=== PATIENT | male | born 1995 | race Caucasian/White ===

== ENCOUNTER 2018-03-13 22:03 | Emergency (ER) | payer MEDICARE, MEDICAID ==
[2018-03-13 22:29] VITALS: BP 105/61
--- NOTE | 2018-03-14 00:27 | ED Physician Documentation ---
PD HPI SKIN - Stated complaint Stated Complaint: BITE CHECK - Chief complaint Chief Complaint: General - History obtained from History obtained from: Patient - History of Present Illness Timing - onset: How many weeks ago (symptoms about a week; he was staying with his brother, sleeping on the couch and would get bite areas that were itchy the next day. Has not had new ones since changing where he sleeps. Going to [facility] today and sent to ER for "lotion to put on the bites". Sounds like the counselor there was worried about scabies/persistent infestation.) Timing - details: Gradual onset, Still present (number of bites has plateaued, and lessening in severity the past 2-3 days.) Location: Bodywide (not particularly in fingers/feet/webs.) Quality / character: Itchy. No: Vesicular, Swelling Associated symptoms: No: Fever, Myalgias Contributing factors: Insect bite /sting (he believes were bed bugs or flea bites.) Similar symptoms before: Has not had sx before Recently seen: Not recently seen Review of Systems Constitutional: denies: Fever, Chills Nose: denies: Rhinorrhea / runny nose, Congestion Throat: denies: Sore throat Respiratory: denies: Cough GI: denies: Nausea, Vomiting, Diarrhea Skin: reports: Rash PD PAST MEDICAL HISTORY - Past Medical History Derm: None - Present Medications Home Medications: Ambulatory Orders Medication Instructions Recorded Confirmed Betamethasone Valerate 1 applic TP BID PRN #15 cream..g. 03/14/18 Cetirizine [ZyrTEC] 10 mg PO DAILY #20 tablet 03/14/18 Dexamethasone [Decadron] 4 mg PO DAILY #5 tablet 03/14/18 Permethrin 5% Cream 60 applic TOP ONCE #1 tube 03/14/18 - Allergies Allergies/Adverse Reactions: Allergies Allergy/AdvReac Type Severity Reaction Status Date / Time No Known Drug Allergies Allergy Verified 03/14/18 00:50 PD ED PE NORMAL - Vitals Vital signs reviewed: Yes - General General: Alert and oriented X 3, No acute distress, Well developed/nourished - Derm Derm: Normal color, Warm and dry, Other (multiple discrete red bumps rash without vesicles. Not linear pattern. no purulence nor pustules. ) Results - Vitals Vitals: Oxygen O2 Source Room air PD MEDICAL DECISION MAKING - ED course Complexity details: considered differential (appearance and timing is of bedbugs and bites are not increasing since he left brothers house sleeping on couch. Not c/w scabies, which would keep progressing. ), d/w patient - Sepsis Event Vital Signs: Oxygen O2 Source Room air Departure - Departure Disposition: 01 Home, Self Care Clinical Impression: Bed bug bite Qualifiers: Encounter type: initial encounter Qualified Code(s): W57.XXXA - Bitten or stung by nonvenomous insect and other nonvenomous arthropods, initial encounter Condition: Stable Record reviewed to determine appropriate education?: Yes Instructions: ED Bites Bed Bug Prescriptions: Betamethasone Valerate 1 applic TP BID PRN #15 cream..g. PRN Reason: Itching Cetirizine [ZyrTEC] 10 mg PO DAILY #20 tablet Dexamethasone [Decadron] 4 mg PO DAILY #5 tablet Permethrin 5% Cream 60 applic TOP ONCE #1 tube Comments: This sounds like a persistent inflammation or reaction to the bedbug bites. We will treat it with oral steroids and antihistamines so as to get all of the areas. You can add betamethasone steroid to the worst areas topically as well. This does not sound like scabies which would still have a persistent infestation. However if Nir[facility] has would want you treated for possible scabies as well, I did include a prescription for the permethrin, which would be a once application from head to toe per package directions. The itching and rash should improve over the next few days. Discharge Date/Time: 03/14/18 01:05
[2018-03-14] MEDS ORDERED: CETIRIZINE 10 MG TABLET PO STA (00:37)
[2018-03-14] MEDS ORDERED: diphenhydrAMINE 25 MG CAPSULE PO STA (00:37)
[2018-03-14] MEDS ORDERED: DEXAMETHASONE 10 MG/ML VIAL PO STA (00:37)
== END 2018-03-14 01:05 | disposition home or self-care (01) ==
LOC: ED 22:03
DX: T14.8XXA Other injury of unspecified body region, initial encounter (principal); W57.XXXA Bitten or stung by nonvenomous insect and other nonvenomous arthropods, initial encounter; Y92.009 Unspecified place in unspecified non-institutional (private) residence as the place of occurrence of the external cause
CPT/HCPCS: 99283; A9270

== ENCOUNTER 2018-04-08 21:37 | Outpatient (CLI) | payer MEDICARE, MEDICAID | END 2018-04-08 21:38 | disposition critical access hospital (66) | LOC: EMS 21:37 | PROVIDERS: ATTEND Surgery | DX: R45.851 Suicidal ideations (principal) | CPT/HCPCS: A0425; A0429 ==

== ENCOUNTER 2018-04-08 21:57 | Emergency (ER) | payer MEDICARE, MEDICAID ==
--- NOTE | 2018-04-08 22:21 | ED Physician Documentation ---
PD HPI MHE - Stated complaint Stated Complaint: SI - Chief complaint Chief Complaint: MHE - History obtained from History obtained from: Patient - History of Present Illness Primary symptom: Suicidal ideation Timing - onset: How many weeks ago (1-2) Contributing factors: Off meds Recently seen: Not recently seen - Additional information Additional information: recently taken in to [facility] [place]. Had been off his medications for months ( Abilify, Trazadone, hydroxyzine; also takes omeprazole and claritin); was taken to a doctor in [place] a few days ago who gave new prescriptions for these medications. He says he had a single dose of his medications and subsequently left [facility] [place], spent time with others smoking marijuana, drinking alcohol, and taking Coric[place]. He acknowledges "I made bad choices" in doing this. He presents to ED due to increasing depression, suicidal thoughts with specific plan (would cut wrists with razor blades). Also says he has been having auditory hallucinations consisting of sounds that make him think someone is standing near or behind him when there is no one there. Requests to speak to a social services director. Patient also c/o bilateral foot pain due to extensive amount of walking over past few days. Review of Systems Cardiac: reports: Reviewed and negative Respiratory: reports: Reviewed and negative GI: reports: Reviewed and negative Musculoskeletal: reports: Extremity pain (bilateral foot pain) Neurologic: reports: Reviewed and negative Psychiatric: reports: Depressed, Suicidal, Hallucinations. denies: Homicidal, Delusions, Anxiety PD PAST MEDICAL HISTORY - Past Medical History Past Medical History: Yes Psych: Other (schizoaffective, depressed type) Derm: None - Past Surgical History Past Surgical History: No - Present Medications Home Medications: Ambulatory Orders Medication Instructions Recorded Confirmed No Known Home Medications [No 04/08/18 04/08/18 Known Home Medications] - Allergies Allergies/Adverse Reactions: Allergies Allergy/AdvReac Type Severity Reaction Status Date / Time No Known Drug Allergies Allergy Verified 03/14/18 00:50 - Living Situation Living Arrangement: reports: [facility] - Social History Does the pt drink ETOH?: Yes PD ED PE NORMAL - Vitals Vital signs reviewed: Yes - General General: Alert and oriented X 3, No acute distress, Well developed/nourished - HEENT HEENT: PERRL, EOMI - Cardiac Cardiac: RRR, No murmur - Respiratory Respiratory: No respiratory distress, Clear bilaterally - Abdomen Abdomen: Soft, Non tender - Derm Derm: Normal color, Warm and dry, Other (few, small, clear blisters on bilateral feet, plantar surfaces of forefoot. ) - Extremities Extremities: No tenderness to palpate - Neuro Neuro: Alert and oriented X 3 - Psych Psych: Normal mood, Normal affect Results - Vitals Vitals: Vital Signs - 24 hr 04/08/18 04/09/18 04/09/18 22:01 06:00 08:36 Temperature 36.8 C 36.8 C Heart Rate 73 70 68 Respiratory 18 18 16 Rate Blood Pressure 110/70 115/65 113/55 L O2 Saturation 97 97 98 Oxygen O2 Source Room air - Labs Labs: Laboratory Tests 04/08/18 04/08/18 04/09/18 22:21 22:30 06:15 WBC 7.5 RBC 4.70 Hgb 13.8 L Hct 40.7 L MCV 86.5 MCH 29.4 MCHC 33.9 RDW 13.5 Plt Count 260 MPV 8.7 Neut # (Auto) 3.4 Lymph # (Auto) 2.8 [place] # (Auto) 1.0 Eos # (Auto) 0.2 Baso # (Auto) 0.1 Absolute Nucleated RBC 0.00 Nucleated RBC % 0.0 Sodium 137 Potassium 3.2 L Chloride 105 Carbon Dioxide 24 Anion Gap 8.0 BUN 20 Creatinine 0.9 Estimated GFR (MDRD) 108 Glucose 104 H Calcium 8.9 Total Bilirubin 1.0 AST 34 ALT 48 Alkaline Phosphatase 57 Total Protein 7.1 Albumin 4.1 Globulin 3.0 Albumin/Globulin Ratio 1.4 Lipase 22 Urine Color YELLOW Urine Clarity CLEAR Urine pH 6.0 Ur Specific [place] >=1.030 H Urine Protein NEGATIVE Urine Glucose (UA) NEGATIVE Urine Ketones NEGATIVE Urine Occult Blood NEGATIVE Urine Nitrite NEGATIVE Urine Bilirubin NEGATIVE Urine Urobilinogen 0.2 (NORMAL) Ur Leukocyte Esterase NEGATIVE Ur Microscopic Review NOT INDICATED Urine Culture Comments NOT INDICATED Salicylates < 6.0 Urine Opiates Screen NEGATIVE Ur Oxycodone Screen NEGATIVE Urine Methadone Screen NEGATIVE Ur Propoxyphene Screen NEGATIVE Acetaminophen < 10 L Ur Barbiturates Screen NEGATIVE Ur Tricyclics Screen NEGATIVE Ur Phencyclidine Scrn NEGATIVE Ur Amphetamine Screen NEGATIVE U Methamphetamines Scrn NEGATIVE U Benzodiazepines Scrn NEGATIVE Urine Cocaine Screen NEGATIVE U Cannabinoids Screen POSITIVE H Ethyl Alcohol < 5.0 PD MEDICAL DECISION MAKING - ED course Complexity details: reviewed results, re-evaluated patient, considered differential, d/w patient ED course: held until AM for SW consult. Case signed out to Dr. Montes at 8 AM pending disposition. - Sepsis Event Vital Signs: Vital Signs - 24 hr 04/08/18 04/09/18 04/09/18 22:01 06:00 08:36 Temperature 36.8 C 36.8 C Heart Rate 73 70 68 Respiratory 18 18 16 Rate Blood Pressure 110/70 115/65 113/55 L O2 Saturation 97 97 98 Oxygen O2 Source Room air
[2018-04-08 22:39] LABS: BASOPHILS # (AUTO) 0.1 10^3/uL (0.0-0.1); BASOPHILS % (AUTO) 0.9 %; EOSINOPHILS # (AUTO) 0.2 10^3/uL (0.0-0.7); EOSINOPHILS % (AUTO) 2.6 %; HGB - HEMOGLOBIN 13.8 g/dL (14.0-18.0); LYMPHOCYTES # (AUTO) 2.8 10^3/uL (1.5-3.5); LYMPHOCYTES % (AUTO) 37.4 %; MEAN CORPUSCULAR HEMOGLOBIN 29.4 pg (27.0-31.0); MEAN CORPUSCULAR HGB CONC 33.9 g/dL (32.0-36.0); MEAN CORPUSCULAR VOLUME 86.5 fL (80.0-94.0); MEAN PLATELET VOLUME 8.7 fL (7.4-11.4); MONOCYTES % (AUTO) 13.9 %; NEUTROPHILS # (AUTO) 3.4 10^3/uL (1.5-6.6); NEUTROPHILS % (AUTO) 45.2 %; PLT - PLATELET COUNT 260 10^3/uL (130-450); RED CELL DISTRIBUTION WIDTH 13.5 % (12.0-15.0); WHITE BLOOD COUNT 7.5 x10^3/uL (4.8-10.8)
[2018-04-08 22:52] LABS: ALBUMIN 4.1 g/dL (3.2-5.5); ALBUMIN/GLOBULIN RATIO 1.4 (1.0-2.2); ALKALINE PHOSPHATASE 57 IU/L (42-121); ALT ALANINE AMINOTRANSFERASE 48 IU/L (10-60); AST ASPARTATE AMINOTRANSFERASE 34 IU/L (10-42); BUN - BLOOD UREA NITROGEN 20 mg/dL (6-20); CALCIUM 8.9 mg/dL (8.5-10.3); CARBON DIOXIDE - CO2 24 mmol/L (21-32); CHLORIDE 105 mmol/L (101-111); CREATININE 0.9 mg/dL (0.6-1.2); GFR - MDRD 108 (>89); GLUCOSE 104 mg/dL (70-100); LIPASE 22 U/L (22-51); SALICYLATE < 6.0 mg/dL; SODIUM 137 mmol/L (135-145); TOTAL PROTEIN 7.1 g/dL (6.7-8.2)
[2018-04-08] MEDS ORDERED: traZODone 50 MG TABLET PO STA (23:02)
[2018-04-08 23:10] LABS: ACETAMINOPHEN < 10 ug/mL (10-30)
[2018-04-08] MEDS ORDERED: IBUPROFEN 600 MG TABLET PO STA (23:21)
[2018-04-09 06:19] LABS: MUDS CUTOFF CONCENTRATIONS CUTOFF CONC BELOW:
[2018-04-09 06:21] LABS: GLUCOSE, URINE (UA) NEGATIVE (NEGATIVE); KETONES,URINE (UA) NEGATIVE (NEGATIVE); LEUKOCYTE ESTERASE, URINE NEGATIVE (NEGATIVE); NITRITE,URINE NEGATIVE (NEGATIVE); OCCULT BLOOD,URINE NEGATIVE (NEGATIVE); PROTEIN,URINE NEGATIVE (NEGATIVE); UROBILINOGEN,URINE 0.2 (NORMAL) E.U./dL (NORMAL)
[2018-04-09 06:22] LABS: CLARITY,URINE CLEAR (CLEAR)
[2018-04-09 06:23] LABS: BILIRUBIN,URINE NEGATIVE (NEGATIVE); ICTOTEST,URINE NEGATIVE
[2018-04-09 06:33] LABS: AMPHETAMINE SCREEN,URINE NEGATIVE (NEGATIVE); BENZODIAZEPINES SCREEN, URINE NEGATIVE (NEGATIVE); COCAINE SCREEN URINE NEGATIVE (NEGATIVE); METHADONE SCREEN, URINE NEGATIVE (NEGATIVE); METHAMPHETAMINES SCREEN, URINE NEGATIVE (NEGATIVE); OPIATE SCREEN, URINE NEGATIVE (NEGATIVE); OXYCODONE SCREEN, URINE NEGATIVE (NEGATIVE); PROPOXYPHENE SCREEN, URINE NEGATIVE (NEGATIVE); TRICYCLIC ANTIDEPRESSANT,URINE NEGATIVE (NEGATIVE)
[2018-04-09 08:37] VITALS: BP 113/55
[2018-04-09] MEDS ORDERED: POTASSIUM BICARB 25 MEQ TABLET PO STA (12:19)
== END 2018-04-09 14:07 ==
LOC: EDUNIT# → ED 21:57
DX: R45.851 Suicidal ideations (principal); F32.9 Major depressive disorder, single episode, unspecified
CPT/HCPCS: 36415; 80053; 81003; 83690; 85025; 99284; 99285; A9270; 80306; 80307; 80320; 80329; 81001; 87086; 99283

== ENCOUNTER 2018-04-17 02:34 | Outpatient (CLI) | payer MEDICARE, MEDICAID | END 2018-04-17 02:35 | disposition critical access hospital (66) | LOC: EMS 02:34 | PROVIDERS: ATTEND Surgery | DX: Z72.89 Other problems related to lifestyle (principal) | CPT/HCPCS: A0425; A0429 ==

== ENCOUNTER 2018-04-17 02:51 | Emergency (ER) | payer MEDICARE, MEDICAID ==
--- NOTE | 2018-04-17 05:12 | ED Physician Documentation ---
History of Present Illness - Stated complaint Stated Complaint: MHE - History obtained from History obtained from: Patient - History of Present Illness Timing: Chronic Pain level max: 0 Pain level now: 0 - Additonal information Additional information: 23-year-old male was brought in for evaluation of methamphetamine abuse. The patient told police that he wanted help. The patient reports smoking an excessive amount of methamphetamines. No reports of trauma or acute medical complaints or reports of suicidal or homicidal ideations. The patient is requesting help to get placed into detox. Review of Systems Constitutional: denies: Fever Eyes: denies: Decreased vision Ears: denies: Ear pain Cardiac: denies: Chest pain / pressure Respiratory: denies: Cough GI: denies: Abdominal Pain : denies: Dysuria Skin: denies: Rash Musculoskeletal: denies: Neck pain Neurologic: denies: Generalized weakness Psychiatric: denies: Suicidal, Homicidal PD PAST MEDICAL HISTORY - Past Medical History Psych: Other (schizoaffective, depressed type) Derm: None - Past Surgical History Past Surgical History: No - Present Medications Home Medications: Ambulatory Orders Medication Instructions Recorded Confirmed No Known Home Medications 04/08/18 04/17/18 - Allergies Allergies/Adverse Reactions: Allergies Allergy/AdvReac Type Severity Reaction Status Date / Time garlic Allergy Anaphylaxis Verified 04/17/18 05:48 - Social History Does the pt smoke?: No Smoking Status: Never smoker Does the pt drink ETOH?: Yes - POLST Patient has POLST: No PD ED PE NORMAL - General General: Other (The patient's alert but appears heavily intoxicated for m ethamphetamines) - HEENT HEENT: Atraumatic, PERRL, EOMI - Cardiac Cardiac: RRR, Strong equal pulses - Respiratory Respiratory: No respiratory distress - Extremities Extremities: No deformity, No tenderness to palpate, Normal ROM s pain - Neuro Neuro: Other (The patient's alert, high and methamphetamines, the patient ambulates on his own accord and is moving all 4 extremities and appears to have no gross focal motor deficit) - Psych Psych: Other (Bizarre affect secondary to methamphetamine intoxication) Results - Vitals Vitals: Vital Signs - 24 hr 04/17/18 05:43 Temperature 36.6 C Heart Rate 81 Respiratory 20 Rate Blood Pressure 164/85 H O2 Saturation 97 Oxygen O2 Source Room air - Labs Labs: Laboratory Tests 04/17/18 04/17/18 06:19 06:19 WBC 9.5 RBC 4.81 Hgb 14.3 Hct 41.6 L MCV 86.4 MCH 29.7 MCHC 34.4 RDW 13.5 Plt Count 253 MPV 8.3 Neut # (Auto) 6.0 Lymph # (Auto) 2.1 [place] # (Auto) 1.2 H Eos # (Auto) 0.1 Baso # (Auto) 0.1 Absolute Nucleated RBC 0.01 Nucleated RBC % 0.1 Sodium 138 Potassium 3.7 Chloride 104 Carbon Dioxide 25 Anion Gap 9.0 BUN 12 Creatinine 0.7 Estimated GFR (MDRD) 142 Glucose 89 Calcium 9.1 Total Bilirubin 0.8 AST 32 ALT 44 Alkaline Phosphatase 67 Total Protein 7.4 Albumin 4.4 Globulin 3.0 Albumin/Globulin Ratio 1.5 Lipase 22 Salicylates < 6.0 Acetaminophen < 10 L Ethyl Alcohol < 5.0 PD MEDICAL DECISION MAKING - ED course ED course: 07:00 AM Patient's care was turned over to the oncoming emergency physician Dr. Chacon. The patient is pending evaluation by social work. And for final disposition - Sepsis Event Vital Signs: Vital Signs - 24 hr 04/17/18 05:43 Temperature 36.6 C Heart Rate 81 Respiratory 20 Rate Blood Pressure 164/85 H O2 Saturation 97 Oxygen O2 Source Room air Departure - Departure Clinical Impression: Drug abuse
[2018-04-17 06:25] LABS: BASOPHILS # (AUTO) 0.1 10^3/uL (0.0-0.1); BASOPHILS % (AUTO) 0.7 %; EOSINOPHILS # (AUTO) 0.1 10^3/uL (0.0-0.7); HGB - HEMOGLOBIN 14.3 g/dL (14.0-18.0); LYMPHOCYTES # (AUTO) 2.1 10^3/uL (1.5-3.5); LYMPHOCYTES % (AUTO) 22.6 %; MEAN CORPUSCULAR HEMOGLOBIN 29.7 pg (27.0-31.0); MEAN CORPUSCULAR HGB CONC 34.4 g/dL (32.0-36.0); MEAN CORPUSCULAR VOLUME 86.4 fL (80.0-94.0); MEAN PLATELET VOLUME 8.3 fL (7.4-11.4); MONOCYTES # (AUTO) 1.2 10^3/uL (0.0-1.0); MONOCYTES % (AUTO) 12.8 %; NEUTROPHILS % (AUTO) 62.9 %; PLT - PLATELET COUNT 253 10^3/uL (130-450); RED BLOOD COUNT 4.81 10^6/uL (4.70-6.10); RED CELL DISTRIBUTION WIDTH 13.5 % (12.0-15.0); WHITE BLOOD COUNT 9.5 x10^3/uL (4.8-10.8)
[2018-04-17 06:34] LABS: MUDS CUTOFF CONCENTRATIONS CUTOFF CONC BELOW:
[2018-04-17 06:40] LABS: ALBUMIN 4.4 g/dL (3.2-5.5); ALBUMIN/GLOBULIN RATIO 1.5 (1.0-2.2); ALKALINE PHOSPHATASE 67 IU/L (42-121); ALT ALANINE AMINOTRANSFERASE 44 IU/L (10-60); AST ASPARTATE AMINOTRANSFERASE 32 IU/L (10-42); BILIRUBIN,TOTAL 0.8 mg/dL (0.2-1.0); BUN - BLOOD UREA NITROGEN 12 mg/dL (6-20); CALCIUM 9.1 mg/dL (8.5-10.3); CARBON DIOXIDE - CO2 25 mmol/L (21-32); CHLORIDE 104 mmol/L (101-111); CREATININE 0.7 mg/dL (0.6-1.2); GFR - MDRD 142 (>89); GLUCOSE 89 mg/dL (70-100); LIPASE 22 U/L (22-51); SALICYLATE < 6.0 mg/dL; SODIUM 138 mmol/L (135-145); TOTAL PROTEIN 7.4 g/dL (6.7-8.2)
[2018-04-17 06:41] LABS: ACETAMINOPHEN < 10 ug/mL (10-30)
[2018-04-17 06:46] LABS: AMPHETAMINE SCREEN,URINE POSITIVE (NEGATIVE); BENZODIAZEPINES SCREEN, URINE NEGATIVE (NEGATIVE); COCAINE SCREEN URINE NEGATIVE (NEGATIVE); METHADONE SCREEN, URINE NEGATIVE (NEGATIVE); METHAMPHETAMINES SCREEN, URINE POSITIVE (NEGATIVE); OPIATE SCREEN, URINE NEGATIVE (NEGATIVE); OXYCODONE SCREEN, URINE NEGATIVE (NEGATIVE); PROPOXYPHENE SCREEN, URINE NEGATIVE (NEGATIVE); TRICYCLIC ANTIDEPRESSANT,URINE NEGATIVE (NEGATIVE)
[2018-04-17] MEDS ORDERED: LORazepam 0.5 MG TABLET PO STA ×2 (11:23→13:38)
[2018-04-17] MEDS ORDERED: IBUPROFEN 600 MG TABLET PO STA (13:38)
[2018-04-17] MEDS ORDERED: ACETAMINOPHEN 325 MG TABLET PO STA (13:48)
[2018-04-17] MEDS ORDERED: DOXYCYCLINE 100 MG TABLET PO STA (13:48)
--- NOTE | 2018-04-17 13:48 | ED Physician Documentation ---
ED Addendum - Addendum Addendum: 04/17/18 13:41 He is still a little fidgety and anxious here but is feeling better than he did last night. There is no suicidal ideation. He is concerned about some blisters on his feet and worries that it might have some infection to them. I do not see particular redness nor lymphangitis. We could dose with the dose of antibiotic or more likely topical just in case. We will give him some Ativan to help with an of the anxiety and coming off of the math. Social work saw him and is arranging care at [facility]. He will get a cab voucher to get their. They can take him until 7 PM so he will leave about 6 PM here. The patient is comfortable with this arrangement. 04/17/18 17:16 Diagnoses: methamphetamine substance abuse anxiety disorder
[2018-04-17 17:37] VITALS: BP 137/64
== END 2018-04-17 17:54 | disposition home or self-care (01) ==
LOC: ED 02:51
DX: F15.10 Other stimulant abuse, uncomplicated (principal); F41.9 Anxiety disorder, unspecified
CPT/HCPCS: 36415; 80053; 83690; 85025; 99283; A9270; 80306; 80307; 80320; 80329

== ENCOUNTER 2018-05-16 04:51 | Emergency (ER) | payer MEDICARE, MEDICAID ==
[2018-05-16] MEDS ORDERED: CETIRIZINE 10 MG TABLET PO STA (05:01)
[2018-05-16] MEDS ORDERED: ALBUTEROL NEB 2.5 MG/3 ML INH STA (05:01)
[2018-05-16] MEDS ORDERED: BENZONATATE 100 MG CAPSULE PO STA (05:01)
--- NOTE | 2018-05-16 05:05 | ED Physician Documentation ---
PD HPI URI - Stated complaint Stated Complaint: CONGESTION - Chief complaint Chief Complaint: Resp - History obtained from History obtained from: Patient - History of Present Illness Timing - onset: How many days ago (2) Timing duration: Days (2) Timing details: Gradual onset Pain level max: 3 Pain level now: 3 Associated symptoms: Nasal congestion, Rhinorrhea, Sore throat, Dyspnea (states hard to breathe tonight), Other (states sometimes dry, sometimes productive of "sick tasting" sputum). No: Fever, Chills Contributing factors: Sick contact, Other (daily smoker) Improves by: Rest Worsened by: Activity, Breathing Similar symptoms before: Diagnosis (states has this every year) Review of Systems Ten Systems: 10 systems reviewed and negative Constitutional: denies: Fever, Chills Ears: denies: Ear pain Nose: reports: Rhinorrhea / runny nose, Congestion GI: denies: Vomiting, Diarrhea Skin: denies: Rash Musculoskeletal: denies: Neck pain, Back pain Neurologic: denies: Headache PD PAST MEDICAL HISTORY - Past Medical History Past Medical History: No Psych: Other Derm: None - Past Surgical History Past Surgical History: No - Present Medications Home Medications: Ambulatory Orders Medication Instructions Recorded Confirmed Lorazepam [Ativan] 1 mg PO Q8H PRN #12 tablet 04/17/18 Albuterol Sulf [Ventolin Hfa 1 - 2 puffs INH Q4HR PRN #1 inhaler 05/16/18 Inhaler] Benzonatate [Tessalon Perle] 100 - 200 mg PO TID PRN #30 capsule 05/16/18 Cetirizine [ZyrTEC] 10 mg PO DAILY PRN #20 tablet 05/16/18 - Allergies Allergies/Adverse Reactions: Allergies Allergy/AdvReac Type Severity Reaction Status Date / Time garlic Allergy Anaphylaxis Verified 04/17/18 05:48 - Social History Does the pt smoke?: Yes Smoking Status: Current every day smoker Does the pt drink ETOH?: Yes - Immunizations Immunizations are current?: Yes - POLST Patient has POLST: No PD ED PE NORMAL - Vitals Vital signs reviewed: Yes - General General: Alert and oriented X 3, No acute distress - HEENT HEENT: PERRL, Ears normal, Moist mucous membranes, Pharynx benign - Neck Neck: Supple, no meningeal sign, No adenopathy - Cardiac Cardiac: RRR, No murmur - Respiratory Respiratory: No respiratory distress, Other (Mild diminished breath sounds bilaterally) - Abdomen Abdomen: Soft, Non tender, Non distended - Back Back: No spinal TTP - Derm Derm: Warm and dry, No rash - Neuro Neuro: Alert and oriented X 3 Results - Vitals Vitals: Vital Signs - 24 hr 05/16/18 04:54 Temperature 36.4 C L Heart Rate 61 Respiratory 16 Rate Blood Pressure 130/72 O2 Saturation 100 Oxygen O2 Source Room air PD MEDICAL DECISION MAKING - ED course Complexity details: re-evaluated patient, considered differential, d/w patient ED course: Patient is a 23-year-old male who presents to the emergency department with what appears to be a viral upper respiratory infection. No fevers. No hypoxia. No respiratory distress. Feels better after nebulizer treatment. Will place on decongestants and albuterol for home. We will have him follow-up with his doctor for further care. Patient counseled regarding signs and symptoms for which I believe and urgent re-evaluation would be necessary. Patient with good understanding of and agreement to plan and is comfortable going home at this time This document was made in part using voice recognition software. While efforts are made to proofread this document, sound alike and grammatical errors may occur. - Sepsis Event Vital Signs: Vital Signs - 24 hr 05/16/18 04:54 Temperature 36.4 C L Heart Rate 61 Respiratory 16 Rate Blood Pressure 130/72 O2 Saturation 100 Oxygen O2 Source Room air Departure - Departure Disposition: 01 Home, Self Care Clinical Impression: Viral URI Condition: Good Instructions: ED URI Viral W Wheezing Follow-Up: your,doctor as needed [Other] Prescriptions: Albuterol Sulf [Ventolin Hfa Inhaler] 1 - 2 puffs INH Q4HR PRN #1 inhaler PRN Reason: Shortness Of Air/Wheezing Benzonatate [Tessalon Perle] 100 - 200 mg PO TID PRN #30 capsule PRN Reason: Cough Cetirizine [ZyrTEC] 10 mg PO DAILY PRN #20 tablet PRN Reason: Nasal Congestion Comments: Follow up with your doctor for further care. There is no evidence of pneumonia on your exam today. The cough will last for 2-3 weeks. Return if you worsen.
[2018-05-16 05:33] VITALS: BP 113/62
== END 2018-05-16 05:36 | disposition home or self-care (01) ==
LOC: ED 04:51
DX: J06.9 Acute upper respiratory infection, unspecified (principal); F17.200 Nicotine dependence, unspecified, uncomplicated
CPT/HCPCS: 94640; 94664; 99283; A9270

== ENCOUNTER 2018-05-22 09:34 | Emergency (ER) | payer MEDICARE, MEDICAID ==
--- NOTE | 2018-05-22 10:50 | ED Physician Documentation ---
History of Present Illness - Stated complaint Stated Complaint: L FOOT BLISTER-PX - Chief complaint Chief Complaint: Ext Problem - Additonal information Additional information: hx from pt 23 male new shoes blister to heel hurts to walk fears infection also lost his albuterol inhaler Review of Systems Musculoskeletal: reports: Other (blister) PD PAST MEDICAL HISTORY - Past Medical History Past Medical History: Yes Psych: Depression, Anxiety Musculoskeletal: Chronic back pain Derm: None - Past Surgical History Past Surgical History: No - Present Medications Home Medications: Ambulatory Orders Medication Instructions Recorded Confirmed Albuterol Sulf [Ventolin Hfa 1 - 2 puffs INH Q4HR PRN #1 inhaler 05/16/18 Inhaler] Benzonatate [Tessalon Perle] 100 - 200 mg PO TID PRN #30 capsule 05/16/18 Albuterol Sulfate [Proair Hfa 2 puffs INH Q4H PRN #1 inhaler 05/22/18 Inhaler] Aripiprazole [Abilify] 05/22/18 Cyclobenzaprine [Flexeril] 05/22/18 traZODone [Desyrel] 05/22/18 - Allergies Allergies/Adverse Reactions: Allergies Allergy/AdvReac Type Severity Reaction Status Date / Time garlic Allergy Anaphylaxis Verified 05/22/18 09:54 - Social History Does the pt smoke?: Yes Smoking Status: Current every day smoker Does the pt drink ETOH?: No Does the pt have substance abuse?: Yes Substance Use and Type: Marijuana - Immunizations Immunizations are current?: Yes - POLST Patient has POLST: No PD ED PE NORMAL - Vitals Vital signs reviewed: Yes - Cardiac Cardiac: RRR - Respiratory Respiratory: Clear bilaterally - Extremities Extremities: Other (denuded blister to R heel and small intact to lateral foot, no erythema pus streaking) Results - Vitals Vitals: Vital Signs - 24 hr 05/22/18 09:50 Temperature 36.2 C L Heart Rate 74 Respiratory 20 Rate Blood Pressure 128/61 O2 Saturation 96 Oxygen O2 Source Room air Departure - Departure Disposition: 01 Home, Self Care Clinical Impression: Blister, Medication refill Condition: Good Instructions: ED Crutch Walking, ED Blister Prescriptions: Albuterol Sulfate [Proair Hfa Inhaler] 2 puffs INH Q4H PRN #1 inhaler PRN Reason: Shortness Of Air/Wheezing
[2018-05-22] MEDS ORDERED: BACITRACIN OINT TOP ONE (11:03)
[2018-05-22 11:14] VITALS: BP 118/64
== END 2018-05-22 11:13 | disposition home or self-care (01) ==
LOC: ED 09:34
DX: S90.822A Blister (nonthermal), left foot, initial encounter (principal); X58.XXXA Exposure to other specified factors, initial encounter; Z76.0 Encounter for issue of repeat prescription; F17.200 Nicotine dependence, unspecified, uncomplicated
CPT/HCPCS: 99283; A9270

== ENCOUNTER 2018-05-23 16:03 | Emergency (ER) | payer MEDICARE, MEDICAID ==
[2018-05-23 16:08] VITALS: BP 131/75
--- NOTE | 2018-05-23 16:39 | ED Physician Documentation ---
History of Present Illness - Stated complaint Stated Complaint: SWELLING OF HANDS/FEETS - Chief complaint Chief Complaint: General - History obtained from History obtained from: Patient - History of Present Illness Timing: Today - Additonal information Additional information: 23-year-old male resident at [facility] discovered today that his hands are blue in color and he consulted his physician who told him to come directly to the emergency department. Patient arrives to the emergency department with chief complaint of his hands being blue and he states he otherwise does not feel ill. He does have some swelling of both his hands and his feet and he is on his feet a lot. He walks about 5 miles per day going back and forth between [facility] and about a mile away where he can get onto a [place] to smoke marijuana. He states that he has been 35 days clear and free of all other drugs and continues to use marijuana to calm himself down. He does this multiple times per day and is developed a big blister on the back of his heel he is now walking in flip-flops. Review of Systems Constitutional: reports: Weight Loss. denies: Fever, Chills, Myalgias, Fatigue, Sweats Eyes: denies: Decreased vision Ears: denies: Ear pain Nose: denies: Congestion Throat: denies: Sore throat Cardiac: denies: Chest pain / pressure Respiratory: denies: Dyspnea, Cough GI: denies: Nausea, Vomiting : denies: Frequency Skin: reports: Rash Musculoskeletal: reports: Extremity swelling. denies: Neck pain, Back pain Neurologic: denies: Generalized weakness, Focal weakness, Numbness PD PAST MEDICAL HISTORY - Past Medical History Past Medical History: Yes Psych: Depression, Anxiety Musculoskeletal: Chronic back pain Derm: None - Past Surgical History Past Surgical History: No - Present Medications Home Medications: Ambulatory Orders Medication Instructions Recorded Confirmed Albuterol Sulf [Ventolin Hfa 1 - 2 puffs INH Q4HR PRN #1 inhaler 05/16/18 Inhaler] Benzonatate [Tessalon Perle] 100 - 200 mg PO TID PRN #30 capsule 05/16/18 Albuterol Sulfate [Proair Hfa 2 puffs INH Q4H PRN #1 inhaler 05/22/18 Inhaler] Aripiprazole [Abilify] 05/22/18 Cyclobenzaprine [Flexeril] 05/22/18 traZODone [Desyrel] 05/22/18 - Allergies Allergies/Adverse Reactions: Allergies Allergy/AdvReac Type Severity Reaction Status Date / Time garlic Allergy Anaphylaxis Verified 05/22/18 09:54 - Social History Does the pt smoke?: Yes Smoking Status: Current every day smoker Does the pt drink ETOH?: No Does the pt have substance abuse?: Yes - Immunizations Immunizations are current?: Yes - POLST Patient has POLST: No PD ED PE NORMAL - Vitals Vital signs reviewed: Yes (hypertensive ) - General General: Alert and oriented X 3, No acute distress, Well developed/nourished - HEENT HEENT: Atraumatic, PERRL, EOMI - Neck Neck: Supple, no meningeal sign, No bony TTP - Respiratory Respiratory: No respiratory distress - Derm Derm: Warm and dry, No rash, Other (There is black discoloration to the hands and fingers similar to the new sweat pants he is wearing. This is wiped clean with an alcohol wipe. ) - Extremities Extremities: No deformity, Other (There is trace edema to the feet and a 4cm round granulating blister bed on the left heal. ) - Neuro Neuro: Alert and oriented X 3, enamel pulverizer 2-12 intact, No motor deficit, No sensory deficit, Normal speech Eye Opening: Spontaneous Motor: Obeys Commands Verbal: Oriented GCS Score: 15 - Psych Psych: Normal mood, Normal affect Results - Vitals Vitals: Vital Signs - 24 hr 05/23/18 05/23/18 16:06 16:08 Temperature 36.6 C Heart Rate 66 Respiratory 16 Rate Blood Pressure 131/75 H O2 Saturation 100 Oxygen O2 Source Room air PD MEDICAL DECISION MAKING - ED course Complexity details: considered differential, d/w patient ED course: 23-year-old male with staining of his hands from the fabric dye of his new pants. He does have some mild edema to his feet and hands and I suspect this is mostly due to exposure and overuse. He has a healing blister to the left heel which is large and without evidence of infection. This is dressed. I have addressed his presenting complaint and recommended he obtain a well fitting pair of shoes and follow up with his provider about adult ADHD. Departure - Departure Disposition: 01 Home, Self Care Clinical Impression: Discoloration of skin of hand, Blister Condition: Stable Instructions: ED Blister Follow-Up: Alex Torres MD [Primary Care Provider] - Comments: obtain a high quality pair of well fitting shoes to walk in.
--- NOTE | 2018-05-23 18:07 | ED Physician Documentation ---
ED Addendum - Addendum Addendum: 05/23/18 18:06 unscheduled return visit - chart accessed for follow up and educational purposes 05/23/18 18:07
== END 2018-05-23 16:59 | disposition home or self-care (01) ==
LOC: ED 16:03
DX: L98.8 Other specified disorders of the skin and subcutaneous tissue (principal); S60.529A Blister (nonthermal) of unspecified hand, initial encounter; S90.822A Blister (nonthermal), left foot, initial encounter; X58.XXXA Exposure to other specified factors, initial encounter; F17.200 Nicotine dependence, unspecified, uncomplicated
CPT/HCPCS: 99283

== ENCOUNTER 2018-05-26 21:02 | Emergency (ER) | payer MEDICARE, MEDICAID ==
[2018-05-26 21:59] LABS: MUDS CUTOFF CONCENTRATIONS CUTOFF CONC BELOW:
[2018-05-26 22:10] LABS: BASOPHILS # (AUTO) 0.1 10^3/uL (0.0-0.1); BASOPHILS % (AUTO) 0.7 %; EOSINOPHILS # (AUTO) 0.3 10^3/uL (0.0-0.7); EOSINOPHILS % (AUTO) 3.7 %; HGB - HEMOGLOBIN 14.4 g/dL (14.0-18.0); LYMPHOCYTES # (AUTO) 3.2 10^3/uL (1.5-3.5); LYMPHOCYTES % (AUTO) 38.3 %; MEAN CORPUSCULAR HEMOGLOBIN 29.8 pg (27.0-31.0); MEAN CORPUSCULAR HGB CONC 34.6 g/dL (32.0-36.0); MEAN CORPUSCULAR VOLUME 86.1 fL (80.0-94.0); MEAN PLATELET VOLUME 8.6 fL (7.4-11.4); MONOCYTES # (AUTO) 0.9 10^3/uL (0.0-1.0); MONOCYTES % (AUTO) 10.5 %; NEUTROPHILS # (AUTO) 3.8 10^3/uL (1.5-6.6); NEUTROPHILS % (AUTO) 46.8 %; PLT - PLATELET COUNT 246 10^3/uL (130-450); RED BLOOD COUNT 4.81 10^6/uL (4.70-6.10); RED CELL DISTRIBUTION WIDTH 13.7 % (12.0-15.0); WHITE BLOOD COUNT 8.2 x10^3/uL (4.8-10.8)
[2018-05-26 22:22] LABS: BUN - BLOOD UREA NITROGEN 13 mg/dL (6-20); CALCIUM 9.4 mg/dL (8.5-10.3); CARBON DIOXIDE - CO2 26 mmol/L (21-32); CHLORIDE 105 mmol/L (101-111); CREATININE 0.6 mg/dL (0.6-1.2); GFR - MDRD 170 (>89); GLUCOSE 95 mg/dL (70-100); SODIUM 140 mmol/L (135-145)
[2018-05-26 22:24] LABS: AMPHETAMINE SCREEN,URINE NEGATIVE (NEGATIVE); BENZODIAZEPINES SCREEN, URINE NEGATIVE (NEGATIVE); COCAINE SCREEN URINE NEGATIVE (NEGATIVE); METHADONE SCREEN, URINE NEGATIVE (NEGATIVE); METHAMPHETAMINES SCREEN, URINE NEGATIVE (NEGATIVE); OPIATE SCREEN, URINE NEGATIVE (NEGATIVE); OXYCODONE SCREEN, URINE NEGATIVE (NEGATIVE); PROPOXYPHENE SCREEN, URINE NEGATIVE (NEGATIVE); TRICYCLIC ANTIDEPRESSANT,URINE NEGATIVE (NEGATIVE)
--- NOTE | 2018-05-26 23:25 | ED Physician Documentation ---
PD HPI MHE - Stated complaint Stated Complaint: SI - Chief complaint Chief Complaint: MHE - Additional information Additional information: 23-year-old male presents the emergency department for evaluation of mental healthIncreased suicidal ideations and currently does not feel safe the patient reports at his current location secondary to his suicidal ideations. The patient is not done anything to harm himself. The patient does not have a clear plan at this time. The patient is requesting help. The patient denies any acute medical complaints. Symptoms are described as moderate. No other associated symptoms. No relieving factors. Review of Systems Constitutional: denies: Fever Eyes: denies: Discharge Ears: denies: Drainage/discharge Nose: denies: Rhinorrhea / runny nose Throat: denies: Sore throat Cardiac: denies: Palpitations Respiratory: denies: Cough GI: denies: Abdominal Pain : denies: Dysuria Skin: denies: Rash Musculoskeletal: denies: Neck pain Neurologic: denies: Syncope Psychiatric: reports: Suicidal. denies: Hallucinations Immunocompromised: denies: Chemotherapy PD PAST MEDICAL HISTORY - Past Medical History Past Medical History: Yes Psych: Depression, Anxiety Musculoskeletal: Chronic back pain Derm: None - Past Surgical History Past Surgical History: No - Present Medications Home Medications: Ambulatory Orders Medication Instructions Recorded Confirmed Albuterol Sulf [Ventolin Hfa 1 - 2 puffs INH Q4HR PRN #1 inhaler 05/16/18 Inhaler] Albuterol Sulfate [Proair Hfa 2 puffs INH Q4H PRN #1 inhaler 05/22/18 Inhaler] Aripiprazole [Abilify] 15 mg PO DAILY 05/22/18 traZODone [Desyrel] 100 mg PO DAILY PM 05/22/18 Cetirizine [ZyrTEC] 10 mg PO DAILY 05/26/18 05/26/18 Omeprazole 40 mg PO BID 05/26/18 05/26/18 - Allergies Allergies/Adverse Reactions: Allergies Allergy/AdvReac Type Severity Reaction Status Date / Time garlic Allergy Anaphylaxis Verified 05/26/18 21:13 - Social History Does the pt smoke?: Yes Smoking Status: Current every day smoker Does the pt drink ETOH?: No Does the pt have substance abuse?: Yes - Immunizations Immunizations are current?: Yes - POLST Patient has POLST: No PD ED PE NORMAL - General General: Alert and oriented X 3, No acute distress - HEENT HEENT: Atraumatic, PERRL, EOMI, Ears normal - Neck Neck: Supple, no meningeal sign - Cardiac Cardiac: RRR, Strong equal pulses - Respiratory Respiratory: No respiratory distress - Abdomen Abdomen: Soft, Non tender, Non distended - Derm Derm: Normal color - Extremities Extremities: No deformity, No edema - Neuro Neuro: Alert and oriented X 3, Normal speech PD ED PE EXPANDED - Psych Psych: Suicidal Results - Vitals Vitals: Vital Signs - 24 hr 05/26/18 05/27/18 05/27/18 21:07 00:12 02:00 Temperature 36.5 C Heart Rate 60 50 L 51 L Respiratory 16 16 15 Rate Blood Pressure 149/78 H 115/52 L 106/60 O2 Saturation 98 97 99 05/27/18 04:39 Temperature 36.3 C L Heart Rate 70 Respiratory 15 Rate Blood Pressure 102/55 L O2 Saturation 100 Oxygen O2 Source Room air - Labs Labs: Laboratory Tests 05/26/18 05/26/18 05/26/18 21:50 21:50 21:52 WBC 8.2 RBC 4.81 Hgb 14.4 Hct 41.5 L MCV 86.1 MCH 29.8 MCHC 34.6 RDW 13.7 Plt Count 246 MPV 8.6 Neut # (Auto) 3.8 Lymph # (Auto) 3.2 Kidder # (Auto) 0.9 Eos # (Auto) 0.3 Baso # (Auto) 0.1 Absolute Nucleated RBC 0.00 Nucleated RBC % 0.1 Sodium 140 Potassium 3.9 Chloride 105 Carbon Dioxide 26 Anion Gap 9.0 BUN 13 Creatinine 0.6 Estimated GFR (MDRD) 170 Glucose 95 Calcium 9.4 Urine Opiates Screen NEGATIVE Ur Oxycodone Screen NEGATIVE Urine Methadone Screen NEGATIVE Ur Propoxyphene Screen NEGATIVE Ur Barbiturates Screen NEGATIVE Ur Tricyclics Screen NEGATIVE Ur Phencyclidine Scrn NEGATIVE Ur Amphetamine Screen NEGATIVE U Methamphetamines Scrn NEGATIVE U Benzodiazepines Scrn NEGATIVE Urine Cocaine Screen NEGATIVE U Cannabinoids Screen POSITIVE H Ethyl Alcohol < 5.0 PD MEDICAL DECISION MAKING - ED course ED course: The patient has been medically cleared and is pending evaluation by tele- psychiatry 0 6:17 AM the patient was seen and evaluated by tele-psychiatry and the recommendations were for the patient to be placed into a behavioral health center. A consult for social work was put in so that they can arrange for placement into a behavioral health center. 07: 00 a.m. the case was turned over to the oncoming emergency physician Dr. Vela For final disposition Departure - Departure Clinical Impression: Suicidal ideations
--- NOTE | 2018-05-27 06:44 | TELEPSYCH PHYS NOTE ---
Telepsych Note - CHIEF COMPLAINT/HX OF PRESENT ILLNESS Cheif Complaint and History of Present Illness: "CC: i have uncontrollable thoughts of wanting to kill myself." HPI. Pt seen via televideo with the help of onsite staff. Pt is a 23 yo male who reports a hx of Schizoaffective Disorder, Bipolar Type, Anxiety, PTSD, Borderline personality disorder and Severe depression. Pt presents to the ED, self referred due to uncontrollable thoughts of wanting to kill myself. Pt reports a 2 week period of worsening depressive sxs. Cites sxs inclusive of depressed mood, poor sleep, decreased appetite, with feelings of hopelessness, worthlessness and helplessness. Pt notes that over the past 1 week his sxs have worsened more significantly with intense and uncontrollable thoughts of wanting to kill himself. Pt states last night he was looking around his home for a suitable method to kill himself. States this scared him and he came to the hospital. Pt reports a prior hx of 6 attempts via various methods including cutting, hanging and overdosing x 3. Pt reports no specific or identifiable trigger currently. Pt reports he has been compliant with his outpt medications and treatment. On ROS, pt reports CAHs to kill himself. Also state voices are derogatory towards him, calling him worthless and useless. Pt Pt denies VHs, delusions nor HI. Pt notes ongoing SI. He is unable to contract for safety outside of the hospital and states he would likely try to harm himself. Pt presents as an acute danger to himself requiring acute inpt psychiatric admission for safety, stabilization and treatment. Pt is voluntary for inpt treatment. - SI/HI/SELF HARM SI/HI/SELF HARM (CURRENT OR HISTORY OF):: SI, Self Harm, Cutting SI/HI/Self Harm Text (Current or History of):: Reports a prior hx of 6 suicide attempts via ODing x 3, cutting and hanging. - VIOLENCE/LEGAL/COLLATERAL Violence - Legal - Collateral: none reported - PSYCHIATRIC HX/TREATMENT HX Psychiatric: Anxiety, Post traumatic stress disorder Psychiatric/Treatment Hx Other: Schizoaffective Disorder, Bipolar Type - DRUG/ALCOHOL HX Substance Use and Type: Marijuana - MEDICAL HX Does the pt have a hx of MRSA?: No Skin: None Musculoskeletal: Chronic back pain PMH Other: Hep C - HOME MEDICATIONS Home Meds (as last confirmed): Patient History Medication Instructions Recorded Confirmed Aripiprazole [Abilify] 15 mg PO DAILY 05/22/18 traZODone [Desyrel] 100 mg PO DAILY PM 05/22/18 Cetirizine [ZyrTEC] 10 mg PO DAILY 05/26/18 05/26/18 Omeprazole 40 mg PO BID 05/26/18 05/26/18 - ALLERGIES Allergies (as last confirmed): Allergies Allergy/AdvReac Type Severity Reaction Status Date / Time garlic Allergy Anaphylaxis Verified 05/26/18 21:13 - FAMILY PSYCH/SUICIDE/SOCIAL HX-MENTAL Family - Suicide - Social Hx and Mental Status Exam: Reports significant family hx of mental illness, unclear of diagnoses - TREATMENT/PHARMACOLOGICAL RECOMMENDATION Treatment - Pharmacological - Therapy Recommendations: Patient requires acute inpt psychiatric admission For safety, stabilization and treatment Pt is voluntary for inpatient treatment Please confirm and continue pt current outpt psychiatric medication regimen. - TIME SPENT & PROVIDER LOCATION Telepsych consultation conducted via videoconferencing: Yes List names and roles of persons who participated in consult: Amado floyd (patient) Dior (telepsychiatrist) Telepsych Provider Location: [place] Time Telepsych consult began: 08:55 Time Telepsych consult completed: 09:15
--- NOTE | 2018-05-27 07:07 | ED Physician Documentation ---
History of Present Illness - Stated complaint Stated Complaint: SI - Chief complaint Chief Complaint: MHE PD PAST MEDICAL HISTORY - Past Medical History Past Medical History: Yes Psych: Anxiety, Post traumatic stress disorder Musculoskeletal: Chronic back pain Derm: None Other Past Medical History: Hep C - Past Surgical History Past Surgical History: No - Present Medications Home Medications: Ambulatory Orders Medication Instructions Recorded Confirmed Albuterol Sulf [Ventolin Hfa 1 - 2 puffs INH Q4HR PRN #1 inhaler 05/16/18 Inhaler] Albuterol Sulfate [Proair Hfa 2 puffs INH Q4H PRN #1 inhaler 05/22/18 Inhaler] Aripiprazole [Abilify] 15 mg PO DAILY 05/22/18 traZODone [Desyrel] 100 mg PO DAILY PM 05/22/18 Cetirizine [ZyrTEC] 10 mg PO DAILY 05/26/18 05/26/18 Omeprazole 40 mg PO BID 05/26/18 05/26/18 - Allergies Allergies/Adverse Reactions: Allergies Allergy/AdvReac Type Severity Reaction Status Date / Time garlic Allergy Anaphylaxis Verified 05/26/18 21:13 - Social History Does the pt smoke?: Yes Smoking Status: Current every day smoker Does the pt drink ETOH?: No Does the pt have substance abuse?: Yes Substance Use and Type: Marijuana - Immunizations Immunizations are current?: Yes - POLST Patient has POLST: No Results - Vitals Vitals: Vital Signs - 24 hr 05/26/18 05/27/18 05/27/18 21:07 00:12 02:00 Temperature 36.5 C Heart Rate 60 50 L 51 L Respiratory 16 16 15 Rate Blood Pressure 149/78 H 115/52 L 106/60 O2 Saturation 98 97 99 05/27/18 05/27/18 05/27/18 04:39 06:48 09:06 Temperature 36.3 C L 36.3 C L Heart Rate 70 69 72 Respiratory 15 16 18 Rate Blood Pressure 102/55 L 136/62 H 135/65 H O2 Saturation 100 99 99 05/27/18 05/27/18 09:12 17:07 Temperature 36.5 C Heart Rate 74 74 Respiratory 16 16 Rate Blood Pressure 123/72 O2 Saturation 100 Oxygen O2 Source Room air - Labs Labs: Laboratory Tests 05/26/18 05/26/18 05/26/18 21:50 21:50 21:52 WBC 8.2 RBC 4.81 Hgb 14.4 Hct 41.5 L MCV 86.1 MCH 29.8 MCHC 34.6 RDW 13.7 Plt Count 246 MPV 8.6 Neut # (Auto) 3.8 Lymph # (Auto) 3.2 Cochran # (Auto) 0.9 Eos # (Auto) 0.3 Baso # (Auto) 0.1 Absolute Nucleated RBC 0.00 Nucleated RBC % 0.1 Sodium 140 Potassium 3.9 Chloride 105 Carbon Dioxide 26 Anion Gap 9.0 BUN 13 Creatinine 0.6 Estimated GFR (MDRD) 170 Glucose 95 Calcium 9.4 Urine Opiates Screen NEGATIVE Ur Oxycodone Screen NEGATIVE Urine Methadone Screen NEGATIVE Ur Propoxyphene Screen NEGATIVE Ur Barbiturates Screen NEGATIVE Ur Tricyclics Screen NEGATIVE Ur Phencyclidine Scrn NEGATIVE Ur Amphetamine Screen NEGATIVE U Methamphetamines Scrn NEGATIVE U Benzodiazepines Scrn NEGATIVE Urine Cocaine Screen NEGATIVE U Cannabinoids Screen POSITIVE H Ethyl Alcohol < 5.0 PD MEDICAL DECISION MAKING - ED course ED course: assumed care 7 AM 23 male well known to our ER to ED yesterday for SI per report no self harm medically clear telepsych eval rec inpt care awaiting FEDERICO hicks went to see pt he understand the plan and is cooperative RRR CTAB seen by FEDERICO placed at [facility] I checked on pt numerous times over the day and he remained calm and cooperative Departure - Departure Disposition: 65 Psych Hosp/Unit DC/Xfer Clinical Impression: Suicidal ideations Condition: Fair
[2018-05-27] MEDS ORDERED: ALBUTEROL NEB 2.5 MG/3 ML INH STA (08:43)
[2018-05-27] MEDS ORDERED: LORazepam 0.5 MG TABLET PO STA (15:47)
[2018-05-27 17:08] VITALS: BP 123/72
[2018-05-27] MEDS ORDERED: hydrOXYzine PAMOATE 25 MG CAPSULE PO STA (19:08)
== END 2018-05-27 19:45 ==
LOC: ED 21:02
DX: R45.851 Suicidal ideations (principal); F41.9 Anxiety disorder, unspecified; F43.10 Post-traumatic stress disorder, unspecified; F17.200 Nicotine dependence, unspecified, uncomplicated; Z91.5 Personal history of self-harm; F25.0 Schizoaffective disorder, bipolar type; B19.20 Unspecified viral hepatitis C without hepatic coma
CPT/HCPCS: 36415; 80048; 85025; 94640; 94664; 99284; 99285; A9270; G0425; Q3014; 80306; 80320

== ENCOUNTER 2018-05-29 21:09 | Outpatient (CLI) | payer MEDICARE, MEDICAID | END 2018-05-29 21:10 | disposition critical access hospital (66) | LOC: EMS 21:09 | PROVIDERS: ATTEND Surgery | DX: R06.00 Dyspnea, unspecified (principal); R20.0 Anesthesia of skin | CPT/HCPCS: A0425; A0429 ==

== ENCOUNTER 2018-05-29 21:16 | Emergency (ER) | payer MEDICARE, MEDICAID ==
[2018-05-29] MEDS ORDERED: LORazepam 2 MG/ML VIAL IVP STA (21:27)
--- NOTE | 2018-05-29 21:40 | ED Physician Documentation ---
History of Present Illness - Stated complaint Stated Complaint: DIFF BREATHING - Chief complaint Chief Complaint: Resp - History obtained from History obtained from: Patient, EMS - History of Present Illness Timing: Today - Additonal information Additional information: 23-year-old male resident of [facility] has developed suicidal ideation and has been evaluated at [facility] and left on the second day of a 3-day hold. He was voluntary and return to [facility]. Tonight he is complaining of shortness of breath and confusion. Review of Systems Unable to obtain: Confused Constitutional: denies: Fever Eyes: denies: Decreased vision Ears: denies: Ear pain Nose: denies: Congestion Throat: denies: Sore throat Cardiac: denies: Chest pain / pressure, Palpitations Respiratory: reports: Dyspnea. denies: Cough GI: denies: Nausea, Vomiting : denies: Dysuria, Frequency Musculoskeletal: denies: Neck pain, Back pain, Extremity pain Neurologic: reports: Confused. denies: Generalized weakness, Focal weakness, Numbness, Difficulty speaking, Headache, Head injury, LOC PD PAST MEDICAL HISTORY - Past Medical History Past Medical History: Yes Psych: Anxiety, Post traumatic stress disorder Musculoskeletal: Chronic back pain Derm: None - Past Surgical History Past Surgical History: No - Present Medications Home Medications: Ambulatory Orders Medication Instructions Recorded Confirmed Albuterol Sulf [Ventolin Hfa 1 - 2 puffs INH Q4HR PRN #1 inhaler 05/16/18 Inhaler] Albuterol Sulfate [Proair Hfa 2 puffs INH Q4H PRN #1 inhaler 05/22/18 Inhaler] Aripiprazole [Abilify] 15 mg PO DAILY 05/22/18 traZODone [Desyrel] 100 mg PO DAILY PM 05/22/18 Cetirizine [ZyrTEC] 10 mg PO DAILY 05/26/18 05/26/18 Omeprazole 40 mg PO BID 05/26/18 05/26/18 - Allergies Allergies/Adverse Reactions: Allergies Allergy/AdvReac Type Severity Reaction Status Date / Time garlic Allergy Anaphylaxis Verified 05/29/18 21:33 - Social History Does the pt smoke?: Yes Smoking Status: Current every day smoker Does the pt drink ETOH?: No Does the pt have substance abuse?: Yes - Immunizations Immunizations are current?: Yes - POLST Patient has POLST: No PD ED PE NORMAL - Vitals Vital signs reviewed: Yes (hypertensive ) - General General: Well developed/nourished, Other (vacant stare short shallow breathing decreased interaction with delay in execution of motor commands. ) - HEENT HEENT: Atraumatic, PERRL, EOMI - Neck Neck: Supple, no meningeal sign, No bony TTP - Cardiac Cardiac: RRR, No murmur - Respiratory Respiratory: No respiratory distress, Other (short shallow breaths ) - Abdomen Abdomen: Soft, Non tender - Back Back: No CVA TTP, No spinal TTP - Derm Derm: Normal color, Warm and dry, No rash - Extremities Extremities: No deformity, No edema, Other (There is a healing blister to the left heal) - Neuro Neuro: freight receiver 2-12 intact, No motor deficit, No sensory deficit Eye Opening: Spontaneous Motor: Obeys Commands Verbal: Confused GCS Score: 14 - Psych Psych: Other (mood is absent and the affect is flat. ) Results - Vitals Vitals: Vital Signs - 24 hr 05/29/18 21:20 Temperature 36.6 C Heart Rate 85 Respiratory 22 Rate Blood Pressure 143/82 H O2 Saturation 100 Oxygen O2 Source Room air - EKG (time done) 2134 Rate: Rate (enter#) (78) Rhythm: NSR Compare to prior EKG: Old EKG unavailable Computer interpretation: Agree with computer - Labs Labs: Laboratory Tests 05/29/18 05/29/18 05/29/18 21:40 21:40 21:40 WBC 10.7 RBC 5.38 Hgb 16.0 Hct 46.2 MCV 86.0 MCH 29.7 MCHC 34.6 RDW 13.3 Plt Count 265 MPV 8.8 Neut # (Auto) 6.3 Lymph # (Auto) 3.0 Gillespie # (Auto) 1.2 H Eos # (Auto) 0.1 Baso # (Auto) 0.1 Absolute Nucleated RBC 0.01 Nucleated RBC % 0.1 Sodium 135 Potassium 3.8 Chloride 100 L Carbon Dioxide 27 Anion Gap 8.0 BUN 23 H Creatinine 0.9 Estimated GFR (MDRD) 107 Glucose 97 Calcium 9.8 Total Bilirubin 0.8 AST 32 ALT 44 Alkaline Phosphatase 71 Troponin I < 0.04 B-Natriuretic Peptide Total Protein 7.8 Albumin 4.8 Globulin 3.0 Albumin/Globulin Ratio 1.6 Lipase 19 L TSH Urine Color Urine Clarity Urine pH Ur Specific Leopold Urine Protein Urine Glucose (UA) Urine Ketones Urine Occult Blood Urine Nitrite Urine Bilirubin Urine Urobilinogen Ur Leukocyte Esterase Ur Microscopic Review Urine Culture Comments Salicylates < 6.0 Urine Opiates Screen Ur Oxycodone Screen Urine Methadone Screen Ur Propoxyphene Screen Acetaminophen < 10 L Ur Barbiturates Screen Ur Tricyclics Screen Ur Phencyclidine Scrn Ur Amphetamine Screen U Methamphetamines Scrn U Benzodiazepines Scrn Urine Cocaine Screen U Cannabinoids Screen Ethyl Alcohol < 5.0 05/29/18 05/29/18 05/29/18 21:40 21:40 22:27 WBC RBC Hgb Hct MCV MCH MCHC RDW Plt Count MPV Neut # (Auto) Lymph # (Auto) Gillespie # (Auto) Eos # (Auto) Baso # (Auto) Absolute Nucleated RBC Nucleated RBC % Sodium Potassium Chloride Carbon Dioxide Anion Gap BUN Creatinine Estimated GFR (MDRD) Glucose Calcium Total Bilirubin AST ALT Alkaline Phosphatase Troponin I B-Natriuretic Peptide < 5 L Total Protein Albumin Globulin Albumin/Globulin Ratio Lipase TSH 1.12 Urine Color YELLOW Urine Clarity CLEAR Urine pH 6.0 Ur Specific Leopold 1.025 Urine Protein NEGATIVE Urine Glucose (UA) NEGATIVE Urine Ketones 15 H Urine Occult Blood NEGATIVE Urine Nitrite NEGATIVE Urine Bilirubin NEGATIVE Urine Urobilinogen 0.2 (NORMAL) Ur Leukocyte Esterase NEGATIVE Ur Microscopic Review NOT INDICATED Urine Culture Comments NOT INDICATED Salicylates Urine Opiates Screen NEGATIVE Ur Oxycodone Screen NEGATIVE Urine Methadone Screen NEGATIVE Ur Propoxyphene Screen NEGATIVE Acetaminophen Ur Barbiturates Screen NEGATIVE Ur Tricyclics Screen NEGATIVE Ur Phencyclidine Scrn NEGATIVE Ur Amphetamine Screen NEGATIVE U Methamphetamines Scrn NEGATIVE U Benzodiazepines Scrn NEGATIVE Urine Cocaine Screen NEGATIVE U Cannabinoids Screen POSITIVE H Ethyl Alcohol PD MEDICAL DECISION MAKING - ED course Complexity details: reviewed old records, reviewed results, re-evaluated patient, considered differential, d/w patient ED course: 23-year-old male with a history of anxiety and recent suicidal ideation has had what appears to be a panic attack today at [facility]. He presented to the emergency department with numb hands and confusion. He was breathing shallow and rapidly and over the course of less than an hour he began to improve and began to interact again. He has vague memories of the panic attack. He does remember his hands being numb and his lighting specialist who is here with him tonight states that he looks like he might be having some type of a seizure when this happened. She is describing carpopedal spasm. Patient is administered a milligram of Ativan intravenously here in the emergency department at the time of discharge he is feeling improved but feels he may have some trouble sleeping tonight despite being exhausted. He is administered a second 1 mg dose of Ativan prior to leaving. He does have an appointment to see his counselors and prescriber at [facility] tomorrow. Departure - Departure Disposition: 01 Home, Self Care Clinical Impression: Panic attack Condition: Stable Instructions: ED Panic Attack Follow-Up: Alex Torres MD [Primary Care Provider] - Comments: Follow up with your provider at [facility] as planned tomorrow.
[2018-05-29 21:47] LABS: BASOPHILS # (AUTO) 0.1 10^3/uL (0.0-0.1); BASOPHILS % (AUTO) 0.6 %; EOSINOPHILS # (AUTO) 0.1 10^3/uL (0.0-0.7); EOSINOPHILS % (AUTO) 0.9 %; LYMPHOCYTES % (AUTO) 28.3 %; MEAN CORPUSCULAR HEMOGLOBIN 29.7 pg (27.0-31.0); MEAN CORPUSCULAR HGB CONC 34.6 g/dL (32.0-36.0); MEAN PLATELET VOLUME 8.8 fL (7.4-11.4); MONOCYTES # (AUTO) 1.2 10^3/uL (0.0-1.0); MONOCYTES % (AUTO) 11.3 %; NEUTROPHILS # (AUTO) 6.3 10^3/uL (1.5-6.6); NEUTROPHILS % (AUTO) 58.9 %; PLT - PLATELET COUNT 265 10^3/uL (130-450); RED BLOOD COUNT 5.38 10^6/uL (4.70-6.10); RED CELL DISTRIBUTION WIDTH 13.3 % (12.0-15.0); WHITE BLOOD COUNT 10.7 x10^3/uL (4.8-10.8)
[2018-05-29 22:03] LABS: ACETAMINOPHEN < 10 ug/mL (10-30); ALBUMIN 4.8 g/dL (3.2-5.5); ALBUMIN/GLOBULIN RATIO 1.6 (1.0-2.2); ALKALINE PHOSPHATASE 71 IU/L (42-121); ALT ALANINE AMINOTRANSFERASE 44 IU/L (10-60); AST ASPARTATE AMINOTRANSFERASE 32 IU/L (10-42); BILIRUBIN,TOTAL 0.8 mg/dL (0.2-1.0); BUN - BLOOD UREA NITROGEN 23 mg/dL (6-20); CALCIUM 9.8 mg/dL (8.5-10.3); CARBON DIOXIDE - CO2 27 mmol/L (21-32); CHLORIDE 100 mmol/L (101-111); CREATININE 0.9 mg/dL (0.6-1.2); GFR - MDRD 107 (>89); GLUCOSE 97 mg/dL (70-100); LIPASE 19 U/L (22-51); SALICYLATE < 6.0 mg/dL; SODIUM 135 mmol/L (135-145); TOTAL PROTEIN 7.8 g/dL (6.7-8.2)
--- NOTE | 2018-05-29 22:18 | XRAY Report ---
Reason: SOA Procedure Date: 05/29/2018 Accession Number: [id number] / [id number] Procedure: XR - Chest 2 View X-Ray CPT Code: 41665 FULL RESULT: EXAM: CHEST RADIOGRAPHY. EXAM DATE: 05/29/2018 09:48 PM. CLINICAL HISTORY: Shortness of air, shortness of breath. COMPARISON: None. TECHNIQUE: 2 views. FINDINGS: Lungs/Pleura: No focal opacities evident. No pleural effusion. No pneumothorax. Normal volumes. Mediastinum: Heart and mediastinal contours are unremarkable. Other: None. IMPRESSION: Normal 2-view chest radiography. RAD[facility]
[2018-05-29 22:31] LABS: MUDS CUTOFF CONCENTRATIONS CUTOFF CONC BELOW:
[2018-05-29 22:34] LABS: BILIRUBIN,URINE NEGATIVE (NEGATIVE); GLUCOSE, URINE (UA) NEGATIVE (NEGATIVE); KETONES,URINE (UA) 15 mg/dL (NEGATIVE); LEUKOCYTE ESTERASE, URINE NEGATIVE (NEGATIVE); NITRITE,URINE NEGATIVE (NEGATIVE); OCCULT BLOOD,URINE NEGATIVE (NEGATIVE); PROTEIN,URINE NEGATIVE (NEGATIVE); UROBILINOGEN,URINE 0.2 (NORMAL) E.U./dL (NORMAL)
[2018-05-29 22:37] LABS: CLARITY,URINE CLEAR (CLEAR)
[2018-05-29 22:43] LABS: AMPHETAMINE SCREEN,URINE NEGATIVE (NEGATIVE); BENZODIAZEPINES SCREEN, URINE NEGATIVE (NEGATIVE); COCAINE SCREEN URINE NEGATIVE (NEGATIVE); METHADONE SCREEN, URINE NEGATIVE (NEGATIVE); METHAMPHETAMINES SCREEN, URINE NEGATIVE (NEGATIVE); OPIATE SCREEN, URINE NEGATIVE (NEGATIVE); OXYCODONE SCREEN, URINE NEGATIVE (NEGATIVE); PROPOXYPHENE SCREEN, URINE NEGATIVE (NEGATIVE); TRICYCLIC ANTIDEPRESSANT,URINE NEGATIVE (NEGATIVE)
[2018-05-29] MEDS ORDERED: LORazepam 0.5 MG TABLET PO STA (23:19)
[2018-05-29 23:32] VITALS: BP 124/77
== END 2018-05-29 23:37 | disposition home or self-care (01) ==
LOC: EDUNIT# → ED 21:16
DX: F41.0 Panic disorder [episodic paroxysmal anxiety] (principal); R06.02 Shortness of breath; F17.200 Nicotine dependence, unspecified, uncomplicated
CPT/HCPCS: 36415; 71046; 80053; 81003; 83690; 83880; 84443; 84484; 85025; 93005; 96374; 99283; 99284; A9270; J2060; 80306; 80307; 80320; 80329; 81001; 87086

== ENCOUNTER 2018-06-06 10:36 | Emergency (ER) | payer MEDICARE, MEDICAID ==
[2018-06-06 12:32] LABS: BILIRUBIN,URINE NEGATIVE (NEGATIVE); CLARITY,URINE CLEAR (CLEAR); GLUCOSE, URINE (UA) NEGATIVE (NEGATIVE); KETONES,URINE (UA) NEGATIVE (NEGATIVE); LEUKOCYTE ESTERASE, URINE NEGATIVE (NEGATIVE); NITRITE,URINE NEGATIVE (NEGATIVE); OCCULT BLOOD,URINE NEGATIVE (NEGATIVE); PH,URINE 7.5 PH (5.0-7.5); PROTEIN,URINE NEGATIVE (NEGATIVE); UROBILINOGEN,URINE 0.2 (NORMAL) E.U./dL (NORMAL)
[2018-06-06] MEDS ORDERED: KETOROLAC 60 MG/2 ML VIAL IM STA (12:51)
[2018-06-06] MEDS ORDERED: CYCLOBENZAPRINE 10 MG TABLET PO STA (12:52)
--- NOTE | 2018-06-06 12:56 | ED Physician Documentation ---
History of Present Illness - Stated complaint Stated Complaint: LEFT THIGH PX - Chief complaint Chief Complaint: Abd Pain - History obtained from History obtained from: Patient - History of Present Illness Timing: Today Pain level max: 9 Pain level now: 9 - Additonal information Additional information: L thigh pain today. no injury. no swelling. no redness. no abscess. denies IV drug use. Worse with movement and palpation. Better with rest. Review of Systems Constitutional: denies: Fever Cardiac: denies: Chest pain / pressure Respiratory: denies: Cough GI: denies: Nausea, Vomiting, Diarrhea : denies: Dysuria, Frequency, Hesitancy, Incontinent, Hematuria, Discharge, Testicular pain, Testicular mass Skin: denies: Rash Musculoskeletal: denies: Neck pain, Back pain Neurologic: denies: Headache PD PAST MEDICAL HISTORY - Past Medical History Past Medical History: Yes Respiratory: Asthma GI: Hepatitis Psych: Depression, Anxiety, Post traumatic stress disorder Musculoskeletal: Chronic back pain Derm: None - Past Surgical History Past Surgical History: No General: Other - Present Medications Home Medications: Ambulatory Orders Medication Instructions Recorded Confirmed Albuterol Sulf [Ventolin Hfa 1 - 2 puffs INH Q4HR PRN #1 inhaler 05/16/18 Inhaler] Albuterol Sulfate [Proair Hfa 2 puffs INH Q4H PRN #1 inhaler 05/22/18 Inhaler] Aripiprazole [Abilify] 15 mg PO DAILY 05/22/18 traZODone [Desyrel] 100 mg PO DAILY PM 05/22/18 Cetirizine [ZyrTEC] 10 mg PO DAILY 05/26/18 05/26/18 Omeprazole 40 mg PO BID 05/26/18 05/26/18 Cyclobenzaprine [Flexeril] 10 mg PO TID PRN #20 tablet 06/06/18 Meloxicam [Mobic] 15 mg PO DAILY PRN #20 tablet 06/06/18 - Allergies Allergies/Adverse Reactions: Allergies Allergy/AdvReac Type Severity Reaction Status Date / Time divalproex sodium Allergy Anaphylaxis Verified 06/06/18 12:30 [From Depakote] garlic Allergy Anaphylaxis Verified 06/06/18 10:56 lithium Allergy Anaphylaxis Verified 06/06/18 12:30 - Social History Does the pt smoke?: Yes Smoking Status: Current every day smoker Does the pt drink ETOH?: Yes ETOH Use: Beer Does the pt have substance abuse?: No Substance Use and Type: Marijuana - Immunizations Immunizations are current?: Yes - POLST Patient has POLST: No PD ED PE NORMAL - Vitals Vital signs reviewed: Yes - General General: Alert and oriented X 3, No acute distress, Well developed/nourished - HEENT HEENT: Moist mucous membranes - Neck Neck: Supple, no meningeal sign - Cardiac Cardiac: RRR - Respiratory Respiratory: No respiratory distress, Clear bilaterally - Abdomen Abdomen: Soft, Non tender, Non distended - Male Male : Other (normal male exam.) - Back Back: No CVA TTP, No spinal TTP - Derm Derm: Warm and dry - Extremities Extremities: Other (TTP L proximal, medial thigh. no swelling. normal sensation and skin. NVI. no cord. no bony tenderness.) - Neuro Neuro: Alert and oriented X 3 - Psych Psych: Normal mood, Normal affect Results - Vitals Vitals: Vital Signs - 24 hr 06/06/18 06/06/18 10:52 13:38 Temperature 37.0 C 36.6 C Heart Rate 98 71 Respiratory 15 16 Rate Blood Pressure 121/67 120/69 O2 Saturation 98 98 Oxygen O2 Source Room air - Labs Labs: Laboratory Tests 06/06/18 12:20 Urine Color YELLOW Urine Clarity CLEAR Urine pH 7.5 Ur Specific [place] 1.010 Urine Protein NEGATIVE Urine Glucose (UA) NEGATIVE Urine Ketones NEGATIVE Urine Occult Blood NEGATIVE Urine Nitrite NEGATIVE Urine Bilirubin NEGATIVE Urine Urobilinogen 0.2 (NORMAL) Ur Leukocyte Esterase NEGATIVE Ur Microscopic Review NOT INDICATED Urine Culture Comments NOT INDICATED PD MEDICAL DECISION MAKING - ED course Complexity details: considered differential, d/w patient ED course: 23-year-old male with what appears to be a muscular strain of the left thigh. No redness, no swelling, no drainage. No evidence of necrotizing fasciitis, abscess, DVT. Will continue supportive care and follow-up with his doctor. Patient counseled regarding signs and symptoms for which I believe and urgent re-evaluation would be necessary. Patient with good understanding of and agreement to plan and is comfortable going home at this time This document was made in part using voice recognition software. While efforts are made to proofread this document, sound alike and grammatical errors may occur. No evidence of testicular torsion, hernia Departure - Departure Disposition: 01 Home, Self Care Clinical Impression: Muscle strain of left thigh Qualifiers: Encounter type: initial encounter Qualified Code(s): S76.912A - Strain of unspecified muscles, fascia and tendons at thigh level, left thigh, initial encounter Condition: Good Instructions: ED Strain Muscle Ext Follow-Up: Alex Torres MD [Primary Care Provider] - Within 1 week Prescriptions: Cyclobenzaprine [Flexeril] 10 mg PO TID PRN #20 tablet PRN Reason: Spasms Meloxicam [Mobic] 15 mg PO DAILY PRN #20 tablet PRN Reason: pain Comments: This should improve over the next few days. Return if you worsen. Do not drive or operate heavy machinery while taking the Flexeril. Discharge Date/Time: 06/06/18 13:38
[2018-06-06 13:39] VITALS: BP 120/69
== END 2018-06-06 13:38 | disposition home or self-care (01) ==
LOC: ED 10:36
DX: S76.912A Strain of unspecified muscles, fascia and tendons at thigh level, left thigh, initial encounter (principal); X58.XXXA Exposure to other specified factors, initial encounter; F17.200 Nicotine dependence, unspecified, uncomplicated; K75.9 Inflammatory liver disease, unspecified
CPT/HCPCS: 81003; 96372; 99283; A9270; 80053; 81001; 83690; 85025; 87086

== ENCOUNTER 2018-06-11 22:10 | Emergency (ER) | payer MEDICARE, MEDICAID ==
[2018-06-11 22:22] VITALS: BP 118/67
[2018-06-11] MEDS ORDERED: IBUPROFEN 400 MG TABLET PO STA (22:35)
--- NOTE | 2018-06-11 22:39 | ED Physician Documentation ---
History of Present Illness - Stated complaint Stated Complaint: FEET PX - Chief complaint Chief Complaint: Ext Problem - Additonal information Additional information: hx from pt 23 male multiple ED visits for different complains and also mental health he is here tonight for blisters on his feet also a cough - he smokes a lot - no fever Review of Systems Constitutional: denies: Fever, Chills Respiratory: reports: Cough GI: denies: Abdominal Pain, Vomiting, Diarrhea Skin: reports: Other (blisters) PD PAST MEDICAL HISTORY - Past Medical History Past Medical History: Yes Cardiovascular: None Respiratory: Asthma Neuro: None Endocrine/Autoimmune: None GI: Hepatitis : None HEENT: None Psych: Depression, Anxiety, Post traumatic stress disorder Musculoskeletal: Chronic back pain Derm: None Other Past Medical History: HEPATITIS C from ... - Past Surgical History Past Surgical History: Yes General: Other - Present Medications Home Medications: Ambulatory Orders Medication Instructions Recorded Confirmed Albuterol Sulf [Ventolin Hfa 1 - 2 puffs INH Q4HR PRN #1 inhaler 05/16/18 Inhaler] Albuterol Sulfate [Proair Hfa 2 puffs INH Q4H PRN #1 inhaler 05/22/18 Inhaler] Aripiprazole [Abilify] 15 mg PO DAILY 05/22/18 traZODone [Desyrel] 100 mg PO DAILY PM 05/22/18 Cetirizine [ZyrTEC] 10 mg PO DAILY 05/26/18 05/26/18 Omeprazole 40 mg PO BID 05/26/18 05/26/18 Cyclobenzaprine [Flexeril] 10 mg PO TID PRN #20 tablet 06/06/18 Meloxicam [Mobic] 15 mg PO DAILY PRN #20 tablet 06/06/18 - Allergies Allergies/Adverse Reactions: Allergies Allergy/AdvReac Type Severity Reaction Status Date / Time divalproex sodium Allergy Anaphylaxis Verified 06/11/18 22:21 [From Depakote] garlic Allergy Anaphylaxis Verified 06/11/18 22:21 lithium Allergy Anaphylaxis Verified 06/11/18 22:21 - Social History Does the pt smoke?: Yes Smoking Status: Current every day smoker Does the pt drink ETOH?: Yes Does the pt have substance abuse?: No - Immunizations Immunizations are current?: Yes - POLST Patient has POLST: No PD ED PE NORMAL - Vitals Vital signs reviewed: Yes - Neck Neck: Supple, no meningeal sign - Cardiac Cardiac: RRR - Respiratory Respiratory: No respiratory distress, Clear bilaterally - Extremities Extremities: Other (blosters to [place] feet mostly under 1st MTP without infection, MSV intact, noopen wounds) Results - Vitals Vitals: Vital Signs - 24 hr 06/11/18 22:19 Temperature 36.8 C Heart Rate 94 Respiratory 16 Rate Blood Pressure 118/67 O2 Saturation 96 Oxygen O2 Source Room air PD MEDICAL DECISION MAKING - ED course ED course: lungs clear do not think pt needs a CXR he already has crutches from last time I saw him for the same we wrapped his feet for tonight and I suggested he try moleskin Departure - Departure Disposition: 01 Home, Self Care Clinical Impression: Blister Condition: Good Instructions: ED Blister Follow-Up: Alex Torres MD [Primary Care Provider] - Comments: Use the crutches to let your feet heal Try the moleskin as we discussed
== END 2018-06-11 22:52 | disposition home or self-care (01) ==
LOC: ED 22:10
DX: S90.822A Blister (nonthermal), left foot, initial encounter (principal); S90.821A Blister (nonthermal), right foot, initial encounter; X58.XXXA Exposure to other specified factors, initial encounter; B19.20 Unspecified viral hepatitis C without hepatic coma; F17.200 Nicotine dependence, unspecified, uncomplicated
CPT/HCPCS: 99282; 99283; A9270

== ENCOUNTER 2018-08-03 08:00 | Outpatient (CLI) | payer MEDICARE, MEDICAID | END 2018-08-03 23:59 | disposition home or self-care (01) | LOC: LAB.R 08:00 | PROVIDERS: ATTEND Internal Medicine | DX: N41.0 Acute prostatitis (principal) | CPT/HCPCS: 87086; 87491; 87591 ==

== ENCOUNTER 2018-08-05 21:18 | Emergency (ER) | payer MEDICARE, MEDICAID ==
[2018-08-05] MEDS ORDERED: ACETAMINOPHEN 1,000 MG/100 ML 100 ML IV STA (21:44)
[2018-08-05] MEDS ORDERED: ONDANSETRON 4 MG/2 ML VIAL IVP STA (21:44)
[2018-08-05] MEDS ORDERED: SODIUM CHLORIDE 0.9% 1,000 ML IV ONE (21:44)
--- NOTE | 2018-08-05 21:48 | ED Physician Documentation ---
History of Present Illness - Stated complaint Stated Complaint: MALE - Chief complaint Chief Complaint: Abd Pain - Additonal information Additional information: hx from pt 23 male freq ER pt (approx 15 visits in 5 months) to ED today CC lower abd pain worsening for 2 weeks no fever but + sweats vomit approx 6 X per day s blood int diarrhea none for 4 days also without blood dysuria "like I am peeing acid" feels very weak and needed help walking in from the parking lot saw PMD 08/03, had a UA and was dx prostatitis and txed with what sounds like septra s imrpovement no pain only prior surgery undesc testes Review of Systems Constitutional: reports: Fatigue, Sweats. denies: Fever Cardiac: denies: Chest pain / pressure Respiratory: denies: Dyspnea GI: reports: Abdominal Pain, Nausea, Vomiting, Diarrhea. denies: Hematemesis : reports: Dysuria. denies: Hematuria, Testicular pain Musculoskeletal: denies: Neck pain, Back pain Endocrine: denies: Easy bruising / bleeding Immunocompromised: denies: Immunocompromised PD PAST MEDICAL HISTORY - Past Medical History Past Medical History: No Cardiovascular: None Respiratory: Asthma Neuro: None Endocrine/Autoimmune: None GI: Hepatitis : None HEENT: None Psych: Depression, Anxiety, Post traumatic stress disorder Musculoskeletal: Chronic back pain Derm: None - Past Surgical History Past Surgical History: Yes General: Hiatal hernia repair, Other - Present Medications Home Medications: Ambulatory Orders Medication Instructions Recorded Confirmed Albuterol Sulfate [Proair Hfa 2 puffs INH Q4H PRN #1 inhaler 05/22/18 07/13/18 Inhaler] Aripiprazole [Abilify] 15 mg PO DAILY 05/22/18 07/13/18 traZODone [Desyrel] 200 mg PO DAILY PM 05/22/18 07/13/18 Omeprazole 40 mg PO BID 05/26/18 07/13/18 Meloxicam [Mobic] 15 mg PO DAILY PRN #20 tablet 06/06/18 07/13/18 Dicyclomine [Bentyl] 10 mg PO Q8H PRN #20 capsule 08/05/18 Ondansetron Odt [Zofran] 4 mg TL Q6H PRN #10 tablet 08/05/18 Phenazopyridine [Pyridium] 100 mg PO Q8H PRN #9 tablet 08/05/18 - Allergies Allergies/Adverse Reactions: Allergies Allergy/AdvReac Type Severity Reaction Status Date / Time divalproex sodium Allergy Anaphylaxis Verified 08/05/18 21:25 [From Depakote] garlic Allergy Anaphylaxis Verified 08/05/18 21:25 lithium Allergy Anaphylaxis Verified 08/05/18 21:25 - Social History Does the pt smoke?: Yes Smoking Status: Current every day smoker Does the pt drink ETOH?: Yes Does the pt have substance abuse?: Yes Substance Use and Type: Marijuana - Immunizations Immunizations are current?: Yes Immunizations: TDAP >10years/unknown - POLST Patient has POLST: No PD ED PE NORMAL - Vitals Vital signs reviewed: Yes - General General: Alert and oriented X 3 - HEENT HEENT: PERRL - Neck Neck: Supple, no meningeal sign - Cardiac Cardiac: RRR - Respiratory Respiratory: No respiratory distress - Abdomen Abdomen: Other (+ BS, soft but severe TTP acros lower abd with rebound and vol guarding) - Male Male : Other (testes desc, nl lie, NT, no hernia, no lesions, no dc) - Derm Derm: Normal color - Extremities Extremities: Normal ROM s pain - Neuro Neuro: Alert and oriented X 3 Results - Vitals Vitals: Vital Signs - 24 hr 08/05/18 21:19 Temperature 36.3 C L Heart Rate 91 Respiratory 18 Rate Blood Pressure 142/57 H O2 Saturation 97 Oxygen O2 Source Room air - Labs Labs: Laboratory Tests 08/05/18 08/05/18 08/05/18 21:45 21:45 22:03 WBC 8.9 RBC 4.25 L Hgb 12.7 L Hct 37.0 L MCV 87.0 MCH 29.9 MCHC 34.3 RDW 14.1 Plt Count 236 MPV 8.0 Neut # (Auto) 5.1 Lymph # (Auto) 2.6 [place] # (Auto) 1.0 Eos # (Auto) 0.1 Baso # (Auto) 0.1 Absolute Nucleated RBC 0.01 Nucleated RBC % 0.1 Sodium 140 Potassium 3.5 Chloride 107 Carbon Dioxide 25 Anion Gap 8.0 BUN 11 Creatinine 0.9 Estimated GFR (MDRD) 107 Glucose 84 Calcium 8.8 Total Bilirubin 0.6 AST 23 ALT 33 Alkaline Phosphatase 52 Total Protein 6.4 L Albumin 4.2 Globulin 2.2 Albumin/Globulin Ratio 1.9 Lipase 20 L Urine Color YELLOW Urine Clarity CLEAR Urine pH 7.0 Ur Specific [place] 1.025 Urine Protein NEGATIVE Urine Glucose (UA) NEGATIVE Urine Ketones NEGATIVE Urine Occult Blood NEGATIVE Urine Nitrite NEGATIVE Urine Bilirubin NEGATIVE Urine Urobilinogen 1 (NORMAL) Ur Leukocyte Esterase NEGATIVE Ur Microscopic Review NOT INDICATED Urine Culture Comments NOT INDICATED - Rads (name of study) CT AP Radiology: See rad report (nl appendix) PD MEDICAL DECISION MAKING - ED course ED course: rpt abd exam after ofirmev is soft and minimally TTP non peritoneal discussed results with pt and friend and they are happy with results and plan for dc and have no further questions at this time Departure - Departure Disposition: 01 Home, Self Care Clinical Impression: Abdominal pain Qualifiers: Abdominal location: lower abdomen, unspecified Qualified Code(s): R10.30 - Lower abdominal pain, unspecified Condition: Good Instructions: ED Abdominal Pain Unkn Cause Follow-Up: Alex Torres MD [Primary Care Provider] - Prescriptions: Dicyclomine [Bentyl] 10 mg PO Q8H PRN #20 capsule PRN Reason: Abdominal Pain Ondansetron Odt [Zofran] 4 mg TL Q6H PRN #10 tablet PRN Reason: Nausea / Vomiting Phenazopyridine [Pyridium] 100 mg PO Q8H PRN #9 tablet PRN Reason: painful urination Comments: All of the tests today came back fine. The urine showed no infection or blood to suggest a kidney stone The blood work including kidney liver and pancreas function was fine. The CT scan did not show appendicitis - also did not show any gallstones or kidney stones, no pancreatitis, no aneurysm, no bowel infection/perforation/obstruction, no internal bleeding. I am not sure what is causing the pain But given the extensive and reassuring workup, I do not think you need surgery or admission or antibiotics. I think it is safe for you to go home and to get any further work up as an outpatient It is very possible that over time, new or changing symptoms may develop that lead to a diagnosis not presently apparent. That is why close follow up with your PMD for a recheck is very important Of course come back to the ER if significantly worse in any way. Continue the antibiotic your are on - please call your PMD tomorrow to check on the culture results and make sure this is the correct antibiotic (I am able to see that STD tests were negative but cannot see the urine culture results from the office) You can try a medication called bentyl to ease the pains. And pyridium for the painful urination And zofran for the vomiting I do not recommend any strong pain killers because I do not want to mask changing or worsening symptoms
[2018-08-05 21:52] LABS: BASOPHILS # (AUTO) 0.1 10^3/uL (0.0-0.1); BASOPHILS % (AUTO) 0.6 %; EOSINOPHILS # (AUTO) 0.1 10^3/uL (0.0-0.7); EOSINOPHILS % (AUTO) 0.9 %; HGB - HEMOGLOBIN 12.7 g/dL (14.0-18.0); LYMPHOCYTES # (AUTO) 2.6 10^3/uL (1.5-3.5); LYMPHOCYTES % (AUTO) 29.6 %; MEAN CORPUSCULAR HEMOGLOBIN 29.9 pg (27.0-31.0); MEAN CORPUSCULAR HGB CONC 34.3 g/dL (32.0-36.0); MONOCYTES % (AUTO) 11.7 %; NEUTROPHILS # (AUTO) 5.1 10^3/uL (1.5-6.6); NEUTROPHILS % (AUTO) 57.2 %; PLT - PLATELET COUNT 236 10^3/uL (130-450); RED BLOOD COUNT 4.25 10^6/uL (4.70-6.10); RED CELL DISTRIBUTION WIDTH 14.1 % (12.0-15.0); WHITE BLOOD COUNT 8.9 x10^3/uL (4.8-10.8)
[2018-08-05] MEDS ORDERED: IOVERSOL 320 100 ML VIAL IVP ONE ×2 (21:55→23:36)
[2018-08-05 22:08] LABS: BILIRUBIN,URINE NEGATIVE (NEGATIVE); GLUCOSE, URINE (UA) NEGATIVE (NEGATIVE); KETONES,URINE (UA) NEGATIVE (NEGATIVE); LEUKOCYTE ESTERASE, URINE NEGATIVE (NEGATIVE); NITRITE,URINE NEGATIVE (NEGATIVE); OCCULT BLOOD,URINE NEGATIVE (NEGATIVE); PROTEIN,URINE NEGATIVE (NEGATIVE); UROBILINOGEN,URINE 1 (NORMAL) E.U./dL (NORMAL)
[2018-08-05 22:10] LABS: CLARITY,URINE CLEAR (CLEAR)
[2018-08-05 22:19] LABS: ALBUMIN 4.2 g/dL (3.2-5.5); ALBUMIN/GLOBULIN RATIO 1.9 (1.0-2.2); BILIRUBIN,TOTAL 0.6 mg/dL (0.2-1.0); CALCIUM 8.8 mg/dL (8.5-10.3); CREATININE 0.9 mg/dL (0.6-1.2); TOTAL PROTEIN 6.4 g/dL (6.7-8.2)
--- NOTE | 2018-08-05 23:02 | CT Report ---
Reason: lower abd pain with peritoneal sx Procedure Date: 08/05/2018 Accession Number: [id number] / [id number] Procedure: CT - Abdomen/Pelvis W/ CPT Code: FULL RESULT: EXAM: CT ABDOMEN AND PELVIS EXAM DATE: 08/05/2018 10:53 PM. CLINICAL HISTORY: Lower abd pain with peritoneal sx. COMPARISONS: None. TECHNIQUE: Routine helical CT imaging was performed through the abdomen and pelvis. IV contrast: 90 ML OPTIRAY 320. Enteric contrast: No. Reconstructions: Coronal and sagittal. In accordance with CT protocol optimization, one or more of the following dose reduction techniques were utilized for this exam: automated exposure control, adjustment of mA and/or KV based on patient size, or use of iterative reconstructive technique. FINDINGS: Lung Bases: Unremarkable. Liver: Periportal edema, likely related to hydration state. No focal lesion. Gallbladder/Bile Ducts: Unremarkable. Spleen: Normal. Pancreas: Normal. Adrenal Glands: Normal. Kidneys: Normal. No masses or hydronephrosis. Peritoneal Cavity/Bowel: Normal. No free fluid, free air or adenopathy. No masses or acute inflammatory process. The appendix is well visualized and normal. Pelvic Organs: Trace free fluid in the pelvis. No pelvic adenopathy. The pelvic organs appear unremarkable. Vasculature: No aneurysms or other significant abnormality. Bones: No significant abnormality. Other: None. IMPRESSION: Trace free fluid in the pelvis. Normal appendix. No evidence of bowel obstruction or perforation. RADIA
[2018-08-06] VITALS: BP 93/43
== END 2018-08-06 00:01 | disposition home or self-care (01) ==
LOC: ED 21:18
DX: R10.30 Lower abdominal pain, unspecified (principal); R30.0 Dysuria; F17.200 Nicotine dependence, unspecified, uncomplicated
CPT/HCPCS: 36415; 74177; 80053; 81003; 83690; 85025; 96361; 96365; 96375; 99283; J0131; Q9967; 81001; 87086

== ENCOUNTER 2018-08-18 19:07 | Emergency (ER) | payer MEDICARE, MEDICAID ==
[2018-08-18] MEDS ORDERED: SODIUM CHLORIDE 0.9% 1,000 ML IV ONE (20:16)
[2018-08-18] MEDS ORDERED: ONDANSETRON 4 MG/2 ML VIAL IVP STA (20:16)
[2018-08-18] MEDS ORDERED: KETOROLAC 30 MG/ML VIAL IVP STA (20:16)
--- NOTE | 2018-08-18 20:19 | ED Physician Documentation ---
PD HPI ABD PAIN - Stated complaint Stated Complaint: ABD PX - Chief complaint Chief Complaint: Abd Pain - History obtained from History obtained from: Patient - History of Present Illness Timing - onset: Other (Is a 23-year-old gentleman with history of psychiatric disorder frequent ER use, 15 visits in the last year who has had lower abdominal pain every day for a month. Been constant but with intermittent nausea especially in the mornings. He was diagnosed with prostatitis by his primary care physician and put on I think Bactrim without relief. He also is taking Bentyl without relief but Pyridium is helping with some urinary complaints. His bowel movements have been normal. He feels dehydrated. Note made that he says that he has not had a prostate exam during this time. I am not sure how the diagnosis of prostatitis was made. He does smoke marijuana frequently but not daily.) Review of Systems Constitutional: denies: Fever, Chills, Weight Loss Cardiac: denies: Chest pain / pressure, Palpitations Respiratory: denies: Dyspnea, Cough GI: reports: Abdominal Pain, Nausea, Vomiting. denies: Constipation, Diarrhea : reports: Dysuria, Frequency PD PAST MEDICAL HISTORY - Past Medical History Cardiovascular: None Respiratory: Asthma Neuro: None Endocrine/Autoimmune: None GI: Hepatitis : None HEENT: None Psych: Depression, Anxiety, Post traumatic stress disorder Musculoskeletal: Chronic back pain Derm: None - Past Surgical History Past Surgical History: Yes General: Hiatal hernia repair, Other - Present Medications Home Medications: Ambulatory Orders Medication Instructions Recorded Confirmed Albuterol Sulfate [Proair Hfa 2 puffs INH Q4H PRN #1 inhaler 05/22/18 08/18/18 Inhaler] Aripiprazole [Abilify] 15 mg PO DAILY 05/22/18 08/18/18 traZODone [Desyrel] 200 mg PO DAILY PM 05/22/18 08/18/18 Omeprazole 40 mg PO BID 05/26/18 08/18/18 Meloxicam [Mobic] 15 mg PO DAILY PRN #20 tablet 06/06/18 08/18/18 Dicyclomine [Bentyl] 10 mg PO Q8H PRN #20 capsule 08/05/18 08/18/18 Ondansetron Odt [Zofran] 4 mg TL Q6H PRN #10 tablet 08/05/18 08/18/18 Phenazopyridine [Pyridium] 100 mg PO Q8H PRN #9 tablet 08/05/18 08/18/18 Meloxicam [Mobic] 7.5 mg PO BID PRN #20 tablet 08/18/18 - Allergies Allergies/Adverse Reactions: Allergies Allergy/AdvReac Type Severity Reaction Status Date / Time divalproex sodium Allergy Anaphylaxis Verified 08/05/18 21:25 [From Depakote] garlic Allergy Anaphylaxis Verified 08/05/18 21:25 lithium Allergy Anaphylaxis Verified 08/18/18 19:14 - Social History Does the pt smoke?: Yes Smoking Status: Current every day smoker Does the pt drink ETOH?: Yes Does the pt have substance abuse?: Yes - Immunizations Immunizations are current?: Yes Immunizations: TDAP >10years/unknown - POLST Patient has POLST: No PD ED PE NORMAL - Vitals Vital signs reviewed: Yes - General General: Alert and oriented X 3, No acute distress - HEENT HEENT: PERRL, EOMI - Neck Neck: Supple, no meningeal sign, No bony TTP - Cardiac Cardiac: RRR, No murmur - Respiratory Respiratory: No respiratory distress, Clear bilaterally - Abdomen Abdomen: Normal bowel sounds, Soft, Other (Moderate lower abdominal tenderness without surgical signs) - Rectal Rectal: Other (Prostate nontender nonswollen) - Back Back: No CVA TTP, No spinal TTP - Derm Derm: Normal color, Warm and dry - Extremities Extremities: No edema, No calf tenderness / cord - Neuro Neuro: Alert and oriented X 3, Normal speech Results - Vitals Vitals: Vital Signs - 24 hr 08/18/18 08/18/18 08/18/18 19:11 20:06 21:42 Temperature 36.5 C Heart Rate 64 53 L 65 Respiratory 16 16 Rate Blood Pressure 143/41 H 140/80 H 130/72 O2 Saturation 100 100 98 Oxygen O2 Source Room air - Labs Labs: Laboratory Tests 08/18/18 08/18/18 08/18/18 20:32 20:32 20:32 WBC 7.0 RBC 4.42 L Hgb 13.2 L Hct 39.4 L MCV 89.2 MCH 29.8 MCHC 33.4 RDW 14.5 Plt Count 261 MPV 7.7 Neut # (Auto) 3.1 Lymph # (Auto) 2.7 [place] # (Auto) 1.0 Eos # (Auto) 0.2 Baso # (Auto) 0.0 Absolute Nucleated RBC 0.01 Nucleated RBC % 0.1 Sodium 136 Potassium 3.7 Chloride 102 Carbon Dioxide 27 Anion Gap 7.0 BUN 17 Creatinine 0.8 Estimated GFR (MDRD) 122 Glucose 88 Calcium 9.3 Total Bilirubin 0.5 AST 30 ALT 46 Alkaline Phosphatase 66 Total Protein 7.6 Albumin 4.6 Globulin 3.0 Albumin/Globulin Ratio 1.5 Lipase 23 Prostate Specific [place] 0.490 Urine Color Urine Clarity Urine pH Ur Specific [place] Urine Protein Urine Glucose (UA) Urine Ketones Urine Occult Blood Urine Nitrite Urine Bilirubin Urine Urobilinogen Ur Leukocyte Esterase Ur Microscopic Review Urine Culture Comments 08/18/18 21:40 WBC RBC Hgb Hct MCV MCH MCHC RDW Plt Count MPV Neut # (Auto) Lymph # (Auto) [place] # (Auto) Eos # (Auto) Baso # (Auto) Absolute Nucleated RBC Nucleated RBC % Sodium Potassium Chloride Carbon Dioxide Anion Gap BUN Creatinine Estimated GFR (MDRD) Glucose Calcium Total Bilirubin AST ALT Alkaline Phosphatase Total Protein Albumin Globulin Albumin/Globulin Ratio Lipase Prostate Specific Ag Urine Color YELLOW Urine Clarity CLEAR Urine pH 6.0 Ur Specific [place] 1.015 Urine Protein NEGATIVE Urine Glucose (UA) NEGATIVE Urine Ketones NEGATIVE Urine Occult Blood NEGATIVE Urine Nitrite NEGATIVE Urine Bilirubin NEGATIVE Urine Urobilinogen 0.2 (NORMAL) Ur Leukocyte Esterase NEGATIVE Ur Microscopic Review NOT INDICATED Urine Culture Comments NOT INDICATED PD MEDICAL DECISION MAKING - ED course ED course: This is a 23-year-old gentleman with subacute lower abdominal pain with some tenderness. Previously diagnosed as prostatitis but no evidence of this on my examination today and his PSA is also negative. CT was done given persistence tenderness but still negative. To my eye there is a generous stool load and we will try to clean him out, otherwise he is advised to follow-up with his doctor for further evaluation and treatment and potential referral for upper and lower endoscopy. He is also advised to abstain from marijuana as this may be causative although the clinical syndrome is not very consistent with cannabinoid hyperemesis. Departure - Departure Disposition: 01 Home, Self Care Clinical Impression: Abdominal pain Qualifiers: Abdominal location: lower abdomen, unspecified Qualified Code(s): R10.30 - Lower abdominal pain, unspecified Condition: Good Record reviewed to determine appropriate education?: Yes Instructions: ED Abdominal Pain Unkn Cause Male Prescriptions: Meloxicam [Mobic] 7.5 mg PO BID PRN #20 tablet PRN Reason: Pain Comments: Follow-up with your primary care physician and consider referral for upper and lower endoscopy if symptoms are persistent. There is a entity called cannabinoid hyperemesis where people who smoke marijuana frequently get recurrent and chronic abdominal pain and vomiting. Consider abstaining from marijuana to see if that is helpful. Return for new or worsening symptoms.
[2018-08-18 20:38] LABS: BASOPHILS % (AUTO) 0.5 %; EOSINOPHILS # (AUTO) 0.2 10^3/uL (0.0-0.7); EOSINOPHILS % (AUTO) 2.7 %; HGB - HEMOGLOBIN 13.2 g/dL (14.0-18.0); LYMPHOCYTES # (AUTO) 2.7 10^3/uL (1.5-3.5); MEAN CORPUSCULAR HEMOGLOBIN 29.8 pg (27.0-31.0); MEAN CORPUSCULAR HGB CONC 33.4 g/dL (32.0-36.0); MEAN CORPUSCULAR VOLUME 89.2 fL (80.0-94.0); MEAN PLATELET VOLUME 7.7 fL (7.4-11.4); MONOCYTES % (AUTO) 14.1 %; NEUTROPHILS # (AUTO) 3.1 10^3/uL (1.5-6.6); NEUTROPHILS % (AUTO) 44.7 %; PLT - PLATELET COUNT 261 10^3/uL (130-450); RED BLOOD COUNT 4.42 10^6/uL (4.70-6.10); RED CELL DISTRIBUTION WIDTH 14.5 % (12.0-15.0)
[2018-08-18 20:52] LABS: ALBUMIN 4.6 g/dL (3.2-5.5); ALBUMIN/GLOBULIN RATIO 1.5 (1.0-2.2); BILIRUBIN,TOTAL 0.5 mg/dL (0.2-1.0); CALCIUM 9.3 mg/dL (8.5-10.3); CREATININE 0.8 mg/dL (0.6-1.2); TOTAL PROTEIN 7.6 g/dL (6.7-8.2)
[2018-08-18] MEDS ORDERED: IOVERSOL 320 100 ML VIAL IVP ONE ×2 (20:56→21:11)
[2018-08-18 21:43] VITALS: BP 130/72
[2018-08-18 21:47] LABS: BILIRUBIN,URINE NEGATIVE (NEGATIVE); GLUCOSE, URINE (UA) NEGATIVE (NEGATIVE); KETONES,URINE (UA) NEGATIVE (NEGATIVE); LEUKOCYTE ESTERASE, URINE NEGATIVE (NEGATIVE); NITRITE,URINE NEGATIVE (NEGATIVE); OCCULT BLOOD,URINE NEGATIVE (NEGATIVE); PROTEIN,URINE NEGATIVE (NEGATIVE); UROBILINOGEN,URINE 0.2 (NORMAL) E.U./dL (NORMAL)
--- NOTE | 2018-08-18 21:49 | CT Report ---
Reason: IV only, low abd pain Procedure Date: 08/18/2018 Accession Number: [id number] / [id number] Procedure: CT - Abdomen/Pelvis W/ CPT Code: FULL RESULT: EXAM: CT ABDOMEN AND PELVIS EXAM DATE: 08/18/2018 09:23 PM. CLINICAL HISTORY: IV only, low abd pain. COMPARISONS: ABDOMEN/PELVIS W/ 08/05/2018 10:32 PM. TECHNIQUE: Routine helical CT imaging was performed through the abdomen and pelvis. IV contrast: OPTIRAY 320 100mL. Enteric contrast: No. Reconstructions: Coronal and sagittal. In accordance with CT protocol optimization, one or more of the following dose reduction techniques were utilized for this exam: automated exposure control, adjustment of mA and/or KV based on patient size, or use of iterative reconstructive technique. FINDINGS: Lung Bases: Unremarkable. Liver: Normal. No masses. Gallbladder/Bile Ducts: Unremarkable. Spleen: Normal. Pancreas: Normal. Adrenal Glands: Normal. Kidneys: Normal. No masses or hydronephrosis. Peritoneal Cavity/Bowel: Normal. No free fluid, free air or adenopathy. No masses or acute inflammatory process. The appendix is well visualized and normal. Pelvic Organs: Normal. The bladder and visualized pelvic organs are within normal limits. Vasculature: No aneurysms or other significant abnormality. Bones: There is a sclerotic focus and in the right iliac wing unchanged from the prior study. By itself this is nonspecific and statistically likely represents a bone island. Other: None. IMPRESSION: 1. No findings to explain clinical symptoms. 2. Sclerotic focus in the right iliac wing statistically likely representing a bone island. RADIA
[2018-08-18 21:53] LABS: CLARITY,URINE CLEAR (CLEAR)
[2018-08-18] MEDS ORDERED: MAGNESIUM CITRATE 296 ML BOTTLE PO STA (21:56)
== END 2018-08-18 22:17 | disposition home or self-care (01) ==
LOC: ED 19:07
DX: R10.30 Lower abdominal pain, unspecified (principal); F17.200 Nicotine dependence, unspecified, uncomplicated
CPT/HCPCS: 36415; 74177; 80053; 81003; 83690; 84153; 85025; 96361; 96374; 99283; A9270; Q9967; 81001; 87086

== ENCOUNTER 2018-08-21 11:35 | Emergency (ER) | payer MEDICARE, MEDICAID ==
[2018-08-21 12:10] LABS: BASOPHILS % (AUTO) 0.8 %; EOSINOPHILS # (AUTO) 0.3 10^3/uL (0.0-0.7); EOSINOPHILS % (AUTO) 5.1 %; HGB - HEMOGLOBIN 13.4 g/dL (14.0-18.0); LYMPHOCYTES # (AUTO) 1.8 10^3/uL (1.5-3.5); LYMPHOCYTES % (AUTO) 31.4 %; MEAN CORPUSCULAR HGB CONC 34.5 g/dL (32.0-36.0); MONOCYTES # (AUTO) 0.8 10^3/uL (0.0-1.0); MONOCYTES % (AUTO) 13.5 %; NEUTROPHILS # (AUTO) 2.8 10^3/uL (1.5-6.6); NEUTROPHILS % (AUTO) 49.2 %; PLT - PLATELET COUNT 259 10^3/uL (130-450); RED BLOOD COUNT 4.46 10^6/uL (4.70-6.10); RED CELL DISTRIBUTION WIDTH 14.3 % (12.0-15.0); WHITE BLOOD COUNT 5.7 x10^3/uL (4.8-10.8)
--- NOTE | 2018-08-21 12:12 | ED Physician Documentation ---
PD HPI MHE - Stated complaint Stated Complaint: SI - Chief complaint Chief Complaint: MHE - History obtained from History obtained from: Patient - History of Present Illness Primary symptom: Suicidal ideation Timing - onset: Chronic Pain level max: 0 Pain level now: 0 Contributing factors: Substance abuse - drugs (marijuana) Similar symptoms before: Diagnosis Recently seen: Not recently seen - Additional information Additional information: States he is hearing voices, but not having any visual hallucinations. The voices are telling him to harm himself and he is afraid that he may harm himself. Has a history of bipolar disorder, schizoaffective disorder, PTSD. He does not have a specific plan at this time. He is requesting hospitalization at this time Review of Systems Ten Systems: 10 systems reviewed and negative Constitutional: denies: Fever, Chills Cardiac: denies: Chest pain / pressure Respiratory: denies: Cough, Wheezing GI: denies: Abdominal Pain, Vomiting, Diarrhea Skin: denies: Rash Musculoskeletal: denies: Neck pain, Back pain Neurologic: denies: Headache PD PAST MEDICAL HISTORY - Past Medical History Past Medical History: Yes Cardiovascular: None Respiratory: Asthma Neuro: None Endocrine/Autoimmune: None GI: Hepatitis : None HEENT: None Psych: Depression, Anxiety, Bipolar disorder, Post traumatic stress disorder Musculoskeletal: Chronic back pain Derm: None - Past Surgical History Past Surgical History: Yes General: Hiatal hernia repair, Other - Present Medications Home Medications: Ambulatory Orders Medication Instructions Recorded Confirmed Aripiprazole [Abilify] 15 mg PO DAILY 05/22/18 08/21/18 traZODone [Desyrel] 300 mg PO DAILY PM 05/22/18 08/21/18 Omeprazole 40 mg PO BID 05/26/18 08/21/18 Dicyclomine [Bentyl] 10 mg PO Q8H PRN #20 capsule 08/05/18 08/21/18 Ondansetron Odt [Zofran] 4 mg TL Q6H PRN #10 tablet 08/05/18 08/21/18 Phenazopyridine [Pyridium] 100 mg PO Q8H PRN #9 tablet 08/05/18 08/21/18 Bupropion HCl [Wellbutrin Xl] 150 mg PO DAILY 08/21/18 08/21/18 Cetirizine [ZyrTEC] 10 mg PO DAILY 08/21/18 08/21/18 Meloxicam [Mobic] 15 mg PO DAILY 08/21/18 08/21/18 Prazosin [Minipress] 4 mg PO DAILY 08/21/18 08/21/18 - Allergies Allergies/Adverse Reactions: Allergies Allergy/AdvReac Type Severity Reaction Status Date / Time divalproex sodium Allergy Anaphylaxis Verified 08/21/18 11:46 [From Depakote] garlic Allergy Anaphylaxis Verified 08/21/18 11:46 lithium Allergy Anaphylaxis Verified 08/21/18 11:46 - Social History Does the pt smoke?: Yes Smoking Status: Current every day smoker Does the pt drink ETOH?: Yes Does the pt have substance abuse?: Yes - Immunizations Immunizations are current?: Yes Immunizations: TDAP >10years/unknown - POLST Patient has POLST: No PD ED PE NORMAL - Vitals Vital signs reviewed: Yes - General General: Alert and oriented X 3, No acute distress - HEENT HEENT: Moist mucous membranes - Neck Neck: Supple, no meningeal sign - Cardiac Cardiac: RRR, Strong equal pulses - Respiratory Respiratory: No respiratory distress, Clear bilaterally - Abdomen Abdomen: Soft, Non tender, Non distended - Back Back: No spinal TTP - Derm Derm: Warm and dry - Extremities Extremities: No edema, No calf tenderness / cord - Neuro Neuro: Alert and oriented X 3 - Psych Psych: Normal mood, Normal affect Results - Vitals Vitals: Vital Signs - 24 hr 08/21/18 08/21/18 11:42 16:42 Temperature 36.5 C 36.9 C Heart Rate 57 L 60 Respiratory 16 16 Rate Blood Pressure 140/77 H 124/58 L O2 Saturation 100 97 Oxygen O2 Source Room air - EKG (time done) 1257 Rate: Rate (enter#) (44) Rhythm: Sinus bradycardia [place]: Normal Intervals: Normal IA Ischemia: Normal ST segments - Labs Labs: Laboratory Tests 08/21/18 08/21/18 08/21/18 11:58 11:58 11:58 WBC 5.7 RBC 4.46 L Hgb 13.4 L Hct 38.8 L MCV 87.0 MCH 30.0 MCHC 34.5 RDW 14.3 Plt Count 259 MPV 8.0 Neut # (Auto) 2.8 Lymph # (Auto) 1.8 Williams # (Auto) 0.8 Eos # (Auto) 0.3 Baso # (Auto) 0.0 Absolute Nucleated RBC 0.01 Nucleated RBC % 0.1 Sodium 138 Potassium 3.5 Chloride 102 Carbon Dioxide 28 Anion Gap 8.0 BUN 14 Creatinine 0.7 Estimated GFR (MDRD) 142 Glucose 90 Calcium 9.0 Total Bilirubin 0.4 AST 23 ALT 35 Alkaline Phosphatase 58 Total Protein 7.2 Albumin 4.2 Globulin 3.0 Albumin/Globulin Ratio 1.4 Lipase 21 L TSH 1.13 Urine Color Urine Clarity Urine pH Ur Specific [place] Urine Protein Urine Glucose (UA) Urine Ketones Urine Occult Blood Urine Nitrite Urine Bilirubin Urine Urobilinogen Ur Leukocyte Esterase Ur Microscopic Review Urine Culture Comments Salicylates < 6.0 Urine Opiates Screen Ur Oxycodone Screen Urine Methadone Screen Ur Propoxyphene Screen Acetaminophen < 10 L Ur Barbiturates Screen Ur Tricyclics Screen Ur Phencyclidine Scrn Ur Amphetamine Screen U Methamphetamines Scrn U Benzodiazepines Scrn Urine Cocaine Screen U Cannabinoids Screen Ethyl Alcohol < 5.0 08/21/18 12:27 WBC RBC Hgb Hct MCV MCH MCHC RDW Plt Count MPV Neut # (Auto) Lymph # (Auto) [place] # (Auto) Eos # (Auto) Baso # (Auto) Absolute Nucleated RBC Nucleated RBC % Sodium Potassium Chloride Carbon Dioxide Anion Gap BUN Creatinine Estimated GFR (MDRD) Glucose Calcium Total Bilirubin AST ALT Alkaline Phosphatase Total Protein Albumin Globulin Albumin/Globulin Ratio Lipase TSH Urine Color YELLOW Urine Clarity CLEAR Urine pH 7.0 Ur Specific [place] 1.020 Urine Protein TRACE Urine Glucose (UA) NEGATIVE Urine Ketones NEGATIVE Urine Occult Blood NEGATIVE Urine Nitrite NEGATIVE Urine Bilirubin NEGATIVE Urine Urobilinogen 0.2 (NORMAL) Ur Leukocyte Esterase NEGATIVE Ur Microscopic Review NOT INDICATED Urine Culture Comments NOT INDICATED Salicylates Urine Opiates Screen NEGATIVE Ur Oxycodone Screen NEGATIVE Urine Methadone Screen NEGATIVE Ur Propoxyphene Screen NEGATIVE Acetaminophen Ur Barbiturates Screen NEGATIVE Ur Tricyclics Screen NEGATIVE Ur Phencyclidine Scrn NEGATIVE Ur Amphetamine Screen NEGATIVE U Methamphetamines Scrn NEGATIVE U Benzodiazepines Scrn NEGATIVE Urine Cocaine Screen NEGATIVE U Cannabinoids Screen POSITIVE H Ethyl Alcohol PD MEDICAL DECISION MAKING - ED course Complexity details: reviewed old records, reviewed results, re-evaluated patient, considered differential, d/w patient, d/w philatelic consultant ED course: Social work consulted after medical clearance. A bed is available at [facility] and he is accepted to [facility] by Y[facility]CU[facility] In transfer for further care. COBRA forms filled out. Patient stable in the Emergency department. This document was made in part using voice recognition software. While efforts are made to proofread this document, sound alike and grammatical errors may occur. Departure - Departure Disposition: 65 Psych Hosp/Unit DC/Xfer Clinical Impression: Suicidal ideation, Auditory hallucinations Schizoaffective disorder Qualifiers: Schizoaffective disorder type: unspecified Qualified Code(s): F25.9 - Schizoaffective disorder, unspecified Condition: Stable
[2018-08-21 12:23] LABS: ACETAMINOPHEN < 10 ug/mL (10-30); ALBUMIN 4.2 g/dL (3.2-5.5); ALBUMIN/GLOBULIN RATIO 1.4 (1.0-2.2); ALKALINE PHOSPHATASE 58 IU/L (42-121); ALT ALANINE AMINOTRANSFERASE 35 IU/L (10-60); AST ASPARTATE AMINOTRANSFERASE 23 IU/L (10-42); BILIRUBIN,TOTAL 0.4 mg/dL (0.2-1.0); BUN - BLOOD UREA NITROGEN 14 mg/dL (6-20); CARBON DIOXIDE - CO2 28 mmol/L (21-32); CHLORIDE 102 mmol/L (101-111); CREATININE 0.7 mg/dL (0.6-1.2); GFR - MDRD 142 (>89); GLUCOSE 90 mg/dL (70-100); LIPASE 21 U/L (22-51); SALICYLATE < 6.0 mg/dL; SODIUM 138 mmol/L (135-145); TOTAL PROTEIN 7.2 g/dL (6.7-8.2)
[2018-08-21 12:30] LABS: MUDS CUTOFF CONCENTRATIONS CUTOFF CONC BELOW:
[2018-08-21 12:32] LABS: BILIRUBIN,URINE NEGATIVE (NEGATIVE); GLUCOSE, URINE (UA) NEGATIVE (NEGATIVE); KETONES,URINE (UA) NEGATIVE (NEGATIVE); LEUKOCYTE ESTERASE, URINE NEGATIVE (NEGATIVE); NITRITE,URINE NEGATIVE (NEGATIVE); OCCULT BLOOD,URINE NEGATIVE (NEGATIVE); PROTEIN,URINE TRACE mg/dL (NEGATIVE); UROBILINOGEN,URINE 0.2 (NORMAL) E.U./dL (NORMAL)
[2018-08-21 12:36] LABS: CLARITY,URINE CLEAR (CLEAR)
[2018-08-21 12:48] LABS: AMPHETAMINE SCREEN,URINE NEGATIVE (NEGATIVE); BENZODIAZEPINES SCREEN, URINE NEGATIVE (NEGATIVE); COCAINE SCREEN URINE NEGATIVE (NEGATIVE); METHADONE SCREEN, URINE NEGATIVE (NEGATIVE); METHAMPHETAMINES SCREEN, URINE NEGATIVE (NEGATIVE); OPIATE SCREEN, URINE NEGATIVE (NEGATIVE); OXYCODONE SCREEN, URINE NEGATIVE (NEGATIVE); PROPOXYPHENE SCREEN, URINE NEGATIVE (NEGATIVE); TRICYCLIC ANTIDEPRESSANT,URINE NEGATIVE (NEGATIVE)
[2018-08-21] MEDS ORDERED: LORazepam 0.5 MG TABLET PO STA ×2 (17:22→20:11)
[2018-08-21 20:30] VITALS: BP 131/79
== END 2018-08-21 20:40 ==
LOC: ED 11:35
DX: R45.851 Suicidal ideations (principal); F25.9 Schizoaffective disorder, unspecified; R00.1 Bradycardia, unspecified; F17.200 Nicotine dependence, unspecified, uncomplicated
CPT/HCPCS: 36415; 80053; 81003; 83690; 84443; 85025; 93005; 99284; 99285; A9270; 80306; 80307; 80320; 80329; 81001; 87086

== ENCOUNTER 2018-08-26 21:05 | Emergency (ER) | payer MEDICARE, MEDICAID ==
[2018-08-26] MEDS ORDERED: SODIUM CHLORIDE 0.9% 1,000 ML IV ONE (21:37)
[2018-08-26] MEDS ORDERED: METOCLOPRAMIDE 10 MG/2 ML VIAL IVP STA (21:37)
[2018-08-26] MEDS ORDERED: KETOROLAC 15 MG/ML VIAL IVP STA (21:37)
[2018-08-26] MEDS ORDERED: FAMOTIDINE 20 MG in SODIUM CHLORIDE 0.9% 50 ML IV STA (21:37)
--- NOTE | 2018-08-26 21:48 | ED Physician Documentation ---
PD HPI ABD PAIN - Stated complaint Stated Complaint: ABDOMINAL PAIN - Chief complaint Chief Complaint: Abd Pain - Additional information Additional information: 23-year-old male presents the emergency department for ongoing lower abdominal pain several months. The patient has had over 26 emergency department visits in the past 12 months between various emergency departments in the [facility]. Today the patient reports the same pain of lower abdominal bloating, the patient denies any new or different changes. The patient denies any focal area of abdominal pain. The patient denies dysuria, hematuria, diarrhea or vomiting or blood in the stools. Symptoms are described as mild. No other associated symptoms. No triggering factors. No relieving factors Review of Systems Constitutional: reports: Fatigue. denies: Fever, Chills Eyes: denies: Discharge Ears: denies: Ear pain Nose: denies: Congestion Throat: denies: Sore throat Cardiac: denies: Palpitations Respiratory: denies: Cough GI: reports: Abdominal Pain, Constipation. denies: Vomiting, Diarrhea : denies: Dysuria Skin: denies: Rash Musculoskeletal: denies: Neck pain Neurologic: denies: Focal weakness PD PAST MEDICAL HISTORY - Past Medical History Past Medical History: Yes Cardiovascular: None Respiratory: Asthma Neuro: None Endocrine/Autoimmune: None GI: Hepatitis : None HEENT: None Psych: Depression, Anxiety, Bipolar disorder, Post traumatic stress disorder Musculoskeletal: Chronic back pain Derm: None - Past Surgical History Past Surgical History: Yes General: Hiatal hernia repair, Other - Present Medications Home Medications: Ambulatory Orders Medication Instructions Recorded Confirmed Aripiprazole [Abilify] 15 mg PO DAILY 05/22/18 08/21/18 traZODone [Desyrel] 300 mg PO DAILY PM 05/22/18 08/21/18 Omeprazole 40 mg PO BID 05/26/18 08/21/18 Dicyclomine [Bentyl] 10 mg PO Q8H PRN #20 capsule 08/05/18 08/21/18 Ondansetron Odt [Zofran] 4 mg TL Q6H PRN #10 tablet 08/05/18 08/21/18 Phenazopyridine [Pyridium] 100 mg PO Q8H PRN #9 tablet 08/05/18 08/21/18 Bupropion HCl [Wellbutrin Xl] 150 mg PO DAILY 08/21/18 08/21/18 Cetirizine [ZyrTEC] 10 mg PO DAILY 08/21/18 08/21/18 Meloxicam [Mobic] 15 mg PO DAILY 08/21/18 08/21/18 Prazosin [Minipress] 4 mg PO DAILY 08/21/18 08/21/18 - Allergies Allergies/Adverse Reactions: Allergies Allergy/AdvReac Type Severity Reaction Status Date / Time divalproex sodium Allergy Anaphylaxis Verified 08/26/18 21:16 [From Depakote] garlic Allergy Anaphylaxis Verified 08/26/18 21:16 lithium Allergy Anaphylaxis Verified 08/26/18 21:16 - Social History Does the pt smoke?: Yes Smoking Status: Current every day smoker Does the pt drink ETOH?: Yes Does the pt have substance abuse?: Yes - Immunizations Immunizations are current?: Yes Immunizations: TDAP >10years/unknown - POLST Patient has POLST: No PD ED PE NORMAL - General General: Alert and oriented X 3, No acute distress - HEENT HEENT: Atraumatic, PERRL, EOMI, Ears normal - Neck Neck: Supple, no meningeal sign - Cardiac Cardiac: RRR, Strong equal pulses - Respiratory Respiratory: No respiratory distress, Clear bilaterally - Abdomen Abdomen: Soft, Non tender, Non distended - Derm Derm: Normal color - Extremities Extremities: No deformity - Neuro Neuro: Alert and oriented X 3, Normal speech - Psych Psych: Normal mood Results - Vitals Vitals: Vital Signs - 24 hr 08/26/18 21:12 Temperature 36.5 C Heart Rate 74 Respiratory 18 Rate Blood Pressure 149/68 H O2 Saturation 98 Oxygen O2 Source Room air - Labs Labs: Laboratory Tests 08/26/18 08/26/18 08/26/18 21:52 21:52 21:52 WBC 6.8 RBC 4.41 L Hgb 13.0 L Hct 39.1 L MCV 88.8 MCH 29.5 MCHC 33.2 RDW 14.2 Plt Count 254 MPV 8.2 Neut # (Auto) 2.6 Lymph # (Auto) 2.9 [place] # (Auto) 0.8 Eos # (Auto) 0.4 Baso # (Auto) 0.1 Absolute Nucleated RBC 0.00 Nucleated RBC % 0.1 Sodium 139 Potassium 3.9 Chloride 106 Carbon Dioxide 27 Anion Gap 6.0 BUN 16 Creatinine 1.0 Estimated GFR (MDRD) 94 Glucose 86 Calcium 9.3 Total Bilirubin 0.4 AST 23 ALT 36 Alkaline Phosphatase 70 Total Protein 6.8 Albumin 4.1 Globulin 2.7 Albumin/Globulin Ratio 1.5 Lipase 23 Urine Color YELLOW Urine Clarity CLEAR Urine pH 6.0 Ur Specific [place] >=1.030 H Urine Protein NEGATIVE Urine Glucose (UA) NEGATIVE Urine Ketones NEGATIVE Urine Occult Blood NEGATIVE Urine Nitrite NEGATIVE Urine Bilirubin NEGATIVE Urine Urobilinogen 0.2 (NORMAL) Ur Leukocyte Esterase NEGATIVE Ur Microscopic Review NOT INDICATED Urine Culture Comments NOT INDICATED PD MEDICAL DECISION MAKING - ED course ED course: The patient's lab woDoes not show any significant abnormality, the patient was just seen on August 18 for similar symptoms and had a CT scan which did not show any acute abnormality. Presently the patient appears improved and on physical exam there is no findings to suggest acute appendicitis, acute diverticulitis, bowel obstruction or acute cholecystitis. Given the fact that he just had a CT scan and his lab work and exam are unremarkable I do not think repeating a CT scan would be of much utility at this point. I recommended that the patient follow-up with primary care for referral to gastroenterology. The patient will return to the emergency department for any worsening or any concernsrk Departure - Departure Disposition: 01 Home, Self Care Clinical Impression: Abdominal pain in male Condition: Good Instructions: Abdominal Pain Follow-Up: Alex Torres MD [Primary Care Provider] - Within 1 week (Please ask about a referral to gastroenterology to further assess your ongoing chronic abdominal pain) Comments: Please return to the emergency department for any worsening or any concerns
[2018-08-26 22:05] LABS: BASOPHILS # (AUTO) 0.1 10^3/uL (0.0-0.1); BASOPHILS % (AUTO) 1.1 %; EOSINOPHILS # (AUTO) 0.4 10^3/uL (0.0-0.7); EOSINOPHILS % (AUTO) 5.6 %; LYMPHOCYTES # (AUTO) 2.9 10^3/uL (1.5-3.5); LYMPHOCYTES % (AUTO) 43.1 %; MEAN CORPUSCULAR HEMOGLOBIN 29.5 pg (27.0-31.0); MEAN CORPUSCULAR HGB CONC 33.2 g/dL (32.0-36.0); MEAN CORPUSCULAR VOLUME 88.8 fL (80.0-94.0); MEAN PLATELET VOLUME 8.2 fL (7.4-11.4); MONOCYTES # (AUTO) 0.8 10^3/uL (0.0-1.0); MONOCYTES % (AUTO) 12.2 %; NEUTROPHILS # (AUTO) 2.6 10^3/uL (1.5-6.6); PLT - PLATELET COUNT 254 10^3/uL (130-450); RED BLOOD COUNT 4.41 10^6/uL (4.70-6.10); RED CELL DISTRIBUTION WIDTH 14.2 % (12.0-15.0); WHITE BLOOD COUNT 6.8 x10^3/uL (4.8-10.8)
[2018-08-26 22:06] LABS: BILIRUBIN,URINE NEGATIVE (NEGATIVE); GLUCOSE, URINE (UA) NEGATIVE (NEGATIVE); KETONES,URINE (UA) NEGATIVE (NEGATIVE); LEUKOCYTE ESTERASE, URINE NEGATIVE (NEGATIVE); NITRITE,URINE NEGATIVE (NEGATIVE); OCCULT BLOOD,URINE NEGATIVE (NEGATIVE); PROTEIN,URINE NEGATIVE (NEGATIVE); UROBILINOGEN,URINE 0.2 (NORMAL) E.U./dL (NORMAL)
[2018-08-26 22:07] LABS: CLARITY,URINE CLEAR (CLEAR)
[2018-08-26 22:17] LABS: ALBUMIN 4.1 g/dL (3.2-5.5); ALBUMIN/GLOBULIN RATIO 1.5 (1.0-2.2); BILIRUBIN,TOTAL 0.4 mg/dL (0.2-1.0); CALCIUM 9.3 mg/dL (8.5-10.3); TOTAL PROTEIN 6.8 g/dL (6.7-8.2)
[2018-08-26 22:37] VITALS: BP 120/51
== END 2018-08-26 22:50 | disposition home or self-care (01) ==
LOC: ED 21:05
DX: R10.30 Lower abdominal pain, unspecified (principal); F17.200 Nicotine dependence, unspecified, uncomplicated
CPT/HCPCS: 36415; 80053; 81003; 83690; 85025; 96365; 96375; 99283; J2765; J7040; 81001; 87086

== ENCOUNTER 2018-09-07 23:44 | Emergency (ER) | payer MEDICARE, MEDICAID ==
--- NOTE | 2018-09-08 00:12 | ED Physician Documentation ---
History of Present Illness - Stated complaint Stated Complaint: SOA - Chief complaint Chief Complaint: Resp - History obtained from History obtained from: Patient - History of Present Illness Timing: Today Pain level max: 0 Pain level now: 0 Improved by: nothing Worsened by: nothing - Additonal information Additional information: Patient presents to the emergency department hyperventilating stating he drank alcohol tonight and smoked marijuana. States he is having a panic attack. Review of Systems Unable to obtain: Uncooperative PD PAST MEDICAL HISTORY - Past Medical History Past Medical History: Yes Cardiovascular: None Respiratory: Asthma Neuro: None Endocrine/Autoimmune: None GI: Hepatitis : None HEENT: None Psych: Depression, Anxiety, Bipolar disorder, Post traumatic stress disorder Musculoskeletal: Chronic back pain Derm: None - Past Surgical History Past Surgical History: Yes General: Hiatal hernia repair, Other - Present Medications Home Medications: Ambulatory Orders Medication Instructions Recorded Confirmed Aripiprazole [Abilify] 15 mg PO DAILY 05/22/18 08/21/18 traZODone [Desyrel] 300 mg PO DAILY PM 05/22/18 08/21/18 Omeprazole 40 mg PO BID 05/26/18 08/21/18 Dicyclomine [Bentyl] 10 mg PO Q8H PRN #20 capsule 08/05/18 08/21/18 Ondansetron Odt [Zofran] 4 mg TL Q6H PRN #10 tablet 08/05/18 08/21/18 Phenazopyridine [Pyridium] 100 mg PO Q8H PRN #9 tablet 08/05/18 08/21/18 Bupropion HCl [Wellbutrin Xl] 150 mg PO DAILY 08/21/18 08/21/18 Cetirizine [ZyrTEC] 10 mg PO DAILY 08/21/18 08/21/18 Meloxicam [Mobic] 15 mg PO DAILY 08/21/18 08/21/18 Prazosin [Minipress] 4 mg PO DAILY 08/21/18 08/21/18 - Allergies Allergies/Adverse Reactions: Allergies Allergy/AdvReac Type Severity Reaction Status Date / Time divalproex sodium Allergy Anaphylaxis Verified 09/07/18 23:53 [From Depakote] garlic Allergy Anaphylaxis Verified 09/07/18 23:53 lithium Allergy Anaphylaxis Verified 09/07/18 23:53 - Social History Does the pt smoke?: Yes Smoking Status: Current every day smoker Does the pt drink ETOH?: Yes Does the pt have substance abuse?: Yes Substance Use and Type: Marijuana - Immunizations Immunizations are current?: Yes Immunizations: TDAP >10years/unknown - POLST Patient has POLST: No PD ED PE NORMAL - Vitals Vital signs reviewed: Yes - General General: Well developed/nourished, Other (Tachypneic, hyperventilating) - HEENT HEENT: PERRL, Moist mucous membranes - Neck Neck: Supple, no meningeal sign - Cardiac Cardiac: RRR - Respiratory Respiratory: Clear bilaterally - Abdomen Abdomen: Soft, Non tender, Non distended - Back Back: No spinal TTP - Derm Derm: Warm and dry, No rash - Extremities Extremities: No edema, No calf tenderness / cord - Neuro Neuro: Alert and oriented X 3 - Psych Psych: Other (Anxious, panic attack) Results - Vitals Vitals: Vital Signs - 24 hr 09/07/18 09/08/18 23:46 06:01 Temperature 36.9 C Heart Rate 102 H 72 Respiratory 24 16 Rate Blood Pressure 161/78 H 125/65 O2 Saturation 97 97 Oxygen O2 Source Room air PD MEDICAL DECISION MAKING - ED course Complexity details: reviewed old records, re-evaluated patient, considered differential, d/w patient, d/w nursing education consultant (his counselor at [facility]) ED course: 23-year-old male with his usual headache attack after drinking alcohol. He is sleeping in the emergency department. He lives at [facility] and his business services representative did come to the emergency department and requested that we allow him to sleep for a few hours here. They will plan on coming to get him when he awakens in the morning. Patient is sleeping comfortably Patient gradually sobered in the emergency department. He is feeling better would like to go home at this time. He is not suicidal or homicidal. Patient counseled regarding signs and symptoms for which I believe and urgent re- evaluation would be necessary. Patient with good understanding of and agreement to plan and is comfortable going home at this time This document was made in part using voice recognition software. While efforts are made to proofread this document, sound alike and grammatical errors may occur. Departure - Departure Disposition: 01 Home, Self Care Clinical Impression: Panic attack Alcoholic intoxication Qualifiers: Complication of substance-induced condition: uncomplicated Qualified Code(s): F10.920 - Alcohol use, unspecified with intoxication, uncomplicated Condition: Stable Instructions: ED Alcohol Intoxication, ED Panic Attack Follow-Up: Alex Torres MD [Primary Care Provider] - Within 1 week Comments: You should stop utilizing marijuana and alcohol. Follow-up with your doctor for further care. Discharge Date/Time: 09/08/18 06:06
[2018-09-08 06:01] VITALS: BP 125/65
== END 2018-09-08 06:06 | disposition home or self-care (01) ==
LOC: ED 23:44
DX: F41.0 Panic disorder [episodic paroxysmal anxiety] (principal); F10.920 Alcohol use, unspecified with intoxication, uncomplicated; F17.200 Nicotine dependence, unspecified, uncomplicated
CPT/HCPCS: 99283

== ENCOUNTER 2018-09-08 19:55 | Emergency (ER) | payer MEDICARE, MEDICAID ==
--- NOTE | 2018-09-08 20:30 | ED Physician Documentation ---
PD HPI MHE - Stated complaint Stated Complaint: MHE - Chief complaint Chief Complaint: MHE - History obtained from History obtained from: Patient, Other ([facility]) - History of Present Illness Primary symptom: Other (states he is feeling overwhelmed and wants to go to a crisis triage facility. spoke with crisis line earlier tonight.) Timing - onset: Chronic Pain level max: 0 Pain level now: 0 Contributing factors: Family (reintroduced to his biological family recently) Similar symptoms before: Diagnosis (anxiety) Recently seen: Emergency Dept (last night for etoh intoxication.) - Additional information Additional information: state he is feeling overwhelmed and want to go to a crisis bed. Review of Systems Ten Systems: 10 systems reviewed and negative Constitutional: denies: Fever, Chills Ears: denies: Ear pain Nose: denies: Rhinorrhea / runny nose, Congestion Throat: denies: Sore throat Cardiac: denies: Chest pain / pressure Respiratory: denies: Cough GI: denies: Abdominal Pain, Vomiting, Diarrhea Skin: denies: Rash Musculoskeletal: denies: Neck pain, Back pain Neurologic: denies: Generalized weakness Psychiatric: reports: Depressed, Suicidal (states has thoughts sometimes, but is not suicidal now nor does he have a plan), Anxiety. denies: Homicidal, Hallucinations PD PAST MEDICAL HISTORY - Past Medical History Cardiovascular: None Respiratory: Asthma Neuro: None Endocrine/Autoimmune: None GI: Hepatitis : None HEENT: None Psych: Depression, Anxiety, Bipolar disorder, Post traumatic stress disorder Musculoskeletal: Chronic back pain Derm: None - Past Surgical History Past Surgical History: Yes General: Hiatal hernia repair, Other - Present Medications Home Medications: Ambulatory Orders Medication Instructions Recorded Confirmed Aripiprazole [Abilify] 15 mg PO DAILY 05/22/18 09/08/18 traZODone [Desyrel] 300 mg PO DAILY PM 05/22/18 09/08/18 Omeprazole 40 mg PO BID 05/26/18 09/08/18 Bupropion HCl [Wellbutrin Xl] 150 mg PO DAILY 08/21/18 09/08/18 Meloxicam [Mobic] 15 mg PO DAILY 08/21/18 09/08/18 Prazosin [Minipress] 1 mg PO DAILY 08/21/18 09/08/18 - Allergies Allergies/Adverse Reactions: Allergies Allergy/AdvReac Type Severity Reaction Status Date / Time divalproex sodium Allergy Anaphylaxis Verified 09/07/18 23:53 [From Depakote] garlic Allergy Anaphylaxis Verified 09/07/18 23:53 lithium Allergy Anaphylaxis Verified 09/07/18 23:53 - Social History Does the pt smoke?: Yes Smoking Status: Current every day smoker Does the pt drink ETOH?: Yes Does the pt have substance abuse?: Yes - Immunizations Immunizations are current?: Yes Immunizations: TDAP >10years/unknown - POLST Patient has POLST: No PD ED PE NORMAL - Vitals Vital signs reviewed: Yes - General General: Alert and oriented X 3, No acute distress, Well developed/nourished - HEENT HEENT: PERRL, Moist mucous membranes - Neck Neck: Supple, no meningeal sign - Cardiac Cardiac: RRR, Strong equal pulses - Respiratory Respiratory: No respiratory distress, Clear bilaterally - Abdomen Abdomen: Soft, Non tender, Non distended - Derm Derm: Warm and dry, No rash - Extremities Extremities: No edema, No calf tenderness / cord - Neuro Neuro: Alert and oriented X 3 - Psych Psych: Normal mood, Normal affect Results - Vitals Vitals: Vital Signs - 24 hr 09/08/18 09/08/18 20:08 20:30 Temperature 37.0 C Heart Rate 73 Respiratory 17 17 Rate Blood Pressure 143/90 H O2 Saturation 100 Oxygen O2 Source Room air - Labs Labs: Laboratory Tests 09/08/18 09/08/18 09/08/18 20:25 20:40 20:40 WBC 8.5 RBC 4.54 L Hgb 14.0 Hct 40.0 L MCV 88.0 MCH 30.8 MCHC 35.1 RDW 14.1 Plt Count 241 MPV 8.3 Neut # (Auto) 4.1 Lymph # (Auto) 3.1 [place] # (Auto) 1.1 H Eos # (Auto) 0.2 Baso # (Auto) 0.1 Absolute Nucleated RBC 0.00 Nucleated RBC % 0.0 Sodium 139 Potassium 3.4 L Chloride 105 Carbon Dioxide 24 Anion Gap 10.0 BUN 21 H Creatinine 0.7 Estimated GFR (MDRD) 142 Glucose 88 Calcium 9.5 Total Bilirubin 0.6 AST 31 ALT 38 Alkaline Phosphatase 69 Total Protein 7.5 Albumin 4.6 Globulin 2.9 Albumin/Globulin Ratio 1.6 Lipase 20 L TSH Urine Color YELLOW Urine Clarity CLEAR Urine pH 6.0 Ur Specific [place] >=1.030 H Urine Protein NEGATIVE Urine Glucose (UA) NEGATIVE Urine Ketones NEGATIVE Urine Occult Blood NEGATIVE Urine Nitrite NEGATIVE Urine Bilirubin NEGATIVE Urine Urobilinogen 0.2 (NORMAL) Ur Leukocyte Esterase NEGATIVE Ur Microscopic Review NOT INDICATED Urine Culture Comments NOT INDICATED Salicylates < 6.0 Urine Opiates Screen NEGATIVE Ur Oxycodone Screen NEGATIVE Urine Methadone Screen NEGATIVE Ur Propoxyphene Screen NEGATIVE Acetaminophen < 10 L Ur Barbiturates Screen NEGATIVE Ur Tricyclics Screen NEGATIVE Ur Phencyclidine Scrn NEGATIVE Ur Amphetamine Screen NEGATIVE U Methamphetamines Scrn NEGATIVE U Benzodiazepines Scrn NEGATIVE Urine Cocaine Screen NEGATIVE U Cannabinoids Screen POSITIVE H Ethyl Alcohol < 5.0 09/08/18 20:40 WBC RBC Hgb Hct MCV MCH MCHC RDW Plt Count MPV Neut # (Auto) Lymph # (Auto) [place] # (Auto) Eos # (Auto) Baso # (Auto) Absolute Nucleated RBC Nucleated RBC % Sodium Potassium Chloride Carbon Dioxide Anion Gap BUN Creatinine Estimated GFR (MDRD) Glucose Calcium Total Bilirubin AST ALT Alkaline Phosphatase Total Protein Albumin Globulin Albumin/Globulin Ratio Lipase TSH 0.74 Urine Color Urine Clarity Urine pH Ur Specific [place] Urine Protein Urine Glucose (UA) Urine Ketones Urine Occult Blood Urine Nitrite Urine Bilirubin Urine Urobilinogen Ur Leukocyte Esterase Ur Microscopic Review Urine Culture Comments Salicylates Urine Opiates Screen Ur Oxycodone Screen Urine Methadone Screen Ur Propoxyphene Screen Acetaminophen Ur Barbiturates Screen Ur Tricyclics Screen Ur Phencyclidine Scrn Ur Amphetamine Screen U Methamphetamines Scrn U Benzodiazepines Scrn Urine Cocaine Screen U Cannabinoids Screen Ethyl Alcohol PD MEDICAL DECISION MAKING - ED course Complexity details: reviewed results, re-evaluated patient, considered differential, d/w patient ED course: No crisis beds available tonight. Will stay in the ED until the am. [facility] and [facility] are considering for the morning. Patient resting quietly in the ED. No complaints currently. Recent signed out to the [facility] emergency department physician awaiting final disposition. Social work consult was also ordered. Patient had no complaints overnight Departure - Departure Clinical Impression: Schizoaffective disorder Qualifiers: Schizoaffective disorder type: unspecified Qualified Code(s): F25.9 - Schizoaffective disorder, unspecified Condition: Stable
[2018-09-08 20:43] LABS: MUDS CUTOFF CONCENTRATIONS CUTOFF CONC BELOW:
[2018-09-08 20:45] LABS: BASOPHILS # (AUTO) 0.1 10^3/uL (0.0-0.1); BASOPHILS % (AUTO) 0.9 %; EOSINOPHILS # (AUTO) 0.2 10^3/uL (0.0-0.7); EOSINOPHILS % (AUTO) 1.9 %; LYMPHOCYTES # (AUTO) 3.1 10^3/uL (1.5-3.5); LYMPHOCYTES % (AUTO) 36.8 %; MEAN CORPUSCULAR HEMOGLOBIN 30.8 pg (27.0-31.0); MEAN CORPUSCULAR HGB CONC 35.1 g/dL (32.0-36.0); MEAN PLATELET VOLUME 8.3 fL (7.4-11.4); MONOCYTES # (AUTO) 1.1 10^3/uL (0.0-1.0); MONOCYTES % (AUTO) 12.6 %; NEUTROPHILS # (AUTO) 4.1 10^3/uL (1.5-6.6); NEUTROPHILS % (AUTO) 47.8 %; PLT - PLATELET COUNT 241 10^3/uL (130-450); RED BLOOD COUNT 4.54 10^6/uL (4.70-6.10); RED CELL DISTRIBUTION WIDTH 14.1 % (12.0-15.0); WHITE BLOOD COUNT 8.5 x10^3/uL (4.8-10.8)
[2018-09-08 20:48] LABS: BILIRUBIN,URINE NEGATIVE (NEGATIVE); GLUCOSE, URINE (UA) NEGATIVE (NEGATIVE); KETONES,URINE (UA) NEGATIVE (NEGATIVE); LEUKOCYTE ESTERASE, URINE NEGATIVE (NEGATIVE); NITRITE,URINE NEGATIVE (NEGATIVE); OCCULT BLOOD,URINE NEGATIVE (NEGATIVE); PROTEIN,URINE NEGATIVE (NEGATIVE); UROBILINOGEN,URINE 0.2 (NORMAL) E.U./dL (NORMAL)
[2018-09-08 20:58] LABS: CLARITY,URINE CLEAR (CLEAR)
[2018-09-08 21:04] LABS: AMPHETAMINE SCREEN,URINE NEGATIVE (NEGATIVE); BENZODIAZEPINES SCREEN, URINE NEGATIVE (NEGATIVE); COCAINE SCREEN URINE NEGATIVE (NEGATIVE); METHADONE SCREEN, URINE NEGATIVE (NEGATIVE); METHAMPHETAMINES SCREEN, URINE NEGATIVE (NEGATIVE); OPIATE SCREEN, URINE NEGATIVE (NEGATIVE); OXYCODONE SCREEN, URINE NEGATIVE (NEGATIVE); PROPOXYPHENE SCREEN, URINE NEGATIVE (NEGATIVE); TRICYCLIC ANTIDEPRESSANT,URINE NEGATIVE (NEGATIVE)
[2018-09-08 21:05] LABS: ACETAMINOPHEN < 10 ug/mL (10-30); ALBUMIN 4.6 g/dL (3.2-5.5); ALBUMIN/GLOBULIN RATIO 1.6 (1.0-2.2); ALKALINE PHOSPHATASE 69 IU/L (42-121); ALT ALANINE AMINOTRANSFERASE 38 IU/L (10-60); AST ASPARTATE AMINOTRANSFERASE 31 IU/L (10-42); BILIRUBIN,TOTAL 0.6 mg/dL (0.2-1.0); BUN - BLOOD UREA NITROGEN 21 mg/dL (6-20); CALCIUM 9.5 mg/dL (8.5-10.3); CARBON DIOXIDE - CO2 24 mmol/L (21-32); CHLORIDE 105 mmol/L (101-111); CREATININE 0.7 mg/dL (0.6-1.2); GFR - MDRD 142 (>89); GLUCOSE 88 mg/dL (70-100); LIPASE 20 U/L (22-51); SALICYLATE < 6.0 mg/dL; SODIUM 139 mmol/L (135-145); TOTAL PROTEIN 7.5 g/dL (6.7-8.2)
[2018-09-09 07:43] VITALS: BP 120/67
--- NOTE | 2018-09-09 12:39 | ED Physician Documentation ---
ED Addendum - Addendum Addendum: 09/09/18 12:38 Social work talked with the patient in sought to perhaps get into a crisis bed just as an alternate location in the [facility] for a couple of days. However no beds were available. The patient is not really needing hospitalization. Social work talked with him and 1 of the counselors from [facility] and everyone was agreeable to go back there and he will have a appointment with [facility] tomorrow.
== END 2018-09-09 12:45 | disposition home or self-care (01) ==
LOC: ED 19:55
DX: F25.9 Schizoaffective disorder, unspecified (principal); F41.0 Panic disorder [episodic paroxysmal anxiety]; F10.920 Alcohol use, unspecified with intoxication, uncomplicated; F17.200 Nicotine dependence, unspecified, uncomplicated
CPT/HCPCS: 36415; 80053; 80306; 80307; 80320; 80329; 81001; 81003; 83690; 84443; 85025; 87086; 99283; 99284

== ENCOUNTER 2018-09-18 14:03 | Outpatient (CLI) | payer MEDICARE, MEDICAID | END 2018-09-18 14:04 | disposition critical access hospital (66) | LOC: EMS 14:03 | PROVIDERS: ATTEND Surgery | DX: R53.1 Weakness (principal) | CPT/HCPCS: A0425; A0429 ==

== ENCOUNTER 2018-09-18 14:29 | Emergency (ER) | payer MEDICARE, MEDICAID ==
[2018-09-18] MEDS ORDERED: HALOPERIDOL 5 MG/ML VIAL IVP ONE (15:54)
[2018-09-18] MEDS ORDERED: SODIUM CHLORIDE 0.9% 1,000 ML IV ONE (15:54)
--- NOTE | 2018-09-18 15:56 | ED Physician Documentation ---
PD HPI ABD PAIN - Stated complaint Stated Complaint: GENERAL WEAKNESS - Chief complaint Chief Complaint: Abd Pain - History obtained from History obtained from: Patient - History of Present Illness Timing - onset: Other (23-year-old gentleman with history of psychiatric issues has been having ongoing trouble with central abdominal pain and vomiting. This is been going on for weeks. He vomits almost every day. He is a daily marijuana smoker. Today he was walking in his legs cramped up and he felt very weak.) Review of Systems Constitutional: reports: Chills, Fatigue. denies: Fever Cardiac: denies: Chest pain / pressure, Palpitations Respiratory: denies: Dyspnea, Cough PD PAST MEDICAL HISTORY - Past Medical History Past Medical History: Yes Cardiovascular: None Respiratory: Asthma Neuro: None Endocrine/Autoimmune: None GI: Hepatitis : None HEENT: None Psych: Depression, Anxiety, Bipolar disorder, Post traumatic stress disorder Musculoskeletal: Chronic back pain Derm: None - Past Surgical History Past Surgical History: Yes General: Hiatal hernia repair, Other - Present Medications Home Medications: Ambulatory Orders Medication Instructions Recorded Confirmed Aripiprazole [Abilify] 15 mg PO DAILY 05/22/18 09/18/18 traZODone [Desyrel] 300 mg PO DAILY PM 05/22/18 09/18/18 Omeprazole 40 mg PO BID 05/26/18 09/18/18 Bupropion HCl [Wellbutrin Xl] 150 mg PO DAILY 08/21/18 09/18/18 Prazosin [Minipress] 1 mg PO DAILY 08/21/18 09/18/18 - Allergies Allergies/Adverse Reactions: Allergies Allergy/AdvReac Type Severity Reaction Status Date / Time divalproex sodium Allergy Anaphylaxis Verified 09/18/18 14:57 [From Depakote] garlic Allergy Anaphylaxis Verified 09/18/18 14:57 lithium Allergy Anaphylaxis Verified 09/18/18 14:57 - Social History Does the pt smoke?: Yes Smoking Status: Current every day smoker Does the pt drink ETOH?: Yes ETOH Use: Liquor Does the pt have substance abuse?: No Substance Use and Type: Marijuana - Immunizations Immunizations are current?: Yes Immunizations: TDAP current <10years - POLST Patient has POLST: No PD ED PE NORMAL - Vitals Vital signs reviewed: Yes - General General: Alert and oriented X 3, No acute distress - Neck Neck: Supple, no meningeal sign, No bony TTP - Cardiac Cardiac: RRR, No murmur - Respiratory Respiratory: No respiratory distress, Clear bilaterally - Abdomen Abdomen: Normal bowel sounds, Soft, Non tender - Extremities Extremities: No edema, No calf tenderness / cord - Neuro Neuro: Alert and oriented X 3, Normal speech Results - Vitals Vitals: Vital Signs - 24 hr 09/18/18 09/18/18 14:56 14:58 Temperature 36.6 C Heart Rate 87 Respiratory 16 Rate Blood Pressure 138/78 H O2 Saturation 99 Oxygen O2 Source Room air - Labs Labs: Laboratory Tests 09/18/18 09/18/18 16:20 16:20 WBC 13.7 H RBC 4.33 L Hgb 13.0 L Hct 38.1 L MCV 87.9 MCH 29.9 MCHC 34.1 RDW 14.4 Plt Count 214 MPV 8.0 Neut # (Auto) Not Reportable Lymph # (Auto) Not Reportable [place] # (Auto) Not Reportable Eos # (Auto) Not Reportable Baso # (Auto) Not Reportable Absolute Nucleated RBC Not Reportable Total Counted 100 Band Neuts % (Manual) 7 Abnorm Lymph % (Manual) 0 Nucleated RBC % Not Reportable Neutrophils # (Manual) 11.6 H Lymphocytes # (Manual) 1.0 L Monocytes # (Manual) 1.0 Eosinophils # (Manual) 0.1 Basophils # (Manual) 0.0 Differential Comment MANUAL DIFFERENTIAL Manual Slide Review Indicated Platelet Estimate NORMAL (130-450,000) Platelet Morphology NORMAL APPEARANCE RBC Morph Micro Appear NORMAL APPEARANCE Sodium 136 Potassium 3.4 L Chloride 102 Carbon Dioxide 27 Anion Gap 7.0 BUN 15 Creatinine 0.9 Estimated GFR (MDRD) 107 Glucose 108 H Calcium 9.0 Total Bilirubin 0.9 AST 27 ALT 37 Alkaline Phosphatase 54 Total Protein 6.5 L Albumin 3.8 Globulin 2.7 Albumin/Globulin Ratio 1.4 Lipase 23 PD MEDICAL DECISION MAKING - ED course ED course: 23-year-old gentleman with generalized weakness in the setting of what sounds like cannabinoid hyperemesis syndrome. After the administration of IV Haldol and fluids he was feeling much better and passed an oral challenge. Departure - Departure Disposition: 01 Home, Self Care Clinical Impression: Muscle cramps, Cannabinoid hyperemesis syndrome Condition: Good Record reviewed to determine appropriate education?: Yes Instructions: Abdominal Pain Comments: As discussed I suspect some of your abdominal issues may be related to chronic marijuana use. It should be stressed that you should stop smoking marijuana.
[2018-09-18 16:35] LABS: BASOPHILS % (AUTO) 0.7 %; MEAN CORPUSCULAR HEMOGLOBIN 29.9 pg (27.0-31.0); MEAN CORPUSCULAR HGB CONC 34.1 g/dL (32.0-36.0); MEAN CORPUSCULAR VOLUME 87.9 fL (80.0-94.0); MONOCYTES % (AUTO) 14.7 %; NEUTROPHILS % (AUTO) 79.6 %; PLT - PLATELET COUNT 214 10^3/uL (130-450); RED BLOOD COUNT 4.33 10^6/uL (4.70-6.10); RED CELL DISTRIBUTION WIDTH 14.4 % (12.0-15.0); WHITE BLOOD COUNT 13.7 x10^3/uL (4.8-10.8)
[2018-09-18 16:39] LABS: ABNORMAL LYMPHS % (MANUAL) 0 %
[2018-09-18 16:47] LABS: ALBUMIN 3.8 g/dL (3.2-5.5); ALBUMIN/GLOBULIN RATIO 1.4 (1.0-2.2); BILIRUBIN,TOTAL 0.9 mg/dL (0.2-1.0); CREATININE 0.9 mg/dL (0.6-1.2); TOTAL PROTEIN 6.5 g/dL (6.7-8.2)
[2018-09-18] MEDS ORDERED: HALOPERIDOL 5 MG/ML VIAL ONE (17:03)
[2018-09-18 17:31] LABS: BAND NEUTROPHILS % (MANUAL) 7 %; EOSINOPHILS # (MANUAL) 0.1 10^3/uL (0-0.7); LYMPHOCYTES % (MANUAL) 7 %; NEUTROPHILS # (MANUAL) 11.6 10^3/uL (1.5-6.6); NEUTROPHILS % (MANUAL) 78 %
[2018-09-18 17:32] LABS: RBC MORPHOLOGY (MULTIPLE) NORMAL APPEARANCE (NORMAL)
[2018-09-18 17:33] LABS: DIFFERENTIAL COMMENT MANUAL DIFFERENTIAL; PLATELET ESTIMATE, MANUAL NORMAL (130-450,000) (NORMAL); PLATELET MORPHOLOGY NORMAL APPEARANCE (NORMAL)
[2018-09-18 18:17] VITALS: BP 117/68
== END 2018-09-18 18:23 | disposition home or self-care (01) ==
LOC: ED 14:29
DX: T40.7X1A Poisoning by cannabis (derivatives), accidental (unintentional), initial encounter (principal); R11.2 Nausea with vomiting, unspecified; R25.2 Cramp and spasm; F17.200 Nicotine dependence, unspecified, uncomplicated
CPT/HCPCS: 36415; 80053; 83690; 85025; 96361; 96374; 99282; 99284

== ENCOUNTER 2018-10-01 22:23 | Emergency (ER) | payer MEDICARE, MEDICAID ==
[2018-10-01] MEDS ORDERED: ONDANSETRON 4 MG/2 ML VIAL ONE (23:37)
[2018-10-01] MEDS ORDERED: KETOROLAC 15 MG/ML VIAL ONE (23:37)
[2018-10-01] MEDS ORDERED: ACETAMINOPHEN 500 MG TABLET PO ONE (23:37)
[2018-10-02 02:14] LABS: ALBUMIN 4.3 g/dL (3.2-5.5); ALBUMIN/GLOBULIN RATIO 1.3 (1.0-2.2); BASOPHILS # (AUTO) 0.1 10^3/uL (0.0-0.1); BASOPHILS % (AUTO) 0.4 %; BILIRUBIN,TOTAL 0.8 mg/dL (0.2-1.0); CALCIUM 9.3 mg/dL (8.5-10.3); CREATININE 0.7 mg/dL (0.6-1.2); EOSINOPHILS % (AUTO) 0.1 %; HGB - HEMOGLOBIN 13.5 g/dL (14.0-18.0); LYMPHOCYTES # (AUTO) 1.5 10^3/uL (1.5-3.5); LYMPHOCYTES % (AUTO) 8.3 %; MEAN CORPUSCULAR HEMOGLOBIN 29.7 pg (27.0-31.0); MEAN CORPUSCULAR HGB CONC 34.2 g/dL (32.0-36.0); MEAN CORPUSCULAR VOLUME 86.9 fL (80.0-94.0); MEAN PLATELET VOLUME 8.3 fL (7.4-11.4); MONOCYTES # (AUTO) 1.5 10^3/uL (0.0-1.0); MONOCYTES % (AUTO) 8.8 %; NEUTROPHILS # (AUTO) 14.5 10^3/uL (1.5-6.6); NEUTROPHILS % (AUTO) 82.4 %; PLT - PLATELET COUNT 229 10^3/uL (130-450); RED BLOOD COUNT 4.55 10^6/uL (4.70-6.10); RED CELL DISTRIBUTION WIDTH 13.4 % (12.0-15.0); TOTAL PROTEIN 7.5 g/dL (6.7-8.2); WHITE BLOOD COUNT 17.6 x10^3/uL (4.8-10.8)
--- NOTE | 2018-10-02 05:15 | ED Physician Documentation ---
PD HPI HEENT - Stated complaint Stated Complaint: VOMITING BLOOD/FEVER - History obtained from History obtained from: Patient - History of Present Illness Timing - onset: How many days ago (3) Timing - duration: Days (3) Timing - details: Gradual onset Pain level max: 2 Pain level now: 2 Severity Comments: mild Location: Throat Improves: Nothing Worsens: Swalllowing Associated symptoms: Fever, Congestion, Other (Vomiting w blood streaks) Review of Systems Ten Systems: 10 systems reviewed and negative Constitutional: reports: Reviewed and negative Eyes: reports: Reviewed and negative Ears: reports: Reviewed and negative Nose: reports: Rhinorrhea / runny nose, Congestion Throat: reports: Reviewed and negative Cardiac: reports: Reviewed and negative Respiratory: reports: Reviewed and negative GI: reports: Vomiting. denies: Abdominal Pain, Bloody / black stool : reports: Reviewed and negative Skin: reports: Reviewed and negative Musculoskeletal: reports: Reviewed and negative Neurologic: reports: Reviewed and negative Psychiatric: reports: Reviewed and negative Endocrine: reports: Reviewed and negative Immunocompromised: reports: Reviewed and negative PD PAST MEDICAL HISTORY - Past Medical History Cardiovascular: None Respiratory: Asthma Neuro: None Endocrine/Autoimmune: None GI: Hepatitis : None HEENT: None Psych: Depression, Anxiety, Bipolar disorder, Post traumatic stress disorder Musculoskeletal: Chronic back pain Derm: None - Past Surgical History Past Surgical History: Yes General: Hiatal hernia repair, Other - Present Medications Home Medications: Ambulatory Orders Medication Instructions Recorded Confirmed Aripiprazole [Abilify] 15 mg PO DAILY 05/22/18 09/18/18 traZODone [Desyrel] 300 mg PO DAILY PM 05/22/18 09/18/18 Omeprazole 40 mg PO BID 05/26/18 09/18/18 Bupropion HCl [Wellbutrin Xl] 150 mg PO DAILY 08/21/18 09/18/18 Prazosin [Minipress] 1 mg PO DAILY 08/21/18 09/18/18 - Allergies Allergies/Adverse Reactions: Allergies Allergy/AdvReac Type Severity Reaction Status Date / Time divalproex sodium Allergy Anaphylaxis Verified 09/18/18 14:57 [From Depakote] garlic Allergy Anaphylaxis Verified 09/18/18 14:57 lithium Allergy Anaphylaxis Verified 09/18/18 14:57 - Social History Does the pt smoke?: Yes Smoking Status: Current every day smoker Does the pt drink ETOH?: Yes Does the pt have substance abuse?: No - Immunizations Immunizations are current?: Yes Immunizations: TDAP current <10years - POLST Patient has POLST: No PD ED PE NORMAL - Vitals Vital signs reviewed: Yes - General General: Alert and oriented X 3, No acute distress - HEENT HEENT: PERRL - Neck Neck: Supple, no meningeal sign - Cardiac Cardiac: RRR, No murmur - Respiratory Respiratory: Clear bilaterally - Abdomen Abdomen: Normal bowel sounds, Soft, Non tender, Non distended - Derm Derm: Warm and dry - Extremities Extremities: No deformity - Neuro Neuro: Alert and oriented X 3 - Psych Psych: Normal mood, Normal affect Results - Vitals Vitals: Oxygen O2 Source Room air - Labs Labs: Laboratory Tests 10/01/18 10/01/18 10/01/18 23:13 23:13 23:13 WBC 17.6 H RBC 4.55 L Hgb 13.5 L Hct 39.6 L MCV 86.9 MCH 29.7 MCHC 34.2 RDW 13.4 Plt Count 229 MPV 8.3 Neut # (Auto) 14.5 H Lymph # (Auto) 1.5 [place] # (Auto) 1.5 H Eos # (Auto) 0.0 Baso # (Auto) 0.1 Absolute Nucleated RBC 0.00 Nucleated RBC % 0.0 Sodium 138 Potassium 3.5 Chloride 104 Carbon Dioxide 25 Anion Gap 9.0 BUN 10 Creatinine 0.7 Estimated GFR (MDRD) 142 Glucose 87 Lactic Acid 0.5 Calcium 9.3 Total Bilirubin 0.8 AST 18 ALT 27 Alkaline Phosphatase 58 Total Protein 7.5 Albumin 4.3 Globulin 3.2 Albumin/Globulin Ratio 1.3 Lipase 20 L Influenza A (Rapid) Influenza B (Rapid) Group A Strep Rapid 10/01/18 10/01/18 23:13 23:13 WBC RBC Hgb Hct MCV MCH MCHC RDW Plt Count MPV Neut # (Auto) Lymph # (Auto) [place] # (Auto) Eos # (Auto) Baso # (Auto) Absolute Nucleated RBC Nucleated RBC % Sodium Potassium Chloride Carbon Dioxide Anion Gap BUN Creatinine Estimated GFR (MDRD) Glucose Lactic Acid Calcium Total Bilirubin AST ALT Alkaline Phosphatase Total Protein Albumin Globulin Albumin/Globulin Ratio Lipase Influenza A (Rapid) Negative Influenza B (Rapid) Negative Group A Strep Rapid Negative - Rads (name of study) Chest Xray Radiology: Final report received (WNL) PD MEDICAL DECISION MAKING - ED course Complexity details: reviewed results, re-evaluated patient, considered differential, d/w patient ED course: 23-year-old male with vomiting, body aches, fever at home. Vitals notable for initial tachycardia that improved with IV fluids. Labs unremarkable. Chest x- ray unremarkable. Patient discharged home with primary care follow-up. Departure - Departure Disposition: 01 Home, Self Care Discharge Date/Time: 10/02/18 02:29
--- NOTE | 2018-10-02 11:53 | XRAY Report ---
Reason: HEMATEMESIS Procedure Date: 10/01/2018 Accession Number: [id number] / [id number] Procedure: XR - Chest 1 View X-Ray CPT Code: 87008 FULL RESULT: EXAM: CHEST RADIOGRAPHY EXAM DATE: 10/01/2018 11:37 PM. CLINICAL HISTORY: Hematemesis. COMPARISON: None currently available. TECHNIQUE: 1 view. FINDINGS: Lungs/Pleura: No alveolar consolidation or pleural effusion seen. No pneumothorax. Mediastinum: Within exam limitations, the cardiomediastinal contour is normal. Other: None. IMPRESSION: 1. No acute abnormality seen in the chest. RADIA
== END 2018-10-02 02:29 | disposition home or self-care (01) ==
LOC: ED 22:23
DX: J06.9 Acute upper respiratory infection, unspecified (principal); R00.0 Tachycardia, unspecified; J45.909 Unspecified asthma, uncomplicated; F17.200 Nicotine dependence, unspecified, uncomplicated
CPT/HCPCS: 36415; 71045; 80053; 83605; 83690; 85025; 87070; 87275; 87276; 87430; 99281; 99282; A9270

== ENCOUNTER 2018-10-25 21:21 | Emergency (ER) | payer MEDICARE, MEDICAID ==
--- NOTE | 2018-10-25 22:29 | XRAY Report ---
Reason: pain, swollen, limited ROM Procedure Date: 10/25/2018 Accession Number: [id number] / [id number] Procedure: XR - Hand 3 View RT CPT Code: FULL RESULT: EXAM: RIGHT HAND RADIOGRAPHY EXAM DATE: 10/25/2018 09:46 PM. CLINICAL HISTORY: Pain, swollen, limited ROM. COMPARISON: None. TECHNIQUE: 3 views. FINDINGS: Bones: Old healed distal fifth metacarpal fracture. No acute fractures. Joints: Normal. No subluxations. Soft Tissues: Normal. No soft tissue swelling. IMPRESSION: Old fifth metacarpal fracture, nothing acute. RADIA
--- NOTE | 2018-10-25 23:05 | ED Physician Documentation ---
PD HPI UPPER EXT INJURY - Stated complaint Stated Complaint: HAND INJURY - Chief complaint Chief Complaint: Trauma Ext - History obtained from History obtained from: Patient - History of Present Illness Location: Right, Hand Type of injury: Other (punched a wall 2 days ago.) Timing - onset: How many days ago (2) Timing - duration: Days (2) Timing - details: Gradual onset Pain level max: 7 Pain level now: 4 Improved by: Rest, Immobilization Worsened by: Moving, Palpating Associated symptoms: Swelling. No: Weakness, Numbness, Tingling Recently seen: Not recently seen Review of Systems Constitutional: denies: Fever Neurologic: denies: Focal weakness, Numbness PD PAST MEDICAL HISTORY - Past Medical History Cardiovascular: None Respiratory: Asthma Neuro: None Endocrine/Autoimmune: None GI: Hepatitis : None HEENT: None Psych: Depression, Anxiety, Bipolar disorder, Post traumatic stress disorder Musculoskeletal: Chronic back pain Derm: None - Past Surgical History Past Surgical History: Yes General: Hiatal hernia repair, Other - Present Medications Home Medications: Ambulatory Orders Medication Instructions Recorded Confirmed Aripiprazole [Abilify] 15 mg PO DAILY 05/22/18 09/18/18 traZODone [Desyrel] 300 mg PO DAILY PM 05/22/18 09/18/18 Omeprazole 40 mg PO BID 05/26/18 09/18/18 Bupropion HCl [Wellbutrin Xl] 150 mg PO DAILY 08/21/18 09/18/18 Prazosin [Minipress] 1 mg PO DAILY 08/21/18 09/18/18 - Allergies Allergies/Adverse Reactions: Allergies Allergy/AdvReac Type Severity Reaction Status Date / Time divalproex sodium Allergy Anaphylaxis Verified 10/25/18 21:29 [From Depakote] garlic Allergy Anaphylaxis Verified 10/25/18 21:29 lithium Allergy Anaphylaxis Verified 10/25/18 21:29 - Social History Does the pt smoke?: Yes Smoking Status: Current every day smoker Does the pt drink ETOH?: Yes Does the pt have substance abuse?: No - Immunizations Immunizations are current?: Yes Immunizations: TDAP current <10years - POLST Patient has POLST: No PD ED PE NORMAL - Vitals Vital signs reviewed: Yes - General General: Alert and oriented X 3, No acute distress, Well developed/nourished - HEENT HEENT: Moist mucous membranes - Derm Derm: Warm and dry - Extremities Extremities: Other (Right hand - Tender to palpation over the fifth metacarpal Also some tenderness over the first metacarpal. Mild swelling. No deformity. Neurovascular intact. Otherwise normal examination of the hand and wrist. No snuffbox tenderness) - Neuro Neuro: Alert and oriented X 3 - Psych Psych: Normal mood, Normal affect Results - Vitals Vitals: Vital Signs - 24 hr 10/25/18 10/25/18 21:22 23:28 Temperature 36.8 C Heart Rate 74 78 Respiratory 16 16 Rate Blood Pressure 126/76 121/68 O2 Saturation 98 100 Oxygen O2 Source Room air - Rads (name of study) Right hand x-ray Radiology: Prelim report reviewed, EMP read contemporaneously, See rad report (No acute abnormality) PD MEDICAL DECISION MAKING - ED course Complexity details: reviewed results, re-evaluated patient, considered differential, d/w patient ED course: 23-year-old male with right hand contusion. Placed in a Velcro thumb spica as he was having some pain at the base of the thumb as well. Negative x-ray. Neurovascularly intact. No snuffbox tenderness. Patient counseled regarding signs and symptoms for which I believe and urgent re-evaluation would be necessary. Patient with good understanding of and agreement to plan and is comfortable going home at this time This document was made in part using voice recognition software. While efforts are made to proofread this document, sound alike and grammatical errors may occur. Departure - Departure Disposition: 01 Home, Self Care Clinical Impression: Contusion of right hand Qualifiers: Encounter type: initial encounter Qualified Code(s): S60.221A - Contusion of right hand, initial encounter Condition: Good Instructions: ED Sprain Hand Follow-Up: Alex Torres MD [Primary Care Provider] - Within 1 week Comments: Wear the splint for the next 3-4 days as needed for pain. Return if you worsen. Your x-ray is normal tonight. You can use Motrin and Tylenol as needed for pain. Discharge Date/Time: 10/25/18 23:28
[2018-10-25 23:29] VITALS: BP 121/68
== END 2018-10-25 23:28 | disposition home or self-care (01) ==
LOC: ED 21:21
DX: S60.221A Contusion of right hand, initial encounter (principal); W22.09XA Striking against other stationary object, initial encounter; Y93.89 Activity, other specified; F17.200 Nicotine dependence, unspecified, uncomplicated
CPT/HCPCS: 99283

== ENCOUNTER 2018-10-30 12:23 | Outpatient (CLI) | payer MEDICARE, MEDICAID | END 2018-10-30 12:24 | disposition critical access hospital (66) | LOC: EMS 12:23 | PROVIDERS: ATTEND Surgery | DX: S99.911A Unspecified injury of right ankle, initial encounter (principal); X50.1XXA Overexertion from prolonged static or awkward postures, initial encounter; Y93.51 Activity, roller skating (inline) and skateboarding | CPT/HCPCS: A0425; A0429 ==

== ENCOUNTER 2018-10-30 12:44 | Emergency (ER) | payer MEDICARE, MEDICAID ==
[2018-10-30 12:52] VITALS: BP 138/86
--- NOTE | 2018-10-30 13:32 | ED Physician Documentation ---
PD HPI LOWER EXT INJURY - Stated complaint Stated Complaint: ANKLE INJURY - Chief complaint Chief Complaint: Ext Problem - History obtained from History obtained from: Patient - History of Present Illness PD HPI LOW EXT INJURY LOCATION: Right, Ankle Type of injury: Fall (from skateboard, planted on right foot and ankle twisted abruptly. [place] pop and unable to bear weight comfortably since.) Timing - onset: Today Timing - details: Abrupt onset, Still present Improved by: Rest, Immobilization Worsened by: Moving, Palpating, Other (weight bearing) Review of Systems Cardiac: denies: Chest pain / pressure GI: denies: Abdominal Pain Skin: reports: Abrasion (s) (knee and elbow) Musculoskeletal: reports: Joint pain, Joint swelling Neurologic: denies: Focal weakness, Numbness, Altered mental status, Headache, Head injury PD PAST MEDICAL HISTORY - Past Medical History Past Medical History: Yes Cardiovascular: None Respiratory: Asthma Neuro: None Endocrine/Autoimmune: None GI: Hepatitis : None HEENT: None Psych: Depression, Anxiety, Bipolar disorder, Post traumatic stress disorder Musculoskeletal: Chronic back pain Derm: None Other Past Medical History: Hep C - Past Surgical History Past Surgical History: Yes General: Hiatal hernia repair, Other - Present Medications Home Medications: Ambulatory Orders Medication Instructions Recorded Confirmed Aripiprazole [Abilify] 15 mg PO DAILY 05/22/18 09/18/18 traZODone [Desyrel] 300 mg PO DAILY PM 05/22/18 09/18/18 Omeprazole 40 mg PO BID 05/26/18 09/18/18 Bupropion HCl [Wellbutrin Xl] 150 mg PO DAILY 08/21/18 09/18/18 Prazosin [Minipress] 1 mg PO DAILY 08/21/18 09/18/18 Naproxen 500 mg PO BID #20 tablet 10/30/18 - Allergies Allergies/Adverse Reactions: Allergies Allergy/AdvReac Type Severity Reaction Status Date / Time divalproex sodium Allergy Anaphylaxis Verified 10/30/18 12:51 [From Depakote] garlic Allergy Anaphylaxis Verified 10/30/18 12:51 lithium Allergy Anaphylaxis Verified 10/30/18 12:51 - Social History Does the pt smoke?: Yes Smoking Status: Current every day smoker Does the pt drink ETOH?: Yes Does the pt have substance abuse?: No - Immunizations Immunizations are current?: Yes Immunizations: TDAP current <10years - POLST Patient has POLST: No PD ED PE NORMAL - Vitals Vital signs reviewed: Yes - General General: Alert and oriented X 3, No acute distress, Well developed/nourished - HEENT HEENT: Atraumatic - Neck Neck: Supple, no meningeal sign, No bony TTP - Derm Derm: Normal color, Warm and dry - Extremities Extremities: Other (left elbow abrasion, right knee abrasion with good ROM of those joints. Right lateral ankle with swelling and tendrness. Limited ROM due to pain. Normal color and cap refill in toes. Medial malleolus and deltoid l igament area is not tender and without swelling. ) - Neuro Neuro: Alert and oriented X 3, No motor deficit, No sensory deficit, Normal speech Results - Vitals Vitals: Oxygen O2 Source Room air - Rads (name of study) right ankle Radiology: Prelim report reviewed, EMP read contemporaneously (distal fibular oblique fracture with slight displacement but no angulation. Mortis alignment appears okay. ), See rad report Procedures - Splint (location) right ankle Splint applied by: Tech Type of splint: Fiberglass, Short leg, Posterior, Stirrup Other: Patient tolerated well, No complications, Neurovascular intact, Good alignment, Crutches provided Departure - Departure Disposition: 01 Home, Self Care Clinical Impression: Injury while skateboarding Fracture of distal fibula Qualifiers: Encounter type: initial encounter Fracture type: closed Fracture morphology: torus Laterality: right Qualified Code(s): S82.821A - Torus fracture of lower end of right fibula, initial encounter for closed fracture Condition: Stable Record reviewed to determine appropriate education?: Yes Instructions: ED Fx Ankle Lateral Malleolus Follow-Up: [facility] [Provider Group] Prescriptions: Naproxen 500 mg PO BID #20 tablet Comments: Keep the splint on and elevate and rest her ankle often over the next several days to reduce swelling. Use crutches for nonweightbearing initially until follow-up with orthopedics. Call the orthopedic office today or tomorrow for an appointment likely early next week for reevaluation of the fracture and change to either cast or cast boot depending upon the healing. He will be not fully able to use your ankle for about 4-6 weeks. Use some naproxen or ibuprofen twice daily for the next 7-10 days. Add Tylenol if needed for pains. Discharge Date/Time: 10/30/18 14:45
--- NOTE | 2018-10-30 13:41 | XRAY Report ---
Reason: rt ankle injury skateboarding Procedure Date: 10/30/2018 Accession Number: [id number] / [id number] Procedure: XR - Ankle 3 View RT CPT Code: FULL RESULT: EXAM: RIGHT ANKLE RADIOGRAPHY EXAM DATE: 10/30/2018 01:35 PM. CLINICAL HISTORY: Right ankle injury skateboarding. COMPARISON: None. TECHNIQUE: 3 views. FINDINGS: Bones: Distal fibular fracture at the level of the tibiotalar dome, acute. Joints: Ankle mortise is widened. Soft Tissues: Expected soft tissue swelling. IMPRESSION: Distal fibular fracture with widening of the ankle mortise. RADIA
[2018-10-30] MEDS ORDERED: ACETAMINOPHEN 325 MG TABLET PO STA (13:43)
[2018-10-30] MEDS ORDERED: IBUPROFEN 600 MG TABLET PO STA (13:43)
== END 2018-10-30 14:45 | disposition home or self-care (01) ==
LOC: EDUNIT# → ED 12:44
DX: S82.821A Torus fracture of lower end of right fibula, initial encounter for closed fracture (principal); V00.131A Fall from skateboard, initial encounter; X50.1XXA Overexertion from prolonged static or awkward postures, initial encounter; Y93.51 Activity, roller skating (inline) and skateboarding; B19.20 Unspecified viral hepatitis C without hepatic coma; F17.200 Nicotine dependence, unspecified, uncomplicated
CPT/HCPCS: 73610; 99283; A9270

== ENCOUNTER 2018-11-03 14:29 | Emergency (ER) | payer MEDICARE, MEDICAID ==
[2018-11-03 14:46] VITALS: BP 134/84
--- NOTE | 2018-11-03 14:54 | ED Physician Documentation ---
PD HPI LOWER EXT INJURY - Stated complaint Stated Complaint: RIGHT FOOT PAIN AND NEEDS NEW WRAP - Chief complaint Chief Complaint: General - History obtained from History obtained from: Patient - History of Present Illness PD HPI LOW EXT INJURY LOCATION: Right, Ankle Type of injury: Fall, [place]ist [place] injury occurred[place] Timing - onset: How many days ago (4) Timing - duration: Days (4) Timing - details: Abrupt onset, Still present Improved by: Rest, Ice, Immobilization Worsened by: Moving, Palpating Associated symptoms: Swelling. No: Weakness, Numbness, Tingling Contributing factors: No: Anticoagulated Similar symptoms before: Diagnosis (distal fibular fracture.) Recently seen: Emergency Dept - Additional information Additional information: 23-year-old male [place] and has a fracture of his distal fibula and there is some shift of the ankle mortise. He has been placed into a posterior splint and stirrup and today he got this entire lower segment of the splint wet is come in now for treatment. Review of Systems Constitutional: denies: Fever Eyes: denies: Decreased vision Ears: denies: Ear pain Nose: denies: Congestion Throat: denies: Sore throat Respiratory: denies: Cough GI: denies: Vomiting PD PAST MEDICAL HISTORY - Past Medical History Cardiovascular: None Respiratory: Asthma Neuro: None Endocrine/Autoimmune: None GI: Hepatitis : None HEENT: None Psych: Depression, Anxiety, Bipolar disorder, Post traumatic stress disorder Musculoskeletal: Chronic back pain Derm: None - Past Surgical History Past Surgical History: Yes General: Hiatal hernia repair, Other - Present Medications Home Medications: Ambulatory Orders Medication Instructions Recorded Confirmed Aripiprazole [Abilify] 15 mg PO DAILY 05/22/18 11/03/18 traZODone [Desyrel] 300 mg PO DAILY PM 05/22/18 11/03/18 Omeprazole 40 mg PO BID 05/26/18 11/03/18 Bupropion HCl [Wellbutrin Xl] 150 mg PO DAILY 08/21/18 11/03/18 Prazosin [Minipress] 1 mg PO DAILY 08/21/18 11/03/18 Naproxen 500 mg PO BID #20 tablet 10/30/18 11/03/18 - Allergies Allergies/Adverse Reactions: Allergies Allergy/AdvReac Type Severity Reaction Status Date / Time divalproex sodium Allergy Anaphylaxis Verified 11/03/18 14:46 [From [facility]] garlic Allergy Anaphylaxis Verified 11/03/18 14:46 lithium Allergy Anaphylaxis Verified 11/03/18 14:46 - Social History Does the pt smoke?: Yes Smoking Status: Current every day smoker Does the pt drink ETOH?: Yes Does the pt have substance abuse?: No - Immunizations Immunizations are current?: Yes Immunizations: TDAP current <10years - POLST Patient has POLST: No PD ED PE NORMAL - Vitals Vital signs reviewed: Yes (hypertensive ) - General General: Alert and oriented X 3, No acute distress, Well developed/nourished - HEENT HEENT: Atraumatic, PERRL, EOMI - Respiratory Respiratory: No respiratory distress - Derm Derm: Normal color, Warm and dry, No rash - Extremities Extremities: Other (Swelling ecchymosis and tenderness to the lateral malleolus there is no pitting pain over the proximal fifth or over the dorsum of the foot. There is pain extending up the lateral aspect of the fibula. Distal neurovascular components are intact.) - Neuro Neuro: Alert and oriented X 3, shaper and presser 2-12 intact, No motor deficit, No sensory deficit, Normal speech Eye Opening: Spontaneous Motor: Obeys Commands Verbal: Oriented GCS Score: 15 - Psych Psych: Normal mood, Normal affect Results - Vitals Vitals: Vital Signs - 24 hr 11/03/18 14:43 Temperature 37.0 C Heart Rate 76 Respiratory 20 Rate Blood Pressure 134/84 H O2 Saturation 98 Oxygen O2 Source Room air Procedures - Splint (location) right LE Splint applied by: Tech Type of splint: Fiberglass, Posterior, Stirrup Other: Patient tolerated well, No complications, Neurovascular intact, Good alignment, Crutches provided PD MEDICAL DECISION MAKING - ED course Complexity details: reviewed old records, reviewed results, re-evaluated patient, considered differential, d/w patient ED course: 23-year-old male who has a lateral distal fibular fracture is been placed into a posterior and stirrup splint and he is gotten his splint wet and it has now been removed by the results technician and the splint is replaced after examination. Departure - Departure Disposition: 01 Home, Self Care Clinical Impression: Fracture of distal fibula Qualifiers: Encounter type: subsequent encounter Fracture type: closed Fracture morphology: other fracture Laterality: right Fracture healing: with routine healing Qualified Code(s): S82.831D - Other fracture of upper and lower end of right fibula, subsequent encounter for closed fracture with routine healing Condition: Stable Instructions: ED Fx Lower Ext Follow-Up: Alex Torres MD [Primary Care Provider] - [facility] [Provider Group]
== END 2018-11-03 15:19 | disposition home or self-care (01) ==
LOC: ED 14:29
DX: Z46.89 Encounter for fitting and adjustment of other specified devices (principal); S82.831A Other fracture of upper and lower end of right fibula, initial encounter for closed fracture
CPT/HCPCS: 29505; 99283

== ENCOUNTER 2018-11-12 14:23 | Emergency (ER) | payer MEDICARE, MEDICAID ==
[2018-11-12 16:03] LABS: BASOPHILS % (AUTO) 0.5 %; EOSINOPHILS % (AUTO) 0.3 %; LYMPHOCYTES # (AUTO) 2.2 10^3/uL (1.5-3.5); LYMPHOCYTES % (AUTO) 28.3 %; MEAN CORPUSCULAR HEMOGLOBIN 28.8 pg (27.0-31.0); MEAN CORPUSCULAR HGB CONC 32.9 g/dL (32.0-36.0); MEAN CORPUSCULAR VOLUME 87.4 fL (80.0-94.0); MEAN PLATELET VOLUME 7.9 fL (7.4-11.4); MONOCYTES # (AUTO) 0.9 10^3/uL (0.0-1.0); MONOCYTES % (AUTO) 12.2 %; NEUTROPHILS # (AUTO) 4.6 10^3/uL (1.5-6.6); NEUTROPHILS % (AUTO) 58.7 %; PLT - PLATELET COUNT 272 10^3/uL (130-450); RED BLOOD COUNT 4.53 10^6/uL (4.70-6.10); RED CELL DISTRIBUTION WIDTH 13.1 % (12.0-15.0); WHITE BLOOD COUNT 7.8 x10^3/uL (4.8-10.8)
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
[2018-11-12 16:19] LABS: MUDS CUTOFF CONCENTRATIONS CUTOFF CONC BELOW:
[2018-11-12 16:20] LABS: ACETAMINOPHEN < 10 ug/mL (10-30); ALBUMIN 4.4 g/dL (3.2-5.5); ALBUMIN/GLOBULIN RATIO 1.4 (1.0-2.2); ALKALINE PHOSPHATASE 62 IU/L (42-121); ALT ALANINE AMINOTRANSFERASE 31 IU/L (10-60); AST ASPARTATE AMINOTRANSFERASE 23 IU/L (10-42); BILIRUBIN,TOTAL 0.8 mg/dL (0.2-1.0); BUN - BLOOD UREA NITROGEN 17 mg/dL (6-20); CALCIUM 9.5 mg/dL (8.5-10.3); CARBON DIOXIDE - CO2 29 mmol/L (21-32); CHLORIDE 102 mmol/L (101-111); CREATININE 0.9 mg/dL (0.6-1.2); GFR - MDRD 107 (>89); GLUCOSE 81 mg/dL (70-100); LIPASE 20 U/L (22-51); SALICYLATE < 6.0 mg/dL; SODIUM 140 mmol/L (135-145); TOTAL PROTEIN 7.5 g/dL (6.7-8.2)
[2018-11-12 16:32] LABS: BILIRUBIN,URINE NEGATIVE (NEGATIVE); GLUCOSE, URINE (UA) NEGATIVE (NEGATIVE); KETONES,URINE (UA) NEGATIVE (NEGATIVE); LEUKOCYTE ESTERASE, URINE NEGATIVE (NEGATIVE); NITRITE,URINE NEGATIVE (NEGATIVE); OCCULT BLOOD,URINE NEGATIVE (NEGATIVE); PH,URINE 6.5 PH (5.0-7.5); PROTEIN,URINE TRACE mg/dL (NEGATIVE); UROBILINOGEN,URINE 0.2 (NORMAL) E.U./dL (NORMAL)
[2018-11-12 16:38] LABS: CLARITY,URINE CLEAR (CLEAR)
[2018-11-12 16:45] LABS: AMPHETAMINE SCREEN,URINE NEGATIVE (NEGATIVE); BENZODIAZEPINES SCREEN, URINE NEGATIVE (NEGATIVE); COCAINE SCREEN URINE NEGATIVE (NEGATIVE); METHADONE SCREEN, URINE NEGATIVE (NEGATIVE); METHAMPHETAMINES SCREEN, URINE NEGATIVE (NEGATIVE); OPIATE SCREEN, URINE NEGATIVE (NEGATIVE); OXYCODONE SCREEN, URINE NEGATIVE (NEGATIVE); PROPOXYPHENE SCREEN, URINE NEGATIVE (NEGATIVE); TRICYCLIC ANTIDEPRESSANT,URINE NEGATIVE (NEGATIVE)
[2018-11-12] MEDS ORDERED: LORazepam 1 MG TABLET PO STA (18:36)
[2018-11-12] MEDS ORDERED: hydrOXYzine PAMOATE 25 MG CAPSULE PO STA (21:45)
[2018-11-13] MEDS ORDERED: LORazepam 1 MG TABLET PO STA ×2 (06:08→13:31)
[2018-11-13 15:05] VITALS: BP 133/78
== END 2018-11-13 15:18 ==
LOC: ED 14:23
DX: F32.9 Major depressive disorder, single episode, unspecified (principal); R45.851 Suicidal ideations; F12.90 Cannabis use, unspecified, uncomplicated; S92.902A Unspecified fracture of left foot, initial encounter for closed fracture; X58.XXXA Exposure to other specified factors, initial encounter; K75.9 Inflammatory liver disease, unspecified; F17.200 Nicotine dependence, unspecified, uncomplicated
CPT/HCPCS: 29515; 36415; 81003; 83690; 99284; A9270; J8499; 80053; 80306; 80307; 80320; 80329; 81001; 84443; 85025; 87086

== ENCOUNTER 2018-11-28 18:10 | Emergency (ER) | payer MEDICARE, MEDICAID ==
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
[2018-11-28 19:23] VITALS: BP 123/57
== END 2018-11-28 19:30 | disposition home or self-care (01) ==
LOC: ED 18:10
DX: S82.831D Other fracture of upper and lower end of right fibula, subsequent encounter for closed fracture with routine healing (principal); F17.200 Nicotine dependence, unspecified, uncomplicated
CPT/HCPCS: 29515; 99283

== ENCOUNTER 2018-12-09 13:20 | Emergency (ER) | payer MEDICARE, MEDICAID ==
[2018-12-09] MEDS ORDERED: IBUPROFEN 800 MG TABLET PO STA (13:39)
--- NOTE | 2018-12-09 13:43 | ED Physician Documentation ---
PD HPI LOWER EXT INJURY - Stated complaint Stated Complaint: ANKLE PX - Chief complaint Chief Complaint: Trauma Ext - History obtained from History obtained from: Patient - History of Present Illness PD HPI LOW EXT INJURY LOCATION: Right (He had a Toure B right ankle fracture with mortise widening about 5 weeks ago. He has had multiple issues with noncompliance including [place] getting his cast wet. Losing his crutches, walking on it repeatedly. Now he says the boot has become damaged because he is walking on it too much, and he got kicked out of the homeless prison he was in. He really has poor insight that it is not healing well because he continues to askew medical advice not to walk on his fracture. He was not considered a surgical candidate I think because of this poor compliance as well.) Review of Systems Constitutional: reports: Reviewed and negative Throat: reports: Reviewed and negative Cardiac: reports: Reviewed and negative Respiratory: reports: Reviewed and negative PD PAST MEDICAL HISTORY - Past Medical History Past Medical History: Yes Cardiovascular: None Respiratory: Asthma Neuro: None Endocrine/Autoimmune: None GI: Hepatitis : None HEENT: None Psych: Depression, Anxiety, Bipolar disorder, Post traumatic stress disorder Musculoskeletal: Chronic back pain Derm: None - Past Surgical History Past Surgical History: Yes General: Hiatal hernia repair, Other - Present Medications Home Medications: Ambulatory Orders Medication Instructions Recorded Confirmed Aripiprazole [Abilify] 15 mg PO DAILY 05/22/18 11/12/18 traZODone [Desyrel] 300 mg PO DAILY PM 05/22/18 11/12/18 Omeprazole 40 mg PO BID 05/26/18 11/12/18 Bupropion HCl [Wellbutrin Xl] 150 mg PO DAILY 08/21/18 11/12/18 Prazosin [Minipress] 1 mg PO DAILY 08/21/18 11/12/18 Naproxen 500 mg PO BID #20 tablet 10/30/18 11/12/18 traMADol [Ultram] 50 mg PO PRN PRN 11/28/18 11/28/18 Ibuprofen [Motrin] 800 mg PO Q8H PRN #30 tablet 12/09/18 - Allergies Allergies/Adverse Reactions: Allergies Allergy/AdvReac Type Severity Reaction Status Date / Time divalproex sodium Allergy Anaphylaxis Verified 11/28/18 18:18 [From Depakote] garlic Allergy Anaphylaxis Verified 11/28/18 18:18 lithium Allergy Anaphylaxis Verified 11/28/18 18:18 - Social History Does the pt smoke?: Yes Smoking Status: Current every day smoker Does the pt drink ETOH?: Yes Does the pt have substance abuse?: Yes Substance Use and Type: Marijuana - Immunizations Immunizations are current?: Yes Immunizations: TDAP current <10years - POLST Patient has POLST: No PD ED PE NORMAL - Vitals Vital signs reviewed: Yes - General General: Alert and oriented X 3, No acute distress, Other (On my initial evaluation he is walking down the leung with mild limp but otherwise in no distress. I immediately told him to stop walking and asked him to be in a wheelchair.) - Extremities Extremities: No edema, No calf tenderness / cord - Neuro Neuro: Alert and oriented X 3, Normal speech - Psych Psych: Normal mood, Normal affect Results - Vitals Vitals: Vital Signs - 24 hr 12/09/18 12/09/18 13:27 13:32 Temperature 36.5 C Heart Rate 82 Respiratory 14 14 Rate Blood Pressure 122/73 O2 Saturation 97 Oxygen O2 Source Room air - Rads (name of study) R ankle 3v Radiology: EMP read contemporaneously (Minimal interval healing of the fracture, the fracture lines are still radiolucent but no significant displacement.) PD MEDICAL DECISION MAKING - ED course ED course: 23-year-old gentleman who is on his way to developing chronic pain from a right ankle fracture that he really just has not been taking care of correctly due to I think a combination of poor insight and lack of social support. We will re-x-ray today's to assess if any healing is taking place, but he is at high risk for nonunion.I will also have social work to see him to see if they have anything to offer him. Departure - Departure Disposition: 01 Home, Self Care Clinical Impression: Fracture of distal fibula Qualifiers: Encounter type: subsequent encounter Fracture type: closed Fracture morphology: other fracture Laterality: right Fracture healing: with nonunion Qualified Code(s): S82.831K - Other fracture of upper and lower end of right fibula, subsequent encounter for closed fracture with nonunion Condition: Good Record reviewed to determine appropriate education?: Yes Instructions: ED Fx Ankle Lateral Malleolus Follow-Up: [facility] [Provider Group] - Within 1 week Prescriptions: Ibuprofen [Motrin] 800 mg PO Q8H PRN #30 tablet PRN Reason: PAIN &/OR FEVER Comments: YOUR ANKLE WILL NEVER HEAL AND IT WILL HURT FOREVER IF YOU CONTINUE TO WALK ON IT! YOUR ANKLE WILL NEVER HEAL AND IT WILL HURT FOREVER IF YOU CONTINUE TO WALK ON IT! YOUR ANKLE WILL NEVER HEAL AND IT WILL HURT FOREVER IF YOU CONTINUE TO WALK ON IT! YOUR ANKLE WILL NEVER HEAL AND IT WILL HURT FOREVER IF YOU CONTINUE TO WALK ON IT! YOUR ANKLE WILL NEVER HEAL AND IT WILL HURT FOREVER IF YOU CONTINUE TO WALK ON IT!
--- NOTE | 2018-12-09 14:46 | XRAY Report ---
Reason: assess ankle frx, noncompliant, walking Procedure Date: 12/09/2018 Accession Number: [id number] / [id number] Procedure: XR - Ankle 3 View RT CPT Code: FULL RESULT: EXAM: RIGHT ANKLE RADIOGRAPHY EXAM DATE: 12/09/2018 02:00 PM. CLINICAL HISTORY: Noncompliant walking with broken distal fibular fracture. COMPARISON: ANKLE 3 VIEW RT 11/21/2018 8:37 AM. TECHNIQUE: 3 views. FINDINGS: Bones: Mildly displaced oblique lateral malleolar fracture in stable alignment. There is evidence of interval bony remodeling, minimal callus formation. Fracture plane remains radiolucent. Joints: None apparent mild mortise joint widening as before. Soft Tissues: Unremarkable. IMPRESSION: 1. Mildly displaced right distal fibular fracture in stable alignment. Fracture plane remains radiolucent. RADIA
[2018-12-09 15:38] VITALS: BP 111/56
== END 2018-12-09 15:44 | disposition home or self-care (01) ==
LOC: ED 13:20
DX: S82.831K Other fracture of upper and lower end of right fibula, subsequent encounter for closed fracture with nonunion (principal); X58.XXXD Exposure to other specified factors, subsequent encounter; Z59.0 Homelessness; F17.200 Nicotine dependence, unspecified, uncomplicated
CPT/HCPCS: 73610; 99283; A9270

== ENCOUNTER 2019-08-27 15:17 | Emergency (ER) | payer MEDICARE, MEDICAID ==
--- NOTE | 2019-08-27 16:01 | ED Physician Documentation ---
PD HPI MHE - Stated complaint Stated Complaint: MHE - Chief complaint Chief Complaint: MHE - History obtained from History obtained from: Patient (He has been depressed for some time, worse over the last couple of weeks. He has had both auditory and visual hallucinations. He is not sleeping well at all. He has had on and off thoughts of self-harm and would like to be hospitalized for stabilization. Denies drug use other than cannabis. He is taking gabapentin, Abilify, and Zoloft.) Review of Systems Ten Systems: 10 systems reviewed and negative Constitutional: reports: Reviewed and negative Cardiac: reports: Reviewed and negative Respiratory: reports: Reviewed and negative PD PAST MEDICAL HISTORY - Past Medical History Cardiovascular: None Respiratory: Asthma Neuro: None Endocrine/Autoimmune: None GI: Hepatitis : None HEENT: None Psych: Depression, Anxiety, Bipolar disorder, Post traumatic stress disorder Musculoskeletal: Chronic back pain Derm: None - Past Surgical History Past Surgical History: Yes General: Hiatal hernia repair, Other - Present Medications Home Medications: Ambulatory Orders Medication Instructions Recorded Confirmed Aripiprazole [Abilify] 15 mg PO DAILY 05/22/18 11/12/18 traZODone [Desyrel] 300 mg PO DAILY PM 05/22/18 11/12/18 Omeprazole 40 mg PO BID 05/26/18 11/12/18 Bupropion HCl [Wellbutrin Xl] 150 mg PO DAILY 08/21/18 11/12/18 Prazosin [Minipress] 1 mg PO DAILY 08/21/18 11/12/18 Naproxen 500 mg PO BID #20 tablet 10/30/18 11/12/18 traMADol [Ultram] 50 mg PO PRN PRN 11/28/18 11/28/18 Ibuprofen [Motrin] 800 mg PO Q8H PRN #30 tablet 12/09/18 - Allergies Allergies/Adverse Reactions: Allergies Allergy/AdvReac Type Severity Reaction Status Date / Time divalproex sodium Allergy Anaphylaxis Verified 08/27/19 15:37 [From Depakote] garlic Allergy Anaphylaxis Verified 08/27/19 15:37 lithium Allergy Anaphylaxis Verified 08/27/19 15:37 - Social History Does the pt smoke?: Yes Smoking Status: Current every day smoker Does the pt drink ETOH?: Yes Does the pt have substance abuse?: No - Immunizations Immunizations are current?: Yes Immunizations: TDAP current <10years - POLST Patient has POLST: No PD ED PE NORMAL - Vitals Vital signs reviewed: Yes - General General: Alert and oriented X 3, No acute distress - HEENT HEENT: PERRL, EOMI - Neck Neck: Supple, no meningeal sign, No bony TTP - Cardiac Cardiac: RRR, No murmur - Respiratory Respiratory: No respiratory distress, Clear bilaterally - Abdomen Abdomen: Normal bowel sounds, Soft, Non tender - Back Back: No CVA TTP, No spinal TTP - Derm Derm: Normal color, Warm and dry - Extremities Extremities: No edema, No calf tenderness / cord - Neuro Neuro: Alert and oriented X 3, Normal speech - Psych Psych: Normal mood, Normal affect Results - Vitals Vitals: Vital Signs - 24 hr 08/27/19 08/27/19 08/28/19 15:37 15:49 04:26 Temperature 36.5 C 36.6 C Heart Rate 48 L 50 L 45 L Respiratory 14 18 12 Rate Blood Pressure 118/66 114/64 107/55 L O2 Saturation 100 98 99 08/28/19 07:59 Temperature 36.8 C Heart Rate 60 Respiratory 20 Rate Blood Pressure 120/69 O2 Saturation 97 Oxygen O2 Source Room air - Labs Labs: Laboratory Tests 08/27/19 08/27/19 08/27/19 16:07 16:07 16:07 WBC 6.2 RBC 4.22 L Hgb 12.3 L Hct 37.4 L MCV 88.6 MCH 29.1 MCHC 32.9 RDW 13.4 Plt Count 256 MPV 10.2 Neut # (Auto) 2.5 Lymph # (Auto) 2.4 Sebastian # (Auto) 0.8 Eos # (Auto) 0.5 Baso # (Auto) 0.1 Absolute Nucleated RBC 0.00 Nucleated RBC % 0.0 Sodium 139 Potassium 3.8 Chloride 105 Carbon Dioxide 24 Anion Gap 10.0 BUN 11 Creatinine 0.7 Estimated GFR (MDRD) 141 Glucose 82 Calcium 8.7 Total Bilirubin 0.7 AST 31 ALT 47 Alkaline Phosphatase 58 Total Protein 6.6 L Albumin 3.9 Globulin 2.7 Albumin/Globulin Ratio 1.4 Lipase 22 TSH 0.44 Urine Color Urine Clarity Urine pH Ur Specific [place] Urine Protein Urine Glucose (UA) Urine Ketones Urine Occult Blood Urine Nitrite Urine Bilirubin Urine Urobilinogen Ur Leukocyte Esterase Ur Microscopic Review Urine Culture Comments Salicylates < 6.0 Urine Opiates Screen Ur Oxycodone Screen Urine Methadone Screen Ur Propoxyphene Screen Acetaminophen < 10 L Ur Barbiturates Screen Ur Tricyclics Screen Ur Phencyclidine Scrn Ur Amphetamine Screen U Methamphetamines Scrn U Benzodiazepines Scrn Urine Cocaine Screen U Cannabinoids Screen Ethyl Alcohol < 5.0 08/27/19 18:45 WBC RBC Hgb Hct MCV MCH MCHC RDW Plt Count MPV Neut # (Auto) Lymph # (Auto) Sebastian # (Auto) Eos # (Auto) Baso # (Auto) Absolute Nucleated RBC Nucleated RBC % Sodium Potassium Chloride Carbon Dioxide Anion Gap BUN Creatinine Estimated GFR (MDRD) Glucose Calcium Total Bilirubin AST ALT Alkaline Phosphatase Total Protein Albumin Globulin Albumin/Globulin Ratio Lipase TSH Urine Color YELLOW Urine Clarity CLEAR Urine pH 6.0 Ur Specific [place] 1.025 Urine Protein NEGATIVE Urine Glucose (UA) NEGATIVE Urine Ketones NEGATIVE Urine Occult Blood NEGATIVE Urine Nitrite NEGATIVE Urine Bilirubin NEGATIVE Urine Urobilinogen 0.2 (NORMAL) Ur Leukocyte Esterase NEGATIVE Ur Microscopic Review NOT INDICATED Urine Culture Comments NOT INDICATED Salicylates Urine Opiates Screen NEGATIVE Ur Oxycodone Screen NEGATIVE Urine Methadone Screen NEGATIVE Ur Propoxyphene Screen NEGATIVE Acetaminophen Ur Barbiturates Screen NEGATIVE Ur Tricyclics Screen NEGATIVE Ur Phencyclidine Scrn NEGATIVE Ur Amphetamine Screen NEGATIVE U Methamphetamines Scrn NEGATIVE U Benzodiazepines Scrn NEGATIVE Urine Cocaine Screen NEGATIVE U Cannabinoids Screen POSITIVE H Ethyl Alcohol PD MEDICAL DECISION MAKING - ED course Complexity details: re-evaluated patient ED course: 24yo male with hallucinations and SI, req voluntary admit for same. Medically clear. S/O to Dr Chacon at 10pm 08/27/19 after a call placed to [facility] for potential placement. Departure - Departure Disposition: [facility] Psych Hosp/Unit DC/Xfer Clinical Impression: Hallucinations, Suicidal ideation Condition: Stable
[2019-08-27 16:16] LABS: BASOPHILS # (AUTO) 0.1 10^3/uL (0.0-0.1); EOSINOPHILS # (AUTO) 0.5 10^3/uL (0.0-0.7); EOSINOPHILS % (AUTO) 7.9 %; HGB - HEMOGLOBIN 12.3 g/dL (14.0-18.0); LYMPHOCYTES # (AUTO) 2.4 10^3/uL (1.5-3.5); LYMPHOCYTES % (AUTO) 38.3 %; MEAN CORPUSCULAR HEMOGLOBIN 29.1 pg (27.0-31.0); MEAN CORPUSCULAR HGB CONC 32.9 g/dL (32.0-36.0); MEAN CORPUSCULAR VOLUME 88.6 fL (80.0-94.0); MEAN PLATELET VOLUME 10.2 fL (7.4-11.4); MONOCYTES # (AUTO) 0.8 10^3/uL (0.0-1.0); MONOCYTES % (AUTO) 12.7 %; NEUTROPHILS # (AUTO) 2.5 10^3/uL (1.5-6.6); NEUTROPHILS % (AUTO) 39.9 %; PLT - PLATELET COUNT 256 10^3/uL (130-450); RED BLOOD COUNT 4.22 10^6/uL (4.70-6.10); RED CELL DISTRIBUTION WIDTH 13.4 % (12.0-15.0); WHITE BLOOD COUNT 6.2 x10^3/uL (4.8-10.8)
[2019-08-27 16:31] LABS: ACETAMINOPHEN < 10 ug/mL (10-30); ALBUMIN 3.9 g/dL (3.2-5.5); ALBUMIN/GLOBULIN RATIO 1.4 (1.0-2.2); ALKALINE PHOSPHATASE 58 IU/L (42-121); ALT ALANINE AMINOTRANSFERASE 47 IU/L (10-60); AST ASPARTATE AMINOTRANSFERASE 31 IU/L (10-42); BILIRUBIN,TOTAL 0.7 mg/dL (0.2-1.0); BUN - BLOOD UREA NITROGEN 11 mg/dL (6-20); CALCIUM 8.7 mg/dL (8.5-10.3); CARBON DIOXIDE - CO2 24 mmol/L (21-32); CHLORIDE 105 mmol/L (101-111); CREATININE 0.7 mg/dL (0.6-1.2); GFR - MDRD 141 (>89); GLUCOSE 82 mg/dL (70-100); LIPASE 22 U/L (22-51); SALICYLATE < 6.0 mg/dL; SODIUM 139 mmol/L (135-145); TOTAL PROTEIN 6.6 g/dL (6.7-8.2)
[2019-08-27] MEDS ORDERED: LORazepam 1 MG TABLET PO STA (17:57)
[2019-08-27 18:51] LABS: MUDS CUTOFF CONCENTRATIONS CUTOFF CONC BELOW:
[2019-08-27 18:55] LABS: BILIRUBIN,URINE NEGATIVE (NEGATIVE); GLUCOSE, URINE (UA) NEGATIVE (NEGATIVE); KETONES,URINE (UA) NEGATIVE (NEGATIVE); LEUKOCYTE ESTERASE, URINE NEGATIVE (NEGATIVE); NITRITE,URINE NEGATIVE (NEGATIVE); OCCULT BLOOD,URINE NEGATIVE (NEGATIVE); PROTEIN,URINE NEGATIVE (NEGATIVE); UROBILINOGEN,URINE 0.2 (NORMAL) E.U./dL (NORMAL)
[2019-08-27 18:59] LABS: CLARITY,URINE CLEAR (CLEAR)
[2019-08-27 19:09] LABS: AMPHETAMINE SCREEN,URINE NEGATIVE (NEGATIVE); BENZODIAZEPINES SCREEN, URINE NEGATIVE (NEGATIVE); COCAINE SCREEN URINE NEGATIVE (NEGATIVE); METHADONE SCREEN, URINE NEGATIVE (NEGATIVE); METHAMPHETAMINES SCREEN, URINE NEGATIVE (NEGATIVE); OPIATE SCREEN, URINE NEGATIVE (NEGATIVE); OXYCODONE SCREEN, URINE NEGATIVE (NEGATIVE); PROPOXYPHENE SCREEN, URINE NEGATIVE (NEGATIVE); TRICYCLIC ANTIDEPRESSANT,URINE NEGATIVE (NEGATIVE)
--- NOTE | 2019-08-28 05:34 | ED Physician Documentation ---
ED Addendum - Addendum Addendum: 08/28/19 05:33 Patient is being considered for admission and transfer to [facility]. They ask for an EKG given his bradycardia. The EKG showing sinus bradycardia without any conduction delays. Comparison with the prior EKG from August 2018 showed a similar heart rate and EKG pattern.
[2019-08-28 08:00] VITALS: BP 120/69
--- NOTE | 2019-08-28 08:35 | ED Physician Documentation ---
ED Addendum - Addendum Addendum: 08/28/19 08:34 The patient was turned over pending acceptance at [facility] after their clearance regarding patient's long-standing bradycardia. They have accepted the patient in transfer and transport paperwork was completed. Final diagnosis: Suicidal ideation. Hallucinations. Condition: good
== END 2019-08-28 09:48 ==
LOC: ED 15:17
DX: F32.9 Major depressive disorder, single episode, unspecified (principal); R44.0 Auditory hallucinations; R44.1 Visual hallucinations; R45.851 Suicidal ideations; R00.1 Bradycardia, unspecified; F17.200 Nicotine dependence, unspecified, uncomplicated
CPT/HCPCS: 36415; 80053; 81003; 83690; 84443; 85025; 93005; 99283; 99285; J8499; 80306; 80307; 80320; 80329; 81001; 87086

== ENCOUNTER 2019-09-07 23:16 | Emergency (ER) | payer MEDICARE, MEDICAID ==
--- NOTE | 2019-09-07 23:20 | ED Physician Documentation ---
History of Present Illness - Stated complaint Stated Complaint: RT FLANK/LEG PX, NAUSEA - History obtained from History obtained from: Patient (Patient is a 24-year-old male who presents from [facility] with a chief complaint of right lower quadrant pain.He denies any back pain he denies fevers he denies any bowel or bladder dysfunction or saddle anesthesia he is complaining of some right-sided flank pain and some right lower quadrant abdominal pain. He does report a history of previous IV drug abuse several years ago but reports that he is clean over the last several years.) Review of Systems Constitutional: reports: Reviewed and negative Eyes: reports: Reviewed and negative Ears: reports: Reviewed and negative Nose: reports: Reviewed and negative Throat: reports: Reviewed and negative Cardiac: reports: Reviewed and negative Respiratory: reports: Reviewed and negative GI: reports: Abdominal Pain : reports: Reviewed and negative Skin: reports: Reviewed and negative Musculoskeletal: reports: Reviewed and negative Neurologic: reports: Reviewed and negative Psychiatric: reports: Reviewed and negative Endocrine: reports: Reviewed and negative Immunocompromised: reports: Reviewed and negative PD PAST MEDICAL HISTORY - Past Medical History Cardiovascular: None Respiratory: Asthma Neuro: None Endocrine/Autoimmune: None GI: Hepatitis : None HEENT: None Psych: Depression, Anxiety, Bipolar disorder, Post traumatic stress disorder Musculoskeletal: Chronic back pain Derm: None - Past Surgical History Past Surgical History: Yes General: Hiatal hernia repair, Other - Present Medications Home Medications: Ambulatory Orders Medication Instructions Recorded Confirmed Aripiprazole [Abilify] 15 mg PO DAILY 05/22/18 11/12/18 traZODone [Desyrel] 300 mg PO DAILY PM 05/22/18 11/12/18 Omeprazole 40 mg PO BID 05/26/18 11/12/18 Bupropion HCl [Wellbutrin Xl] 150 mg PO DAILY 08/21/18 11/12/18 Prazosin [Minipress] 1 mg PO DAILY 08/21/18 11/12/18 Naproxen 500 mg PO BID #20 tablet 10/30/18 11/12/18 traMADol [Ultram] 50 mg PO PRN PRN 11/28/18 11/28/18 Ibuprofen [Motrin] 800 mg PO Q8H PRN #30 tablet 12/09/18 - Allergies Allergies/Adverse Reactions: Allergies Allergy/AdvReac Type Severity Reaction Status Date / Time divalproex sodium Allergy Anaphylaxis Verified 09/07/19 23:25 [From Depakote] garlic Allergy Anaphylaxis Verified 09/07/19 23:25 lithium Allergy Anaphylaxis Verified 09/07/19 23:25 - Social History Does the pt smoke?: Yes Smoking Status: Current every day smoker Does the pt drink ETOH?: Yes Does the pt have substance abuse?: No - Immunizations Immunizations are current?: Yes Immunizations: TDAP current <10years - POLST Patient has POLST: No PD ED PE NORMAL - Vitals Vital signs reviewed: Yes - General General: Alert and oriented X 3, No acute distress - HEENT HEENT: PERRL - Neck Neck: Supple, no meningeal sign - Cardiac Cardiac: RRR, No murmur - Respiratory Respiratory: Clear bilaterally - Abdomen Abdomen: Other (The patient's abdominal exam shows negative for sign, he has a positive Rovsing's and a positive psoas and positive at McBurney's point. There is no midline abdominal pulsatile mass the abdomen soft is tender in the right lower quadrant and there is no CVA tenderness there is no midline tenderness to palpation. There is no obvious hepatosplenomegaly.There is no midline abdominal pulsatile mass.) - Back Back: No CVA TTP, No spinal TTP, Other (There is no cervical thoracic lumbar sacral tenderness or step-offs or deformities or erythema or fluctuance or crepitus.) - Derm Derm: Warm and dry - Extremities Extremities: No deformity - Neuro Neuro: Alert and oriented X 3 - Psych Psych: Normal mood, Normal affect Results - Vitals Vitals: Vital Signs - 24 hr 09/07/19 23:21 Temperature 36.7 C Heart Rate 70 Respiratory 18 Rate Blood Pressure 136/67 H O2 Saturation 98 Oxygen O2 Source Room air - Labs Labs: Laboratory Tests 09/07/19 09/07/19 09/08/19 23:02 23:02 00:25 WBC 7.8 RBC 4.27 L Hgb 12.5 L Hct 37.8 L MCV 88.5 MCH 29.3 MCHC 33.1 RDW 13.2 Plt Count 242 MPV 10.5 Neut # (Auto) 2.8 Lymph # (Auto) 3.3 [place] # (Auto) 1.2 H Eos # (Auto) 0.5 Baso # (Auto) 0.1 Absolute Nucleated RBC 0.00 Nucleated RBC % 0.0 PT INR Sodium Potassium Chloride Carbon Dioxide Anion Gap BUN Creatinine Estimated GFR (MDRD) Glucose Lactic Acid Calcium Total Bilirubin AST ALT Alkaline Phosphatase Total Creatine Kinase Total Protein Albumin Globulin Albumin/Globulin Ratio Lipase Urine Color YELLOW Urine Clarity CLEAR Urine pH 6.5 Ur Specific [place] 1.020 Urine Protein NEGATIVE Urine Glucose (UA) NEGATIVE Urine Ketones NEGATIVE Urine Occult Blood NEGATIVE Urine Nitrite NEGATIVE Urine Bilirubin NEGATIVE Urine Urobilinogen 0.2 (NORMAL) Ur Leukocyte Esterase SMALL H Urine RBC None Seen Urine WBC 4-5 Ur Squamous Epith Cells FEW Squamous Amorphous Sediment Moderate Urine Bacteria Rare Ur Microscopic Review INDICATED Urine Culture Comments INDICATED Urine Opiates Screen NEGATIVE Ur Oxycodone Screen NEGATIVE Urine Methadone Screen NEGATIVE Ur Propoxyphene Screen NEGATIVE Ur Barbiturates Screen NEGATIVE Ur Tricyclics Screen NEGATIVE Ur Phencyclidine Scrn NEGATIVE Ur Amphetamine Screen NEGATIVE U Methamphetamines Scrn NEGATIVE U Benzodiazepines Scrn NEGATIVE Urine Cocaine Screen NEGATIVE U Cannabinoids Screen POSITIVE H Ethyl Alcohol 09/08/19 09/08/19 09/08/19 00:25 00:25 00:25 WBC RBC Hgb Hct MCV MCH MCHC RDW Plt Count MPV Neut # (Auto) Lymph # (Auto) [place] # (Auto) Eos # (Auto) Baso # (Auto) Absolute Nucleated RBC Nucleated RBC % PT 11.9 INR 1.0 Sodium 139 Potassium 3.7 Chloride 105 Carbon Dioxide 26 Anion Gap 8.0 BUN 17 Creatinine 0.7 Estimated GFR (MDRD) 141 Glucose 99 Lactic Acid 0.8 Calcium 8.9 Total Bilirubin 0.4 AST 30 ALT 35 Alkaline Phosphatase 59 Total Creatine Kinase 586 H Total Protein 6.4 L Albumin 3.8 Globulin 2.6 Albumin/Globulin Ratio 1.5 Lipase 23 Urine Color Urine Clarity Urine pH Ur Specific [place] Urine Protein Urine Glucose (UA) Urine Ketones Urine Occult Blood Urine Nitrite Urine Bilirubin Urine Urobilinogen Ur Leukocyte Esterase Urine RBC Urine WBC Ur Squamous Epith Cells Amorphous Sediment Urine Bacteria Ur Microscopic Review Urine Culture Comments Urine Opiates Screen Ur Oxycodone Screen Urine Methadone Screen Ur Propoxyphene Screen Ur Barbiturates Screen Ur Tricyclics Screen Ur Phencyclidine Scrn Ur Amphetamine Screen U Methamphetamines Scrn U Benzodiazepines Scrn Urine Cocaine Screen U Cannabinoids Screen Ethyl Alcohol < 5.0 PD MEDICAL DECISION MAKING - ED course Complexity details: re-evaluated patient (02:14 Patient reevaluated and reexamined his abdomen soft he is there is no pinpoint tenderness, I explained the lab results as well as CT results to the patient who reports that he is pain-free and he would like to be discharged home at this time.Patient encouraged for close follow-up and return to the emergency department with any concerns.), other (Patient exam shows him to be tender in the right lower quadrant his urinalysis is unremarkable. This point we will establish IV access and labs and get a CT scan the abdomen pelvis.) Departure - Departure Disposition: 01 Home, Self Care Clinical Impression: Abdominal pain Qualifiers: Abdominal location: generalized Qualified Code(s): R10.84 - Generalized abdominal pain Condition: Good Instructions: ED Abdominal Pain Cause Unkn Male Ch Follow-Up: Alex Torres MD [Primary Care Provider] - Tomorrow
[2019-09-07 23:38] LABS: BILIRUBIN,URINE NEGATIVE (NEGATIVE); GLUCOSE, URINE (UA) NEGATIVE (NEGATIVE); KETONES,URINE (UA) NEGATIVE (NEGATIVE); LEUKOCYTE ESTERASE, URINE SMALL (NEGATIVE); NITRITE,URINE NEGATIVE (NEGATIVE); OCCULT BLOOD,URINE NEGATIVE (NEGATIVE); PH,URINE 6.5 PH (5.0-7.5); PROTEIN,URINE NEGATIVE (NEGATIVE); UROBILINOGEN,URINE 0.2 (NORMAL) E.U./dL (NORMAL)
[2019-09-07 23:39] LABS: CLARITY,URINE CLEAR (CLEAR)
[2019-09-07 23:51] LABS: AMORPHOUS SEDIMENT,UR Moderate /LPF; BACTERIA,URINE Rare /HPF (None Seen); RBC,URINE None Seen /HPF (0-5); SQUAMOUS EPITHELIAL CELL,UR FEW Squamous (<= Few)
[2019-09-08] MEDS ORDERED: KETOROLAC 30 MG/ML VIAL IM STA (00:01)
[2019-09-08 00:35] LABS: BASOPHILS # (AUTO) 0.1 10^3/uL (0.0-0.1); BASOPHILS % (AUTO) 0.6 %; EOSINOPHILS # (AUTO) 0.5 10^3/uL (0.0-0.7); HGB - HEMOGLOBIN 12.5 g/dL (14.0-18.0); LYMPHOCYTES # (AUTO) 3.3 10^3/uL (1.5-3.5); LYMPHOCYTES % (AUTO) 42.1 %; MEAN CORPUSCULAR HEMOGLOBIN 29.3 pg (27.0-31.0); MEAN CORPUSCULAR HGB CONC 33.1 g/dL (32.0-36.0); MEAN CORPUSCULAR VOLUME 88.5 fL (80.0-94.0); MEAN PLATELET VOLUME 10.5 fL (7.4-11.4); MONOCYTES # (AUTO) 1.2 10^3/uL (0.0-1.0); MONOCYTES % (AUTO) 15.3 %; NEUTROPHILS # (AUTO) 2.8 10^3/uL (1.5-6.6); NEUTROPHILS % (AUTO) 35.9 %; PLT - PLATELET COUNT 242 10^3/uL (130-450); RED BLOOD COUNT 4.27 10^6/uL (4.70-6.10); RED CELL DISTRIBUTION WIDTH 13.2 % (12.0-15.0); WHITE BLOOD COUNT 7.8 x10^3/uL (4.8-10.8)
[2019-09-08 00:36] LABS: MUDS CUTOFF CONCENTRATIONS CUTOFF CONC BELOW:
[2019-09-08 00:41] LABS: PT - PROTHROMBIN TIME 11.9 secs (9.9-12.6)
[2019-09-08 00:49] LABS: ALBUMIN 3.8 g/dL (3.2-5.5); ALBUMIN/GLOBULIN RATIO 1.5 (1.0-2.2); ALKALINE PHOSPHATASE 59 IU/L (42-121); ALT ALANINE AMINOTRANSFERASE 35 IU/L (10-60); AST ASPARTATE AMINOTRANSFERASE 30 IU/L (10-42); BILIRUBIN,TOTAL 0.4 mg/dL (0.2-1.0); BUN - BLOOD UREA NITROGEN 17 mg/dL (6-20); CALCIUM 8.9 mg/dL (8.5-10.3); CARBON DIOXIDE - CO2 26 mmol/L (21-32); CHLORIDE 105 mmol/L (101-111); CK- CREATINE KINASE 586 IU/L (22-269); CREATININE 0.7 mg/dL (0.6-1.2); GFR - MDRD 141 (>89); GLUCOSE 99 mg/dL (70-100); LIPASE 23 U/L (22-51); SODIUM 139 mmol/L (135-145); TOTAL PROTEIN 6.4 g/dL (6.7-8.2)
[2019-09-08] MEDS ORDERED: IOVERSOL 320 100 ML VIAL IVP ONE ×2 (01:00→01:29)
[2019-09-08 01:26] LABS: AMPHETAMINE SCREEN,URINE NEGATIVE (NEGATIVE); BENZODIAZEPINES SCREEN, URINE NEGATIVE (NEGATIVE); COCAINE SCREEN URINE NEGATIVE (NEGATIVE); METHADONE SCREEN, URINE NEGATIVE (NEGATIVE); METHAMPHETAMINES SCREEN, URINE NEGATIVE (NEGATIVE); OPIATE SCREEN, URINE NEGATIVE (NEGATIVE); OXYCODONE SCREEN, URINE NEGATIVE (NEGATIVE); PROPOXYPHENE SCREEN, URINE NEGATIVE (NEGATIVE); TRICYCLIC ANTIDEPRESSANT,URINE NEGATIVE (NEGATIVE)
--- NOTE | 2019-09-08 01:38 | CT Report ---
Reason: RLQ ABD PAIN Procedure Date: 09/08/2019 Accession Number: [id number] / [id number] Procedure: CT - Abdomen/Pelvis W CPT Code: Final Report FULL RESULT: EXAM: CT ABDOMEN AND PELVIS EXAM DATE: 09/08/2019 01:27 AM. CLINICAL HISTORY: RLQ ABD PAIN. COMPARISONS: ABDOMEN/PELVIS W/ 08/18/2018 9:02 PM. TECHNIQUE: Routine helical CT imaging was performed through the abdomen and pelvis. IV contrast: OPTI 320 100ML. Enteric contrast: No. Reconstructions: Coronal and sagittal. In accordance with CT protocol optimization, one or more of the following dose reduction techniques were utilized for this exam: automated exposure control, adjustment of mA and/or KV based on patient size, or use of iterative reconstructive technique. FINDINGS: Lung Bases: Unremarkable. Liver: No focal abnormality seen. Gallbladder/Bile Ducts: Unremarkable. Spleen: Normal. Pancreas: Normal. Adrenal Glands: Normal. Kidneys: Normal. No masses or hydronephrosis. Peritoneal Cavity/Bowel: No bowel obstruction seen. No free air or free fluid. No diverticulitis. Moderate stool in the colon. No lymphadenopathy seen. Appendix contains a small amount of dense material but otherwise appears normal. Pelvic Organs: Normal. The bladder and visualized pelvic organs are within normal limits. Vasculature: No aneurysms or other significant abnormality. Bones: No significant abnormality. Other: None. IMPRESSION: 1. Appendix appears normal. No acute inflammatory or obstructive process seen in the abdomen or pelvis. 2. Moderate stool in the colon. RADIA
[2019-09-08 02:22] VITALS: BP 134/72
== END 2019-09-08 02:22 | disposition home or self-care (01) ==
LOC: ED 23:16
DX: R10.84 Generalized abdominal pain (principal); F17.200 Nicotine dependence, unspecified, uncomplicated
CPT/HCPCS: 36415; 74177; 80053; 81001; 82550; 83605; 83690; 85025; 85610; 87086; 96372; 99283; 99284; Q9967; 80306; 80320; 81003

== ENCOUNTER 2019-09-14 02:22 | Emergency (ER) | payer MEDICARE, MEDICAID ==
[2019-09-14 02:42] LABS: MUDS CUTOFF CONCENTRATIONS CUTOFF CONC BELOW:
[2019-09-14 02:43] LABS: BILIRUBIN,URINE NEGATIVE (NEGATIVE); GLUCOSE, URINE (UA) NEGATIVE (NEGATIVE); KETONES,URINE (UA) NEGATIVE (NEGATIVE); LEUKOCYTE ESTERASE, URINE NEGATIVE (NEGATIVE); NITRITE,URINE NEGATIVE (NEGATIVE); OCCULT BLOOD,URINE NEGATIVE (NEGATIVE); PROTEIN,URINE NEGATIVE (NEGATIVE); UROBILINOGEN,URINE 0.2 (NORMAL) E.U./dL (NORMAL)
[2019-09-14 02:44] LABS: CLARITY,URINE CLEAR (CLEAR)
[2019-09-14 02:53] LABS: AMPHETAMINE SCREEN,URINE NEGATIVE (NEGATIVE); BENZODIAZEPINES SCREEN, URINE NEGATIVE (NEGATIVE); COCAINE SCREEN URINE NEGATIVE (NEGATIVE); METHADONE SCREEN, URINE NEGATIVE (NEGATIVE); METHAMPHETAMINES SCREEN, URINE NEGATIVE (NEGATIVE); OPIATE SCREEN, URINE NEGATIVE (NEGATIVE); OXYCODONE SCREEN, URINE NEGATIVE (NEGATIVE); PROPOXYPHENE SCREEN, URINE NEGATIVE (NEGATIVE); TRICYCLIC ANTIDEPRESSANT,URINE NEGATIVE (NEGATIVE)
[2019-09-14 02:59] LABS: BASOPHILS % (AUTO) 0.5 %; EOSINOPHILS # (AUTO) 0.4 10^3/uL (0.0-0.7); EOSINOPHILS % (AUTO) 5.8 %; HGB - HEMOGLOBIN 13.4 g/dL (14.0-18.0); LYMPHOCYTES # (AUTO) 2.8 10^3/uL (1.5-3.5); LYMPHOCYTES % (AUTO) 37.4 %; MEAN CORPUSCULAR HEMOGLOBIN 29.1 pg (27.0-31.0); MEAN CORPUSCULAR HGB CONC 32.8 g/dL (32.0-36.0); MEAN CORPUSCULAR VOLUME 88.5 fL (80.0-94.0); MEAN PLATELET VOLUME 10.3 fL (7.4-11.4); NEUTROPHILS # (AUTO) 3.1 10^3/uL (1.5-6.6); NEUTROPHILS % (AUTO) 42.2 %; PLT - PLATELET COUNT 262 10^3/uL (130-450); RED BLOOD COUNT 4.61 10^6/uL (4.70-6.10); RED CELL DISTRIBUTION WIDTH 13.2 % (12.0-15.0); WHITE BLOOD COUNT 7.4 x10^3/uL (4.8-10.8)
[2019-09-14 03:16] LABS: ACETAMINOPHEN < 10 ug/mL (10-30); BUN - BLOOD UREA NITROGEN 17 mg/dL (6-20); CALCIUM 9.1 mg/dL (8.5-10.3); CARBON DIOXIDE - CO2 25 mmol/L (21-32); CHLORIDE 105 mmol/L (101-111); CREATININE 0.8 mg/dL (0.6-1.2); GFR - MDRD 121 (>89); GLUCOSE 106 mg/dL (70-100); SALICYLATE < 6.0 mg/dL; SODIUM 141 mmol/L (135-145)
--- NOTE | 2019-09-14 03:52 | ED Physician Documentation ---
<LuciaYonathan Diallo - Last Filed: 09/14/19 03:52> PD HPI MHE - Stated complaint Stated Complaint: SI/HALUCINATIONS - Chief complaint Chief Complaint: MHE PD PAST MEDICAL HISTORY - Past Medical History Cardiovascular: None Respiratory: Asthma Neuro: None Endocrine/Autoimmune: None GI: Hepatitis : None HEENT: None Psych: Depression, Anxiety, Bipolar disorder, Post traumatic stress disorder Musculoskeletal: Chronic back pain Derm: None - Past Surgical History Past Surgical History: Yes General: Hiatal hernia repair, Other - Present Medications Home Medications: Ambulatory Orders Medication Instructions Recorded Confirmed Aripiprazole [Abilify] 15 mg PO DAILY 05/22/18 11/12/18 traZODone [Desyrel] 300 mg PO DAILY PM 05/22/18 11/12/18 Omeprazole 40 mg PO BID 05/26/18 11/12/18 Bupropion HCl [Wellbutrin Xl] 150 mg PO DAILY 08/21/18 11/12/18 Prazosin [Minipress] 1 mg PO DAILY 08/21/18 11/12/18 Naproxen 500 mg PO BID #20 tablet 10/30/18 11/12/18 traMADol [Ultram] 50 mg PO PRN PRN 11/28/18 11/28/18 Ibuprofen [Motrin] 800 mg PO Q8H PRN #30 tablet 12/09/18 - Allergies Allergies/Adverse Reactions: Allergies Allergy/AdvReac Type Severity Reaction Status Date / Time divalproex sodium Allergy Anaphylaxis Verified 09/14/19 02:38 [From Depakote] garlic Allergy Anaphylaxis Verified 09/14/19 02:38 lithium Allergy Anaphylaxis Verified 09/14/19 02:38 - Social History Does the pt smoke?: Yes Smoking Status: Current every day smoker Does the pt drink ETOH?: Yes Does the pt have substance abuse?: No - Immunizations Immunizations are current?: Yes Immunizations: TDAP current <10years - POLST Patient has POLST: No Departure - Departure Disposition: 01 Home, Self Care Clinical Impression: Hallucinations Condition: Good Instructions: ED Stress React Follow-Up: Alex Torres MD [Primary Care Provider] - Comments: Make the adjustments and follow-up as instructed with the criminal justice social worker. Return if you feel that you are in danger of harming herself or others or other problems arise. <Korin Tate - Last Filed: 09/14/19 12:06> Results - Vitals Vitals: Vital Signs - 24 hr 09/14/19 09/14/19 09/14/19 02:32 06:13 09:02 Temperature 36.5 C 36.9 C Heart Rate 72 50 L 60 Respiratory 17 16 18 Rate Blood Pressure 128/74 121/57 L 124/63 O2 Saturation 97 100 96 Oxygen O2 Source Room air - Labs Labs: Laboratory Tests 09/14/19 09/14/19 09/14/19 02:35 02:54 02:54 WBC 7.4 RBC 4.61 L Hgb 13.4 L Hct 40.8 L MCV 88.5 MCH 29.1 MCHC 32.8 RDW 13.2 Plt Count 262 MPV 10.3 Neut # (Auto) 3.1 Lymph # (Auto) 2.8 [place] # (Auto) 1.0 Eos # (Auto) 0.4 Baso # (Auto) 0.0 Absolute Nucleated RBC 0.00 Nucleated RBC % 0.0 Sodium 141 Potassium 3.5 Chloride 105 Carbon Dioxide 25 Anion Gap 11.0 BUN 17 Creatinine 0.8 Estimated GFR (MDRD) 121 Glucose 106 H Calcium 9.1 TSH Urine Color YELLOW Urine Clarity CLEAR Urine pH 6.0 Ur Specific [place] 1.020 Urine Protein NEGATIVE Urine Glucose (UA) NEGATIVE Urine Ketones NEGATIVE Urine Occult Blood NEGATIVE Urine Nitrite NEGATIVE Urine Bilirubin NEGATIVE Urine Urobilinogen 0.2 (NORMAL) Ur Leukocyte Esterase NEGATIVE Ur Microscopic Review NOT INDICATED Urine Culture Comments NOT INDICATED Salicylates < 6.0 Urine Opiates Screen NEGATIVE Ur Oxycodone Screen NEGATIVE Urine Methadone Screen NEGATIVE Ur Propoxyphene Screen NEGATIVE Acetaminophen < 10 L Ur Barbiturates Screen NEGATIVE Ur Tricyclics Screen NEGATIVE Ur Phencyclidine Scrn NEGATIVE Ur Amphetamine Screen NEGATIVE U Methamphetamines Scrn NEGATIVE U Benzodiazepines Scrn NEGATIVE Urine Cocaine Screen NEGATIVE U Cannabinoids Screen POSITIVE H Ethyl Alcohol < 5.0 09/14/19 02:54 WBC RBC Hgb Hct MCV MCH MCHC RDW Plt Count MPV Neut # (Auto) Lymph # (Auto) [place] # (Auto) Eos # (Auto) Baso # (Auto) Absolute Nucleated RBC Nucleated RBC % Sodium Potassium Chloride Carbon Dioxide Anion Gap BUN Creatinine Estimated GFR (MDRD) Glucose Calcium TSH 1.52 Urine Color Urine Clarity Urine pH Ur Specific [place] Urine Protein Urine Glucose (UA) Urine Ketones Urine Occult Blood Urine Nitrite Urine Bilirubin Urine Urobilinogen Ur Leukocyte Esterase Ur Microscopic Review Urine Culture Comments Salicylates Urine Opiates Screen Ur Oxycodone Screen Urine Methadone Screen Ur Propoxyphene Screen Acetaminophen Ur Barbiturates Screen Ur Tricyclics Screen Ur Phencyclidine Scrn Ur Amphetamine Screen U Methamphetamines Scrn U Benzodiazepines Scrn Urine Cocaine Screen U Cannabinoids Screen Ethyl Alcohol PD MEDICAL DECISION MAKING - ED course ED course: 1205: The patient is not expressing any suicidal ideation at this time. He was evaluated by social work and he has a safe place that he can return to. He is contracted with them for a safety plan and will be discharged. Return if any worsening symptoms.
[2019-09-14 12:15] VITALS: BP 131/74
--- NOTE | 2019-09-14 15:55 | ED Physician Documentation ---
PD HPI MHE - Stated complaint Stated Complaint: SI/HALUCINATIONS - Chief complaint Chief Complaint: MHE - History obtained from History obtained from: Patient, EMS - History of Present Illness Primary symptom: Other (hallucinations) Timing - onset: Unknown Recently seen: Emergency Dept (frequent ED visits (including several different [place] EDs ) over past twelve months; over two dozen [facility] ED visits since March 2018 including one week ago (abd pain) and last month (SI requiring inpatient stay at [facility])) - Additional information Additional information: BIBA for hallucinations, possible SI. limited HPI from medics due to patients drowsiness. similarly, patient unable to provide nearly any HPI for me due to drowsy, repeatedly falls asleep. he is able to tell me that he is having auditory hallucinations which degrade him. he cannot give clear answers to whether he is SI or having thoughts of harming others or whether he is having command AH. he denies missing doses of prescribed medications Review of Systems Unable to obtain: Other (limited ROS due to drowsiness, repeatedly falls asleep during HPI, ROS) Psychiatric: reports: Hallucinations PD PAST MEDICAL HISTORY - Past Medical History Cardiovascular: None Respiratory: Asthma Neuro: None Endocrine/Autoimmune: None GI: Hepatitis : None HEENT: None Psych: Depression, Anxiety, Bipolar disorder, Post traumatic stress disorder Musculoskeletal: Chronic back pain Derm: None - Past Surgical History Past Surgical History: Yes General: Hiatal hernia repair, Other - Present Medications Home Medications: Ambulatory Orders Medication Instructions Recorded Confirmed Aripiprazole [Abilify] 15 mg PO DAILY 05/22/18 11/12/18 traZODone [Desyrel] 300 mg PO DAILY PM 05/22/18 11/12/18 Omeprazole 40 mg PO BID 05/26/18 11/12/18 Bupropion HCl [Wellbutrin Xl] 150 mg PO DAILY 08/21/18 11/12/18 Prazosin [Minipress] 1 mg PO DAILY 08/21/18 11/12/18 Naproxen 500 mg PO BID #20 tablet 10/30/18 11/12/18 traMADol [Ultram] 50 mg PO PRN PRN 11/28/18 11/28/18 Ibuprofen [Motrin] 800 mg PO Q8H PRN #30 tablet 12/09/18 - Allergies Allergies/Adverse Reactions: Allergies Allergy/AdvReac Type Severity Reaction Status Date / Time divalproex sodium Allergy Anaphylaxis Verified 09/14/19 02:38 [From Depakote] garlic Allergy Anaphylaxis Verified 09/14/19 02:38 lithium Allergy Anaphylaxis Verified 09/14/19 02:38 - Social History Does the pt smoke?: Yes Smoking Status: Current every day smoker Does the pt drink ETOH?: Yes Does the pt have substance abuse?: No - Immunizations Immunizations are current?: Yes Immunizations: TDAP current <10years - POLST Patient has POLST: No PD ED PE NORMAL - Vitals Vital signs reviewed: Yes - General General: No acute distress, Well developed/nourished, Other (drowsy, briefly arousable to repeated verbal stimulus, often needs tactile stimulus as well) - HEENT HEENT: PERRL, Moist mucous membranes - Cardiac Cardiac: RRR, No murmur - Respiratory Respiratory: No respiratory distress, Clear bilaterally - Neuro Eye Opening: To Voice Motor: Obeys Commands Verbal: Oriented GCS Score: 14 Results - Vitals Vitals: Vital Signs - 24 hr 09/14/19 09/14/19 09/14/19 02:32 06:13 09:02 Temperature 36.5 C 36.9 C Heart Rate 72 50 L 60 Respiratory 17 16 18 Rate Blood Pressure 128/74 121/57 L 124/63 O2 Saturation 97 100 96 09/14/19 12:14 Temperature Heart Rate 58 L Respiratory 18 Rate Blood Pressure 131/74 H O2 Saturation 97 Oxygen O2 Source Room air - Labs Labs: Laboratory Tests 09/14/19 09/14/19 09/14/19 02:35 02:54 02:54 WBC 7.4 RBC 4.61 L Hgb 13.4 L Hct 40.8 L MCV 88.5 MCH 29.1 MCHC 32.8 RDW 13.2 Plt Count 262 MPV 10.3 Neut # (Auto) 3.1 Lymph # (Auto) 2.8 [place] # (Auto) 1.0 Eos # (Auto) 0.4 Baso # (Auto) 0.0 Absolute Nucleated RBC 0.00 Nucleated RBC % 0.0 Sodium 141 Potassium 3.5 Chloride 105 Carbon Dioxide 25 Anion Gap 11.0 BUN 17 Creatinine 0.8 Estimated GFR (MDRD) 121 Glucose 106 H Calcium 9.1 TSH Urine Color YELLOW Urine Clarity CLEAR Urine pH 6.0 Ur Specific [place] 1.020 Urine Protein NEGATIVE Urine Glucose (UA) NEGATIVE Urine Ketones NEGATIVE Urine Occult Blood NEGATIVE Urine Nitrite NEGATIVE Urine Bilirubin NEGATIVE Urine Urobilinogen 0.2 (NORMAL) Ur Leukocyte Esterase NEGATIVE Ur Microscopic Review NOT INDICATED Urine Culture Comments NOT INDICATED Salicylates < 6.0 Urine Opiates Screen NEGATIVE Ur Oxycodone Screen NEGATIVE Urine Methadone Screen NEGATIVE Ur Propoxyphene Screen NEGATIVE Acetaminophen < 10 L Ur Barbiturates Screen NEGATIVE Ur Tricyclics Screen NEGATIVE Ur Phencyclidine Scrn NEGATIVE Ur Amphetamine Screen NEGATIVE U Methamphetamines Scrn NEGATIVE U Benzodiazepines Scrn NEGATIVE Urine Cocaine Screen NEGATIVE U Cannabinoids Screen POSITIVE H Ethyl Alcohol < 5.0 09/14/19 02:54 WBC RBC Hgb Hct MCV MCH MCHC RDW Plt Count MPV Neut # (Auto) Lymph # (Auto) [place] # (Auto) Eos # (Auto) Baso # (Auto) Absolute Nucleated RBC Nucleated RBC % Sodium Potassium Chloride Carbon Dioxide Anion Gap BUN Creatinine Estimated GFR (MDRD) Glucose Calcium TSH 1.52 Urine Color Urine Clarity Urine pH Ur Specific [place] Urine Protein Urine Glucose (UA) Urine Ketones Urine Occult Blood Urine Nitrite Urine Bilirubin Urine Urobilinogen Ur Leukocyte Esterase Ur Microscopic Review Urine Culture Comments Salicylates Urine Opiates Screen Ur Oxycodone Screen Urine Methadone Screen Ur Propoxyphene Screen Acetaminophen Ur Barbiturates Screen Ur Tricyclics Screen Ur Phencyclidine Scrn Ur Amphetamine Screen U Methamphetamines Scrn U Benzodiazepines Scrn Urine Cocaine Screen U Cannabinoids Screen Ethyl Alcohol PD MEDICAL DECISION MAKING - ED course Complexity details: reviewed old records, reviewed results, considered differential, d/w patient ED course: held until SW consult in AM, as he is unable to give me adequate information regarding possible SI. I asked him if he feels he needs hospitalization, as well as if he would be comfortable if I discharged him from ED and he provides ambivalent, vague responses such as shrugs shoulders. care of patient turned over to Dr. Tate pending evaluation Departure - Departure Disposition: 01 Home, Self Care Clinical Impression: Hallucinations Condition: Good Instructions: ED Stress React Follow-Up: Alex Torres MD [Primary Care Provider] - Comments: Make the adjustments and follow-up as instructed with the home health care social worker. Return if you feel that you are in danger of harming herself or others or other problems arise. Discharge Date/Time: 09/14/19 12:14
== END 2019-09-14 12:14 | disposition home or self-care (01) ==
LOC: ED 02:22
DX: R44.3 Hallucinations, unspecified (principal); R40.0 Somnolence; F32.9 Major depressive disorder, single episode, unspecified; R45.851 Suicidal ideations; F17.200 Nicotine dependence, unspecified, uncomplicated
CPT/HCPCS: 36415; 80048; 80306; 80307; 80320; 80329; 81001; 81003; 84443; 85025; 87086; 99283

== ENCOUNTER 2019-10-15 20:10 | Outpatient (CLI) | payer MEDICARE, MEDICAID | END 2019-10-15 20:11 | disposition critical access hospital (66) | LOC: EMS 20:10 | PROVIDERS: ATTEND Surgery | DX: R45.851 Suicidal ideations (principal) | CPT/HCPCS: A0425; A0429 ==

== ENCOUNTER 2019-10-15 20:28 | Emergency (ER) | payer MEDICARE, MEDICAID ==
--- NOTE | 2019-10-15 20:42 | ED Physician Documentation ---
<RadhaDonna Elgin - Last Filed: 10/16/19 08:18> History of Present Illness - Stated complaint Stated Complaint: SI - Chief complaint Chief Complaint: MHE PD PAST MEDICAL HISTORY - Present Medications Home Medications: Ambulatory Orders Medication Instructions Recorded Confirmed traZODone [Desyrel] 50 mg PO DAILY PM 05/22/18 11/12/18 Aripiprazole [Abilify] 10 mg PO DAILY 10/16/19 10/16/19 Aripiprazole [Abilify] 15 mg PO DAILY 10/16/19 10/16/19 Sertraline [Zoloft] 25 mg PO DAILY 10/16/19 10/16/19 - Allergies Allergies/Adverse Reactions: Allergies Allergy/AdvReac Type Severity Reaction Status Date / Time divalproex sodium Allergy Anaphylaxis Verified 10/15/19 20:32 [From Depakote] garlic Allergy Anaphylaxis Verified 10/15/19 20:32 lithium Allergy Anaphylaxis Verified 10/15/19 20:32 PD MEDICAL DECISION MAKING - ED course ED course: The patient was seen by social work and was deemed stable for discharge. He will go straight to the walk-in across the street at 830 for mental healthOutpatient follow-up, immediately after he is discharged here. Social work has arranged this and given the patient the information. He will also take the bus home after that. Patient states he is not currently suicidal and is feeling better than he was.We have discussed home management of the symptoms, as well as the usual indications for return. Departure - Departure Disposition: 01 Home, Self Care Clinical Impression: Suicidal ideation Condition: Good Instructions: ED Depression Follow-Up: Alex Torres MD [Primary Care Provider] - Comments: If you are having worsening symptoms such as feeling that you are going to harm yourself please return to the ED, call 911, or call the suicide prevention lifeline at . 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 His aunt has been battling with cancer, it sounds like he and his girlfriend are having relationship issues, and his father recently to usp, which have all exacerbated his depression. He has had suicide attempts in the past with cutting of his arms, he also has considered overdose. He states that his depression is worsening to the point where he called for help today, he has not taken any overdoses has not harmed himself, but he feels like he is approaching that point. He states that he has had low potassium in the past, and potentially low iron levels as well. He denies any chest pain, Difficulty breathing, or acute physical complaints at this time. He denies Auditory or visual hallucinations. Review of Systems Constitutional: denies: Fever Nose: denies: Rhinorrhea / runny nose Cardiac: denies: Chest pain / pressure Respiratory: denies: Dyspnea GI: denies: Abdominal Pain : denies: Dysuria Skin: denies: Rash Neurologic: denies: Generalized weakness Psychiatric: reports: Depressed PD PAST MEDICAL HISTORY - Past Medical History Cardiovascular: None Respiratory: Asthma Neuro: None Endocrine/Autoimmune: None GI: Hepatitis : None HEENT: None Psych: Depression, Anxiety, Bipolar disorder, Post traumatic stress disorder Musculoskeletal: Chronic back pain Derm: None - Past Surgical History Past Surgical History: Yes General: Hiatal hernia repair, Other - Social History Does the pt smoke?: Yes Smoking Status: Current every day smoker Does the pt drink ETOH?: Yes Does the pt have substance abuse?: No - Immunizations Immunizations are current?: Yes Immunizations: TDAP current <10years - POLST Patient has POLST: No PD ED PE NORMAL - Vitals Vital signs reviewed: Yes - General General: Alert and oriented X 3, No acute distress - HEENT HEENT: Atraumatic, PERRL - Neck Neck: Supple, no meningeal sign - Cardiac Cardiac: RRR, No murmur - Respiratory Respiratory: No respiratory distress, Clear bilaterally - Abdomen Abdomen: Normal bowel sounds, Soft, Non tender, Non distended - Derm Derm: Warm and dry, Other (No lacerations.) - Extremities Extremities: No deformity - Neuro Neuro: Alert and oriented X 3, intake coordinator 2-12 intact, No motor deficit, No sensory deficit - Psych Psych: Normal mood, Other (Depressed affect, cooperative, no obvious hallucinations, delusional content. Linear, goal-directed thought.) Results - Vitals Vitals: Vital Signs - 24 hr 10/16/19 10/16/19 06:51 08:39 Temperature 36.8 C 36.5 C Heart Rate 52 L 79 Respiratory 16 16 Rate Blood Pressure 120/64 112/76 O2 Saturation 98 99 Oxygen O2 Source Room air - Labs Labs: Laboratory Tests 10/15/19 10/15/19 10/15/19 20:45 20:45 20:45 WBC 6.4 RBC 4.94 Hgb 14.0 Hct 42.2 MCV 85.4 MCH 28.3 MCHC 33.2 RDW 13.2 Plt Count 264 MPV 10.6 Neut # (Auto) 3.1 Lymph # (Auto) 2.4 [place] # (Auto) 0.8 Eos # (Auto) 0.1 Baso # (Auto) 0.0 Absolute Nucleated RBC 0.00 Nucleated RBC % 0.0 Sodium 137 Potassium 3.5 Chloride 102 Carbon Dioxide 25 Anion Gap 10.0 BUN 18 Creatinine 0.8 Estimated GFR (MDRD) 121 Glucose 85 Calcium 9.4 Total Bilirubin 0.5 AST 27 ALT 37 Alkaline Phosphatase 49 Total Protein 7.7 Albumin 4.7 Globulin 3.0 Albumin/Globulin Ratio 1.6 Lipase 21 L TSH 0.90 Urine Color Urine Clarity Urine pH Ur Specific [place] Urine Protein Urine Glucose (UA) Urine Ketones Urine Occult Blood Urine Nitrite Urine Bilirubin Urine Urobilinogen Ur Leukocyte Esterase Ur Microscopic Review Urine Culture Comments Salicylates < 6.0 Urine Opiates Screen Ur Oxycodone Screen Urine Methadone Screen Ur Propoxyphene Screen Acetaminophen < 10 L Ur Barbiturates Screen Ur Tricyclics Screen Ur Phencyclidine Scrn Ur Amphetamine Screen U Methamphetamines Scrn U Benzodiazepines Scrn Urine Cocaine Screen U Cannabinoids Screen Ethyl Alcohol < 5.0 10/15/19 21:25 WBC RBC Hgb Hct MCV MCH MCHC RDW Plt Count MPV Neut # (Auto) Lymph # (Auto) [place] # (Auto) Eos # (Auto) Baso # (Auto) Absolute Nucleated RBC Nucleated RBC % Sodium Potassium Chloride Carbon Dioxide Anion Gap BUN Creatinine Estimated GFR (MDRD) Glucose Calcium Total Bilirubin AST ALT Alkaline Phosphatase Total Protein Albumin Globulin Albumin/Globulin Ratio Lipase TSH Urine Color YELLOW Urine Clarity CLEAR Urine pH 6.5 Ur Specific [place] 1.020 Urine Protein NEGATIVE Urine Glucose (UA) NEGATIVE Urine Ketones NEGATIVE Urine Occult Blood NEGATIVE Urine Nitrite NEGATIVE Urine Bilirubin NEGATIVE Urine Urobilinogen 0.2 (NORMAL) Ur Leukocyte Esterase NEGATIVE Ur Microscopic Review NOT INDICATED Urine Culture Comments NOT INDICATED Salicylates Urine Opiates Screen NEGATIVE Ur Oxycodone Screen NEGATIVE Urine Methadone Screen NEGATIVE Ur Propoxyphene Screen NEGATIVE Acetaminophen Ur Barbiturates Screen NEGATIVE Ur Tricyclics Screen NEGATIVE Ur Phencyclidine Scrn NEGATIVE Ur Amphetamine Screen NEGATIVE U Methamphetamines Scrn NEGATIVE U Benzodiazepines Scrn NEGATIVE Urine Cocaine Screen NEGATIVE U Cannabinoids Screen POSITIVE H Ethyl Alcohol PD MEDICAL DECISION MAKING - ED course Complexity details: considered differential (Depression, suicidal ideation, noncompliance, medication side effect, hypothyroidism, electrolyte abnormal) ED course: Patient is overall well-appearing on examination, he does have a depressed affect, endorses suicidal ideation, but he is calm and cooperative, without signs of psychosis. His screening labs are unremarkable other than he is positive for cannabinoids in his urine drug screen. He has missed several doses of his Abilify, this was restarted here in the emergency department. In discussion with him, he does not necessarily want to be hospitalized at this time, and does not think his depression has quite decompensated to necessitate that at this point, but he really would like to speak with social work in have some help in making a plan for close and safe outpatient follow-up. He is established with [facility]. He appears quite appropriate, seem to have good insight into his past and his own thoughts of depression and suicide, and was proactive in contacting help when he began to get worse. Social work was consulted, and patient was signed out to Dr. Garcia the plan to follow-up on social work recommendations and disposition as appropriate.
[2019-10-15 20:53] LABS: BASOPHILS % (AUTO) 0.6 %; EOSINOPHILS # (AUTO) 0.1 10^3/uL (0.0-0.7); EOSINOPHILS % (AUTO) 1.1 %; LYMPHOCYTES # (AUTO) 2.4 10^3/uL (1.5-3.5); MEAN CORPUSCULAR HEMOGLOBIN 28.3 pg (27.0-31.0); MEAN CORPUSCULAR HGB CONC 33.2 g/dL (32.0-36.0); MEAN CORPUSCULAR VOLUME 85.4 fL (80.0-94.0); MEAN PLATELET VOLUME 10.6 fL (7.4-11.4); MONOCYTES # (AUTO) 0.8 10^3/uL (0.0-1.0); MONOCYTES % (AUTO) 12.6 %; NEUTROPHILS # (AUTO) 3.1 10^3/uL (1.5-6.6); NEUTROPHILS % (AUTO) 48.5 %; PLT - PLATELET COUNT 264 10^3/uL (130-450); RED BLOOD COUNT 4.94 10^6/uL (4.70-6.10); RED CELL DISTRIBUTION WIDTH 13.2 % (12.0-15.0); WHITE BLOOD COUNT 6.4 x10^3/uL (4.8-10.8)
[2019-10-15 21:08] LABS: ACETAMINOPHEN < 10 ug/mL (10-30); ALBUMIN 4.7 g/dL (3.2-5.5); ALBUMIN/GLOBULIN RATIO 1.6 (1.0-2.2); ALKALINE PHOSPHATASE 49 IU/L (42-121); ALT ALANINE AMINOTRANSFERASE 37 IU/L (10-60); AST ASPARTATE AMINOTRANSFERASE 27 IU/L (10-42); BILIRUBIN,TOTAL 0.5 mg/dL (0.2-1.0); BUN - BLOOD UREA NITROGEN 18 mg/dL (6-20); CALCIUM 9.4 mg/dL (8.5-10.3); CARBON DIOXIDE - CO2 25 mmol/L (21-32); CHLORIDE 102 mmol/L (101-111); CREATININE 0.8 mg/dL (0.6-1.2); GFR - MDRD 121 (>89); GLUCOSE 85 mg/dL (70-100); LIPASE 21 U/L (22-51); SALICYLATE < 6.0 mg/dL; SODIUM 137 mmol/L (135-145); TOTAL PROTEIN 7.7 g/dL (6.7-8.2)
[2019-10-15 21:41] LABS: BILIRUBIN,URINE NEGATIVE (NEGATIVE); GLUCOSE, URINE (UA) NEGATIVE (NEGATIVE); KETONES,URINE (UA) NEGATIVE (NEGATIVE); LEUKOCYTE ESTERASE, URINE NEGATIVE (NEGATIVE); MUDS CUTOFF CONCENTRATIONS CUTOFF CONC BELOW:; NITRITE,URINE NEGATIVE (NEGATIVE); OCCULT BLOOD,URINE NEGATIVE (NEGATIVE); PH,URINE 6.5 PH (5.0-7.5); PROTEIN,URINE NEGATIVE (NEGATIVE); UROBILINOGEN,URINE 0.2 (NORMAL) E.U./dL (NORMAL)
[2019-10-15 21:42] LABS: CLARITY,URINE CLEAR (CLEAR)
[2019-10-15 21:50] LABS: AMPHETAMINE SCREEN,URINE NEGATIVE (NEGATIVE); BENZODIAZEPINES SCREEN, URINE NEGATIVE (NEGATIVE); COCAINE SCREEN URINE NEGATIVE (NEGATIVE); METHADONE SCREEN, URINE NEGATIVE (NEGATIVE); METHAMPHETAMINES SCREEN, URINE NEGATIVE (NEGATIVE); OPIATE SCREEN, URINE NEGATIVE (NEGATIVE); OXYCODONE SCREEN, URINE NEGATIVE (NEGATIVE); PROPOXYPHENE SCREEN, URINE NEGATIVE (NEGATIVE); TRICYCLIC ANTIDEPRESSANT,URINE NEGATIVE (NEGATIVE)
[2019-10-16] MEDS ORDERED: ARIPiprazole 5 MG TABLET PO SCH (07:00)
[2019-10-16] MEDS ORDERED: SERTRALINE 25 MG TABLET PO SCH (07:00)
[2019-10-16 08:40] VITALS: BP 112/76
== END 2019-10-16 08:40 | disposition home or self-care (01) ==
LOC: EDUNIT# → ED 20:28
DX: F32.9 Major depressive disorder, single episode, unspecified (principal); R45.851 Suicidal ideations; F43.10 Post-traumatic stress disorder, unspecified; Z91.14 Patient's other noncompliance with medication regimen; F17.200 Nicotine dependence, unspecified, uncomplicated
CPT/HCPCS: 36415; 80053; 81003; 83690; 84443; 85025; 99283; 99284; A9270; 80306; 80307; 80320; 80329; 81001; 87086

== ENCOUNTER 2019-12-05 18:20 | Emergency (ER) | payer MEDICARE, MEDICAID ==
--- NOTE | 2019-12-05 19:13 | ED Physician Documentation ---
History of Present Illness - Stated complaint Stated Complaint: MHE - Chief complaint Chief Complaint: MHE - History obtained from History obtained from: Patient (Pt presents feeling sad and he has had thoughts about possibly engaging in self-injurous behavior. He denies thoughts of suicide, but occasionally has thoughts of cutting. He is feeling sad because his girlfriend had to put down her dog and she is blaming this on him even though he was not involved. Girlfriend also hasn't been around to visit him much lately. He lives at [facility] and feels like no one wants to talk to him and "I don't have any friends there." He has a counselor who he is talking to via video twice a week right now (Monday and Monday) but states "it doesn't feel the same as in person." He speaks to his biological mom occasionally but she lives in [facility] and he rarely sees any of his family. He is on abilify, seroquel, and hydroxyzine. No drug or alcohol use. Denies suicidal ideation but was hoping we could send him to a "respite center.") Review of Systems Constitutional: reports: Reviewed and negative Cardiac: reports: Reviewed and negative Respiratory: reports: Reviewed and negative GI: reports: Reviewed and negative : reports: Reviewed and negative Skin: reports: Reviewed and negative Musculoskeletal: reports: Reviewed and negative Neurologic: reports: Reviewed and negative Psychiatric: reports: Depressed, Anxiety, Insomnia. denies: Suicidal, Homicidal, Hallucinations, Delusions PD PAST MEDICAL HISTORY - Past Medical History Cardiovascular: None Respiratory: Asthma Neuro: None Endocrine/Autoimmune: None GI: Hepatitis : None HEENT: None Psych: Depression, Anxiety, Bipolar disorder, Post traumatic stress disorder Musculoskeletal: Chronic back pain Derm: None - Past Surgical History Past Surgical History: Yes General: Hiatal hernia repair, Other - Present Medications Home Medications: Ambulatory Orders Medication Instructions Recorded Confirmed traZODone [Desyrel] 50 mg PO DAILY PM 05/22/18 11/12/18 Aripiprazole [Abilify] 10 mg PO DAILY 10/16/19 10/16/19 Aripiprazole [Abilify] 15 mg PO DAILY 10/16/19 10/16/19 Sertraline [Zoloft] 25 mg PO DAILY 10/16/19 10/16/19 - Allergies Allergies/Adverse Reactions: Allergies Allergy/AdvReac Type Severity Reaction Status Date / Time divalproex sodium Allergy Anaphylaxis Verified 12/05/19 18:33 [From Depakote] garlic Allergy Anaphylaxis Verified 12/05/19 18:33 lithium Allergy Anaphylaxis Verified 12/05/19 18:33 - Social History Does the pt smoke?: Yes Smoking Status: Current every day smoker Does the pt drink ETOH?: Yes Does the pt have substance abuse?: No - Immunizations Immunizations are current?: Yes Immunizations: TDAP current <10years - POLST Patient has POLST: No PD ED PE NORMAL - Vitals Vital signs reviewed: Yes - General General: Alert and oriented X 3, No acute distress, Well developed/nourished - HEENT HEENT: Atraumatic, Moist mucous membranes, Pharynx benign - Neck Neck: Supple, no meningeal sign, No adenopathy, No JVD - Cardiac Cardiac: RRR, No murmur, No gallop, No rub - Respiratory Respiratory: No respiratory distress, Clear bilaterally - Abdomen Abdomen: Normal bowel sounds, Soft, Non tender, Non distended - Derm Derm: Normal color, Warm and dry, No rash - Extremities Extremities: No deformity, No tenderness to palpate, Normal ROM s pain, No edema, No calf tenderness / cord - Neuro Neuro: Alert and oriented X 3 Eye Opening: Spontaneous Motor: Obeys Commands Verbal: Oriented GCS Score: 15 - Psych Psych: Other (Conversational, engaged, but somewhat down. ) Results - Vitals Vitals: Vital Signs - 24 hr 12/05/19 12/05/19 18:24 19:54 Temperature 36.5 C 37.2 C Heart Rate 102 H 96 Respiratory 20 16 Rate Blood Pressure 131/79 H 133/64 H O2 Saturation 96 96 Oxygen O2 Source Room air PD MEDICAL DECISION MAKING - ED course Complexity details: considered differential, d/w patient, other (d/w Dr. Velazquez) ED course: Patient presents with sx of depression that are worse due to recent relationship problems with his girlfriend. He lives at [facility] and has twice weekly co unseling, next scheduled for tomorrow. He has thought about possibly cutting himself on the arm without the intent of killing himself. He repeatedly denies suicidality. I discussed case w/ Dr. Velazquez and then discussed options with patient including utilizing the crisis line, telepsych, and talking to his regular counselor tomorrow. Pt agrees it might be most productive to talk to his regular counselor tomorrow. He denies any suicidal thoughts. He called his ride from [facility] [facility] to pick him up. Departure - Departure Disposition: 01 Home, Self Care Clinical Impression: Depressive disorder Condition: Good Instructions: ED Stress React, ED Depression Comments: You presented today with symptoms of depression and feeling sad due to numerous events in your life. After talking with you I do believe it is safe for you to g o home and we talked about different ways to keep yourself safe and work through periods of sadness. We discussed options tonight including calling the crisis line ( ) or talking with the telepsych counselors or going home and following up with your regular counselor during your scheduled visit tomorrow. We decided it would be best to continue to follow up with your regular counselor tomorrow and to return at any point if you are feeling thoughts of suicide. Discharge Date/Time: 12/05/19 19:55
[2019-12-05 19:54] VITALS: BP 133/64
== END 2019-12-05 19:55 | disposition home or self-care (01) ==
LOC: ED 18:20
DX: F32.9 Major depressive disorder, single episode, unspecified (principal); F17.200 Nicotine dependence, unspecified, uncomplicated
CPT/HCPCS: 99281; 99283

== ENCOUNTER 2019-12-31 13:14 | Emergency (ER) | payer MEDICARE, MEDICAID ==
[2019-12-31 13:24] VITALS: BP 125/65
[2019-12-31 14:00] LABS: BILIRUBIN,URINE NEGATIVE (NEGATIVE); GLUCOSE, URINE (UA) NEGATIVE (NEGATIVE); KETONES,URINE (UA) NEGATIVE (NEGATIVE); LEUKOCYTE ESTERASE, URINE NEGATIVE (NEGATIVE); NITRITE,URINE NEGATIVE (NEGATIVE); OCCULT BLOOD,URINE NEGATIVE (NEGATIVE); PROTEIN,URINE NEGATIVE (NEGATIVE); UROBILINOGEN,URINE 0.2 (NORMAL) E.U./dL (NORMAL)
[2019-12-31 14:01] LABS: CLARITY,URINE CLEAR (CLEAR)
[2019-12-31] MEDS ORDERED: AZITHROMYCIN 250 MG TABLET PO STA (15:28)
[2019-12-31] MEDS ORDERED: cefTRIAXone 250 MG VIAL IM STA (15:28)
[2019-12-31] MEDS ORDERED: LIDOCAINE 1% 2 ML VIAL MC ONE (15:28)
--- NOTE | 2019-12-31 15:31 | ED Physician Documentation ---
PD HPI MALE - Stated complaint Stated Complaint: MALE - Chief complaint Chief Complaint: General - History obtained from History obtained from: Patient - History of Present Illness Timing - onset: How many days ago (3) Timing - duration: Days (3) Timing - details: Gradual onset, Still present Associated symptoms: Dysuria, Urinary frequency. No: Discharge, Genital sore / lesion, Testiclar pain PD HPI MALE CONTRIB FACTORS: Sexually active Similar symptoms before: Diagnosis (UTI) Recently seen: Not recently seen - Additional information Additional information: 24-year-old male with a history of prior urinary tract infections has developed urinary urgency frequency dysuria with frequent small amounts of urine and pain. Yesterday he had a period of time where he urinated 12 times in an hour. He has not not had any discharge. He does believe that he has had urinary tract infection previously he believes he got this from sex. He denies any prior history of STD. Review of Systems Constitutional: reports: Fatigue. denies: Fever, Chills, Myalgias Eyes: denies: Decreased vision Ears: denies: Ear pain Nose: denies: Rhinorrhea / runny nose Throat: denies: Sore throat Respiratory: denies: Cough GI: denies: Vomiting : reports: Dysuria, Frequency Skin: denies: Rash Musculoskeletal: reports: Back pain. denies: Neck pain, Extremity pain PD PAST MEDICAL HISTORY - Past Medical History Cardiovascular: None Respiratory: Asthma Neuro: None Endocrine/Autoimmune: None GI: Hepatitis : None HEENT: None Psych: Depression, Anxiety, Bipolar disorder, Post traumatic stress disorder Musculoskeletal: Chronic back pain Derm: None - Past Surgical History Past Surgical History: Yes General: Hiatal hernia repair, Other - Present Medications Home Medications: Ambulatory Orders Medication Instructions Recorded Confirmed traZODone [Desyrel] 50 mg PO DAILY PM 05/22/18 11/12/18 Aripiprazole [Abilify] 10 mg PO DAILY 10/16/19 10/16/19 Aripiprazole [Abilify] 15 mg PO DAILY 10/16/19 10/16/19 Sertraline [Zoloft] 25 mg PO DAILY 10/16/19 10/16/19 - Allergies Allergies/Adverse Reactions: Allergies Allergy/AdvReac Type Severity Reaction Status Date / Time divalproex sodium Allergy Anaphylaxis Verified 12/05/19 18:33 [facility] garlic Allergy Anaphylaxis Verified 12/05/19 18:33 lithium Allergy Anaphylaxis Verified 12/05/19 18:33 - Social History Does the pt smoke?: Yes Smoking Status: Current every day smoker Does the pt drink ETOH?: Yes Does the pt have substance abuse?: No - Immunizations Immunizations are current?: Yes Immunizations: TDAP current <10years - POLST Patient has POLST: No PD ED PE NORMAL - Vitals Vital signs reviewed: Yes (Normal) - General General: Alert and oriented X 3, No acute distress, Well developed/nourished - HEENT HEENT: Atraumatic, PERRL, EOMI - Neck Neck: Supple, no meningeal sign, No bony TTP - Respiratory Respiratory: No respiratory distress - Back Back: No spinal TTP, Other (There is some tenderness to the right costovertebral angle. This is mild and reproducible.) - Derm Derm: Normal color, Warm and dry, No rash - Extremities Extremities: No deformity, No edema - Neuro Neuro: Alert and oriented X 3, music engineer 2-12 intact, No motor deficit, No sensory deficit, Normal speech Eye Opening: Spontaneous Motor: Obeys Commands Verbal: Oriented GCS Score: 15 - Psych Psych: Normal mood, Normal affect Results - Vitals Vitals: Vital Signs - 24 hr 12/31/19 13:21 Temperature 36.5 C Heart Rate 67 Respiratory 16 Rate Blood Pressure 125/65 O2 Saturation 97 Oxygen O2 Source Room air - Labs Labs: Laboratory Tests 12/31/19 13:25 Urine Color YELLOW Urine Clarity CLEAR Urine pH 7.0 Ur Specific [place] 1.015 Urine Protein NEGATIVE Urine Glucose (UA) NEGATIVE Urine Ketones NEGATIVE Urine Occult Blood NEGATIVE Urine Nitrite NEGATIVE Urine Bilirubin NEGATIVE Urine Urobilinogen 0.2 (NORMAL) Ur Leukocyte Esterase NEGATIVE Ur Microscopic Review NOT INDICATED Urine Culture Comments NOT INDICATED PD MEDICAL DECISION MAKING - ED course Complexity details: reviewed results, re-evaluated patient, considered differential, d/w patient ED course: 24-year-old male with urinary symptoms of urethritis with a normal-appearing urine likely has ANAN and he is treated. He is given Rocephin 250 a azithromycin 1 g orally. His urine specimen is submitted for chlamydia and GC DNA. Departure - Departure Disposition: 01 Home, Self Care Clinical Impression: Urethritis Condition: Stable Instructions: ED Urethritis Infec Vs Inflam Male Follow-Up: Alex Torres MD [Primary Care Provider] - Comments: Today you have been treated for chlamydia and Gonorrhea. A DNA probe of your urine sample has been ordered and results will be available in 2 days time.
[2019-12-31 21:49] LABS: TRICHOMONAS VAGINALIS DNA NEGATIVE (NEGATIVE)
== END 2019-12-31 15:50 | disposition home or self-care (01) ==
LOC: ED 13:14
DX: N34.2 Other urethritis (principal); F17.200 Nicotine dependence, unspecified, uncomplicated
CPT/HCPCS: 81003; 87491; 87591; 87661; 96372; 99283; A9270; 81001; 87086

== ENCOUNTER 2020-01-07 07:00 | Outpatient (CLI) | payer MEDICARE, MEDICAID ==
[2020-01-07 18:27] LABS: BILIRUBIN,URINE NEGATIVE (NEGATIVE); GLUCOSE, URINE (UA) NEGATIVE (NEGATIVE); KETONES,URINE (UA) NEGATIVE (NEGATIVE); LEUKOCYTE ESTERASE, URINE NEGATIVE (NEGATIVE); NITRITE,URINE NEGATIVE (NEGATIVE); OCCULT BLOOD,URINE NEGATIVE (NEGATIVE); PH,URINE 7.5 PH (5.0-7.5); PROTEIN,URINE NEGATIVE (NEGATIVE); UROBILINOGEN,URINE 0.2 (NORMAL) E.U./dL (NORMAL)
[2020-01-07 18:42] LABS: AMORPHOUS SEDIMENT,UR Marked /LPF; BACTERIA,URINE None Seen /HPF (None Seen); CLARITY,URINE CLOUDY (CLEAR); RBC,URINE None Seen /HPF (0-5); SQUAMOUS EPITHELIAL CELL,UR NONE SEEN (<= Few)
== END 2020-01-07 23:59 | disposition home or self-care (01) ==
LOC: LAB.R 07:00
PROVIDERS: ATTEND Registered Nurse
DX: R35.0 Frequency of micturition (principal)
CPT/HCPCS: 81001; 87086

== ENCOUNTER 2020-06-29 05:57 | Outpatient (CLI) | payer MEDICARE, MEDICAID | END 2020-06-29 05:58 | disposition critical access hospital (66) | LOC: EMS 05:57 | PROVIDERS: ATTEND Surgery | DX: R63.8 Other symptoms and signs concerning food and fluid intake (principal) | CPT/HCPCS: A0425; A0429 ==

== ENCOUNTER 2020-06-29 06:19 | Emergency (ER) | payer MEDICARE, MEDICAID ==
[2020-06-29] MEDS ORDERED: ONDANSETRON 4 MG/2 ML VIAL IVP STA (06:47)
--- NOTE | 2020-06-29 06:53 | ED Physician Documentation ---
History of Present Illness - Stated complaint Stated Complaint: MHE - Chief complaint Chief Complaint: General - History obtained from History obtained from: Patient - Additonal information Additional information: Patient is brought to the emergency department by EMS for chief complaint of decreased appetite and insomnia. The patient states that his decreased appetite has been going on for the last few months and that he has been losing a lot of weight because of it. He states that first thing in the morning when he gets up, he just runs outside and vomits. The patient states that he has inter mittent abdominal pain on both sides of his abdomen. He states that once he vomits in the morning, he can eat, but does not really desire to eat. The patient states his vomitus is clear and looks like bile. No coffee grounds or blood. Patient states that over the last approximately month, he has not been sleeping well. He starts to drift off to sleep and then is wide awake. He is currently only taking Seroquel, though he was on several other medications, all of which he self DC'd it because he states he kept forgetting to take them. Patient has not seen his provider since. He also states that he has a therapist in [facility], but he missed so many appointments that he was read flagged and it became harder for him to get appointments. No other complaints at this time. The patient states he is not suicidal. He states he just wants to get on top of his symptoms before he does become suicidal. He states this happened to him back in August and he ended up needing to go to inpatient treatment. His past medical history includes depression and schizoaffective disorder, as well as borderline personality disorder. No other complaints at this time. Review of Systems Ten Systems: 10 systems reviewed and negative Constitutional: reports: Reviewed and negative Eyes: reports: Reviewed and negative Ears: reports: Reviewed and negative Nose: reports: Reviewed and negative Throat: reports: Reviewed and negative Cardiac: reports: Reviewed and negative Respiratory: reports: Reviewed and negative GI: reports: Abdominal Pain, Nausea, Vomiting : reports: Reviewed and negative Skin: reports: Reviewed and negative Musculoskeletal: reports: Reviewed and negative Neurologic: reports: Reviewed and negative Psychiatric: reports: Depressed, Anxiety, Insomnia Endocrine: reports: Weight loss, Other (Decreased appetite) Immunocompromised: reports: Reviewed and negative PD PAST MEDICAL HISTORY - Past Medical History Past Medical History: Yes Cardiovascular: None Respiratory: Asthma Neuro: None Endocrine/Autoimmune: None GI: Hepatitis : None HEENT: None Psych: Depression, Anxiety, Bipolar disorder, Post traumatic stress disorder Musculoskeletal: Chronic back pain Derm: None - Past Surgical History Past Surgical History: Yes General: Hiatal hernia repair, Other - Present Medications Home Medications: Ambulatory Orders Medication Instructions Recorded Confirmed traZODone [Desyrel] 50 mg PO DAILY PM 05/22/18 11/12/18 Aripiprazole [Abilify] 10 mg PO DAILY 10/16/19 10/16/19 Aripiprazole [Abilify] 15 mg PO DAILY 10/16/19 10/16/19 Sertraline [Zoloft] 25 mg PO DAILY 10/16/19 10/16/19 - Allergies Allergies/Adverse Reactions: Allergies Allergy/AdvReac Type Severity Reaction Status Date / Time divalproex sodium Allergy Anaphylaxis Verified 06/29/20 06:32 [From Depakote] garlic Allergy Anaphylaxis Verified 06/29/20 06:32 lithium Allergy Anaphylaxis Verified 06/29/20 06:32 - Social History Does the pt smoke?: Yes Smoking Status: Current every day smoker Does the pt drink ETOH?: Yes Does the pt have substance abuse?: No - Immunizations Immunizations are current?: Yes Immunizations: TDAP current <10years - POLST Patient has POLST: No PD ED PE NORMAL - Vitals Vital signs reviewed: Yes - General General: Alert and oriented X 3, No acute distress, Well developed/nourished - HEENT HEENT: Atraumatic, PERRL, EOMI, Moist mucous membranes - Neck Neck: Supple, no meningeal sign - Cardiac Cardiac: RRR, No murmur - Respiratory Respiratory: No respiratory distress, Clear bilaterally - Abdomen Abdomen: Soft, Non distended, Other (Mild diffuse tenderness) - Derm Derm: Normal color, Warm and dry, No rash - Extremities Extremities: No deformity, No edema, No calf tenderness / cord - Neuro Neuro: Alert and oriented X 3, Other (Grossly normal) - Psych Psych: Normal mood, Normal affect Results - Vitals Vitals: Vital Signs - 24 hr 06/29/20 06/29/20 06:20 06:30 Temperature 36.7 C 36.7 C Heart Rate 72 68 Respiratory 18 16 Rate Blood Pressure 125/85 H 125/85 H O2 Saturation 96 97 Oxygen O2 Source Room air PD MEDICAL DECISION MAKING - ED course Complexity details: reviewed results, re-evaluated patient, considered differential, d/w patient ED course: I discussed with the patient that at this point in time he is not a danger to himself but given the ongoing nature of his symptoms and the worsening severity, I think he would benefit from speaking with our manager social responsibility/mental health clinician. I have ordered mental health clearance labs to this and. The patient is also receiving a liter of IV fluid and a dose of Zofran. He will be signed out to the oncoming emergency physician pending social work consult and final disposition.
[2020-06-29 07:15] LABS: BASOPHILS # (AUTO) 0.1 10^3/uL (0.0-0.1); BASOPHILS % (AUTO) 0.7 %; EOSINOPHILS # (AUTO) 0.2 10^3/uL (0.0-0.7); EOSINOPHILS % (AUTO) 2.1 %; HGB - HEMOGLOBIN 14.4 g/dL (14.0-18.0); LYMPHOCYTES # (AUTO) 2.4 10^3/uL (1.5-3.5); LYMPHOCYTES % (AUTO) 33.3 %; MEAN CORPUSCULAR HEMOGLOBIN 29.9 pg (27.0-31.0); MEAN CORPUSCULAR HGB CONC 34.2 g/dL (32.0-36.0); MEAN CORPUSCULAR VOLUME 87.5 fL (80.0-94.0); MEAN PLATELET VOLUME 9.9 fL (7.4-11.4); MONOCYTES # (AUTO) 0.8 10^3/uL (0.0-1.0); MONOCYTES % (AUTO) 11.7 %; NEUTROPHILS # (AUTO) 3.7 10^3/uL (1.5-6.6); NEUTROPHILS % (AUTO) 51.8 %; PLT - PLATELET COUNT 253 10^3/uL (130-450); RED BLOOD COUNT 4.81 10^6/uL (4.70-6.10); RED CELL DISTRIBUTION WIDTH 12.7 % (12.0-15.0); WHITE BLOOD COUNT 7.2 x10^3/uL (4.8-10.8)
[2020-06-29 07:19] LABS: ALBUMIN 4.5 g/dL (3.2-5.5); ALBUMIN/GLOBULIN RATIO 1.7 (1.0-2.2); BILIRUBIN,TOTAL 0.8 mg/dL (0.2-1.0); CALCIUM 9.4 mg/dL (8.5-10.3); CREATININE 0.9 mg/dL (0.6-1.2); TOTAL PROTEIN 7.1 g/dL (6.7-8.2)
[2020-06-29 07:24] LABS: MUDS CUTOFF CONCENTRATIONS CUTOFF CONC BELOW:
[2020-06-29 07:37] LABS: AMPHETAMINE SCREEN,URINE NEGATIVE (NEGATIVE); BENZODIAZEPINES SCREEN, URINE NEGATIVE (NEGATIVE); COCAINE SCREEN URINE NEGATIVE (NEGATIVE); METHADONE SCREEN, URINE NEGATIVE (NEGATIVE); METHAMPHETAMINES SCREEN, URINE NEGATIVE (NEGATIVE); OPIATE SCREEN, URINE NEGATIVE (NEGATIVE); OXYCODONE SCREEN, URINE NEGATIVE (NEGATIVE); PROPOXYPHENE SCREEN, URINE NEGATIVE (NEGATIVE); TRICYCLIC ANTIDEPRESSANT,URINE NEGATIVE (NEGATIVE)
[2020-06-29 09:33] VITALS: BP 126/77
--- NOTE | 2020-06-29 09:44 | ED Physician Documentation ---
ED Addendum - Addendum Addendum: 06/29/20 09:43 Patient endorsed to me by nighttime doc. He denies SI, HI, AVH. Contracts for safety. Strict return precautions given. Patient will follow up outpatient mental health. Prescription given for melatonin for sleep aid, and education given about sleep hygiene.Social work saw patient and gave resources, left a message with his outpatient provider.
== END 2020-06-29 09:42 | disposition home or self-care (01) ==
LOC: EDUNIT# → ED 06:19
DX: G47.00 Insomnia, unspecified (principal); R11.2 Nausea with vomiting, unspecified; R63.0 Anorexia; F25.0 Schizoaffective disorder, bipolar type; F17.200 Nicotine dependence, unspecified, uncomplicated
CPT/HCPCS: 36415; 80053; 80306; 80320; 83690; 85025; 96374; 99283

== ENCOUNTER 2020-08-04 07:00 | Outpatient (CLI) | payer MEDICARE, MEDICAID | END 2020-08-04 23:59 | disposition home or self-care (01) | LOC: LAB.R 07:00 | PROVIDERS: ATTEND Family Medicine | DX: J06.9 Acute upper respiratory infection, unspecified (principal); Z20.828 Contact with and (suspected) exposure to other viral communicable diseases | CPT/HCPCS: 87070; 87275; 87276; U0004 ==

== ENCOUNTER 2020-08-04 08:35 | Outpatient (CLI) | payer MEDICARE, MEDICAID ==
--- NOTE | 2020-08-04 09:17 | XRAY Report ---
PROCEDURE: Chest 2 View X-Ray INDICATIONS: Persistent cough TECHNIQUE: 2 view(s) of the chest. COMPARISON: None. FINDINGS: Surgical changes and devices: None. Lungs and pleura: No pleural effusions or pneumothorax. Lungs are clear. Mediastinum: Mediastinal contours are normal. Heart size is normal. Bones and chest wall: No suspicious bony abnormalities. Soft tissues appear unremarkable. IMPRESSION: No acute cardiopulmonary process demonstrated radiographically. Reviewed by: Puneet Mcguire MD on 08/04/2020 9:15 AM [facility] Approved by: Puneet Mcguire MD on 08/04/2020 9:15 AM [facility] Station ID: [id number]
== END 2020-08-04 23:59 | disposition home or self-care (01) ==
LOC: DI.N 08:35
PROVIDERS: ATTEND Family Medicine
DX: R05 Cough (principal)

== ENCOUNTER 2020-08-19 18:23 | Outpatient (CLI) | payer MEDICARE, MEDICAID | END 2020-08-19 18:24 | disposition critical access hospital (66) | LOC: EMS 18:23 | PROVIDERS: ATTEND Surgery | DX: R45.851 Suicidal ideations (principal) | CPT/HCPCS: A0425; A0429 ==

== ENCOUNTER 2020-08-19 18:45 | Emergency (ER) | payer MEDICARE, MEDICAID ==
--- NOTE | 2020-08-19 19:12 | ED Physician Documentation ---
History of Present Illness - Stated complaint Stated Complaint: MHE - Chief complaint Chief Complaint: MHE - History obtained from History obtained from: Patient - Additonal information Additional information: Patient comes emergency department for chief complaint of feeling suicidal. The patient states that he has a history of depression and has had suicidal attempts in the past. He has history of inpatient mental health management previously. He states that tonight, the trigger was that he found out his significant other was cheating on him and when he confronted her and asked her to leave off the other relationship if she wanted to stay with him, she decided to break up with him instead. Patient states he felt upset and started trying to bash his head through the wall. He states he hit his head on the wall 4 times and did end up breaking the sheet rock. He also punched the wall with his right fist a few times and is complaining of some right wrist pain. Patient states he did not lose consciousness during the blows to his head. He has noted in the last hour since the injury that he feels when he walks as though the ground is uneven, and he feels slightly unsteady. No other neurologic deficits. No weakness in one side or one arm or leg. Patient smokes marijuana on a regular basis and also cigarettes. He drinks alcohol occasionally. He denies any other drugs today or on any other day. The patient denies trying to hurt himself in any other way. He did not take any pills tonight, though he did consider taking all of his Seroquel. Patient states that he is supposed to be on Abilify and Seroquel but has not taken either one in months. He does still have some at home, however. Patient's only other complaint is nausea, which has been a chronic problem for him. He has chronic insomnia and lack of appetite, which are documented in my previous note. The patient states he still feeling somewhat suicidal and does not feel safe going home. No other complaints at this time. Review of Systems Ten Systems: 10 systems reviewed and negative Constitutional: reports: Reviewed and negative Eyes: reports: Reviewed and negative Ears: reports: Reviewed and negative Nose: reports: Reviewed and negative Throat: reports: Reviewed and negative Cardiac: reports: Reviewed and negative Respiratory: reports: Reviewed and negative GI: reports: Reviewed and negative : reports: Reviewed and negative Skin: reports: Reviewed and negative Musculoskeletal: reports: Neck pain (Bilateral lateral). denies: Back pain Neurologic: reports: Head injury, Other (Dizziness). denies: LOC Psychiatric: reports: Reviewed and negative Endocrine: reports: Reviewed and negative Immunocompromised: reports: Reviewed and negative PD PAST MEDICAL HISTORY - Past Medical History Cardiovascular: None Respiratory: Asthma Neuro: None Endocrine/Autoimmune: None GI: Hepatitis : None HEENT: None Psych: Depression, Anxiety, Bipolar disorder, Post traumatic stress disorder Musculoskeletal: Chronic back pain Derm: None - Past Surgical History Past Surgical History: Yes General: Hiatal hernia repair, Other - Present Medications Home Medications: Ambulatory Orders Medication Instructions Recorded Confirmed traZODone [Desyrel] 50 mg PO DAILY PM 05/22/18 11/12/18 Aripiprazole [Abilify] 10 mg PO DAILY 10/16/19 10/16/19 Aripiprazole [Abilify] 15 mg PO DAILY 10/16/19 10/16/19 Sertraline [Zoloft] 25 mg PO DAILY 10/16/19 10/16/19 Melatonin/Pyridoxine [Melatonin 5 1 each PO QPM PRN 30 Days #30 06/29/20 mg Tablet] tablet - Allergies Allergies/Adverse Reactions: Allergies Allergy/AdvReac Type Severity Reaction Status Date / Time divalproex sodium Allergy Anaphylaxis Verified 08/19/20 18:52 [From Depakote] garlic Allergy Anaphylaxis Verified 08/19/20 18:52 lithium Allergy Anaphylaxis Verified 08/19/20 18:52 - Social History Does the pt smoke?: Yes Smoking Status: Current every day smoker Does the pt drink ETOH?: Yes Does the pt have substance abuse?: No - Immunizations Immunizations are current?: Yes Immunizations: TDAP current <10years - POLST Patient has POLST: No PD ED PE NORMAL - Vitals Vital signs reviewed: Yes - General General: Alert and oriented X 3, No acute distress - HEENT HEENT: PERRL, EOMI, Moist mucous membranes, Other (Tiny abrasion just posterior to hairline in the midline of the patient's frontal scalp. No swelling or deformity. No bony depression.) - Neck Neck: Supple, no meningeal sign - Cardiac Cardiac: RRR, No murmur - Respiratory Respiratory: No respiratory distress, Clear bilaterally - Abdomen Abdomen: Soft, Non tender, Non distended - Derm Derm: Normal color, Warm and dry, No rash - Extremities Extremities: No deformity, Other (Moderate tenderness flexor aspect of right wrist. Minimal edema. Few small abrasions over right hand dorsum and flexor aspect of right wrist.) - Neuro Neuro: Alert and oriented X 3, de alcholizer 2-12 intact, No motor deficit, No sensory deficit, Normal speech - Psych Psych: Normal mood, Normal affect Results - Vitals Vitals: Vital Signs - 24 hr 08/19/20 08/20/20 18:45 04:15 Temperature 36.8 C 37.2 C Heart Rate 86 55 L Respiratory 18 12 Rate Blood Pressure 140/71 H 110/57 L O2 Saturation 99 100 Oxygen O2 Source Room air - Labs Labs: Laboratory Tests 08/19/20 08/19/20 08/19/20 19:35 19:35 19:35 WBC 6.5 RBC 4.91 Hgb 15.0 Hct 42.0 MCV 85.5 MCH 30.5 MCHC 35.7 RDW 12.3 Plt Count 264 MPV 10.4 Neut # (Auto) 4.1 Lymph # (Auto) 1.6 Mcminn # (Auto) 0.8 Eos # (Auto) 0.0 Baso # (Auto) 0.1 Absolute Nucleated RBC 0.00 Nucleated RBC % 0.0 Sodium 141 Potassium 3.6 Chloride 109 Carbon Dioxide 25 Anion Gap 7.0 BUN 13 Creatinine 0.8 Estimated GFR (MDRD) 120 Glucose 88 Calcium 10.0 Total Bilirubin 0.9 AST 24 ALT 38 Alkaline Phosphatase 50 Total Protein 7.6 Albumin 5.0 Globulin 2.6 Albumin/Globulin Ratio 1.9 TSH 0.53 Nasal Adenovirus (PCR) Nasal B. parapertussis DNA (PCR) Nasal Coronavir 229E PCR Nasal Coronavir HKU1 PCR Nasal Coronavir NL63 PCR Nasal Coronavir OC43 PCR Nasal Enterovir/Rhinovir PCR Nasal Influenza B PCR Nasal Influenza A PCR Nasal Parainfluen 1 PCR Nasal Parainfluen 2 PCR Nasal Parainfluen 3 PCR Nasal Parainfluen 4 PCR Nasal RSV (PCR) Nasal B.pertussis DNA PCR Nasal C.pneumoniae (PCR) Lucio Human Metapneumo PCR Nasal M.pneumoniae (PCR) Nasal SARS-CoV-2 (PCR) Urine Opiates Screen Ur Oxycodone Screen Urine Methadone Screen Ur Propoxyphene Screen Ur Barbiturates Screen Ur Tricyclics Screen Ur Phencyclidine Scrn Ur Amphetamine Screen U Methamphetamines Scrn U Benzodiazepines Scrn Urine Cocaine Screen U Cannabinoids Screen Ethyl Alcohol < 5.0 08/20/20 08/20/20 01:10 01:10 WBC RBC Hgb Hct MCV MCH MCHC RDW Plt Count MPV Neut # (Auto) Lymph # (Auto) Mcminn # (Auto) Eos # (Auto) Baso # (Auto) Absolute Nucleated RBC Nucleated RBC % Sodium Potassium Chloride Carbon Dioxide Anion Gap BUN Creatinine Estimated GFR (MDRD) Glucose Calcium Total Bilirubin AST ALT Alkaline Phosphatase Total Protein Albumin Globulin Albumin/Globulin Ratio TSH Nasal Adenovirus (PCR) NOT DETECTED Nasal B. parapertussis DNA (PCR) NOT DETECTED Nasal Coronavir 229E PCR NOT DETECTED Nasal Coronavir HKU1 PCR NOT DETECTED Nasal Coronavir NL63 PCR NOT DETECTED Nasal Coronavir OC43 PCR NOT DETECTED Nasal Enterovir/Rhinovir PCR DETECTED A Nasal Influenza B PCR NOT DETECTED Nasal Influenza A PCR NOT DETECTED Nasal Parainfluen 1 PCR NOT DETECTED Nasal Parainfluen 2 PCR NOT DETECTED Nasal Parainfluen 3 PCR NOT DETECTED Nasal Parainfluen 4 PCR NOT DETECTED Nasal RSV (PCR) NOT DETECTED Nasal B.pertussis DNA PCR NOT DETECTED Nasal C.pneumoniae (PCR) NOT DETECTED Lucio Human Metapneumo PCR NOT DETECTED Nasal M.pneumoniae (PCR) NOT DETECTED Nasal SARS-CoV-2 (PCR) NOT DETECTED Urine Opiates Screen NEGATIVE Ur Oxycodone Screen NEGATIVE Urine Methadone Screen NEGATIVE Ur Propoxyphene Screen NEGATIVE Ur Barbiturates Screen NEGATIVE Ur Tricyclics Screen NEGATIVE Ur Phencyclidine Scrn NEGATIVE Ur Amphetamine Screen NEGATIVE U Methamphetamines Scrn NEGATIVE U Benzodiazepines Scrn POSITIVE H Urine Cocaine Screen NEGATIVE U Cannabinoids Screen POSITIVE H Ethyl Alcohol PD MEDICAL DECISION MAKING - ED course Complexity details: reviewed results, re-evaluated patient, considered differential, d/w patient ED course: Pt was worked up with the usual medical clearance studies for mental health evaluation, as well as a right wrist x-ray and head CT regarding his injuries, and chest x-ray after patient mentioned ongoing cough productive of black sputum for the last several weeks. The patient's work-up was unremarkable. Early in his stay, the patient did become quite anxious and emotionally upset, was found to be crying loudly and hyperventilating. As such, the patient was given a dose of Ativan here in the ED, and did calm down significantly. He was able to sleep through the night and was without further issues. At this point in time, social work is consulted. The patient is signed out to Dr. Burns, the oncoming emergency physician, pending social work evaluation and final disposition.
[2020-08-19] MEDS ORDERED: ONDANSETRON 4 MG/2 ML VIAL IVP STA (19:16)
[2020-08-19] MEDS ORDERED: SODIUM CHLORIDE 0.9% 1,000 ML IV STA (19:16)
[2020-08-19 19:49] LABS: BASOPHILS # (AUTO) 0.1 10^3/uL (0.0-0.1); BASOPHILS % (AUTO) 0.8 %; EOSINOPHILS % (AUTO) 0.6 %; LYMPHOCYTES # (AUTO) 1.6 10^3/uL (1.5-3.5); LYMPHOCYTES % (AUTO) 24.5 %; MEAN CORPUSCULAR HEMOGLOBIN 30.5 pg (27.0-31.0); MEAN CORPUSCULAR HGB CONC 35.7 g/dL (32.0-36.0); MEAN CORPUSCULAR VOLUME 85.5 fL (80.0-94.0); MEAN PLATELET VOLUME 10.4 fL (7.4-11.4); MONOCYTES # (AUTO) 0.8 10^3/uL (0.0-1.0); MONOCYTES % (AUTO) 12.1 %; NEUTROPHILS # (AUTO) 4.1 10^3/uL (1.5-6.6); NEUTROPHILS % (AUTO) 61.8 %; PLT - PLATELET COUNT 264 10^3/uL (130-450); RED BLOOD COUNT 4.91 10^6/uL (4.70-6.10); RED CELL DISTRIBUTION WIDTH 12.3 % (12.0-15.0); WHITE BLOOD COUNT 6.5 x10^3/uL (4.8-10.8)
[2020-08-19 20:08] LABS: ALBUMIN/GLOBULIN RATIO 1.9 (1.0-2.2); ALKALINE PHOSPHATASE 50 IU/L (42-121); ALT ALANINE AMINOTRANSFERASE 38 IU/L (10-60); AST ASPARTATE AMINOTRANSFERASE 24 IU/L (10-42); BILIRUBIN,TOTAL 0.9 mg/dL (0.2-1.0); BUN - BLOOD UREA NITROGEN 13 mg/dL (6-20); CARBON DIOXIDE - CO2 25 mmol/L (21-32); CHLORIDE 109 mmol/L (101-111); CREATININE 0.8 mg/dL (0.6-1.2); GLUCOSE 88 mg/dL (70-100); SODIUM 141 mmol/L (135-145); TOTAL PROTEIN 7.6 g/dL (6.7-8.2)
[2020-08-19] MEDS ORDERED: LORazepam 2 MG/ML VIAL IVP STA (20:33)
[2020-08-20] MEDS ORDERED: SODIUM CHLORIDE 0.9% 1,000 ML IV STA (00:30)
[2020-08-20 01:18] LABS: MUDS CUTOFF CONCENTRATIONS CUTOFF CONC BELOW:
[2020-08-20 01:30] LABS: AMPHETAMINE SCREEN,URINE NEGATIVE (NEGATIVE); BENZODIAZEPINES SCREEN, URINE POSITIVE (NEGATIVE); COCAINE SCREEN URINE NEGATIVE (NEGATIVE); METHADONE SCREEN, URINE NEGATIVE (NEGATIVE); METHAMPHETAMINES SCREEN, URINE NEGATIVE (NEGATIVE); OPIATE SCREEN, URINE NEGATIVE (NEGATIVE); OXYCODONE SCREEN, URINE NEGATIVE (NEGATIVE); PROPOXYPHENE SCREEN, URINE NEGATIVE (NEGATIVE); TRICYCLIC ANTIDEPRESSANT,URINE NEGATIVE (NEGATIVE)
[2020-08-20 02:12] LABS: C. PNEUMONIAE- RESP PCR PANEL NOT DETECTED
--- NOTE | 2020-08-20 07:17 | CT Report ---
PROCEDURE: HEAD WO INDICATIONS: head injury, dizzy TECHNIQUE: Noncontrast 4.5 mm thick angled axial sections acquired from the foramen magnum to the vertex. For r adiation dose reduction, the following was used: automated exposure control, adjustment of mA and/or kV according to patient size. COMPARISON: None. FINDINGS: Image quality: Excellent. CSF spaces: Basal cisterns are patent. No extra-axial fluid collections. Ventricles are normal in size and shape. Brain: No midline shift. No intracranial masses or hemorrhage. Lea-white matter interface is norm al. Skull and face: Calvarium and visualized facial bones are intact, without suspicious lesions. Sinuses: Scattered mucosal thickening noted in the left ethmoid air cells. The mastoids are clear. IMPRESSION: No acute intracranial disease process. Reviewed by: Linda Armstrong MD, PhD on 08/20/2020 7:16 AM PST Approved by: Linda Armstrong MD, PhD on 08/20/2020 7:16 AM PST Station ID: [id number]
--- NOTE | 2020-08-20 08:24 | XRAY Report ---
PROCEDURE: Wrist 3 View RT INDICATIONS: punching injury, pain, swelling TECHNIQUE: 3 views of the wrist were acquired. COMPARISON: None FINDINGS: Bones: No acute fractures or dislocations. Chronic appearing deformity involving fifth metacarpal ne ck is suggestive of old healed fracture. No suspicious bony lesions. Scaphoid view: Scaphoid is intact. Soft tissues: No suspicious soft tissue calcifications. IMPRESSION: No acute wrist fracture or dislocation. Old healed fifth metacarpal neck fracture. No discrepancies from preliminary reading. Reviewed by: Ha Andrade MD on 08/20/2020 8:23 AM PST Approved by: Ha Andrade MD on 08/20/2020 8:23 AM PST Station ID: [id number]
--- NOTE | 2020-08-20 08:29 | XRAY Report ---
PROCEDURE: Chest 1 View X-Ray INDICATIONS: chest pain TECHNIQUE: One view of the chest was acquired. COMPARISON: 08/04/2020 FINDINGS: Surgical changes and devices: None. Lungs and pleura: No pleural effusions or pneumothorax. Lungs are clear. Mediastinum: Mediastinal contours appear normal. Heart size is normal. Bones and chest wall: No suspicious bony lesions. Overlying soft tissues appear unremarkable. IMPRESSION: No acute cardiopulmonary process. No discrepancy from preliminary reading. Reviewed by: Ha Andrade MD on 08/20/2020 8:27 AM PST Approved by: Ha Andrade MD on 08/20/2020 8:27 AM [facility] Station ID: [id number]
[2020-08-20] MEDS ORDERED: LORazepam 1 MG TABLET PO STA (11:44)
--- NOTE | 2020-08-20 12:11 | ED Physician Documentation ---
ED Addendum - Addendum Addendum: 08/20/20 12:10 Patient accepted to [facility]. COBRA forms completed. Patient transferred. CHARLES Smith accepts Departure - Departure Disposition: [facility]/Unit DC/[place] Clinical Impression: Suicidal ideation Condition: Stable
[2020-08-20 12:24] VITALS: BP 112/56
== END 2020-08-20 14:15 ==
LOC: EDUNIT# → ED 18:45
DX: F32.9 Major depressive disorder, single episode, unspecified (principal); R45.851 Suicidal ideations; F41.9 Anxiety disorder, unspecified; S00.01XA Abrasion of scalp, initial encounter; M54.2 Cervicalgia; S60.511A Abrasion of right hand, initial encounter; S60.811A Abrasion of right wrist, initial encounter; W22.01XA Walked into wall, initial encounter; R05 Cough; Z20.822 Contact with and (suspected) exposure to COVID-19; F17.210 Nicotine dependence, cigarettes, uncomplicated
CPT/HCPCS: 36415; 70450; 71045; 73110; 80053; 80306; 84443; 85025; 87631; 96361; 96374; 96375; 99284; 99285; J2060; J8499; 0202U; 80320

== ENCOUNTER 2020-09-22 11:33 | Emergency (ER) | payer MEDICARE, MEDICAID ==
[2020-09-22 12:23] LABS: BASOPHILS % (AUTO) 0.6 %; EOSINOPHILS # (AUTO) 0.1 10^3/uL (0.0-0.7); EOSINOPHILS % (AUTO) 1.5 %; HGB - HEMOGLOBIN 14.8 g/dL (14.0-18.0); LYMPHOCYTES # (AUTO) 1.3 10^3/uL (1.5-3.5); LYMPHOCYTES % (AUTO) 23.8 %; MEAN CORPUSCULAR HEMOGLOBIN 29.9 pg (27.0-31.0); MEAN CORPUSCULAR HGB CONC 33.8 g/dL (32.0-36.0); MEAN CORPUSCULAR VOLUME 88.5 fL (80.0-94.0); MEAN PLATELET VOLUME 9.9 fL (7.4-11.4); MONOCYTES # (AUTO) 0.7 10^3/uL (0.0-1.0); NEUTROPHILS # (AUTO) 3.2 10^3/uL (1.5-6.6); NEUTROPHILS % (AUTO) 60.9 %; PLT - PLATELET COUNT 260 10^3/uL (130-450); RED BLOOD COUNT 4.95 10^6/uL (4.70-6.10); RED CELL DISTRIBUTION WIDTH 13.2 % (12.0-15.0); WHITE BLOOD COUNT 5.3 x10^3/uL (4.8-10.8)
[2020-09-22 12:39] LABS: ACETAMINOPHEN < 10 ug/mL (10-30); ALBUMIN 4.4 g/dL (3.2-5.5); ALBUMIN/GLOBULIN RATIO 1.5 (1.0-2.2); ALKALINE PHOSPHATASE 63 IU/L (42-121); ALT ALANINE AMINOTRANSFERASE 47 IU/L (10-60); AST ASPARTATE AMINOTRANSFERASE 32 IU/L (10-42); BILIRUBIN,TOTAL 0.9 mg/dL (0.2-1.0); BUN - BLOOD UREA NITROGEN 13 mg/dL (6-20); CALCIUM 10.1 mg/dL (8.5-10.3); CARBON DIOXIDE - CO2 27 mmol/L (21-32); CHLORIDE 100 mmol/L (101-111); CREATININE 0.8 mg/dL (0.6-1.2); GLUCOSE 103 mg/dL (70-100); LIPASE 19 U/L (22-51); SALICYLATE < 6.0 mg/dL; TOTAL PROTEIN 7.3 g/dL (6.7-8.2)
[2020-09-22 13:04] LABS: MUDS CUTOFF CONCENTRATIONS CUTOFF CONC BELOW:
[2020-09-22 13:07] LABS: BILIRUBIN,URINE NEGATIVE (NEGATIVE); GLUCOSE, URINE (UA) NEGATIVE (NEGATIVE); KETONES,URINE (UA) NEGATIVE (NEGATIVE); LEUKOCYTE ESTERASE, URINE LARGE (NEGATIVE); NITRITE,URINE NEGATIVE (NEGATIVE); OCCULT BLOOD,URINE NEGATIVE (NEGATIVE); PH,URINE 7.5 PH (5.0-7.5); PROTEIN,URINE NEGATIVE (NEGATIVE); UROBILINOGEN,URINE 1 (NORMAL) E.U./dL (NORMAL)
[2020-09-22 13:09] LABS: CLARITY,URINE CLEAR (CLEAR)
[2020-09-22 13:17] LABS: AMPHETAMINE SCREEN,URINE NEGATIVE (NEGATIVE); BENZODIAZEPINES SCREEN, URINE POSITIVE (NEGATIVE); COCAINE SCREEN URINE POSITIVE (NEGATIVE); METHADONE SCREEN, URINE NEGATIVE (NEGATIVE); METHAMPHETAMINES SCREEN, URINE NEGATIVE (NEGATIVE); OPIATE SCREEN, URINE NEGATIVE (NEGATIVE); OXYCODONE SCREEN, URINE NEGATIVE (NEGATIVE); PROPOXYPHENE SCREEN, URINE NEGATIVE (NEGATIVE); TRICYCLIC ANTIDEPRESSANT,URINE NEGATIVE (NEGATIVE)
[2020-09-22 13:22] LABS: BACTERIA,URINE Few /HPF (None Seen); RBC,URINE 0-5 /HPF (0-5); SQUAMOUS EPITHELIAL CELL,UR RARE Squamous (<= Few); WBC CLUMPS,URINE PRESENT
[2020-09-22 15:50] VITALS: BP 118/62
--- NOTE | 2020-09-22 15:58 | ED Physician Documentation ---
History of Present Illness - Stated complaint Stated Complaint: MHE - Chief complaint Chief Complaint: MHE - History obtained from History obtained from: Patient - Additonal information Additional information: 25-year-old man with past medical history of polysubstance abuse presents with passive suicidality worsening over the past couple days. Also endorses dysuria but denies abdominal pain, nausea, fever, back pain. Patient requesting detox. We will have social work see him at this time. Review of Systems Ten Systems: 10 systems reviewed and negative Constitutional: denies: Fever, Chills : reports: Dysuria Musculoskeletal: denies: Back pain Psychiatric: reports: Depressed, Suicidal. denies: Homicidal, Hallucinations, Delusions PD PAST MEDICAL HISTORY - Past Medical History Past Medical History: Yes Cardiovascular: None Respiratory: Asthma Neuro: None Endocrine/Autoimmune: None GI: Hepatitis : None HEENT: None Psych: Depression, Anxiety, Bipolar disorder, Post traumatic stress disorder Musculoskeletal: Chronic back pain Derm: None - Past Surgical History Past Surgical History: Yes General: Hiatal hernia repair, Other - Present Medications Home Medications: Ambulatory Orders Medication Instructions Recorded Confirmed traZODone [Desyrel] 50 mg PO DAILY PM 05/22/18 09/22/20 Aripiprazole [Abilify] 10 mg PO DAILY 10/16/19 09/22/20 Cefpodoxime Proxetil [Vantin] 200 mg PO Q12H 10 Days #20 tab 09/22/20 QUEtiapine [SEROquel] 100 mg PO DAILY 09/22/20 09/22/20 - Allergies Allergies/Adverse Reactions: Allergies Allergy/AdvReac Type Severity Reaction Status Date / Time divalproex sodium Allergy Anaphylaxis Verified 09/22/20 11:36 [From Depakote] garlic Allergy Anaphylaxis Verified 09/22/20 11:36 lithium Allergy Anaphylaxis Verified 09/22/20 11:36 - Social History Does the pt smoke?: Yes Smoking Status: Current every day smoker Does the pt drink ETOH?: Yes ETOH Use: Beer, Liquor Does the pt have substance abuse?: No Substance Use and Type: Marijuana, Cocaine/Crack, Prescription Pills - Immunizations Immunizations are current?: Yes Immunizations: TDAP current <10years - POLST Patient has POLST: No PD ED PE NORMAL - Vitals Vital signs reviewed: Yes - General General: Alert and oriented X 3, No acute distress - HEENT HEENT: Atraumatic, PERRL, EOMI - Neck Neck: Supple, no meningeal sign - Cardiac Cardiac: RRR - Respiratory Respiratory: No respiratory distress, Clear bilaterally - Abdomen Abdomen: Non tender, Non distended - Back Back: No CVA TTP - Derm Derm: Normal color - Extremities Extremities: No deformity - Neuro Neuro: Alert and oriented X 3 - Psych Psych: Normal mood, Normal affect Results - Vitals Vitals: Vital Signs - 24 hr 09/22/20 09/22/20 09/22/20 11:36 12:16 14:02 Temperature 36.8 C Heart Rate 90 64 62 Respiratory 16 20 21 Rate Blood Pressure 118/65 136/87 H 127/77 O2 Saturation 100 100 97 09/22/20 15:49 Temperature 36.6 C Heart Rate 83 Respiratory 16 Rate Blood Pressure 118/62 O2 Saturation 99 Oxygen O2 Source Room air - Labs Labs: Laboratory Tests 09/22/20 09/22/20 09/22/20 12:14 12:14 12:14 WBC 5.3 RBC 4.95 Hgb 14.8 Hct 43.8 MCV 88.5 MCH 29.9 MCHC 33.8 RDW 13.2 Plt Count 260 MPV 9.9 Neut # (Auto) 3.2 Lymph # (Auto) 1.3 L Gaines # (Auto) 0.7 Eos # (Auto) 0.1 Baso # (Auto) 0.0 Absolute Nucleated RBC 0.00 Nucleated RBC % 0.0 Sodium 141 Potassium 3.9 Chloride 100 L Carbon Dioxide 27 Anion Gap 14.0 H BUN 13 Creatinine 0.8 Estimated GFR (MDRD) 120 Glucose 103 H Calcium 10.1 Total Bilirubin 0.9 AST 32 ALT 47 Alkaline Phosphatase 63 Total Protein 7.3 Albumin 4.4 Globulin 2.9 Albumin/Globulin Ratio 1.5 Lipase 19 L TSH 0.39 Urine Color Urine Clarity Urine pH Ur Specific [place] Urine Protein Urine Glucose (UA) Urine Ketones Urine Occult Blood Urine Nitrite Urine Bilirubin Urine Urobilinogen Ur Leukocyte Esterase Urine RBC Urine WBC Urine WBC Clumps Ur Squamous Epith Cells Urine Bacteria Ur Microscopic Review Urine Culture Comments Salicylates < 6.0 Urine Opiates Screen Ur Oxycodone Screen Urine Methadone Screen Ur Propoxyphene Screen Acetaminophen < 10 L Ur Barbiturates Screen Ur Tricyclics Screen Ur Phencyclidine Scrn Ur Amphetamine Screen U Methamphetamines Scrn U Benzodiazepines Scrn Urine Cocaine Screen U Cannabinoids Screen Ethyl Alcohol < 5.0 09/22/20 13:00 WBC RBC Hgb Hct MCV MCH MCHC RDW Plt Count MPV Neut # (Auto) Lymph # (Auto) Gaines # (Auto) Eos # (Auto) Baso # (Auto) Absolute Nucleated RBC Nucleated RBC % Sodium Potassium Chloride Carbon Dioxide Anion Gap BUN Creatinine Estimated GFR (MDRD) Glucose Calcium Total Bilirubin AST ALT Alkaline Phosphatase Total Protein Albumin Globulin Albumin/Globulin Ratio Lipase TSH Urine Color YELLOW Urine Clarity CLEAR Urine pH 7.5 Ur Specific [place] 1.015 Urine Protein NEGATIVE Urine Glucose (UA) NEGATIVE Urine Ketones NEGATIVE Urine Occult Blood NEGATIVE Urine Nitrite NEGATIVE Urine Bilirubin NEGATIVE Urine Urobilinogen 1 (NORMAL) Ur Leukocyte Esterase LARGE H Urine RBC 0-5 Urine WBC 11-25 H Urine WBC Clumps PRESENT Ur Squamous Epith Cells RARE Squamous Urine Bacteria Few Ur Microscopic Review INDICATED Urine Culture Comments INDICATED Salicylates Urine Opiates Screen NEGATIVE Ur Oxycodone Screen NEGATIVE Urine Methadone Screen NEGATIVE Ur Propoxyphene Screen NEGATIVE Acetaminophen Ur Barbiturates Screen NEGATIVE Ur Tricyclics Screen NEGATIVE Ur Phencyclidine Scrn NEGATIVE Ur Amphetamine Screen NEGATIVE U Methamphetamines Scrn NEGATIVE U Benzodiazepines Scrn POSITIVE H Urine Cocaine Screen POSITIVE H U Cannabinoids Screen POSITIVE H Ethyl Alcohol PD MEDICAL DECISION MAKING - ED course ED course: 25-year-old man presented with suicidality, no longer currently actively suicidal however he has a spot at inpatient detox that he will go by private vehicle to enroll. Does have dysuria and evidence of urinary tract infection on lab work. First dose of Vantin given here. Patient will fill a prescription on the way to detox. Strict return precautions given. denies active si/hi/avh at present and contracts for safety. Departure - Departure Disposition: 01 Home, Self Care Clinical Impression: UTI (urinary tract infection), Polysubstance abuse, Depression Condition: Good Instructions: UTI Prescriptions: Cefpodoxime Proxetil [Vantin] 200 mg PO Q12H 10 Days #20 tab Comments: You were seen in the emergency department for depression and found to have a urinary tract infection on your medical screening. Take your antibiotics as prescribed. Follow-up at inpatient detox today. Return to the emergency department for any new or worsening symptoms or other concerns.
[2020-09-22] MEDS ORDERED: CEFPODOXIME PROXETIL 100 MG TABLET PO STA (16:10)
[2020-09-22 16:44] LABS: C. PNEUMONIAE- RESP PCR PANEL NOT DETECTED
[2020-09-22] MEDS ORDERED: CEFPODOXIME PROXETIL 100 MG TABLET PO SCH (21:00)
== END 2020-09-22 16:15 | disposition home or self-care (01) ==
LOC: ED 11:33
DX: F32.9 Major depressive disorder, single episode, unspecified (principal); R45.851 Suicidal ideations; N39.0 Urinary tract infection, site not specified; F14.10 Cocaine abuse, uncomplicated; F13.10 Sedative, hypnotic or anxiolytic abuse, uncomplicated; F12.10 Cannabis abuse, uncomplicated; F17.200 Nicotine dependence, unspecified, uncomplicated; Z20.822 Contact with and (suspected) exposure to COVID-19
CPT/HCPCS: 36415; 80053; 80306; 80307; 81001; 83690; 84443; 85025; 87077; 87086; 87631; 99283; 99285; A9270; G0480; 0202U; 80320; 80329; 81003

== ENCOUNTER 2020-10-20 01:32 | Outpatient (CLI) | payer MEDICARE, MEDICAID | END 2020-10-20 01:33 | disposition critical access hospital (66) | LOC: EMS 01:32 | PROVIDERS: ATTEND Emergency Medicine | DX: R45.851 Suicidal ideations (principal) | CPT/HCPCS: A0425; A0429 ==

== ENCOUNTER 2020-10-20 01:52 | Emergency (ER) | payer MEDICARE, MEDICAID ==
[2020-10-20] MEDS ORDERED: QUEtiapine 100 MG TABLET PO STA (02:19)
[2020-10-20 02:26] LABS: MUDS CUTOFF CONCENTRATIONS CUTOFF CONC BELOW:
[2020-10-20 02:27] LABS: BILIRUBIN,URINE NEGATIVE (NEGATIVE); CLARITY,URINE CLEAR (CLEAR); GLUCOSE, URINE (UA) NEGATIVE (NEGATIVE); KETONES,URINE (UA) NEGATIVE (NEGATIVE); LEUKOCYTE ESTERASE, URINE NEGATIVE (NEGATIVE); NITRITE,URINE NEGATIVE (NEGATIVE); OCCULT BLOOD,URINE NEGATIVE (NEGATIVE); PROTEIN,URINE NEGATIVE (NEGATIVE); UROBILINOGEN,URINE 0.2 (NORMAL) E.U./dL (NORMAL)
--- NOTE | 2020-10-20 02:27 | ED Physician Documentation ---
History of Present Illness - Stated complaint Stated Complaint: MHE - Chief complaint Chief Complaint: MHE - History obtained from History obtained from: Patient - Additonal information Additional information: 25-year-old man with history of bipolar disorder, depression, polysubstance abuse presents with passive suicidal ideation. Patient states that he just got out of rehabilitation for alcohol, cocaine, and benzodiazepines 3 days ago and found out that 2 of his friends had of overdose. He endorses social isolation and says that he has not been taking his psych medications for the past two days. He endorses passive suicidal ideation but denies any plan. Denies HI or AVH. He was unable to sleep this evening and began to feel overwhelmed therefore he called 911.He does have history of multiple IPP hospitalizations and prior suicide attempt by cutting wrists, overdose, and "throwing myself from a height". Psych meds per patient report: abilify 20mg daily trazodone 50mg qhs PRN for sleep seroquel 100mg qhs PRN for sleep atarax 25mg tid prn for anxiety gabapentin 100mg tid Social hx - patient has no family in the area. [place]. He reports most of his social support system are engaged with polysubstance use. Review of Systems Ten Systems: 10 systems reviewed and negative Constitutional: denies: Fever, Chills Cardiac: denies: Chest pain / pressure Respiratory: denies: Dyspnea Psychiatric: reports: Depressed, Suicidal, Anxiety, Insomnia. denies: Homicidal, Hallucinations PD PAST MEDICAL HISTORY - Past Medical History Past Medical History: Yes Cardiovascular: None Respiratory: Asthma Neuro: None Endocrine/Autoimmune: None GI: Hepatitis : None HEENT: None Psych: Depression, Anxiety, Bipolar disorder, Post traumatic stress disorder Musculoskeletal: Chronic back pain Derm: None - Past Surgical History Past Surgical History: Yes General: Hiatal hernia repair, Other - Present Medications Home Medications: Ambulatory Orders Medication Instructions Recorded Confirmed traZODone [Desyrel] 50 mg PO DAILY PM 05/22/18 09/22/20 Aripiprazole [Abilify] 10 mg PO DAILY 10/16/19 09/22/20 Gabapentin [Neurontin] 100 mg PO TID 10/20/20 10/20/20 hydrOXYzine HCL [Hydroxyzine HCl] 25 mg PO QID 10/20/20 10/20/20 - Allergies Allergies/Adverse Reactions: Allergies Allergy/AdvReac Type Severity Reaction Status Date / Time divalproex sodium Allergy Anaphylaxis Verified 10/20/20 02:02 [From Depakote] garlic Allergy Anaphylaxis Verified 10/20/20 02:02 lithium Allergy Anaphylaxis Verified 10/20/20 02:02 - Social History Does the pt smoke?: Yes Smoking Status: Current every day smoker Does the pt drink ETOH?: Yes Does the pt have substance abuse?: No - Immunizations Immunizations are current?: Yes Immunizations: TDAP current <10years - POLST Patient has POLST: No PD ED PE NORMAL - Vitals Vital signs reviewed: Yes - General General: Alert and oriented X 3, No acute distress, Well developed/nourished - HEENT HEENT: Atraumatic, PERRL, EOMI, Moist mucous membranes - Neck Neck: Supple, no meningeal sign - Cardiac Cardiac: RRR - Respiratory Respiratory: No respiratory distress, Clear bilaterally - Abdomen Abdomen: Non tender, Non distended - Derm Derm: Normal color, Warm and dry - Extremities Extremities: No deformity - Neuro Neuro: Alert and oriented X 3 - Psych Psych: Other (flat affect. depressed mood. ) Results - Vitals Vitals: Vital Signs - 24 hr 10/20/20 01:59 Temperature 37.2 C Heart Rate 64 Respiratory 16 Rate Blood Pressure 138/82 H O2 Saturation 99 Oxygen O2 Source Room air - Labs Labs: Laboratory Tests 10/20/20 10/20/20 10/20/20 02:02 02:26 02:26 WBC 6.8 RBC 4.35 L Hgb 13.0 L Hct 39.4 L MCV 90.6 MCH 29.9 MCHC 33.0 RDW 13.4 Plt Count 243 MPV 9.7 Neut # (Auto) 2.6 Lymph # (Auto) 3.1 Brown # (Auto) 0.8 Eos # (Auto) 0.2 Baso # (Auto) 0.0 Absolute Nucleated RBC 0.00 Nucleated RBC % 0.0 Sodium 140 Potassium 3.2 L Chloride 105 Carbon Dioxide 25 Anion Gap 10.0 BUN 13 Creatinine 0.7 Estimated GFR (MDRD) 140 Glucose 110 H Calcium 8.7 Total Bilirubin 0.5 AST 21 ALT 35 Alkaline Phosphatase 46 Total Protein 6.3 L Albumin 4.0 Globulin 2.3 Albumin/Globulin Ratio 1.7 Lipase 19 L TSH Urine Color YELLOW Urine Clarity CLEAR Urine pH 6.0 Ur Specific [place] >=1.030 H Urine Protein NEGATIVE Urine Glucose (UA) NEGATIVE Urine Ketones NEGATIVE Urine Occult Blood NEGATIVE Urine Nitrite NEGATIVE Urine Bilirubin NEGATIVE Urine Urobilinogen 0.2 (NORMAL) Ur Leukocyte Esterase NEGATIVE Ur Microscopic Review NOT INDICATED Urine Culture Comments NOT INDICATED Salicylates < 6.0 Urine Opiates Screen NEGATIVE Ur Oxycodone Screen NEGATIVE Urine Methadone Screen NEGATIVE Ur Propoxyphene Screen NEGATIVE Acetaminophen < 10 L Ur Barbiturates Screen NEGATIVE Ur Tricyclics Screen NEGATIVE Ur Phencyclidine Scrn NEGATIVE Ur Amphetamine Screen NEGATIVE U Methamphetamines Scrn NEGATIVE U Benzodiazepines Scrn NEGATIVE Urine Cocaine Screen NEGATIVE U Cannabinoids Screen POSITIVE H Ethyl Alcohol < 5.0 10/20/20 02:26 WBC RBC Hgb Hct MCV MCH MCHC RDW Plt Count MPV Neut # (Auto) Lymph # (Auto) Brown # (Auto) Eos # (Auto) Baso # (Auto) Absolute Nucleated RBC Nucleated RBC % Sodium Potassium Chloride Carbon Dioxide Anion Gap BUN Creatinine Estimated GFR (MDRD) Glucose Calcium Total Bilirubin AST ALT Alkaline Phosphatase Total Protein Albumin Globulin Albumin/Globulin Ratio Lipase TSH 1.20 Urine Color Urine Clarity Urine pH Ur Specific Homeland Urine Protein Urine Glucose (UA) Urine Ketones Urine Occult Blood Urine Nitrite Urine Bilirubin Urine Urobilinogen Ur Leukocyte Esterase Ur Microscopic Review Urine Culture Comments Salicylates Urine Opiates Screen Ur Oxycodone Screen Urine Methadone Screen Ur Propoxyphene Screen Acetaminophen Ur Barbiturates Screen Ur Tricyclics Screen Ur Phencyclidine Scrn Ur Amphetamine Screen U Methamphetamines Scrn U Benzodiazepines Scrn Urine Cocaine Screen U Cannabinoids Screen Ethyl Alcohol PD MEDICAL DECISION MAKING - ED course ED course: 25-year-old man with past medical history of 6 or 7 inpatient psychiatric hospitalizations presents with passive suicidal ideation and request for psychiatric eval. Will obtain medical screening lab work and if medically cleared he may undergo social work and possible telepsych eval in the morning. Patient medically cleared, resting comfortably overnight. He will be endorsed to incoming daytime MD Dr. Velazquez for further management and care.
[2020-10-20 02:29] LABS: BASOPHILS % (AUTO) 0.6 %; EOSINOPHILS # (AUTO) 0.2 10^3/uL (0.0-0.7); EOSINOPHILS % (AUTO) 3.1 %; HCT - HEMATOCRIT 39.4 % (42.0-52.0); LYMPHOCYTES # (AUTO) 3.1 10^3/uL (1.5-3.5); LYMPHOCYTES % (AUTO) 45.9 %; MEAN CORPUSCULAR HEMOGLOBIN 29.9 pg (27.0-31.0); MEAN CORPUSCULAR VOLUME 90.6 fL (80.0-94.0); MEAN PLATELET VOLUME 9.7 fL (7.4-11.4); MONOCYTES # (AUTO) 0.8 10^3/uL (0.0-1.0); MONOCYTES % (AUTO) 12.1 %; NEUTROPHILS # (AUTO) 2.6 10^3/uL (1.5-6.6); NEUTROPHILS % (AUTO) 38.2 %; PLT - PLATELET COUNT 243 10^3/uL (130-450); RED BLOOD COUNT 4.35 10^6/uL (4.70-6.10); RED CELL DISTRIBUTION WIDTH 13.4 % (12.0-15.0); WHITE BLOOD COUNT 6.8 x10^3/uL (4.8-10.8)
[2020-10-20 02:37] LABS: AMPHETAMINE SCREEN,URINE NEGATIVE (NEGATIVE); BARBITURATE SCREEN,UR NEGATIVE (NEGATIVE); BENZODIAZEPINES SCREEN, URINE NEGATIVE (NEGATIVE); COCAINE SCREEN URINE NEGATIVE (NEGATIVE); METHADONE SCREEN, URINE NEGATIVE (NEGATIVE); METHAMPHETAMINES SCREEN, URINE NEGATIVE (NEGATIVE); OPIATE SCREEN, URINE NEGATIVE (NEGATIVE); OXYCODONE SCREEN, URINE NEGATIVE (NEGATIVE); PROPOXYPHENE SCREEN, URINE NEGATIVE (NEGATIVE); THC CANNABINOID SCREEN, URINE POSITIVE (NEGATIVE); TRICYCLIC ANTIDEPRESSANT,URINE NEGATIVE (NEGATIVE)
[2020-10-20 02:46] LABS: ACETAMINOPHEN < 10 ug/mL (10-30); ALBUMIN/GLOBULIN RATIO 1.7 (1.0-2.2); ALKALINE PHOSPHATASE 46 IU/L (42-121); ALT ALANINE AMINOTRANSFERASE 35 IU/L (10-60); AST ASPARTATE AMINOTRANSFERASE 21 IU/L (10-42); BILIRUBIN,TOTAL 0.5 mg/dL (0.2-1.0); BUN - BLOOD UREA NITROGEN 13 mg/dL (6-20); CALCIUM 8.7 mg/dL (8.5-10.3); CARBON DIOXIDE - CO2 25 mmol/L (21-32); CHLORIDE 105 mmol/L (101-111); CREATININE 0.7 mg/dL (0.6-1.2); ETOH - ETHANOL < 5.0 mg/dL; GFR - MDRD 140 (>89); GLUCOSE 110 mg/dL (70-100); LIPASE 19 U/L (22-51); POTASSIUM 3.2 mmol/L (3.5-5.0); SALICYLATE < 6.0 mg/dL; SODIUM 140 mmol/L (135-145); TOTAL PROTEIN 6.3 g/dL (6.7-8.2)
[2020-10-20 12:24] VITALS: BP 125/77
--- NOTE | 2020-10-20 12:33 | ED Physician Documentation ---
ED Addendum - Addendum Addendum: 10/20/20 12:[address] Jimenez's H&P. He was comfortable in the emergency department and seen by social work. Chelsea to be low risk for suicide. No active SI or HI. Given outpatient follow-up plan and [facility] will reach out to him to. Disposition: Discharged home Condition: Stable Diagnoses 1. Major depressive disorder
== END 2020-10-20 12:20 | disposition home or self-care (01) ==
LOC: EDUNIT# → ED 01:52
DX: F32.9 Major depressive disorder, single episode, unspecified (principal); R45.851 Suicidal ideations; F41.9 Anxiety disorder, unspecified; G47.00 Insomnia, unspecified; F17.200 Nicotine dependence, unspecified, uncomplicated
CPT/HCPCS: 36415; 80053; 80306; 80307; 81003; 83690; 84443; 85025; 99283; 99284; A9270; G0480; 80320; 80329; 81001; 87086

== ENCOUNTER 2020-11-15 00:44 | Emergency (ER) | payer MEDICARE, MEDICAID ==
--- OUTSIDE RECORDS SUMMARY | 2020-11-15 00:47 | EXTERNAL MEDICAL SUMMARY RPT | Continuity of Care Document ---
:1995 Demographics Phone Unavailable Preferred Language Unknown Marital Status Unknown [employer] Affiliation Unknown Race Unknown Ethnic Group Unknown Author Organization [facility] Address [address] [phone] Phone Social History date description facility [id number]
--- OUTSIDE RECORDS SUMMARY | 2020-11-15 00:50 | EXTERNAL MEDICAL SUMMARY RPT | Continuity of Care Document ---
:1995 Demographics Phone Unavailable Preferred Language Unknown Marital Status Unknown [employer] Affiliation Unknown Race Unknown Ethnic Group Unknown Author Organization [facility] Address [address] [phone] Phone Social History date description facility [phone]
[2020-11-15 01:20] LABS: MUDS CUTOFF CONCENTRATIONS CUTOFF CONC BELOW:
[2020-11-15 01:31] LABS: AMPHETAMINE SCREEN,URINE NEGATIVE (NEGATIVE); BARBITURATE SCREEN,UR NEGATIVE (NEGATIVE); BENZODIAZEPINES SCREEN, URINE NEGATIVE (NEGATIVE); COCAINE SCREEN URINE POSITIVE (NEGATIVE); METHADONE SCREEN, URINE NEGATIVE (NEGATIVE); METHAMPHETAMINES SCREEN, URINE NEGATIVE (NEGATIVE); OPIATE SCREEN, URINE NEGATIVE (NEGATIVE); OXYCODONE SCREEN, URINE NEGATIVE (NEGATIVE); PROPOXYPHENE SCREEN, URINE NEGATIVE (NEGATIVE); THC CANNABINOID SCREEN, URINE POSITIVE (NEGATIVE); TRICYCLIC ANTIDEPRESSANT,URINE NEGATIVE (NEGATIVE)
[2020-11-15 01:37] LABS: BASOPHILS # (AUTO) 0.1 10^3/uL (0.0-0.1); BASOPHILS % (AUTO) 0.9 %; EOSINOPHILS # (AUTO) 0.5 10^3/uL (0.0-0.7); EOSINOPHILS % (AUTO) 8.3 %; HCT - HEMATOCRIT 40.8 % (42.0-52.0); LYMPHOCYTES # (AUTO) 2.7 10^3/uL (1.5-3.5); LYMPHOCYTES % (AUTO) 41.1 %; MEAN CORPUSCULAR HEMOGLOBIN 30.6 pg (27.0-31.0); MEAN CORPUSCULAR HGB CONC 34.3 g/dL (32.0-36.0); MEAN CORPUSCULAR VOLUME 89.1 fL (80.0-94.0); MEAN PLATELET VOLUME 9.8 fL (7.4-11.4); MONOCYTES # (AUTO) 0.7 10^3/uL (0.0-1.0); NEUTROPHILS # (AUTO) 2.5 10^3/uL (1.5-6.6); NEUTROPHILS % (AUTO) 38.5 %; PLT - PLATELET COUNT 275 10^3/uL (130-450); RED BLOOD COUNT 4.58 10^6/uL (4.70-6.10); RED CELL DISTRIBUTION WIDTH 13.7 % (12.0-15.0); WHITE BLOOD COUNT 6.5 x10^3/uL (4.8-10.8)
[2020-11-15 01:50] LABS: ALBUMIN 4.5 g/dL (3.2-5.5); ALBUMIN/GLOBULIN RATIO 1.7 (1.0-2.2); BILIRUBIN,TOTAL 0.6 mg/dL (0.2-1.0); CALCIUM 9.2 mg/dL (8.5-10.3); CREATININE 0.7 mg/dL (0.6-1.2); ETOH - ETHANOL 185.2 mg/dL; POTASSIUM 3.4 mmol/L (3.5-5.0); TOTAL PROTEIN 7.1 g/dL (6.7-8.2)
--- NOTE | 2020-11-15 01:59 | ED Physician Documentation ---
PD HPI MHE - Stated complaint Stated Complaint: SI,MHE,ETOH - Chief complaint Chief Complaint: MHE - History obtained from History obtained from: Patient - History of Present Illness Primary symptom: Other Timing - onset: Today Pain level now: 0 Contributing factors: Substance abuse - ETOH, Substance abuse - drugs - Additional information Additional information: patient says he was at a [employer] party tonight and drank alcohol and snorted cocaine. He says he wants help regarding substance abuse. he denies SI. this is his seventh [facility] ED visit in past 12 months, the majority of which have been related to substance abuse and/or mental health issues. Review of Systems Constitutional: reports: Reviewed and negative Cardiac: reports: Reviewed and negative Respiratory: reports: Reviewed and negative GI: reports: Reviewed and negative Psychiatric: denies: Suicidal, Homicidal, Hallucinations, Delusions PD PAST MEDICAL HISTORY - Past Medical History Past Medical History: Yes Cardiovascular: None Respiratory: Asthma Neuro: None Endocrine/Autoimmune: None GI: Hepatitis : None HEENT: None Psych: Depression, Anxiety, Bipolar disorder, Post traumatic stress disorder Musculoskeletal: Chronic back pain Derm: None - Past Surgical History Past Surgical History: Yes General: Hiatal hernia repair, Other - Present Medications Home Medications: Ambulatory Orders Medication Instructions Recorded Confirmed Aripiprazole [Abilify] 10 mg PO DAILY 10/16/19 11/15/20 Gabapentin [Neurontin] 100 mg PO TID 10/20/20 11/15/20 hydrOXYzine HCL [Hydroxyzine HCl] 25 mg PO QID 10/20/20 11/15/20 - Allergies Allergies/Adverse Reactions: Allergies Allergy/AdvReac Type Severity Reaction Status Date / Time divalproex sodium Allergy Anaphylaxis Verified 11/15/20 01:04 [From Depakote] garlic Allergy Anaphylaxis Verified 11/15/20 01:04 lithium Allergy Anaphylaxis Verified 11/15/20 01:04 - Social History Does the pt smoke?: Yes Smoking Status: Current every day smoker Does the pt drink ETOH?: Yes Does the pt have substance abuse?: No Substance Use and Type: Cocaine/Crack, Other - Immunizations Immunizations are current?: Yes Immunizations: TDAP current <10years - POLST Patient has POLST: No PD ED PE NORMAL - Vitals Vital signs reviewed: Yes - General General: Alert and oriented X 3, No acute distress, Well developed/nourished - HEENT HEENT: PERRL, EOMI - Cardiac Cardiac: RRR, No murmur - Respiratory Respiratory: No respiratory distress, Clear bilaterally - Abdomen Abdomen: Soft, Non tender - Neuro Neuro: Alert and oriented X 3 - Psych Psych: Normal mood, Normal affect Results - Vitals Vitals: Vital Signs - 24 hr 11/15/20 11/15/20 11/15/20 00:50 01:22 09:33 Temperature 36.4 C L 36.4 C L 37.2 C Heart Rate 57 L 57 L 63 Respiratory 18 18 18 Rate Blood Pressure 104/50 L 104/50 L 135/75 H O2 Saturation 97 97 97 11/15/20 11/15/20 13:26 14:09 Temperature 37.2 C 37.3 C Heart Rate 73 72 Respiratory 16 12 Rate Blood Pressure 117/61 128/76 O2 Saturation 99 99 Oxygen O2 Source Room air - Labs Labs: Laboratory Tests 11/15/20 11/15/20 11/15/20 01:10 01:32 01:32 WBC 6.5 RBC 4.58 L Hgb 14.0 Hct 40.8 L MCV 89.1 MCH 30.6 MCHC 34.3 RDW 13.7 Plt Count 275 MPV 9.8 Neut # (Auto) 2.5 Lymph # (Auto) 2.7 [place] # (Auto) 0.7 Eos # (Auto) 0.5 Baso # (Auto) 0.1 Absolute Nucleated RBC 0.00 Nucleated RBC % 0.0 Sodium 140 Potassium 3.4 L Chloride 106 Carbon Dioxide 26 Anion Gap 8.0 BUN 9 Creatinine 0.7 Estimated GFR (MDRD) 140 Glucose 95 Calcium 9.2 Total Bilirubin 0.6 AST 27 ALT 47 Alkaline Phosphatase 57 Total Protein 7.1 Albumin 4.5 Globulin 2.6 Albumin/Globulin Ratio 1.7 Lipase 20 L Nasal Adenovirus (PCR) Nasal B. parapertussis DNA (PCR) Nasal Coronavir 229E PCR Nasal Coronavir HKU1 PCR Nasal Coronavir NL63 PCR Nasal Coronavir OC43 PCR Nasal Enterovir/Rhinovir PCR Nasal Influenza B PCR Nasal Influenza A PCR Nasal Parainfluen 1 PCR Nasal Parainfluen 2 PCR Nasal Parainfluen 3 PCR Nasal Parainfluen 4 PCR Nasal RSV (PCR) Nasal B.pertussis DNA PCR Nasal C.pneumoniae (PCR) Lucio Human Metapneumo PCR Nasal M.pneumoniae (PCR) Nasal SARS-CoV-2 (PCR) Urine Opiates Screen NEGATIVE Ur Oxycodone Screen NEGATIVE Urine Methadone Screen NEGATIVE Ur Propoxyphene Screen NEGATIVE Ur Barbiturates Screen NEGATIVE Ur Tricyclics Screen NEGATIVE Ur Phencyclidine Scrn NEGATIVE Ur Amphetamine Screen NEGATIVE U Methamphetamines Scrn NEGATIVE U Benzodiazepines Scrn NEGATIVE Urine Cocaine Screen POSITIVE H U Cannabinoids Screen POSITIVE H Ethyl Alcohol 185.2 11/15/20 11/15/20 05:28 10:10 WBC RBC Hgb Hct MCV MCH MCHC RDW Plt Count MPV Neut # (Auto) Lymph # (Auto) [place] # (Auto) Eos # (Auto) Baso # (Auto) Absolute Nucleated RBC Nucleated RBC % Sodium Potassium Chloride Carbon Dioxide Anion Gap BUN Creatinine Estimated GFR (MDRD) Glucose Calcium Total Bilirubin AST ALT Alkaline Phosphatase Total Protein Albumin Globulin Albumin/Globulin Ratio Lipase Nasal Adenovirus (PCR) NOT DETECTED Nasal B. parapertussis DNA (PCR) NOT DETECTED Nasal Coronavir 229E PCR NOT DETECTED Nasal Coronavir HKU1 PCR NOT DETECTED Nasal Coronavir NL63 PCR NOT DETECTED Nasal Coronavir OC43 PCR NOT DETECTED Nasal Enterovir/Rhinovir PCR NOT DETECTED Nasal Influenza B PCR NOT DETECTED Nasal Influenza A PCR NOT DETECTED Nasal Parainfluen 1 PCR NOT DETECTED Nasal Parainfluen 2 PCR NOT DETECTED Nasal Parainfluen 3 PCR NOT DETECTED Nasal Parainfluen 4 PCR NOT DETECTED Nasal RSV (PCR) NOT DETECTED Nasal B.pertussis DNA PCR NOT DETECTED Nasal C.pneumoniae (PCR) NOT DETECTED Lucio Human Metapneumo PCR NOT DETECTED Nasal M.pneumoniae (PCR) NOT DETECTED Nasal SARS-CoV-2 (PCR) NOT DETECTED Urine Opiates Screen Ur Oxycodone Screen Urine Methadone Screen Ur Propoxyphene Screen Ur Barbiturates Screen Ur Tricyclics Screen Ur Phencyclidine Scrn Ur Amphetamine Screen U Methamphetamines Scrn U Benzodiazepines Scrn Urine Cocaine Screen U Cannabinoids Screen Ethyl Alcohol 143.9 PD MEDICAL DECISION MAKING - ED course Complexity details: reviewed old records, reviewed results, re-evaluated patient, considered differential, d/w patient ED course: presents to ED asking for help with substance abuse after drinking alcohol and snorting cocaine at a [employer] party tonight. serum ethanol level on initial testing is over .180 and repeat towards end of my shift is over .140; will need to be reevaluated when alcohol level indicates he is providing sober and reliable information regarding his concerns, his safety, and his goals of emergent medical care. care of patient turned over to oncoming ED physician at end of my shift. Departure - Departure Disposition: 01 Home, Self Care Clinical Impression: Alcohol abuse, Cocaine abuse Alcohol intoxication Qualifiers: Complication of substance-induced condition: uncomplicated Qualified Code(s): F10.920 - Alcohol use, unspecified with intoxication, uncomplicated Condition: Stable Instructions: ED Alcohol Intoxication Comments: Please go straight to [facility] detox, as you have been instructed to do. Discharge Date/Time: 11/15/20 14:24
--- NOTE | 2020-11-15 10:42 | ED Physician Documentation ---
ED Addendum - Addendum Addendum: 11/15/20 10:40 The patient was signed out to me at change of shift by Dr. Lucia, pending social work evaluation for possible detox, after attending a libertarian and drinking heavily, as well as using some cocaine. building maintenance worker did speak with the patient who stated he desired to go to detox or rehab, even though these have not been helpful in the past, he does not think. The patient called around himself and was actually able to secure a bed at [facility]. He was also able to get himself a ride. He had been found to be medically clear after laboratory eval and observation in the emergency department for nearly 10 hours, and was clinically sober. I felt he was stable to be discharged to detox. He was given a prescription for an Ativan taper. Respiratory PCR was performed upon request by [facility] to screen for Covid.
[2020-11-15 11:15] LABS: B. PARAPERTUSSIS- RESP PCR PAN NOT DETECTED; B. PERTUSSIS- RESP PCR PANEL NOT DETECTED; C. PNEUMONIAE- RESP PCR PANEL NOT DETECTED; CORONAVIRUS 229E-RESP PCR NOT DETECTED; CORONAVIRUS HKU1-RESP PCR NOT DETECTED; CORONAVIRUS NL63-RESP PCR NOT DETECTED; CORONAVIRUS OC43-RESP PCR NOT DETECTED; HUMAN METAPNEUMOVIRUS NOT DETECTED; INFLUENZA A- RESP PCR PANEL NOT DETECTED; INFLUENZA B - RESP PCR PANEL NOT DETECTED; M. PNEUMONIAE- RESP PCR PANEL NOT DETECTED; PARAINFLUENZA VIRUS 1 NOT DETECTED; PARAINFLUENZA VIRUS 2 NOT DETECTED; PARAINFLUENZA VIRUS 3 NOT DETECTED; PARAINFLUENZA VIRUS 4 NOT DETECTED; RHINOVIRUS/ENTEROVIRUS NOT DETECTED; RSV- RESP PCR PANEL NOT DETECTED; SARS-CoV-2 -RESP PCR PANEL NOT DETECTED
[2020-11-15] MEDS ORDERED: ONDANSETRON ODT 4 MG TABLET TL STA (12:48)
[2020-11-15 14:10] VITALS: BP 128/76
== END 2020-11-15 14:24 | disposition home or self-care (01) ==
LOC: ED 00:44
DX: F10.129 Alcohol abuse with intoxication, unspecified (principal); F14.10 Cocaine abuse, uncomplicated; F17.200 Nicotine dependence, unspecified, uncomplicated; G89.29 Other chronic pain; M54.9 Dorsalgia, unspecified; Z20.822 Contact with and (suspected) exposure to COVID-19
CPT/HCPCS: 36415; 80053; 80306; 83690; 85025; 87631; 99283; G0480; Q0162; 0202U; 80320

== ENCOUNTER 2021-02-06 23:20 | Outpatient (CLI) | payer MEDICARE, MEDICAID | END 2021-02-06 23:21 | disposition critical access hospital (66) | LOC: EMS 23:20 | DX: R51.9 Headache, unspecified (principal); H53.8 Other visual disturbances | CPT/HCPCS: A0425; A0429 ==

== ENCOUNTER 2021-02-06 23:35 | Observation (INO) | payer MEDICARE, MEDICAID ==
--- NOTE | 2021-02-07 01:12 | ED Physician Documentation ---
PD HPI SYNCOPE - Stated complaint Stated Complaint: JON, BLURRY VISION - Chief complaint Chief Complaint: General - History obtained from History obtained from: Patient, EMS - History of Present Illness Witnessed: Unwitnessed Timing - onset: How many hours ago (several hours ago, onset of feeling lightheaded with some blurred vision. Feels it with standing and walking. Has had some headache for several days to a week. No focal weakness. The lightheaded/near syncope has been just past hours. Denies medications currently, nor overdose. Had cannibis earlier.), Today Duration: Hours Preceding symptoms: Headache (for past several days intermittently, more with activity.), Vision changes (blurred), Light headed Associated symptoms: Headache. No: Chest pain, Dyspnea, Nausea / vomiting, Abdominal pain Contributing factors: Other (denies recent illness, fevers, cough. Denies medications nor drugs other than cannibis recently. Has not been on any bipolar/anxiety meds for few months.). No: Recent med change, Decreased PO intake Treatment [employer]: Fluids Similar symptoms before: Has not had sx before Recently seen: Emergency Dept (last seen in November for substance abuse and anxiety. Did get detox Center bed. HR noted in ER at that visit and prior ones this year show HR 60-80 with one reading at 54. No persistent bradycardia.) Review of Systems Constitutional: denies: Fever, Chills Eyes: reports: Decreased vision. denies: Photophobia, Irritation Nose: denies: Rhinorrhea / runny nose, Congestion Throat: denies: Sore throat Cardiac: denies: Chest pain / pressure, Pedal edema Respiratory: denies: Cough, Wheezing GI: denies: Abdominal Pain, Nausea, Vomiting, Diarrhea Neurologic: reports: Generalized weakness, Near syncope, Headache (for the past few days to a week. Denies injury.). denies: Focal weakness, Syncope, Altered mental status Psychiatric: reports: Anxiety. denies: Depressed (not currently), Suicidal Endocrine: denies: Weight loss PD PAST MEDICAL HISTORY - Past Medical History Cardiovascular: None Respiratory: Asthma Neuro: None Endocrine/Autoimmune: None GI: Hepatitis : None HEENT: None Psych: Depression, Anxiety, Bipolar disorder, Post traumatic stress disorder Musculoskeletal: Chronic back pain Derm: None - Past Surgical History Past Surgical History: Yes General: Other - Allergies Allergies/Adverse Reactions: Allergies Allergy/AdvReac Type Severity Reaction Status Date / Time divalproex sodium Allergy Anaphylaxis Verified 02/07/21 00:08 [From Depakote] garlic Allergy Anaphylaxis Verified 02/07/21 00:08 lithium Allergy Anaphylaxis Verified 02/07/21 00:08 - Living Situation Living Situation: reports: Alone Living Arrangement: reports: At home (in apartment), Other (Has lived in [facility] mainly. Short time in [facility]. Not been in [place] areas. ) - Social History Does the pt smoke?: Yes Smoking Status: Current every day smoker Does the pt drink ETOH?: Yes ETOH Use: Beer Does the pt have substance abuse?: Yes Substance Use and Type: Marijuana - Immunizations Immunizations are current?: Yes Immunizations: TDAP current <10years - POLST Patient has POLST: No PD ED PE NORMAL - Vitals Vital signs reviewed: Yes (BP is slightly low at 109 systolic. Posturals do not drop. HR low 33-50) - General General: Alert and oriented X 3, No acute distress, Well developed/nourished - HEENT HEENT: Pharynx benign - Neck Neck: Supple, no meningeal sign, No adenopathy - Cardiac Cardiac: No murmur. No: RRR (regular but bradycardic) - Respiratory Respiratory: No respiratory distress, Clear bilaterally - Abdomen Abdomen: Soft, Non tender - Back Back: No CVA TTP - Derm Derm: Normal color, Warm and dry - Extremities Extremities: No deformity, Normal ROM s pain, No edema, No calf tenderness / cord - Neuro Neuro: Alert and oriented X 3, No motor deficit, Normal speech Eye Opening: Spontaneous Motor: Obeys Commands Verbal: Oriented GCS Score: 15 - Psych Psych: Normal mood, Normal affect Results - Vitals Vitals: Vital Signs - 24 hr 02/06/21 02/07/21 02/07/21 23:50 00:26 01:00 Temperature 36.6 C Heart Rate 50 L 41 L 42 L Heart Rate [ Sitting] Heart Rate [ Standing] Heart Rate [ Supine] Respiratory 16 18 17 Rate Blood Pressure 109/67 114/65 104/45 L Blood Pressure [Sitting] Blood Pressure [Standing] Blood Pressure [Supine] O2 Saturation 97 97 96 02/07/21 02/07/21 02/07/21 01:30 02:30 03:00 Temperature Heart Rate 38 L 33 L 38 L Heart Rate [ Sitting] Heart Rate [ Standing] Heart Rate [ Supine] Respiratory 18 15 15 Rate Blood Pressure 110/50 L 119/60 110/58 L Blood Pressure [Sitting] Blood Pressure [Standing] Blood Pressure [Supine] O2 Saturation 98 97 98 02/07/21 02/07/21 02/07/21 03:38 03:53 04:30 Temperature Heart Rate 34 L 41 L Heart Rate [ 62 Sitting] Heart Rate [ 63 Standing] Heart Rate [ 43 L Supine] Respiratory 15 16 Rate Blood Pressure 106/63 118/72 Blood Pressure 113/66 [Sitting] Blood Pressure 106/59 L [Standing] Blood Pressure 108/64 [Supine] O2 Saturation 98 99 02/07/21 02/07/21 04:58 05:34 Temperature 36.4 C L Heart Rate 35 L 37 L Heart Rate [ Sitting] Heart Rate [ Standing] Heart Rate [ Supine] Respiratory 16 17 Rate Blood Pressure 115/67 116/72 Blood Pressure [Sitting] Blood Pressure [Standing] Blood Pressure [Supine] O2 Saturation 99 98 Oxygen O2 Source Room air - EKG (time done) 00:06 Rate: Rate (enter#) (47) Rhythm: Sinus bradycardia [place]: Normal Intervals: Normal LA. No: Prolonged LA QRS: Normal Ischemia: Normal ST segments. No: ST elevation c/w ischemia, ST depression Compare to prior EKG: Old EKG unavailable - Labs Labs: Laboratory Tests 02/07/21 02/07/21 02/07/21 01:15 01:15 01:15 WBC 8.3 RBC 4.11 L Hgb 12.8 L Hct 36.5 L MCV 88.8 MCH 31.1 H MCHC 35.1 RDW 13.2 Plt Count 202 MPV 10.3 Neut # (Auto) 4.7 Lymph # (Auto) 2.1 Avery # (Auto) 1.2 H Eos # (Auto) 0.4 Baso # (Auto) 0.0 Absolute Nucleated RBC 0.00 Nucleated RBC % 0.0 Sodium 141 Potassium 3.4 L Chloride 106 Carbon Dioxide 25 Anion Gap 10.0 BUN 10 Creatinine 0.8 Estimated GFR (MDRD) 120 Glucose 106 H Calcium 8.8 Total Bilirubin 0.6 AST 19 ALT 27 Alkaline Phosphatase 46 Troponin I High Sens 2.4 B-Natriuretic Peptide Total Protein 6.2 L Albumin 4.1 Globulin 2.1 Albumin/Globulin Ratio 2.0 Lipase 18 L TSH Salicylates < 6.0 Acetaminophen < 10 L Ethyl Alcohol < 5.0 02/07/21 02/07/21 01:15 01:15 WBC RBC Hgb Hct MCV MCH MCHC RDW Plt Count MPV Neut # (Auto) Lymph # (Auto) Avery # (Auto) Eos # (Auto) Baso # (Auto) Absolute Nucleated RBC Nucleated RBC % Sodium Potassium Chloride Carbon Dioxide Anion Gap BUN Creatinine Estimated GFR (MDRD) Glucose Calcium Total Bilirubin AST ALT Alkaline Phosphatase Troponin I High Sens B-Natriuretic Peptide 30 Total Protein Albumin Globulin Albumin/Globulin Ratio Lipase TSH 0.91 Salicylates Acetaminophen Ethyl Alcohol - Rads (name of study) head CT Radiology: Prelim report reviewed (NO acute process, normal exam. ), See rad report chest xray Radiology: Prelim report reviewed (normal), See rad report PD MEDICAL DECISION MAKING - ED course Complexity details: reviewed results, re-evaluated patient, considered differential (Having lightheadedness with some blurred vision with walking and standing. He is bradycardic but blood pressure is reasonable. No orthostatic changes. He denies any drug ingestions recently or currently such as dextromethorphan or any muscle relaxants or tricyclic's or blood pressure medicines. ), d/w patient ED course: His head CT is normal without any mass-effect bleeding or swelling. He is bradycardic here and it does not seem to be in any distress so not obvious vehi lorin. He denies any ingestions that would obviously cause bradycardia. Its unclear the cause of it. Prior ER visits show a more normal heart rate and blood pressure so this is a new condition for him. No signs of pericarditis or myocarditis based on EKG or blood tests. He was watched several hours in the ER and continues to feel lightheaded with standing and remains bradycardic down to 29-33 at the lowest with regular recovery back up to 40-50. However it is consistently enough in the high 30s to 40s but I am concerned with his symptoms and I feel telemetry observation would be more appropriate. Contact was made with the hospitalist. Diagnoses: 1. Lightheadedness with near syncope 2. Headache for a week 3. Symptomatic bradycardia 4. History of anxiety and depression Departure - Departure Disposition: ED Place in Observation Condition: Stable Record reviewed to determine appropriate education?: Yes
[2021-02-07 01:25] LABS: BASOPHILS % (AUTO) 0.5 %; EOSINOPHILS # (AUTO) 0.4 10^3/uL (0.0-0.7); EOSINOPHILS % (AUTO) 4.2 %; HCT - HEMATOCRIT 36.5 % (42.0-52.0); HGB - HEMOGLOBIN 12.8 g/dL (14.0-18.0); LYMPHOCYTES # (AUTO) 2.1 10^3/uL (1.5-3.5); MEAN CORPUSCULAR HEMOGLOBIN 31.1 pg (27.0-31.0); MEAN CORPUSCULAR HGB CONC 35.1 g/dL (32.0-36.0); MEAN CORPUSCULAR VOLUME 88.8 fL (80.0-94.0); MEAN PLATELET VOLUME 10.3 fL (7.4-11.4); MONOCYTES # (AUTO) 1.2 10^3/uL (0.0-1.0); NEUTROPHILS # (AUTO) 4.7 10^3/uL (1.5-6.6); NEUTROPHILS % (AUTO) 56.1 %; PLT - PLATELET COUNT 202 10^3/uL (130-450); RED BLOOD COUNT 4.11 10^6/uL (4.70-6.10); RED CELL DISTRIBUTION WIDTH 13.2 % (12.0-15.0); WHITE BLOOD COUNT 8.3 x10^3/uL (4.8-10.8)
[2021-02-07 01:44] LABS: ACETAMINOPHEN < 10 ug/mL (10-30); ALBUMIN 4.1 g/dL (3.2-5.5); ALKALINE PHOSPHATASE 46 IU/L (42-121); ALT ALANINE AMINOTRANSFERASE 27 IU/L (10-60); AST ASPARTATE AMINOTRANSFERASE 19 IU/L (10-42); BILIRUBIN,TOTAL 0.6 mg/dL (0.2-1.0); BUN - BLOOD UREA NITROGEN 10 mg/dL (6-20); CALCIUM 8.8 mg/dL (8.5-10.3); CARBON DIOXIDE - CO2 25 mmol/L (21-32); CHLORIDE 106 mmol/L (101-111); CREATININE 0.8 mg/dL (0.6-1.2); ETOH - ETHANOL < 5.0 mg/dL; GFR - MDRD 120 (>89); GLUCOSE 106 mg/dL (70-100); LIPASE 18 U/L (22-51); POTASSIUM 3.4 mmol/L (3.5-5.0); SALICYLATE < 6.0 mg/dL; SODIUM 141 mmol/L (135-145); TOTAL PROTEIN 6.2 g/dL (6.7-8.2)
[2021-02-07] MEDS ORDERED: SODIUM CHLORIDE 0.9% 1,000 ML IV STA ×2 (03:08→03:41)
[2021-02-07 05:54] LABS: MUDS CUTOFF CONCENTRATIONS CUTOFF CONC BELOW:
[2021-02-07 05:57] LABS: BILIRUBIN,URINE NEGATIVE (NEGATIVE); GLUCOSE, URINE (UA) NEGATIVE (NEGATIVE); KETONES,URINE (UA) TRACE mg/dL (NEGATIVE); LEUKOCYTE ESTERASE, URINE SMALL (NEGATIVE); NITRITE,URINE NEGATIVE (NEGATIVE); OCCULT BLOOD,URINE NEGATIVE (NEGATIVE); PROTEIN,URINE NEGATIVE (NEGATIVE); UROBILINOGEN,URINE 0.2 (NORMAL) E.U./dL (NORMAL)
[2021-02-07 05:58] LABS: CLARITY,URINE CLEAR (CLEAR)
[2021-02-07] MEDS ORDERED: ACETAMINOPHEN 325 MG TABLET PO PRN (05:58)
[2021-02-07] MEDS ORDERED: ONDANSETRON 4 MG/2 ML VIAL IVP PRN (05:58)
[2021-02-07] MEDS ORDERED: SODIUM CHLORIDE FLUSH 0.9% 10 ML SYRINGE IVP PRN (05:58)
[2021-02-07] MEDS ORDERED: SODIUM CHLORIDE 0.9% 1,000 ML IV SCH (06:00)
[2021-02-07 06:05] LABS: BACTERIA,URINE Rare /HPF (None Seen); RBC,URINE 0-5 /HPF (0-5); SQUAMOUS EPITHELIAL CELL,UR RARE Squamous (<= Few)
[2021-02-07 06:07] LABS: AMPHETAMINE SCREEN,URINE NEGATIVE (NEGATIVE); BARBITURATE SCREEN,UR NEGATIVE (NEGATIVE); BENZODIAZEPINES SCREEN, URINE NEGATIVE (NEGATIVE); COCAINE SCREEN URINE NEGATIVE (NEGATIVE); METHADONE SCREEN, URINE NEGATIVE (NEGATIVE); METHAMPHETAMINES SCREEN, URINE NEGATIVE (NEGATIVE); OPIATE SCREEN, URINE NEGATIVE (NEGATIVE); OXYCODONE SCREEN, URINE NEGATIVE (NEGATIVE); PROPOXYPHENE SCREEN, URINE NEGATIVE (NEGATIVE); THC CANNABINOID SCREEN, URINE POSITIVE (NEGATIVE); TRICYCLIC ANTIDEPRESSANT,URINE NEGATIVE (NEGATIVE)
[2021-02-07 06:42] LABS: B. PARAPERTUSSIS- RESP PCR PAN NOT DETECTED; B. PERTUSSIS- RESP PCR PANEL NOT DETECTED; C. PNEUMONIAE- RESP PCR PANEL NOT DETECTED; CORONAVIRUS 229E-RESP PCR NOT DETECTED; CORONAVIRUS HKU1-RESP PCR NOT DETECTED; CORONAVIRUS NL63-RESP PCR NOT DETECTED; CORONAVIRUS OC43-RESP PCR NOT DETECTED; HUMAN METAPNEUMOVIRUS NOT DETECTED; INFLUENZA A- RESP PCR PANEL NOT DETECTED; INFLUENZA B - RESP PCR PANEL NOT DETECTED; M. PNEUMONIAE- RESP PCR PANEL NOT DETECTED; PARAINFLUENZA VIRUS 1 NOT DETECTED; PARAINFLUENZA VIRUS 2 NOT DETECTED; PARAINFLUENZA VIRUS 3 NOT DETECTED; PARAINFLUENZA VIRUS 4 NOT DETECTED; RHINOVIRUS/ENTEROVIRUS NOT DETECTED; RSV- RESP PCR PANEL NOT DETECTED; SARS-CoV-2 -RESP PCR PANEL NOT DETECTED
[2021-02-07] MEDS: SODIUM CHLORIDE FLUSH 0.9% 10 ML SYRINGE IVP SCH ×2 (08:11→18:21)
--- NOTE | 2021-02-07 08:46 | XRAY Report ---
PROCEDURE: Chest 1 View X-Ray INDICATIONS: Chest Pain TECHNIQUE: One view of the chest was acquired. COMPARISON: 08/19/2020 FINDINGS: Surgical changes and devices: None. Lungs and pleura: No pleural effusions or pneumothorax. Lungs are clear. Mediastinum: Mediastinal contours appear normal. Heart size is normal. Bones and chest wall: No suspicious bony lesions. Overlying soft tissues appear unremarkable. IMPRESSION: No evidence acute process. Reviewed by: Alex Agustin MD on 02/07/2021 7:45 AM MARBIN Approved by: Alex Agustin MD on 02/07/2021 7:45 AM MARBIN Station ID: [id number]
--- NOTE | 2021-02-07 08:48 | CT Report ---
PROCEDURE: HEAD WO INDICATIONS: headache, lightheaded TECHNIQUE: Noncontrast 4.5 mm thick angled axial sections acquired from the foramen magnum to the vertex. For r adiation dose reduction, the following was used: automated exposure control, adjustment of mA and/or kV according to patient size. COMPARISON: None. FINDINGS: Image quality: Excellent. CSF spaces: Basal cisterns are patent. No extra-axial fluid collections. Ventricles are normal in size and shape. Brain: No midline shift. No intracranial masses or hemorrhage. Lea-white matter interface is norm al. Skull and face: Calvarium and visualized facial bones are intact, without suspicious lesions. Sinuses: Visualized sinuses and mastoids are clear. IMPRESSION: Unremarkable head CT. No evidence acute stroke, hemorrhage, or mass. Findings are concordant with the preliminary report provided at the time of the study by [facility]. Reviewed by: Alex Agustin MD on 02/07/2021 7:47 AM MARBIN Approved by: Alex Agustin MD on 02/07/2021 7:47 AM MARBIN Station ID: [id number]
[2021-02-07] MEDS: SODIUM CHLORIDE 0.9% 1,000 ML IV SCH ×2 (12:01→19:41)
--- NOTE | 2021-02-07 20:00 | HISTORY & PHYSICAL EXAMINATION ---
Chief Complaint - Chief Complaint Chief Complaint: headache, blurry vision, light-headed, bradycardia History of Present Illness - Admitted From Admitted From:: [facility] ED - History Obtained From Records Reviewed: yes History obtained from: patient - History of Present Illness HPI Comment/Other: Patient is a 25-year-old male with medical history significant for Asthma, depression, anxiety, bipolar disorder, PTSD, chronic back pain, hepatitis C at failed treatment who presented to the ED with complaint of headache, blurry vision and lightheadedness. He reported that his symptoms have been going on for several days to a week. However he presented to the ED on 1 AM because he was unable to walk. He fell he was walking straight but his friend told him he was falling to the left. Work-up in the ED included a CT of the brain which was negative for any significant findings. However of note his heart rate was in the 30s. As a result he was presented for admission for further observation. He denied chest pain, dyspnea, abdominal pain, nausea, vomiting, fever or chills. Assessment and Plan: 1. Bradycardia: Etiology undetermined. However this could be normal in someone his age Patient will be monitored on telemetry for 24 hours Patient's orthostatics were positive. Hydrating with normal saline. 2. Presyncope This could be due to dehydration. Patient's orthostatic vitals were positive. Positive for THC Patient is receiving IV hydration with normal saline. We will check orthostatics. 3. Headache CT brain was unremarkable. MRI is unavailable for further evaluation 4. Bipolar Disorder He does not take any medication 5. Depression: He does not take any medication 6. Asthma: Not in exacerbation Not on any medication History - Past Medical History Cardiovascular: reports: None Respiratory: reports: Asthma Neuro: reports: None Endocrine/Autoimmune: reports: None GI: reports: Hepatitis : reports: None HEENT: reports: None Psych: reports: Depression, Anxiety, Bipolar disorder, Post traumatic stress disorder Musculoskeletal: reports: Chronic back pain Derm: reports: None MRSA Hx?: No - Past Surgical History General: reports: Other Other past surgical history: He denies any surgical history - Family & Social History Family History Comment/Other: He denies knowledge of any significant family history. He grew up in a foster home Living arrangement: At home (in apartment), Other (Has lived in [facility] mainly. Short time in [facility]. Not been in [place] areas. ) Living Situation: Alone Social History Notes: He lives in an apartment in [place] alone. He smokes 1 pack a day and has been smoking for 10 years. He rarely consumes alcohol. He uses marijuana. 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 - POLST Patient has POLST: No POLST Status: Full Code Meds/Allgy - Home Medications Home Medications: Ambulatory Orders Medication Instructions Recorded Confirmed No Known Home Medications 02/07/21 02/07/21 - Allergies Allergies/Adverse Reactions: Allergies Allergy/AdvReac Type Severity Reaction Status Date / Time divalproex sodium Allergy Anaphylaxis Verified 02/07/21 00:08 [From Depakote] garlic Allergy Anaphylaxis Verified 02/07/21 00:08 lithium Allergy Anaphylaxis Verified 02/07/21 00:08 Review of Systems - Other Findings Other Findings: A 12 point review of system was done and found to be negative except for as mentioned in the HPI Prior Level of Functionality: He is independent of activities of daily living Exam - Vital Signs Vital Signs: Vital Signs x48h Temp Pulse Resp BP Pulse Ox 02/07/21 15:46 36.7 C 38 L 18 128/73 98 - Physical Exam General Appearance: positive: No acute distress, Alert Eyes Bilateral: positive: PERRL, EOMI ENT: positive: Dry mucous membranes Neck: positive: No JVD, Trachea midline Respiratory: positive: Chest non-tender, No respiratory distress, Breath sounds nml. negative: Wheezes, Rales, Rhonchi Cardiovascular: positive: Bradycardia Abdomen: positive: Non-tender, No organomegaly, Nml bowel sounds, No distention. negative: Guarding, Rebound Back: positive: Nml inspection Skin: positive: Color nml, No rash, Warm, Dry Extremities: positive: Non-tender, Full ROM, Nml appearance, No pedal edema Neurologic/Psychiatric: positive: Oriented x3, Motor nml, Mood/affect nml Conclusion/Plan - Lab Results Fish Bones: 02/07/21 01:15 02/07/21 01:15 Core Measures - Anticipated LOS I expect patient to be DC'd or transferred within 96 hours.: Yes - DVT/VTE - Prophylaxis VTE/DVT Device ordered at admit?: Yes VTE/DVT Prophylaxis med ordered at admit?: Yes
[2021-02-07 21:33] LABS: LITHIUM < 0.05 mmol/L
[2021-02-08] MEDS: SODIUM CHLORIDE FLUSH 0.9% 10 ML SYRINGE IVP SCH ×2 (01:07→10:06)
[2021-02-08] MEDS: SODIUM CHLORIDE 0.9% 1,000 ML IV SCH (04:02)
[2021-02-08 09:35] LABS: BASOPHILS # (AUTO) 0.1 10^3/uL (0.0-0.1); BASOPHILS % (AUTO) 0.7 %; EOSINOPHILS # (AUTO) 0.3 10^3/uL (0.0-0.7); EOSINOPHILS % (AUTO) 3.8 %; HCT - HEMATOCRIT 39.4 % (42.0-52.0); HGB - HEMOGLOBIN 13.7 g/dL (14.0-18.0); LYMPHOCYTES # (AUTO) 1.6 10^3/uL (1.5-3.5); LYMPHOCYTES % (AUTO) 22.9 %; MEAN CORPUSCULAR HEMOGLOBIN 30.9 pg (27.0-31.0); MEAN CORPUSCULAR HGB CONC 34.8 g/dL (32.0-36.0); MEAN CORPUSCULAR VOLUME 88.7 fL (80.0-94.0); MONOCYTES # (AUTO) 0.8 10^3/uL (0.0-1.0); MONOCYTES % (AUTO) 12.2 %; NEUTROPHILS # (AUTO) 4.1 10^3/uL (1.5-6.6); NEUTROPHILS % (AUTO) 60.3 %; PLT - PLATELET COUNT 208 10^3/uL (130-450); RED BLOOD COUNT 4.44 10^6/uL (4.70-6.10); WHITE BLOOD COUNT 6.8 x10^3/uL (4.8-10.8)
[2021-02-08 09:45] LABS: CALCIUM 8.7 mg/dL (8.5-10.3); CREATININE 0.7 mg/dL (0.6-1.2); POTASSIUM 3.8 mmol/L (3.5-5.0)
--- NOTE | 2021-02-08 10:21 | DISCHARGE SUMMARY ---
Discharge Summary Admit Date: 02/07/21 Discharge Date: 02/08/21 Discharging Provider: Cornina Staleytu Code Status: Attempt Resuscitation Condition at Discharge: Stable Discharge Disposition: 01 Home, Self Care - DIAGNOSES Admission Diagnoses: Bradycardia Presyncope Headache Bipolar disorder Depression Asthma Discharge Diagnoses with Status of Each Condition: Bradycardia: Persists. Asymptomatic Presyncope: Acute. Resolved with IV hydration Headache: Acute. Etiology undetermined. Improved Bipolar disorder: Not on any medication Depression: Not on any medication Asthma: Not in exacerbation and not on any medication - HPI History of Present Illness: Patient is a 25-year-old male with medical history significant for Asthma, depression, anxiety, bipolar disorder, PTSD, chronic back pain, hepatitis C at failed treatment who presented to the ED with complaint of headache, blurry vision and lightheadedness. He reported that his symptoms have been going on for several days to a week. However he presented to the ED on 1 AM because he was unable to walk. He fell he was walking straight but his friend told him he was falling to the left. Work-up in the ED included a CT of the brain which was negative for any significant findings. However of note his heart rate was in the 30s. As a result he was presented for admission for further observation. He denied chest pain, dyspnea, abdominal pain, nausea, vomiting, fever or chills. - HOSPITAL COURSE Hospital Course: He had a CT scan of the brain done which was unremarkable for any significant findings. He was maintained on IV hydration with normal saline throughout his hospital stay. His symptoms of lightheadedness and headache improved. Orthostatics were monitored throughout his stay. Though he remained bradycardic the rest of his vitals were stable. He was able to ambulate around the nursing floor with no difficulties. He was discharged in stable condition. - ALLERGIES Allergies/Adverse Reactions: Allergies Allergy/AdvReac Type Severity Reaction Status Date / Time divalproex sodium Allergy Anaphylaxis Verified 02/07/21 00:08 [From Depakote] garlic Allergy Anaphylaxis Verified 02/07/21 00:08 lithium Allergy Anaphylaxis Verified 02/07/21 00:08 - MEDICATIONS Home Medications: Ambulatory Orders Medication Instructions Recorded Confirmed No Known Home Medications 02/07/21 02/07/21 - PHYSICAL EXAM AT DISCHARGE General Appearance: positive: No acute distress, Alert Eyes Bilateral: positive: PERRL, EOMI ENT: positive: Pharynx nml Neck: positive: No JVD, Trachea midline Respiratory: positive: Chest non-tender, No respiratory distress, Breath sounds nml. negative: Wheezes, Rales, Rhonchi Cardiovascular: positive: No murmur, No gallop, Bradycardia Abdomen: positive: Non-tender, No organomegaly, Nml bowel sounds, No distention. negative: Guarding, Rebound Back: positive: Nml inspection Skin: positive: Color nml, No rash, Warm, Dry. negative: Cyanosis Extremities: positive: Non-tender, Full ROM, Nml appearance, No pedal edema Neurologic/Psychiatric: positive: Oriented x3, Motor nml, Mood/affect nml - LABS Result Diagrams: 02/08/21 09:29 02/08/21 09:29 - TIME SPENT Time Spent in Discharge (Minutes): 20
--- NOTE | 2021-02-08 10:21 | Discharge Plan ---
Discharge Plan Problem Reviewed?: Yes Disposition: 01 Home, Self Care Condition: Stable Diet: Regular Activity Restrictions: Activity as Tolerated Health Concerns: You presented to the hospital yesterday with complaint of headache, lightheadedness and blurred vision. You had a CT scan of your brain done which was unremarkable. While in the ED you were noted to be bradycardic with a heart rate as low as 35. Etiology is undetermined. Served overnight on telemetry with no events. You received IV hydration with normal saline throughout your hospital stay. On the day of discharge you were able to ambulate with no difficulties. Your headache had improved/resolved. You remained bradycardic but asymptomatic. Thus you are being discharged. You may follow-up with your primary care physician as needed. If your symptoms return and persist do not feel to return to the ED for reevaluation. Plan of Treatment: You presented to the hospital yesterday with complaint of headache, lightheadedness and blurred vision. You had a CT scan of your brain done which was unremarkable. While in the ED you were noted to be bradycardic with a heart rate as low as 35. Etiology is undetermined. Served overnight on telemetry with no events. You received IV hydration with normal saline throughout your hospital stay. On the day of discharge you were able to ambulate with no difficulties. Your headache had improved/resolved. You remained bradycardic but asymptomatic. Thus you are being discharged. You may follow-up with your primary care physician as needed. If your symptoms return and persist do not feel to return to the ED for reevaluation. Care Goals: You presented to the hospital yesterday with complaint of headache, lightheadedness and blurred vision. You had a CT scan of your brain done which was unremarkable. While in the ED you were noted to be bradycardic with a heart rate as low as 35. Etiology is undetermined. Served overnight on telemetry with no events. You received IV hydration with normal saline throughout your hospital stay. On the day of discharge you were able to ambulate with no difficulties. Your headache had improved/resolved. You remained bradycardic but asymptomatic. Thus you are being discharged. You may follow-up with your primary care physician as needed. If your symptoms return and persist do not feel to return to the ED for reevaluation. Assessment: You presented to the hospital yesterday with complaint of headache, lightheadedness and blurred vision. You had a CT scan of your brain done which was unremarkable. While in the ED you were noted to be bradycardic with a heart rate as low as 35. Etiology is undetermined. Served overnight on telemetry with no events. You received IV hydration with normal saline throughout your hospital stay. On the day of discharge you were able to ambulate with no difficulties. Your headache had improved/resolved. You remained bradycardic but asymptomatic. Thus you are being discharged. You may follow-up with your primary care physician as needed. If your symptoms return and persist do not feel to return to the ED for reevaluation. No Smoking: If you smoke, Please STOP! Call for help.
[2021-02-08 11:32] VITALS: BP 120/69
== END 2021-02-08 12:29 | disposition home or self-care (01) ==
LOC: EDUNIT# → ED 23:35 → MS2 02-07 05:50
PROVIDERS: ADMIT Internal Medicine; ATTEND Internal Medicine
DX: R00.1 Bradycardia, unspecified (principal); R55 Syncope and collapse; R51.9 Headache, unspecified; J45.909 Unspecified asthma, uncomplicated; F31.9 Bipolar disorder, unspecified; F41.9 Anxiety disorder, unspecified; F43.10 Post-traumatic stress disorder, unspecified; B19.20 Unspecified viral hepatitis C without hepatic coma; G89.29 Other chronic pain; M54.9 Dorsalgia, unspecified; F17.210 Nicotine dependence, cigarettes, uncomplicated; Z72.89 Other problems related to lifestyle; Z20.822 Contact with and (suspected) exposure to COVID-19
CPT/HCPCS: 36415; 70450; 71045; 80048; 80053; 80178; 80306; 80307; 81001; 83690; 83880; 84443; 84484; 85025; 87086; 87631; 93005; 99284; 99285; G0378; G0480; 0202U; 80320; 80329; 81003

== ENCOUNTER 2021-02-21 01:53 | Outpatient (CLI) | payer MEDICARE, MEDICAID | END 2021-02-21 01:54 | disposition critical access hospital (66) | LOC: EMS 01:53 | DX: F10.129 Alcohol abuse with intoxication, unspecified (principal); F41.0 Panic disorder [episodic paroxysmal anxiety] | CPT/HCPCS: A0425; A0429 ==

== ENCOUNTER 2021-02-21 02:09 | Emergency (ER) | payer MEDICARE, MEDICAID ==
--- NOTE | 2021-02-21 02:31 | ED Physician Documentation ---
History of Present Illness - Stated complaint Stated Complaint: ETOH/ ANXIETY - History obtained from History obtained from: Patient, EMS - History of Present Illness Timing: Today - Additonal information Additional information: 25-year-old patient is brought to the hospital by EMS when he became unresponsive after drinking a significant quantity of alcohol and smoking a significant quantity of marijuana. The patient arrives to the emergency department less responsive and he wakens to indicate that he has a marked need urgency to urinate and he is unable to urinate. Review of Systems Unable to obtain: Intoxicated PD PAST MEDICAL HISTORY - Past Medical History Cardiovascular: None Respiratory: Asthma Neuro: None Endocrine/Autoimmune: None GI: Hepatitis : None HEENT: None Psych: Depression, Anxiety, Bipolar disorder, Post traumatic stress disorder Musculoskeletal: Chronic back pain Derm: None - Past Surgical History Past Surgical History: Yes General: Other - Present Medications Home Medications: Ambulatory Orders Medication Instructions Recorded Confirmed No Known Home Medications 02/07/21 02/07/21 - Allergies Allergies/Adverse Reactions: Allergies Allergy/AdvReac Type Severity Reaction Status Date / Time divalproex sodium Allergy Anaphylaxis Verified 02/07/21 00:08 [From Depakote] garlic Allergy Anaphylaxis Verified 02/07/21 00:08 lithium Allergy Anaphylaxis Verified 02/07/21 00:08 - Social History Does the pt smoke?: Yes Smoking Status: Current every day smoker Does the pt drink ETOH?: Yes Does the pt have substance abuse?: Yes - Immunizations Immunizations are current?: Yes Immunizations: TDAP current <10years - POLST Patient has POLST: No POLST Status: Full Code PD ED PE NORMAL - Vitals Vital signs reviewed: Yes (Hypertensive) - General General: Well developed/nourished, Other (Actuely intoxicated anxious and in pain needs to urinate and cant. ) - HEENT HEENT: Atraumatic, PERRL, EOMI - Neck Neck: Supple, no meningeal sign, No bony TTP - Cardiac Cardiac: No murmur, Other (tachycardic) - Respiratory Respiratory: No respiratory distress, Clear bilaterally - Abdomen Abdomen: Normal bowel sounds, Soft, Non distended, Other (suprapubic tenderness with tense bladder. 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, No motor deficit, No sensory deficit, Normal speech Eye Opening: Spontaneous Motor: Obeys Commands Verbal: Oriented GCS Score: 15 - Psych Psych: Other (mood is anxious affect is labile ) Results - Vitals Vitals: Vital Signs - 24 hr 02/21/21 02/21/21 02/21/21 02:41 03:00 03:30 Temperature 36.4 C L Heart Rate 61 72 59 L Respiratory 18 16 17 Rate Blood Pressure 142/124 H 110/61 99/41 L O2 Saturation 100 100 99 02/21/21 02/21/21 02/21/21 04:00 05:00 06:00 Temperature Heart Rate 57 L 54 L 56 L Respiratory 18 18 18 Rate Blood Pressure 110/61 92/37 L 90/50 L O2 Saturation 99 99 98 02/21/21 02/21/21 02/21/21 07:00 07:22 08:04 Temperature Heart Rate 57 L 45 L 47 L Respiratory 18 16 16 Rate Blood Pressure 89/52 L 108/66 92/48 L O2 Saturation 100 100 99 02/21/21 02/21/21 02/21/21 09:49 10:29 12:09 Temperature 36.8 C Heart Rate 57 L 48 L 54 L Respiratory 14 18 16 Rate Blood Pressure 121/69 120/79 117/73 O2 Saturation 100 100 100 Oxygen O2 Source Room air Oxygen Flow Rate 4 - Labs Labs: Laboratory Tests 02/21/21 02/21/21 02/21/21 02:34 02:43 02:43 WBC 7.2 RBC 4.42 L Hgb 13.3 L Hct 40.1 L MCV 90.7 MCH 30.1 MCHC 33.2 RDW 12.9 Plt Count 244 MPV 10.1 Neut # (Auto) 2.2 Lymph # (Auto) 3.7 H Ida # (Auto) 0.8 Eos # (Auto) 0.4 Baso # (Auto) 0.1 Absolute Nucleated RBC 0.00 Nucleated RBC % 0.0 Sodium 142 Potassium 3.3 L Chloride 106 Carbon Dioxide 24 Anion Gap 12.0 BUN 11 Creatinine 0.8 Estimated GFR (MDRD) 120 Glucose 104 H Calcium 8.8 Total Bilirubin 0.5 AST 25 ALT 37 Alkaline Phosphatase 59 Total Protein 7.0 Albumin 4.4 Globulin 2.6 Albumin/Globulin Ratio 1.7 Lipase 84 H Urine Color YELLOW Urine Clarity CLEAR Urine pH 6.5 Ur Specific [place] <=1.005 Urine Protein NEGATIVE Urine Glucose (UA) NEGATIVE Urine Ketones NEGATIVE Urine Occult Blood NEGATIVE Urine Nitrite NEGATIVE Urine Bilirubin NEGATIVE Urine Urobilinogen 0.2 (NORMAL) Ur Leukocyte Esterase NEGATIVE Ur Microscopic Review NOT INDICATED Urine Culture Comments NOT INDICATED Ethyl Alcohol 196.2 02/21/21 06:06 WBC RBC Hgb Hct MCV MCH MCHC RDW Plt Count MPV Neut # (Auto) Lymph # (Auto) Ida # (Auto) Eos # (Auto) Baso # (Auto) Absolute Nucleated RBC Nucleated RBC % Sodium Potassium Chloride Carbon Dioxide Anion Gap BUN Creatinine Estimated GFR (MDRD) Glucose Calcium Total Bilirubin AST ALT Alkaline Phosphatase Total Protein Albumin Globulin Albumin/Globulin Ratio Lipase Urine Color Urine Clarity Urine pH Ur Specific [place] Urine Protein Urine Glucose (UA) Urine Ketones Urine Occult Blood Urine Nitrite Urine Bilirubin Urine Urobilinogen Ur Leukocyte Esterase Ur Microscopic Review Urine Culture Comments Ethyl Alcohol 149.9 PD MEDICAL DECISION MAKING - ED course Complexity details: reviewed old records, reviewed results, re-evaluated patient, considered differential, d/w patient ED course: 25-year-old male having drank an excessive quantity of alcohol presents to the emergency department with acute intoxication and he has acute urinary retention associated with this and appears to be in significant amount of pain. He has some difficulty with his breathing and is hyperventilating and appears in pain. He is catheterized for urine after bladder scan shows greater than 999. Significant quantity of clear urine is expressed the patient has a reduction in his overall anxiety. He is intoxicated and unconscious at shift change. He will need metabolism before disposition and his care is turned over to Dr. Chacon at shift change. Dr. Chacon took care of this patient for an extended period of time he eventually metabolized was able to have his Bacon catheter removed and able to urinate. Is discharged in stable improved condition after drinking alcohol too rapidly. Departure - Departure Disposition: 01 Home, Self Care Clinical Impression: Urinary retention Alcoholic intoxication Qualifiers: Complication of substance-induced condition: with delirium Qualified Code(s): F10.921 - Alcohol use, unspecified with intoxication delirium Condition: Stable Instructions: ED Alcohol Intoxication, ED Retention Urinary Male Follow-Up: [facility] [Provider Group] Comments: Stay well-hydrated through the day. Tylenol if needed for pains. You may so a little bit of blood in your urine for a day or so and that should clear. That would be some irritation from the catheter. The catheter had been placed because you were unable to urinate and had almost a liter and a half of urine in your bladder causing discomfort. This can happen with altered mentation and alcohol intoxication. I would not anticipate it to be an ongoing problem. Avoid excess or rapid alcohol. Return if needed. Discharge Date/Time: 02/21/21 14:06
[2021-02-21 02:48] LABS: BASOPHILS # (AUTO) 0.1 10^3/uL (0.0-0.1); BASOPHILS % (AUTO) 0.8 %; EOSINOPHILS # (AUTO) 0.4 10^3/uL (0.0-0.7); HCT - HEMATOCRIT 40.1 % (42.0-52.0); HGB - HEMOGLOBIN 13.3 g/dL (14.0-18.0); LYMPHOCYTES # (AUTO) 3.7 10^3/uL (1.5-3.5); LYMPHOCYTES % (AUTO) 50.6 %; MEAN CORPUSCULAR HEMOGLOBIN 30.1 pg (27.0-31.0); MEAN CORPUSCULAR HGB CONC 33.2 g/dL (32.0-36.0); MEAN CORPUSCULAR VOLUME 90.7 fL (80.0-94.0); MEAN PLATELET VOLUME 10.1 fL (7.4-11.4); MONOCYTES # (AUTO) 0.8 10^3/uL (0.0-1.0); MONOCYTES % (AUTO) 11.7 %; NEUTROPHILS # (AUTO) 2.2 10^3/uL (1.5-6.6); NEUTROPHILS % (AUTO) 30.8 %; PLT - PLATELET COUNT 244 10^3/uL (130-450); RED BLOOD COUNT 4.42 10^6/uL (4.70-6.10); RED CELL DISTRIBUTION WIDTH 12.9 % (12.0-15.0); WHITE BLOOD COUNT 7.2 x10^3/uL (4.8-10.8)
[2021-02-21 02:53] LABS: BILIRUBIN,URINE NEGATIVE (NEGATIVE); GLUCOSE, URINE (UA) NEGATIVE (NEGATIVE); KETONES,URINE (UA) NEGATIVE (NEGATIVE); LEUKOCYTE ESTERASE, URINE NEGATIVE (NEGATIVE); NITRITE,URINE NEGATIVE (NEGATIVE); OCCULT BLOOD,URINE NEGATIVE (NEGATIVE); PH,URINE 6.5 PH (5.0-7.5); PROTEIN,URINE NEGATIVE (NEGATIVE); UROBILINOGEN,URINE 0.2 (NORMAL) E.U./dL (NORMAL)
[2021-02-21 02:56] LABS: CLARITY,URINE CLEAR (CLEAR)
[2021-02-21 03:01] LABS: ALBUMIN 4.4 g/dL (3.2-5.5); ALBUMIN/GLOBULIN RATIO 1.7 (1.0-2.2); BILIRUBIN,TOTAL 0.5 mg/dL (0.2-1.0); CALCIUM 8.8 mg/dL (8.5-10.3); CREATININE 0.8 mg/dL (0.6-1.2); ETOH - ETHANOL 196.2 mg/dL; POTASSIUM 3.3 mmol/L (3.5-5.0)
[2021-02-21] MEDS ORDERED: SODIUM CHLORIDE 0.9% 1,000 ML IV STA (08:47)
[2021-02-21 12:10] VITALS: BP 117/73
--- NOTE | 2021-02-21 13:56 | ED Physician Documentation ---
ED Addendum - Addendum Addendum: 02/21/21 13:55 Patient rested the morning and was doing okay. He did rouse more appropriately. He stated he was getting some irritation from the catheter that was removed. He subsequently did urinate on his own with just a tinge of blood. He subsequently becomes fully awake and alert and conversant. He remembers having a fast shots of vodka last night and then states he does not remember after that. He denied any coingestions. He is feeling okay at this point. He does appear well to be discharged now. Diagnoses: 1. Acute altered mental status 2. Alcohol intoxication Disposition the patient discharged stable and to home
== END 2021-02-21 14:06 | disposition home or self-care (01) ==
LOC: EDUNIT# → ED 02:09
DX: F10.921 Alcohol use, unspecified with intoxication delirium (principal); F12.90 Cannabis use, unspecified, uncomplicated; R33.9 Retention of urine, unspecified; R10.9 Unspecified abdominal pain; R06.4 Hyperventilation; F41.9 Anxiety disorder, unspecified; F17.200 Nicotine dependence, unspecified, uncomplicated
CPT/HCPCS: 36415; 51702; 51798; 80053; 81003; 83690; 85025; 93005; 96360; 99281; 99285; G0480; 80320; 81001; 87086

== ENCOUNTER 2021-02-28 00:16 | Emergency (ER) | payer MEDICARE, MEDICAID ==
--- NOTE | 2021-02-28 00:43 | ED Physician Documentation ---
History of Present Illness - Stated complaint Stated Complaint: MHE - Chief complaint Chief Complaint: MHE - History obtained from History obtained from: Patient - Additonal information Additional information: 25-year-old man, well-known to our emergency department for mental health issues and polysubstance abuse presents to the emergency department complaining of racing thoughts, passive suicidality, and generalized malaise. Patient called [facility] and was trying to get admitted but there was a 5-hour wait therefore he came to the emergency department. They do have beds available. He denies active SI or HI. Denies hallucinations. Denies drug use or alcohol tonight. Review of Systems Ten Systems: 10 systems reviewed and negative PD PAST MEDICAL HISTORY - Past Medical History Past Medical History: Yes Cardiovascular: None Respiratory: Asthma Neuro: None Endocrine/Autoimmune: None GI: Hepatitis : None HEENT: None Psych: Depression, Anxiety, Bipolar disorder, Post traumatic stress disorder Musculoskeletal: Chronic back pain Derm: None - Past Surgical History Past Surgical History: Yes General: Other - Present Medications Home Medications: Ambulatory Orders Medication Instructions Recorded Confirmed No Known Home Medications 02/07/21 02/28/21 - Allergies Allergies/Adverse Reactions: Allergies Allergy/AdvReac Type Severity Reaction Status Date / Time divalproex sodium Allergy Anaphylaxis Verified 02/28/21 00:26 [From Depakote] garlic Allergy Anaphylaxis Verified 02/28/21 00:26 lithium Allergy Anaphylaxis Verified 02/28/21 00:26 - Social History Does the pt smoke?: Yes Smoking Status: Current every day smoker Does the pt drink ETOH?: Yes Does the pt have substance abuse?: Yes - Immunizations Immunizations are current?: Yes Immunizations: TDAP current <10years - POLST Patient has POLST: No POLST Status: Full Code PD ED PE NORMAL - Vitals Vital signs reviewed: Yes - General General: Alert and oriented X 3, No acute distress, Well developed/nourished - HEENT HEENT: Atraumatic, PERRL, EOMI - Neck Neck: Supple, no meningeal sign - Cardiac Cardiac: RRR - Respiratory Respiratory: No respiratory distress, Clear bilaterally - Abdomen Abdomen: Non tender, Non distended - Back Back: No spinal TTP - Derm Derm: Normal color, Warm and dry - Extremities Extremities: No deformity - Neuro Neuro: Alert and oriented X 3 - Psych Psych: Normal mood, Normal affect Results - Vitals Vitals: Vital Signs - 24 hr 02/28/21 02/28/21 00:19 00:26 Temperature 36.2 C L 36.2 C L Heart Rate 83 83 Respiratory 16 16 Rate Blood Pressure 161/84 H 161/84 H O2 Saturation 98 98 Oxygen O2 Source Room air PD MEDICAL DECISION MAKING - ED course ED course: 25-year-old man presents for voluntary psychiatric evaluation and request for inpatient psych hospitalization. Will obtain screening lab work and try to contact [facility]. Social work to see in the morning. Departure - Departure Clinical Impression: Depression, Anxiety, Passive suicidal ideations
[2021-02-28 00:49] LABS: MUDS CUTOFF CONCENTRATIONS CUTOFF CONC BELOW:
[2021-02-28 00:50] LABS: BILIRUBIN,URINE NEGATIVE (NEGATIVE); CLARITY,URINE CLEAR (CLEAR); GLUCOSE, URINE (UA) NEGATIVE (NEGATIVE); KETONES,URINE (UA) NEGATIVE (NEGATIVE); LEUKOCYTE ESTERASE, URINE SMALL (NEGATIVE); NITRITE,URINE NEGATIVE (NEGATIVE); OCCULT BLOOD,URINE NEGATIVE (NEGATIVE); PROTEIN,URINE NEGATIVE (NEGATIVE); UROBILINOGEN,URINE 0.2 (NORMAL) E.U./dL (NORMAL)
[2021-02-28 00:53] LABS: BASOPHILS # (AUTO) 0.1 10^3/uL (0.0-0.1); BASOPHILS % (AUTO) 0.7 %; EOSINOPHILS # (AUTO) 0.3 10^3/uL (0.0-0.7); HCT - HEMATOCRIT 42.9 % (42.0-52.0); HGB - HEMOGLOBIN 14.8 g/dL (14.0-18.0); LYMPHOCYTES # (AUTO) 2.7 10^3/uL (1.5-3.5); LYMPHOCYTES % (AUTO) 26.2 %; MEAN CORPUSCULAR HEMOGLOBIN 30.8 pg (27.0-31.0); MEAN CORPUSCULAR HGB CONC 34.5 g/dL (32.0-36.0); MEAN CORPUSCULAR VOLUME 89.4 fL (80.0-94.0); MEAN PLATELET VOLUME 10.3 fL (7.4-11.4); MONOCYTES # (AUTO) 1.2 10^3/uL (0.0-1.0); MONOCYTES % (AUTO) 11.3 %; NEUTROPHILS % (AUTO) 58.5 %; PLT - PLATELET COUNT 285 10^3/uL (130-450); RED CELL DISTRIBUTION WIDTH 13.1 % (12.0-15.0); WHITE BLOOD COUNT 10.3 x10^3/uL (4.8-10.8)
[2021-02-28 00:57] LABS: BACTERIA,URINE None Seen /HPF (None Seen); RBC,URINE None Seen /HPF (0-5); SQUAMOUS EPITHELIAL CELL,UR MOD Squamous (<= Few)
[2021-02-28 01:00] LABS: AMPHETAMINE SCREEN,URINE NEGATIVE (NEGATIVE); BARBITURATE SCREEN,UR NEGATIVE (NEGATIVE); BENZODIAZEPINES SCREEN, URINE NEGATIVE (NEGATIVE); COCAINE SCREEN URINE NEGATIVE (NEGATIVE); METHADONE SCREEN, URINE NEGATIVE (NEGATIVE); METHAMPHETAMINES SCREEN, URINE NEGATIVE (NEGATIVE); OPIATE SCREEN, URINE NEGATIVE (NEGATIVE); OXYCODONE SCREEN, URINE NEGATIVE (NEGATIVE); PROPOXYPHENE SCREEN, URINE NEGATIVE (NEGATIVE); THC CANNABINOID SCREEN, URINE POSITIVE (NEGATIVE); TRICYCLIC ANTIDEPRESSANT,URINE NEGATIVE (NEGATIVE)
[2021-02-28 01:09] LABS: ACETAMINOPHEN < 10 ug/mL (10-30); ALBUMIN 4.6 g/dL (3.2-5.5); ALBUMIN/GLOBULIN RATIO 1.5 (1.0-2.2); ALKALINE PHOSPHATASE 65 IU/L (42-121); ALT ALANINE AMINOTRANSFERASE 32 IU/L (10-60); AST ASPARTATE AMINOTRANSFERASE 23 IU/L (10-42); BILIRUBIN,TOTAL 0.7 mg/dL (0.2-1.0); BUN - BLOOD UREA NITROGEN 12 mg/dL (6-20); CALCIUM 9.5 mg/dL (8.5-10.3); CARBON DIOXIDE - CO2 26 mmol/L (21-32); CHLORIDE 105 mmol/L (101-111); CREATININE 0.8 mg/dL (0.6-1.2); ETOH - ETHANOL < 5.0 mg/dL; GFR - MDRD 120 (>89); GLUCOSE 91 mg/dL (70-100); LIPASE 17 U/L (22-51); POTASSIUM 3.8 mmol/L (3.5-5.0); SALICYLATE < 6.0 mg/dL; SODIUM 142 mmol/L (135-145); TOTAL PROTEIN 7.7 g/dL (6.7-8.2)
[2021-02-28] MEDS ORDERED: QUEtiapine 25 MG TABLET PO STA (02:20)
[2021-02-28 09:55] LABS: B. PARAPERTUSSIS- RESP PCR PAN NOT DETECTED; B. PERTUSSIS- RESP PCR PANEL NOT DETECTED; C. PNEUMONIAE- RESP PCR PANEL NOT DETECTED; CORONAVIRUS 229E-RESP PCR NOT DETECTED; CORONAVIRUS HKU1-RESP PCR NOT DETECTED; CORONAVIRUS NL63-RESP PCR NOT DETECTED; CORONAVIRUS OC43-RESP PCR NOT DETECTED; HUMAN METAPNEUMOVIRUS NOT DETECTED; INFLUENZA A- RESP PCR PANEL NOT DETECTED; INFLUENZA B - RESP PCR PANEL NOT DETECTED; M. PNEUMONIAE- RESP PCR PANEL NOT DETECTED; PARAINFLUENZA VIRUS 1 NOT DETECTED; PARAINFLUENZA VIRUS 2 NOT DETECTED; PARAINFLUENZA VIRUS 3 NOT DETECTED; PARAINFLUENZA VIRUS 4 NOT DETECTED; RHINOVIRUS/ENTEROVIRUS NOT DETECTED; RSV- RESP PCR PANEL NOT DETECTED; SARS-CoV-2 -RESP PCR PANEL NOT DETECTED
[2021-02-28 15:23] VITALS: BP 130/53
[2021-02-28] MEDS ORDERED: LORazepam 1 MG TABLET PO STA (16:12)
--- NOTE | 2021-02-28 16:13 | ED Physician Documentation ---
ED Addendum - Addendum Addendum: 02/28/21 16:12 Patient is accepted to [facility] by Dr. Perez. COBRA forms completed. This document was made in part using voice recognition software. While efforts are made to proofread this document, sound alike and grammatical errors may occur. Departure - Departure Disposition: 65 Psych Hosp/Unit DC/Xfer Clinical Impression: Anxiety, Passive suicidal ideations Depression Qualifiers: Depression Type: unspecified Qualified Code(s): F32.9 - Major depressive disorder, single episode, unspecified Condition: Stable
== END 2021-02-28 17:58 ==
LOC: ED 00:16
DX: Z00.8 Encounter for other general examination (principal); R45.851 Suicidal ideations; F32.9 Major depressive disorder, single episode, unspecified; F41.9 Anxiety disorder, unspecified; F17.200 Nicotine dependence, unspecified, uncomplicated; Z20.822 Contact with and (suspected) exposure to COVID-19
CPT/HCPCS: 36415; 80053; 80306; 80307; 81001; 83690; 84443; 85025; 87631; 99283; 99285; A9270; G0480; J8499; 0202U; 80320; 80329; 81003; 87086

== ENCOUNTER 2021-09-06 11:30 | Outpatient (CLI) | payer MEDICARE, MEDICAID | END 2021-09-06 11:31 | disposition critical access hospital (66) | LOC: EMS 11:30 | DX: H53.149 Visual discomfort, unspecified (principal); R51.9 Headache, unspecified; R52 Pain, unspecified; R11.2 Nausea with vomiting, unspecified; K59.00 Constipation, unspecified | CPT/HCPCS: A0425; A0427 ==

== ENCOUNTER 2021-09-06 11:49 | Emergency (ER) | payer MEDICARE, MEDICAID ==
[2021-09-06 12:14] LABS: BASOPHILS # (AUTO) 0.1 10^3/uL (0.0-0.1); EOSINOPHILS # (AUTO) 0.1 10^3/uL (0.0-0.7); HCT - HEMATOCRIT 40.1 % (42.0-52.0); HGB - HEMOGLOBIN 13.7 g/dL (14.0-18.0); LYMPHOCYTES # (AUTO) 1.1 10^3/uL (1.5-3.5); LYMPHOCYTES % (AUTO) 22.8 %; MEAN CORPUSCULAR HEMOGLOBIN 29.7 pg (27.0-31.0); MEAN CORPUSCULAR HGB CONC 34.2 g/dL (32.0-36.0); MEAN PLATELET VOLUME 9.9 fL (7.4-11.4); MONOCYTES # (AUTO) 0.9 10^3/uL (0.0-1.0); MONOCYTES % (AUTO) 18.2 %; NEUTROPHILS # (AUTO) 2.7 10^3/uL (1.5-6.6); PLT - PLATELET COUNT 237 10^3/uL (130-450); RED BLOOD COUNT 4.61 10^6/uL (4.70-6.10); RED CELL DISTRIBUTION WIDTH 13.6 % (12.0-15.0); WHITE BLOOD COUNT 4.8 x10^3/uL (4.8-10.8)
[2021-09-06 12:25] LABS: ALBUMIN 4.5 g/dL (3.2-5.5); ALBUMIN/GLOBULIN RATIO 1.6 (1.0-2.2); BILIRUBIN,TOTAL 1.5 mg/dL (0.2-1.0); CALCIUM 9.2 mg/dL (8.5-10.3); CREATININE 0.9 mg/dL (0.6-1.2); TOTAL PROTEIN 7.3 g/dL (6.7-8.2)
--- NOTE | 2021-09-06 12:32 | ED Physician Documentation ---
PD HPI NVD - Stated complaint Stated Complaint: DETOXING N/V BODY ACHES - Chief complaint Chief Complaint: Abd Pain - History obtained from History obtained from: Patient - Additonal information Additional information: 26-year-old gentleman presents by ambulance requesting help with detox from multiple substances. States he has been using methamphetamines, heavy use of opiates both heroin and illicitly taken nonprescribed substances as well as cocaine. Last use at 7 AM this morning. He is hurting all over and feels nauseous although it sounds like he was given Zofran on the way here which hel ped with the nausea somewhat but now he feels like his guts are "stretching." He has a severe headache and light sensitivity. Review of Systems Ten Systems: 10 systems reviewed and negative Constitutional: reports: Chills, Sweats. denies: Fever Throat: denies: Sore throat Cardiac: denies: Chest pain / pressure, Palpitations Respiratory: denies: Dyspnea, Cough PD PAST MEDICAL HISTORY - Past Medical History Cardiovascular: None Respiratory: Asthma Neuro: None Endocrine/Autoimmune: None GI: Hepatitis : None HEENT: None Psych: Depression, Anxiety, Bipolar disorder, Post traumatic stress disorder Musculoskeletal: Chronic back pain Derm: None - Past Surgical History Past Surgical History: Yes General: Other - Present Medications Home Medications: Ambulatory Orders Medication Instructions Recorded Confirmed LORazepam [Ativan] 1 mg PO TID PRN #10 tablet 09/06/21 Loperamide [Imodium] 2 mg PO QID PRN #10 cap 09/06/21 Ondansetron Odt [Zofran] 4 mg TL Q6H PRN #10 tablet 09/06/21 - Allergies Allergies/Adverse Reactions: Allergies Allergy/AdvReac Type Severity Reaction Status Date / Time divalproex sodium Allergy Anaphylaxis Verified 09/06/21 11:59 [From Depakote] garlic Allergy Anaphylaxis Verified 09/06/21 11:59 lithium Allergy Anaphylaxis Verified 09/06/21 11:59 - Social History Does the pt smoke?: Yes Smoking Status: Current every day smoker Does the pt drink ETOH?: Yes Does the pt have substance abuse?: Yes - Immunizations Immunizations are current?: Yes Immunizations: TDAP current <10years - POLST Patient has POLST: No POLST Status: Full Code PD ED PE NORMAL - Vitals Vital signs reviewed: Yes - General General: Alert and oriented X 3, Other (He appears uncomfortable and photophobic) - HEENT HEENT: PERRL (Dilated pupils, symmetric), EOMI - Neck Neck: Supple, no meningeal sign, No bony TTP - Cardiac Cardiac: RRR, No murmur - Respiratory Respiratory: No respiratory distress, Clear bilaterally - Abdomen Abdomen: Normal bowel sounds, Soft, Non tender - Back Back: No spinal TTP - Derm Derm: Normal color, Warm and dry - Neuro Neuro: Alert and oriented X 3, Normal speech Results - Vitals Vitals: Vital Signs - 24 hr 09/06/21 09/06/21 09/06/21 11:55 12:00 14:00 Temperature 37 C Heart Rate 64 68 60 Respiratory 9 L 19 15 Rate Blood Pressure 130/83 H 126/75 121/66 O2 Saturation 97 99 100 Oxygen O2 Source Room air - Labs Labs: Laboratory Tests 09/06/21 09/06/21 09/06/21 12:05 12:05 12:05 WBC 4.8 RBC 4.61 L Hgb 13.7 L Hct 40.1 L MCV 87.0 MCH 29.7 MCHC 34.2 RDW 13.6 Plt Count 237 MPV 9.9 Neut # (Auto) 2.7 Lymph # (Auto) 1.1 L [place] # (Auto) 0.9 Eos # (Auto) 0.1 Baso # (Auto) 0.1 Absolute Nucleated RBC 0.00 Nucleated RBC % 0.0 Sodium 134 L Potassium 4.0 Chloride 101 Carbon Dioxide 22 Anion Gap 11.0 BUN 15 Creatinine 0.9 Estimated GFR (MDRD) 104 Glucose 84 Calcium 9.2 Total Bilirubin 1.5 H AST 61 H ALT 88 H Alkaline Phosphatase 51 Total Protein 7.3 Albumin 4.5 Globulin 2.8 Albumin/Globulin Ratio 1.6 Lipase 19 L TSH 0.32 L Urine Color Urine Clarity Urine pH Ur Specific [place] Urine Protein Urine Glucose (UA) Urine Ketones Urine Occult Blood Urine Nitrite Urine Bilirubin Urine Urobilinogen Ur Leukocyte Esterase Ur Microscopic Review Urine Culture Comments Nasal Adenovirus (PCR) Nasal B. parapertussis DNA (PCR) Nasal Coronavir 229E PCR Nasal Coronavir HKU1 PCR Nasal Coronavir NL63 PCR Nasal Coronavir OC43 PCR Nasal Enterovir/Rhinovir PCR Nasal Influenza B PCR Nasal Influenza A PCR Nasal Parainfluen 1 PCR Nasal Parainfluen 2 PCR Nasal Parainfluen 3 PCR Nasal Parainfluen 4 PCR Nasal RSV (PCR) Nasal B.pertussis DNA PCR Nasal C.pneumoniae (PCR) Lucio Human Metapneumo PCR Nasal M.pneumoniae (PCR) Nasal SARS-CoV-2 (PCR) Salicylates Urine Opiates Screen Ur Oxycodone Screen Urine Methadone Screen Ur Propoxyphene Screen Acetaminophen Ur Barbiturates Screen Ur Tricyclics Screen Ur Phencyclidine Scrn Ur Amphetamine Screen U Methamphetamines Scrn U Benzodiazepines Scrn Urine Cocaine Screen U Cannabinoids Screen Ethyl Alcohol 09/06/21 09/06/21 09/06/21 12:05 13:06 13:29 WBC RBC Hgb Hct MCV MCH MCHC RDW Plt Count MPV Neut # (Auto) Lymph # (Auto) [place] # (Auto) Eos # (Auto) Baso # (Auto) Absolute Nucleated RBC Nucleated RBC % Sodium Potassium Chloride Carbon Dioxide Anion Gap BUN Creatinine Estimated GFR (MDRD) Glucose Calcium Total Bilirubin AST ALT Alkaline Phosphatase Total Protein Albumin Globulin Albumin/Globulin Ratio Lipase TSH Urine Color YELLOW Urine Clarity CLEAR Urine pH 6.0 Ur Specific [place] 1.010 Urine Protein NEGATIVE Urine Glucose (UA) NEGATIVE Urine Ketones 15 H Urine Occult Blood NEGATIVE Urine Nitrite NEGATIVE Urine Bilirubin NEGATIVE Urine Urobilinogen 0.2 (NORMAL) Ur Leukocyte Esterase NEGATIVE Ur Microscopic Review NOT INDICATED Urine Culture Comments NOT INDICATED Nasal Adenovirus (PCR) NOT DETECTED Nasal B. parapertussis DNA (PCR) NOT DETECTED Nasal Coronavir 229E PCR NOT DETECTED Nasal Coronavir HKU1 PCR NOT DETECTED Nasal Coronavir NL63 PCR NOT DETECTED Nasal Coronavir OC43 PCR NOT DETECTED Nasal Enterovir/Rhinovir PCR NOT DETECTED Nasal Influenza B PCR NOT DETECTED Nasal Influenza A PCR NOT DETECTED Nasal Parainfluen 1 PCR NOT DETECTED Nasal Parainfluen 2 PCR NOT DETECTED Nasal Parainfluen 3 PCR NOT DETECTED Nasal Parainfluen 4 PCR NOT DETECTED Nasal RSV (PCR) NOT DETECTED Nasal B.pertussis DNA PCR NOT DETECTED Nasal C.pneumoniae (PCR) NOT DETECTED Lucio Human Metapneumo PCR NOT DETECTED Nasal M.pneumoniae (PCR) NOT DETECTED Nasal SARS-CoV-2 (PCR) DETECTED A Salicylates < 6.0 Urine Opiates Screen POSITIVE H Ur Oxycodone Screen NEGATIVE Urine Methadone Screen NEGATIVE Ur Propoxyphene Screen NEGATIVE Acetaminophen < 10 L Ur Barbiturates Screen NEGATIVE Ur Tricyclics Screen NEGATIVE Ur Phencyclidine Scrn NEGATIVE Ur Amphetamine Screen NEGATIVE U Methamphetamines Scrn POSITIVE H U Benzodiazepines Scrn NEGATIVE Urine Cocaine Screen NEGATIVE U Cannabinoids Screen POSITIVE H Ethyl Alcohol < 5.0 PD MEDICAL DECISION MAKING - ED course ED course: 26-year-old gentleman presents with narcotic withdrawal. He was administered some IV buprenorphine here with good results of his symptoms and passed a p.o. challenge. He was found to be positive for COVID, limiting his options for detox and the social sciences professor tells me there are no detox beds, COVID or not available in the area. Patient seemed happy enough to be able to go home with medications and understands the need to self quarantine. Departure - Departure Disposition: Home, Self Care Clinical Impression: Narcotic withdrawal, COVID-19 Condition: Good Record reviewed to determine appropriate education?: Yes Instructions: ED Narcotic Abuse Prescriptions: LORazepam [Ativan] 1 mg PO TID PRN #10 tablet PRN Reason: Anxiety Loperamide [Imodium] 2 mg PO QID PRN #10 cap PRN Reason: Diarrhea Ondansetron Odt [Zofran] 4 mg TL Q6H PRN #10 tablet PRN Reason: Nausea / Vomiting Comments: I sent prescriptions electronically to [facility] in [place]. As discussed since you have COVID, someone else will need to go to the pharmacy to get the medications for you for the symptomatic relief of narcotic withdrawal. Need to quarantine at home for the next 10 days, do not leave the house, do not get near anybody. Return for new or worsening symptoms. Use the instructions and resources given to you by the social sciences professor to aid in your recovery.
[2021-09-06 12:49] LABS: ACETAMINOPHEN < 10 ug/mL (10-30); ETOH - ETHANOL < 5.0 mg/dL; SALICYLATE < 6.0 mg/dL
[2021-09-06] MEDS: BUPRENORPHINE 0.3 MG/ML VIAL IVP ONE (13:08)
[2021-09-06 13:33] LABS: MUDS CUTOFF CONCENTRATIONS CUTOFF CONC BELOW:
[2021-09-06 13:35] LABS: BILIRUBIN,URINE NEGATIVE (NEGATIVE); GLUCOSE, URINE (UA) NEGATIVE (NEGATIVE); KETONES,URINE (UA) 15 mg/dL (NEGATIVE); LEUKOCYTE ESTERASE, URINE NEGATIVE (NEGATIVE); NITRITE,URINE NEGATIVE (NEGATIVE); OCCULT BLOOD,URINE NEGATIVE (NEGATIVE); PROTEIN,URINE NEGATIVE (NEGATIVE); UROBILINOGEN,URINE 0.2 (NORMAL) E.U./dL (NORMAL)
[2021-09-06 13:39] LABS: CLARITY,URINE CLEAR (CLEAR)
[2021-09-06 13:45] LABS: AMPHETAMINE SCREEN,URINE NEGATIVE (NEGATIVE); BARBITURATE SCREEN,UR NEGATIVE (NEGATIVE); BENZODIAZEPINES SCREEN, URINE NEGATIVE (NEGATIVE); COCAINE SCREEN URINE NEGATIVE (NEGATIVE); METHADONE SCREEN, URINE NEGATIVE (NEGATIVE); METHAMPHETAMINES SCREEN, URINE POSITIVE (NEGATIVE); OPIATE SCREEN, URINE POSITIVE (NEGATIVE); OXYCODONE SCREEN, URINE NEGATIVE (NEGATIVE); PROPOXYPHENE SCREEN, URINE NEGATIVE (NEGATIVE); THC CANNABINOID SCREEN, URINE POSITIVE (NEGATIVE); TRICYCLIC ANTIDEPRESSANT,URINE NEGATIVE (NEGATIVE)
[2021-09-06 14:08] LABS: CORONAVIRUS 229E-RESP PCR NOT DETECTED; CORONAVIRUS HKU1-RESP PCR NOT DETECTED; CORONAVIRUS NL63-RESP PCR NOT DETECTED; CORONAVIRUS OC43-RESP PCR NOT DETECTED
[2021-09-06 14:09] LABS: B. PARAPERTUSSIS- RESP PCR PAN NOT DETECTED; B. PERTUSSIS- RESP PCR PANEL NOT DETECTED; C. PNEUMONIAE- RESP PCR PANEL NOT DETECTED; HUMAN METAPNEUMOVIRUS NOT DETECTED; INFLUENZA A- RESP PCR PANEL NOT DETECTED; INFLUENZA B - RESP PCR PANEL NOT DETECTED; M. PNEUMONIAE- RESP PCR PANEL NOT DETECTED; PARAINFLUENZA VIRUS 1 NOT DETECTED; PARAINFLUENZA VIRUS 2 NOT DETECTED; PARAINFLUENZA VIRUS 3 NOT DETECTED; PARAINFLUENZA VIRUS 4 NOT DETECTED; RHINOVIRUS/ENTEROVIRUS NOT DETECTED; RSV- RESP PCR PANEL NOT DETECTED; SARS-CoV-2 -RESP PCR PANEL DETECTED
[2021-09-06 14:13] VITALS: BP 121/66
== END 2021-09-06 14:57 | disposition home or self-care (01) ==
LOC: EDUNIT# → ED 11:49
DX: F11.93 Opioid use, unspecified with withdrawal (principal); F15.93 Other stimulant use, unspecified with withdrawal; U07.1 COVID-19; F17.200 Nicotine dependence, unspecified, uncomplicated
CPT/HCPCS: 36415; 80053; 80306; 80307; 81003; 83690; 84443; 85025; 87631; 96374; 99283; 99284; G0480; J0592; 0202U; 80320; 80329; 81001; 87086

== ENCOUNTER 2022-04-02 00:34 | Outpatient (CLI) | payer MEDICARE, MEDICAID | END 2022-04-02 00:35 | disposition critical access hospital (66) | LOC: EMS 00:34 | DX: R07.9 Chest pain, unspecified (principal); R06.4 Hyperventilation; R10.13 Epigastric pain; R10.11 Right upper quadrant pain; R10.12 Left upper quadrant pain; R42 Dizziness and giddiness; R55 Syncope and collapse; R29.0 Tetany; R39.89 Other symptoms and signs involving the genitourinary system; R05.9 Cough, unspecified | CPT/HCPCS: A0425; A0427 ==

== ENCOUNTER 2022-04-02 00:52 | Emergency (ER) | payer MEDICARE, MEDICAID ==
--- NOTE | 2022-04-02 01:05 | ED Physician Documentation ---
PD HPI ABD PAIN - Stated complaint Stated Complaint: CP/ABD PX - Chief complaint Chief Complaint: Cardiac - History obtained from History obtained from: Patient, EMS - History of Present Illness Timing - onset: How many days ago (2) Timing - duration: Days (2) Timing - details: Gradual onset, Still present, Waxing and waning Quality: Cramping, Aching, Pain Location: Epigastric Radiation: Chest Improved by: No: Laying still Worsened by: Eating, Breathing. No: Palpation Associated symptoms: Nausea, Vomiting. No: Fever, Hematemesis, Diarrhea, Constipation, Dysuria Similar symptoms before: No diagnosis (history of anxiety and chest pains, but also asthma with recent cough. Has had upper abd pains with nausea though possible related to cannibis or withdrawal of alcohol.) Recently seen: Not recently seen Review of Systems Constitutional: denies: Fever, Chills Nose: denies: Rhinorrhea / runny nose, Congestion Cardiac: reports: Chest pain / pressure (pleuritic left anterior chest). denies: Palpitations, Pedal edema, Calf pain Respiratory: reports: Dyspnea, Cough, Wheezing GI: reports: Abdominal Pain, Nausea, Vomiting. denies: Constipation, Diarrhea, Hematemesis Skin: denies: Rash Neurologic: reports: Generalized weakness, Near syncope. denies: Syncope, Headache Psychiatric: reports: Anxiety, Insomnia. denies: Depressed, Suicidal Endocrine: reports: Weight loss (several pounds this past week). denies: Weight gain Immunocompromised: denies: Immunocompromised PD PAST MEDICAL HISTORY - Past Medical History Cardiovascular: None Respiratory: Asthma Neuro: None Endocrine/Autoimmune: None GI: Hepatitis : None HEENT: None Psych: Depression, Anxiety, Bipolar disorder, Post traumatic stress disorder Musculoskeletal: Chronic back pain Derm: None - Past Surgical History Past Surgical History: Yes General: Other - Present Medications Home Medications: Ambulatory Orders Medication Instructions Recorded Confirmed Pantoprazole [Protonix] 40 mg PO DAILY 30 Days #30 tablet 04/02/22 Promethazine [Phenergan] 25 mg PO Q6H PRN #20 tab 04/02/22 dexAMETHasone [Decadron] 4 mg PO DAILY #5 tablet 04/02/22 traZODone [Desyrel] 50 mg PO HS PRN #10 tablet 04/02/22 - Allergies Allergies/Adverse Reactions: Allergies Allergy/AdvReac Type Severity Reaction Status Date / Time divalproex sodium Allergy Anaphylaxis Verified 04/02/22 02:07 [From Depakote] lithium Allergy Anaphylaxis Verified 04/02/22 02:07 - Social History Does the pt smoke?: Yes Smoking Status: Current every day smoker Does the pt drink ETOH?: Yes Does the pt have substance abuse?: Yes - Immunizations Immunizations are current?: Yes Immunizations: TDAP current <10years - POLST Patient has POLST: No POLST Status: Full Code PD ED PE NORMAL - Vitals Vital signs reviewed: Yes - General General: Alert and oriented X 3, Well developed/nourished - HEENT HEENT: Ears normal, Moist mucous membranes, Pharynx benign - Neck Neck: Supple, no meningeal sign, No adenopathy - Cardiac Cardiac: RRR, No murmur - Respiratory Respiratory: Clear bilaterally - Abdomen Abdomen: Normal bowel sounds, Soft, Non distended, No organomegaly, Other (tender upper abd midline. Not particularly tender RUQ. There is some general guarding. ) - Back Back: No CVA TTP - Derm Derm: Normal color, Warm and dry - Extremities Extremities: Normal ROM s pain, No edema, No calf tenderness / cord - Neuro Neuro: Alert and oriented X 3, No motor deficit, Normal speech - Psych Psych: No: Normal affect (very anxious) Results - Vitals Vitals: Vital Signs - 24 hr 04/02/22 04/02/22 04/02/22 00:59 02:37 03:34 Temperature 37 C 36.8 C Heart Rate 63 52 L 88 Respiratory 19 16 18 Rate Blood Pressure 129/82 H 107/49 L 117/66 O2 Saturation 99 98 99 Oxygen O2 Source Room air - EKG (time done) 01:13 Rate: Rate (enter#) (56) Rhythm: NSR [place]: Normal Intervals: Normal [place] QRS: Normal Ischemia: Normal ST segments, ST elevation c/w repol. No: ST elevation c/w ischemia, ST depression - Labs Labs: Laboratory Tests 04/02/22 04/02/22 04/02/22 01:14 01:14 01:14 WBC 7.7 RBC 5.17 Hgb 15.5 Hct 44.1 MCV 85.3 MCH 30.0 MCHC 35.1 RDW 12.9 Plt Count 292 MPV 9.9 Neut # (Auto) 3.4 Lymph # (Auto) 3.1 [place] # (Auto) 1.1 H Eos # (Auto) 0.1 Baso # (Auto) 0.0 Absolute Nucleated RBC 0.00 Nucleated RBC % 0.0 Sodium 138 Potassium 3.6 Chloride 106 Carbon Dioxide 20 L Anion Gap 12.0 BUN 20 Creatinine 0.9 Estimated GFR (MDRD) 104 Glucose 91 Calcium 10.1 Total Bilirubin 1.3 H AST 36 ALT 58 Alkaline Phosphatase 54 Total Protein 7.9 Albumin 4.8 Globulin 3.1 Albumin/Globulin Ratio 1.5 Lipase 29 TSH 1.31 Salicylates < 6.0 Acetaminophen < 10 L Ethyl Alcohol < 5.0 SARS-CoV-2 (PCR) 04/02/22 01:29 WBC RBC Hgb Hct MCV MCH MCHC RDW Plt Count MPV Neut # (Auto) Lymph # (Auto) [place] # (Auto) Eos # (Auto) Baso # (Auto) Absolute Nucleated RBC Nucleated RBC % Sodium Potassium Chloride Carbon Dioxide Anion Gap BUN Creatinine Estimated GFR (MDRD) Glucose Calcium Total Bilirubin AST ALT Alkaline Phosphatase Total Protein Albumin Globulin Albumin/Globulin Ratio Lipase TSH Salicylates Acetaminophen Ethyl Alcohol SARS-CoV-2 (PCR) NOT DETECTED - Rads (name of study) chest xray Radiology: Prelim report reviewed (no acute process), See rad report PD MEDICAL DECISION MAKING - ED course Complexity details: reviewed results, re-evaluated patient (much improved with IV fluids, inapsine antiemetic, hydromoprhone 1 mg and Toradol for pain. ), considered differential (Constellation of symptoms with chest pain, cough, dyspnea no seems related to recent COVID with persisting cough and exacerbation of asthma. Also upper abdominal pain worse with eating. Normal labs. Seems likely gastritis or ulcer. Also anxiety and insomnia.), d/w patient ED course: he is feeling improved and rested couple of hours. More relaxed. He called friend for a ride, who will pick him up in the lobby. Requested discharge. Departure - Departure Disposition: 01 Home, Self Care Clinical Impression: Persistent cough, Exacerbation of asthma, Upper abdominal pain, Insomnia, Anxiety Condition: Stable Record reviewed to determine appropriate education?: Yes Prescriptions: dexAMETHasone [Decadron] 4 mg PO DAILY #5 tablet traZODone [Desyrel] 50 mg PO HS PRN #10 tablet PRN Reason: Insomnia Promethazine [Phenergan] 25 mg PO Q6H PRN #20 tab PRN Reason: Nausea / Vomiting Pantoprazole [Protonix] 40 mg PO DAILY 30 Days #30 tablet Comments: Your chest x-ray is clear without any signs of pneumonia and or collapsed lung. Your COVID test is negative. Presume you are still having some persistent inflammation related to the recent COVID and cough. This is likely exacerbated in your asthma. And you may be having some chest wall inflammation. The abdominal pain likely is a gastritis or ulcer type pain. No signs of inflammation of your liver or pancreas based on blood tests. I would suggest some acid reducing medicine such as omeprazole or pantoprazole daily for the next several days to several weeks to a month. You can also add antacid such as Maalox or Mylanta. Add Tylenol if needed for pains. Continue with your albuterol inhaler and add Decadron steroid daily for 5 more days to help with the cough and breathing. Add promethazine/Phenergan if needed for nausea. Trazodone at night if needed for sleep just episodically and not necessarily every night as this did not make you feel good in the past to take it nightly.
[2022-04-02] MEDS ORDERED: KETOROLAC 15 MG/ML VIAL IVP STA (01:07)
[2022-04-02] MEDS ORDERED: SODIUM CHLORIDE 0.9% 1,000 ML IV STA (01:07)
[2022-04-02] MEDS ORDERED: HYDROmorphone 1 MG/ML CARPUJECT IVP STA (01:07)
[2022-04-02] MEDS ORDERED: DROPERIDOL 5 MG/2 ML VIAL IVP STA (01:08)
[2022-04-02 01:19] LABS: BASOPHILS % (AUTO) 0.5 %; EOSINOPHILS # (AUTO) 0.1 10^3/uL (0.0-0.7); HCT - HEMATOCRIT 44.1 % (42.0-52.0); HGB - HEMOGLOBIN 15.5 g/dL (14.0-18.0); LYMPHOCYTES # (AUTO) 3.1 10^3/uL (1.5-3.5); LYMPHOCYTES % (AUTO) 40.4 %; MEAN CORPUSCULAR HGB CONC 35.1 g/dL (32.0-36.0); MEAN CORPUSCULAR VOLUME 85.3 fL (80.0-94.0); MEAN PLATELET VOLUME 9.9 fL (7.4-11.4); MONOCYTES # (AUTO) 1.1 10^3/uL (0.0-1.0); MONOCYTES % (AUTO) 14.1 %; NEUTROPHILS # (AUTO) 3.4 10^3/uL (1.5-6.6); NEUTROPHILS % (AUTO) 43.9 %; PLT - PLATELET COUNT 292 10^3/uL (130-450); RED BLOOD COUNT 5.17 10^6/uL (4.70-6.10); RED CELL DISTRIBUTION WIDTH 12.9 % (12.0-15.0); WHITE BLOOD COUNT 7.7 x10^3/uL (4.8-10.8)
[2022-04-02 01:36] LABS: ACETAMINOPHEN < 10 ug/mL (10-30); ALBUMIN 4.8 g/dL (3.2-5.5); ALBUMIN/GLOBULIN RATIO 1.5 (1.0-2.2); ALKALINE PHOSPHATASE 54 IU/L (42-121); ALT ALANINE AMINOTRANSFERASE 58 IU/L (10-60); AST ASPARTATE AMINOTRANSFERASE 36 IU/L (10-42); BILIRUBIN,TOTAL 1.3 mg/dL (0.2-1.0); BUN - BLOOD UREA NITROGEN 20 mg/dL (6-20); CALCIUM 10.1 mg/dL (8.5-10.3); CARBON DIOXIDE - CO2 20 mmol/L (21-32); CHLORIDE 106 mmol/L (101-111); CREATININE 0.9 mg/dL (0.6-1.2); ETOH - ETHANOL < 5.0 mg/dL; GFR - MDRD 104 (>89); GLUCOSE 91 mg/dL (70-100); LIPASE 29 U/L (22-51); POTASSIUM 3.6 mmol/L (3.5-5.0); SALICYLATE < 6.0 mg/dL; SODIUM 138 mmol/L (135-145); TOTAL PROTEIN 7.9 g/dL (6.7-8.2)
--- NOTE | 2022-04-02 01:44 | XRAY Report ---
PROCEDURE: Chest 1 View X-Ray INDICATIONS: chest pain TECHNIQUE: One view of the chest was acquired. COMPARISON: 02/07/2021 FINDINGS: Surgical changes and devices: None. Lungs and pleura: No pleural effusions or pneumothorax. Lungs are clear. Mediastinum: Mediastinal contours appear normal. Heart size is normal. Bones and chest wall: No suspicious bony lesions. Overlying soft tissues appear unremarkable. IMPRESSION: No acute cardiopulmonary disease. Reviewed by: An Stuart MD on 04/02/2022 1:42 AM PDT Approved by: An Stuart MD on 04/02/2022 1:42 AM PDT Station ID: [id number]
[2022-04-02 03:35] VITALS: BP 117/66
== END 2022-04-02 03:34 | disposition home or self-care (01) ==
LOC: EDUNIT# → EDSEX → ED 00:52
DX: R05.3 Chronic cough (principal); J45.901 Unspecified asthma with (acute) exacerbation; R10.13 Epigastric pain; G47.00 Insomnia, unspecified; F41.9 Anxiety disorder, unspecified; F17.200 Nicotine dependence, unspecified, uncomplicated; Z20.822 Contact with and (suspected) exposure to COVID-19
CPT/HCPCS: 36415; 71045; 80053; 80307; 83690; 84443; 85025; 87635; 93005; 96374; 96375; 99284; G0480; J1170; 80320; 80329

== ENCOUNTER 2022-05-29 13:25 | Emergency (ER) | payer MEDICARE, MEDICAID ==
[2022-05-29 13:34] VITALS: BP 135/93
--- NOTE | 2022-05-29 14:00 | ED Physician Documentation ---
History of Present Illness - Stated complaint Stated Complaint: R THUMB LAC - Chief complaint Chief Complaint: Laceration - History obtained from History obtained from: Patient - History of Present Illness Timing: Today Pain level max: 2 Pain level now: 2 - Additonal information Additional information: R thumb laceration from broke glass today. Patient is right-handed. Tetanus up-to-date. Better with pressure, nothing makes it worse. Review of Systems Constitutional: denies: Fever, Chills GI: denies: Vomiting PD PAST MEDICAL HISTORY - Past Medical History Cardiovascular: None Respiratory: Asthma Neuro: None Endocrine/Autoimmune: None GI: Hepatitis : None HEENT: None Psych: Depression, Anxiety, Bipolar disorder, Post traumatic stress disorder Musculoskeletal: Chronic back pain Derm: None - Past Surgical History Past Surgical History: Yes General: Other - Present Medications Home Medications: Ambulatory Orders Medication Instructions Recorded Confirmed Pantoprazole [Protonix] 40 mg PO DAILY 30 Days #30 tablet 04/02/22 Promethazine [Phenergan] 25 mg PO Q6H PRN #20 tab 04/02/22 dexAMETHasone [Decadron] 4 mg PO DAILY #5 tablet 04/02/22 traZODone [Desyrel] 50 mg PO HS PRN #10 tablet 04/02/22 - Allergies Allergies/Adverse Reactions: Allergies Allergy/AdvReac Type Severity Reaction Status Date / Time divalproex sodium Allergy Anaphylaxis Verified 05/29/22 13:34 [From Depakote] lithium Allergy Anaphylaxis Verified 05/29/22 13:34 - Social History Does the pt smoke?: Yes Smoking Status: Current every day smoker Does the pt drink ETOH?: Yes Does the pt have substance abuse?: Yes - Immunizations Immunizations are current?: Yes Immunizations: TDAP current <10years - POLST Patient has POLST: No POLST Status: Full Code PD ED PE NORMAL - Vitals Vital signs reviewed: Yes - General General: Alert and oriented X 3, No acute distress - Derm Derm: Warm and dry - Extremities Extremities: Other (R thumb - superficial laceration to the pad of the R thumb. NVI.) - Neuro Neuro: Alert and oriented X 3 Results - Vitals Vitals: Vital Signs - 24 hr 05/29/22 13:32 Temperature 36.9 C Heart Rate 108 H Respiratory 18 Rate Blood Pressure 135/93 H O2 Saturation 98 Oxygen O2 Source Room air Procedures - Laceration (location) R thumb Length in cm: 1.5 Wound type: Linear, Superficial Neurovascular status: Sensory intact, Motor intact, Vascular intact Wound preparation: Chlorhexadine, Irrigated copiously NS Skin layer closure: Dermabond Other: Patient tolerated well, No complications, Neurovascular intact, Dressing applied, Tetanus UTD PD MEDICAL DECISION MAKING - ED course Complexity details: considered differential, d/w patient ED course: The wound was cleansed and irrigated. Td UTD. Closed with dermabond. Patient counseled regarding signs and symptoms for which I believe and urgent re- evaluation would be necessary. Patient with good understanding of and agreement to plan and is comfortable going home at this time This document was made in part using voice recognition software. While efforts a re made to proofread this document, sound alike and grammatical errors may occur. Departure - Departure Disposition: 01 Home, Self Care Clinical Impression: Finger laceration Qualifiers: Encounter type: initial encounter Finger: thumb Damage to nail status: without damage Foreign body presence: without foreign body Laterality: right Qualified Code(s): S61.011A - Laceration without foreign body of right thumb without damage to nail, initial encounter Condition: Good Instructions: ED Laceration Ext Skin Glue Follow-Up: your,doctor as needed [Other] Comments: Please follow up with your doctor for further care as needed. Return for redness, swelling or drainage from the wound. Do not apply ointment as this may dissolve the glue
== END 2022-05-29 14:15 | disposition home or self-care (01) ==
LOC: ED 13:25
DX: S61.011A Laceration without foreign body of right thumb without damage to nail, initial encounter (principal); W25.XXXA Contact with sharp glass, initial encounter; F17.200 Nicotine dependence, unspecified, uncomplicated
CPT/HCPCS: 12001; 99282

== ENCOUNTER 2022-07-13 01:01 | Outpatient (CLI) | payer MEDICARE, MEDICAID | END 2022-07-13 01:02 | disposition critical access hospital (66) | LOC: EMS 01:01 | DX: S00.212A Abrasion of left eyelid and periocular area, initial encounter (principal); H54.62 Unqualified visual loss, left eye, normal vision right eye; R51.9 Headache, unspecified; R11.0 Nausea; W22.8XXA Striking against or struck by other objects, initial encounter; Y93.89 Activity, other specified | CPT/HCPCS: A0425; A0427; A0999 ==

== ENCOUNTER 2022-07-13 01:20 | Emergency (ER) | payer MEDICARE, MEDICAID ==
--- NOTE | 2022-07-13 01:18 | ED Physician Documentation ---
PD HPI HEAD INJURY - Stated complaint Stated Complaint: LAC L EYE/ETOH - History obtained from History obtained from: Patient - History of Present Illness Mechanism of head injury: Blow Where head injury occurred: A house / apartment Timing - onset: Enter time (3-4 hours KNITTER HAND) Pain level now: 3 Quality of pain: Pain, Throbbing, Aching Associated symptoms: No: LOC, AMS, Amnesia, Nausea / vomiting, Neck pain, Paresthesias, Seizures, Ear drainage, Nasal drainage Contributing factors: Intoxicated. No: Anticoagulated Recently seen: Not recently seen - Additional information Additional information: BIBA. Approximately 3-4 hours KNITTER HAND, patient was trying to catch a dog that had run away from the house. At one point the dog was under a bench and patient reached forward to grab the dog, lost his balance and struck the wood/metal bench with is face, c/o facial pain and generalized headache, left eye blurry vision. Sustained superficial abrasion to right side of face. Denies n/v. He waited a few hours to call 911 because he did not feel his injury needed medical attention, but eventually the facial pain and headache worsened and thus called 911 Review of Systems Eyes: reports: Decreased vision (left eye blurry vision). denies: Loss of vision, Photophobia Ears: denies: Tinnitus/ringing Nose: reports: Other Throat: denies: Dental pain / toothache, Oral lesions / sores GI: denies: Nausea, Vomiting Skin: reports: Abrasion (s) Musculoskeletal: reports: Reviewed and negative Neurologic: reports: Headache, Head injury. denies: Generalized weakness, Focal weakness, Numbness, Confused, Altered mental status, LOC PD PAST MEDICAL HISTORY - Past Medical History Past Medical History: No - Present Medications Home Medications: Ambulatory Orders Medication Instructions Recorded Confirmed Pantoprazole [Protonix] 40 mg PO DAILY 30 Days #30 tablet 04/02/22 Promethazine [Phenergan] 25 mg PO Q6H PRN #20 tab 04/02/22 dexAMETHasone [Decadron] 4 mg PO DAILY #5 tablet 04/02/22 traZODone [Desyrel] 50 mg PO HS PRN #10 tablet 04/02/22 - Allergies Allergies/Adverse Reactions: Allergies Allergy/AdvReac Type Severity Reaction Status Date / Time divalproex sodium Allergy Anaphylaxis Verified 05/29/22 13:34 [From Depakote] lithium Allergy Anaphylaxis Verified 05/29/22 13:34 PD ED PE NORMAL - Vitals Vital signs reviewed: Yes - General General: Alert and oriented X 3, No acute distress, Well developed/nourished - HEENT HEENT: PERRL, EOMI, Other (mild left periorbial edema, mild/moderate left zygomatic arch edema with mild echymosis, moderate TTP. ) - Neck Neck: Other (mild midline posterior neck/cervical TTP without step-off deformity or crepitus; cervical collar placed at this point in exam) - Cardiac Cardiac: RRR, No murmur - Respiratory Respiratory: No respiratory distress, Clear bilaterally - Extremities Extremities: No: No deformity, No tenderness to palpate, Normal ROM s pain, No edema, No calf tenderness / cord - Neuro Neuro: Alert and oriented X 3, bootmaker hand 2-12 intact, No motor deficit, No sensory deficit, Normal speech Eye Opening: Spontaneous Motor: Obeys Commands Verbal: Oriented GCS Score: 15 PD ED PE EXPANDED - HEENT HEENT Visual: 1 - abrasion, swelling, tenderness Results - Vitals Vitals: Oxygen O2 Source Room air - Rads (name of study) CTH Radiology: Prelim report reviewed, See rad report CT facial bones Radiology: Prelim report reviewed, See rad report CT cervical spine Radiology: Prelim report reviewed, See rad report PD MEDICAL DECISION MAKING - ED course Complexity details: reviewed results, re-evaluated patient, considered differential, d/w patient ED course: no concerning findings on CT scans (head, neck, facial bones). Material in left maxillary sinus is not unexpected given location of injury, but no fracture demonstrated. He has EOMI, c/o left eye blurry vision. Retinal exam (using panophthalmoscope) is normal (left eye examined; no c/o right eye). the anterior chamber is clear (no hyphema), PERRL. No evidence of lens dislocation nor globe penetration. By patient report, his blurred vision improved significantly during ED stay and was nearly resolved prior to d/c. Advised to follow up with PMD for reevaluation; would benefit from ophthalmology referral if he continues to have visual changes. He declines analgesics, both in ED as well as take-home/rx. Departure - Departure Disposition: 01 Home, Self Care Clinical Impression: Head injury Qualifiers: Encounter type: initial encounter Qualified Code(s): S09.90XA - Unspecified injury of head, initial encounter Condition: Good Instructions: ED Head Injury Closed Sleep Mon Follow-Up: Ilir Sheikh MD [Provider Admit Priv/Credential] - Comments: There were no concerning findings on the CT scans (head, neck, and facial bones). There was some fluid in the left maxillary sinus cavity (the sinus below your left eye), which is not surprising given the location of your injury: there are no fractures of the sinus, but the fluid is probably some blood in the sinus from the injury. Either way, this fluid/blood will either slowly drain out (either out the nose or down the back of the throat) or else reabsorb. If you have ongoing visual changes such as double or blurry vision, you need to be reevaluated, ideally by an eye doctor (traffic law attorney). You can try [facility] (as you have indicated). Otherwise, try to make the soonest available appointment with your general practitioner for reevaluation and possible referral to a specialist. Forms: Activity restrictions Discharge Date/Time: 07/13/22 05:43
[2022-07-13 05:44] VITALS: BP 123/51
--- NOTE | 2022-07-13 09:24 | CT Report ---
PROCEDURE: CERVICAL SPINE WO INDICATIONS: head injury, neck pain TECHNIQUE: Noncontrast 3 mm thick sections acquired from the skull base to the T4 level. Sagittal and coronal r eformats were then constructed. For radiation dose reduction, the following was used: automated exp osure control, adjustment of mA and/or kV according to patient size. COMPARISON: None. FINDINGS: Image quality: Excellent. Bones: No fractures or dislocations. Visualized superior ribs are intact. Soft tissues: Prevertebral soft tissues are normal in thickness. No paravertebral hematomas. No ap ical pneumothoraces. IMPRESSION: No cervical spine fracture. No significant discrepancy with the preliminary interpretation. Reviewed by: Kvng Corona MD on 07/13/2022 9:23 AM PST Approved by: Kvng Corona MD on 07/13/2022 9:23 AM [facility] Station ID: [id number]
--- NOTE | 2022-07-13 09:45 | CT Report ---
PROCEDURE: MAXILLOFACIAL WO INDICATIONS: head and face injury, left facial pain and headach TECHNIQUE: Noncontrast 1.5 mm thick axial images acquired from the mandible through the frontal sinuses, with co lenny and sagittal reformatting. For radiation dose reduction, the following was used: automated ex posure control, adjustment of mA and/or kV according to patient size. COMPARISON: CT head without, 02/07/2021. FINDINGS: Image quality: Excellent. Bones and teeth: Orbital mcelroy are intact. Sinus mcelroy show no fracture or deformity. Nasal bones and septum are intact. Visualized portions of the mandible demonstrate no fractures or subluxation. Zygomatic arches are intact. Pterygoid plates are intact. Visualized portions of the skull base an d auditory canals are intact. Sinuses: There is left maxillary sinus mucosal thickening. Mastoid air cells are aerated. Soft tissues: No edema, masses, or fluid collections. No enlarged lymph nodes. No soft tissue lace rations or debris. Vascular: Visualized vascular structures appear normal in the absence of contrast. Bony vascular fo ramina and canals are intact. IMPRESSION: 1. No facial bone fractures. 2. Left maxillary sinusitis. No significant discrepancy with the preliminary interpretation. Reviewed by: Kvng Corona MD on 07/13/2022 9:43 AM [facility] Approved by: Kvng Corona MD on 07/13/2022 9:43 AM PST Station ID: [id number]
--- NOTE | 2022-07-13 11:04 | CT Report ---
PROCEDURE: HEAD WO INDICATIONS: head injury, headache TECHNIQUE: Noncontrast 4.5 mm thick angled axial sections acquired from the foramen magnum to the vertex. For r adiation dose reduction, the following was used: automated exposure control, adjustment of mA and/or kV according to patient size. COMPARISON: CT head without, 02/07/2021 and 08/19/2020. FINDINGS: Image quality: Excellent. CSF spaces: Basal cisterns are patent. No extra-axial fluid collections. Ventricles are normal in size and shape. Brain: There is a 1 cm hypodensity in the right frontal lobe, which was present on the examinations more conspicuous and cystic in appearance on the current exam. Possible Chiari I malformation. No mid line shift. No intracranial masses or hemorrhage. Lea-white matter interface is normal. Skull and face: Calvarium and visualized facial bones are intact, without suspicious lesions. Sinuses: Visualized sinuses and mastoids are clear. IMPRESSION: 1. No acute intracranial abnormality. No intracranial bleed or skull fractures. 2. A 1 cm hypodensity in the right frontal lobe, image was present in 2020. Recommend MRI for follow- up evaluation. 3. 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 No significant discrepancy with the preliminary interpretation. The result was discussed with Dr. Kathy olsen. Reviewed by: Kvng Corona MD on 07/13/2022 11:02 AM [facility] Approved by: Kvng Corona MD on 07/13/2022 11:02 AM PST Station ID: [id number]
== END 2022-07-13 05:43 | disposition home or self-care (01) ==
LOC: EDUNIT# → ED 01:20
DX: S01.21XA Laceration without foreign body of nose, initial encounter (principal); X58.XXXA Exposure to other specified factors, initial encounter
CPT/HCPCS: 99282; 99284

== ENCOUNTER 2022-08-23 08:00 | Outpatient (CLI) | payer MEDICARE, MEDICAID | END 2022-08-23 23:59 | disposition home or self-care (01) | LOC: LAB.N 08:00 | PROVIDERS: ATTEND Nurse Practitioner | DX: Z86.39 Personal history of other endocrine, nutritional and metabolic disease (principal) | CPT/HCPCS: 82962 ==